=== PATIENT | female | born 1955 | race Caucasian/White ===

== ENCOUNTER → 2017-11-21 13:55 | Outpatient (CLI) | payer SELFPAY, MEDICAID ==
--- NOTE | 2017-11-21 14:16 | VDLE_ITS ---
Reason For Study: Swelling LLE RIGHT LEFT CFV is compressible, spontaneous, phasic, GSV is normal. competent and demonstrates normal CFV is compressible, spontaneous, phasic, augmentation. competent, and demonstrates normal Procedure augmentation. Exam performed in department. FV is compressible, spontaneous, phasic, A preliminary report was called and/or faxed competent and demonstrates normal to Dr. Paulson. augmentation. POP V is compressible, spontaneous, phasic, competent and demonstrates normal augmentation. T/P Trunk is compressible. PTV is compressible. LT PerV is compressible. Hypoechoic, non vascular structure noted Lt Pop Fossa measuring 0.73cm x 2.55cm. Interpretation Summary Deep veins of the left lower extremity are patent and compressible segmentally. There is no evidence of left lower extremity deep vein thrombosis. Valvular competence appears intact within the proximal deep venous system on the left . The left greater saphenous vein appears patent and compressible segmentally. A non-vascular, hypoechoic structure is noted in the left popliteal space, measuring 0.73 cm x 2.55 cm. This probably represents a popliteal cyst. Clinical correlation is advised. Ordering Physician: Héctor Paulson Referring Physician: Rolly Luciano Performed By: Gina Lemus RDCS, RVT
== END ==
PROVIDERS: Family Provider Family Medicine; PCP Family Medicine; Visit Provider Orthopaedic Surgery
DX: R22.42 Localized swelling, mass and lump, left lower limb (principal)
CPT/HCPCS: 93971

== ENCOUNTER → 2018-07-22 15:30 | Outpatient (CLI) | payer MEDICAID, SELFPAY ==
[2018-07-22 15:32] LABS: Bacteria 0 SEEN /hpf (None Seen); Mucous, Urine 0 SEEN /hpf (<or=2+); Red Blood Cells-Urine 0 SEEN /hpf (0-5); Squamous Epithelial Cells - UA 0 SEEN /hpf (5-10); White Blood Cells 0 SEEN /hpf (0-5)
[2018-07-22 15:43] LABS: Color, Urine Yellow (Yellow); Glucose, Dipstick Normal (Normal); Ketone-Dipstick Negative (Negative); Leukocyte Esterase-Dipstick 100 /ul (Negative); Nitrite-Dipstick Negative (Negative); Occult Blood-Urine 10 /ul (Negative); Protein-Dipstick Negative (Negative); Urine Bilirubin Dipstick Negative (Negative); Urine Clarity Clear (Clear); Urine Urobilinogen Normal (Normal)
== END ==
PROVIDERS: Family Provider Family Medicine; PCP Nurse Practitioner Family; Referring Provider Physician Assistant Medical; Visit Provider Physician Assistant Medical
DX: R10.9 Unspecified abdominal pain (principal)
CPT/HCPCS: 81001; 87086; 87088

== ENCOUNTER 2019-05-01 09:30 | Outpatient (RCR) | payer MEDICARE, OTHER, SELFPAY ==
--- NOTE | 2019-05-01 12:34 | HP.PTEVAL ---
Patient's Visit Information TONJA QUARLES is a 64 year old F referred to Physical Therapy by Diego Valera MD with a diagnosis of L knee OA and B hamstring tendonitis. Date of Evaluation: 04/10/19 Physical Therapist: Israel Phillip DPT - Visit Plan Frequency: 1-2x /Week Duration: 4-6 Weeks Plan: Start with quad/HS strengthening, glute strengtheing. ROM of L knee. HS stretching, eccentric HS strengthening. Add in foam rolling to reduce tissue tension. - Subjective Findings: Pt. ishere today for her initial evaluation with diagnosis of L knee OA and B hamstring tendonitis. Pt. reprots ahving increased L kne pain for years, but is steadily getting worse. Pt. reprots no N/T in either LE, but is having increased HS pain from gluteal region to distal knee. Pt. reports minimal pain with walkig on flat surface, but has increased pain with riding her bike, climbing hills and declines. Pt. also has increased pain with stair negotiation. Pt. did have an Xray showing OA of her L knee. Pt. reports mild pain at night especially at end ranges of motions. Pt. is hopeful to reduce symptoms in order to increase tolerance to all functuonal mobility and back to all recreational activiteis without limitations. - Pain L knee Pain Intensity (Out of 10): 3 Pain Intensity Range: 2, 6 B hamstrings Pain Intensity (Out of 10): 1 Pain Intensity Range: 0, 4 - Objective POSTURE: Pt. has increased L knee valgus with IR positioning (large amout of L kne valgus in stance). Pt. has normal positioning of R knee. PALPATION: Pt. has mild tenderness at medial and lateral jjoint line of L knee, distal and proxmila HS tenderness of B Hs. Distal worse on the R than L. Pt. has minimal joit effusion of L knee. NEURO: normal throughout bilateral LEs. ROM: L knee 0-5-121deg. R knee 0-0-128deg. Tight bilateral HS with icnreased proximal tendon pain. MMT: RLE 5-/5 throughout; except hip abd 4/5, hip ext 4/5, hip ER 4/5. LLE- ankle 5/5 throughout; knee-ext 4+/5, flexion 4+/5; hip- flexion 4/5, adb 4/5, ext 4/5, ER 4/5. GAIT: Pt. ambulates without AD. Pt. does have increased L knee valgus positioning with stance phase. Worse with standing and stair negotion with laoding of LLE. Normal R knee positioning. - Goals Goal 1:: Pt. to be I with HEP. Goal Time Frame: 4-6 Weeks Goal 2:: Pt. to have increased L knee ext to 0deg. Goal Time Frame: 4-6 Weeks Goal 3:: Pt. to have increased BLE strength by 1/2 grade of all effected musculature. Goal Time Frame: 4-6 Weeks Goal 4:: Pt. ambulate on level and uneven surfaces without increase insymptoms. Goal Time Frame: 4-6 Weeks Goal 5:: Pt. to sleep throughout the night without incerase in symptoms. Goal Time Frame: 4-6 Weeks - Rehabilitation Potential Physical Therapy Diagnosis: Pt. has signs and symptoms consistent with L knee OA with icnreased valgus positoning and B hamstrin tendonitis. Rehabilitation Potential: Fair - Anticipated Interventions Patient/Client Instruction: Educate patient on: Condition, Plan of Care, Risk Factors, Benefits of Fitness Program For the Purpose of:: To facilitate caregiver knowledge, To improve self management, To prevent re-injury, To improve ability to perform tasks related to life management, To improve tolerance to ADL's Therapeutic Exercise to Include: Strength training, Power training, Endurance training, Balance training, Postural training, Flexibilty training, Gait and locomotor training, Passive ROM, Active ROM For the Purpose of:: To decrease pain, To decrease swelling/inflammation, To increase ROM, To improve nutrient delivery to tissue, To increase oxygenation perfusion, To improve muscle performance and motor function Manual Therapy Techniques to Include: Mobilization, Soft tissue mobilization For the Purpose of:: To decrease pain, To decrease swelling/inflammation, To increase ROM, To improve nutrient delivery to tissue Thank you for the opportunity to evaluate your patient. For Medicare and Medicare HMO plans, please review the plan of care and approve it. It will need to be FAXED BACK to us at [phone] for Medicare purposes. For Medicare only, by signing this I certify the plan of care. Please let me know if there are questions or concerns regarding this plan of care. Physician Signature: Date:
--- NOTE | 2019-05-01 13:08 | HP.PTREVAL ---
Diego Valera MD, It has been my pleasure to treat TONJA QUARLES over the last 2 visits for L knee OA and B hamstring tendonitis. Please see the progress note below for an update on the physical therapy plan of care! Subjective: Pt. reports I felt okay, not fully better. Pt. reports having increased pain with walking and with HS stretching. Pt. reports being HEP compliant x1 daily. Objective/Function: Pt. tolerated all PT wtihotu adverse reaction. Pt. contius to progress with strengthening, but cotniunes to have increased pain with walking/standing and especially stair negotation. Pt. continues to be limiited in her ROM, especially with extension and has a large valgus positioning. Pt. has been given exercises and is to be diligent with HEP at home and check in with PT for follow up as needed. Plan Plan: Pt. to continue with stetching and strengthening for HEP. Pt. to complete on own for next few weeks and follow up with PT if/as needed. Goals Goal 1:: Pt. to be I with HEP. Goal Time Frame: 4-6 Weeks Goal Progress: Goal Met Goal 2:: Pt. to have increased L knee ext to 0deg. Goal Time Frame: 4-6 Weeks Goal Progress: Progressing Goal 3:: Pt. to have increased BLE strength by 1/2 grade of all effected musculature. Goal Time Frame: 4-6 Weeks Goal 4:: Pt. ambulate on level and uneven surfaces without increase insymptoms. Goal Time Frame: 4-6 Weeks Goal Progress: Goal Met Goal 5:: Pt. to sleep throughout the night without incerase in symptoms. Goal Time Frame: 4-6 Weeks Goal Progress: Progressing Anticipated Interventions Patient/Client Instruction: Educate patient on: Condition, Plan of Care, Risk Factors, Benefits of Fitness Program For the Purpose of:: To facilitate caregiver knowledge, To improve self management, To prevent re-injury, To improve ability to perform tasks related to life management, To improve tolerance to ADL's Therapeutic Exercise to Include: Strength training, Power training, Endurance training, Balance training, Postural training, Flexibilty training, Gait and locomotor training, Passive ROM, Active ROM For the Purpose of:: To decrease pain, To decrease swelling/inflammation, To increase ROM, To improve nutrient delivery to tissue, To increase oxygenation perfusion, To improve muscle performance and motor function Manual Therapy Techniques to Include: Mobilization, Soft tissue mobilization For the Purpose of:: To decrease pain, To decrease swelling/inflammation, To increase ROM, To improve nutrient delivery to tissue Please do not hesitate to contact me at [phone] by phone or if you have questions or concerns regarding this new plan of care! Sincerely, ISAURA SheikhT
== END 2019-05-01 19:00 | disposition home or self-care (01) ==
LOC: PT 09:30
PROVIDERS: Family Provider Family Medicine; PCP Nurse Practitioner Family; Referring Provider Orthopaedic Surgery; Visit Provider Orthopaedic Surgery
DX: M17.12 Unilateral primary osteoarthritis, left knee (principal)
CPT/HCPCS: 97110; 97161

== ENCOUNTER → 2019-05-23 10:35 | Outpatient (CLI) | payer MEDICARE, OTHER, SELFPAY ==
[2018-07-22 13:12] VITALS: BMI 24.9
[2019-05-23 12:24] LABS: Absolute Lymphocyte Count 1.36 X10^3/uL (0.83-4.51); Absolute Neutrophil Count 2.6 X10^3/uL (2.0-7.7); Basophil# 0.03 X10^3/uL; Basophil% 0.7 % (0-1); Eosinophil# 0.11 X10^3/uL; Eosinophils% 2.4 % (0-5); Hematocrit 41.7 % (37-47); Hemoglobin 13.6 g/dL (12.0-15.0); Lymphocyte # 1.36 X10^3/ul (4.0); Lymphocyte % 29.8 % (19-41); Mean Corp Hgb Conc 32.6 g/dL (32-36); Mean Corpuscular Volume 98.1 fL (81-99); Mean Platelet Vol. 10.7 fl (6.2-12.0); Monocyte# 0.45 X10^3/uL; Monocyte% 9.8 % (0-10); NRBC Flagged by Analyzer 0 % (0-5); Neutrophil # 2.58 X10^3/uL (2.7-7.7); Neutrophil % 56.4 % (47-70); Platelet Count 231 K/mm3 (150-450); RBC Distribution Width CV 12.5 % (11.6-14.6); RBC Distribution Width SD 44.9 fl (35.1-43.9); Red Blood Count 4.25 M/mm3 (4.2-5.4); White Blood Count 4.6 K/mm3 (4.4-11.0)
[2019-05-23 12:59] LABS: ALB/GLOB Ratio 1.1 RATIO (0.9-2.4); AST(SGOT) 14 U/L (15-37); Alanine Aminotransfer ALT/SGPT 19 U/L (13-56); Albumin, Serum 3.8 g/dL (3.2-5.0); Alkaline Phosphatase 90 U/L (45-117); Anion Gap 1 (5-15); BUN 15 mg/dL (7-18); Calcium,Total 8.8 mg/dL (8.5-10.1); Chloride 108 mmol/L (98-107); Creatinine, Serum 0.88 mg/dL (0.55-1.02); EST Glomerular Filtration Rate 69 mL/min (>60); Est Glom Filt Rate - Afr Amer 83 mL/min (>60); Globulin 3.4 g/dL (2.2-4.2); Glucose 102 mg/dL (74-106); Potassium 4.2 mmol/L (3.5-5.1); Protein, Total 7.2 g/dL (6.4-8.2); Sodium Level 140 mmol/L (136-145); Thyroid Stim Hormone (TSH) 2.82 uIU/mL (0.358-3.74)
[2019-05-23 13:06] LABS: Vitamin D,25 Hydroxy 29.9 ng/mL (29.95-100.01)
== END ==
PROVIDERS: Family Provider Family Medicine; PCP Family Medicine; Referring Provider Family Medicine; Visit Provider Family Medicine
DX: M13.0 Polyarthritis, unspecified (principal); Z79.1 Long term (current) use of non-steroidal anti-inflammatories (NSAID)
CPT/HCPCS: 36415; 80053; 82306; 84443; 85025

== ENCOUNTER → 2019-06-12 13:35 | Outpatient (CLI) | payer MEDICARE, OTHER, SELFPAY ==
--- NOTE | 2019-06-12 13:39 | BI_ITS ---
MAMMOGRAPHY - BILATERAL SCREENING REASON FOR EXAM: Female, 64 years old. Routine annual screening examination. PERTINENT HISTORY: Non-contributory. TECHNIQUE: Digital bilateral breast candida (3D mammographic acquisition) in the CC and MLO projections. 2-D mediolateral oblique (MLO) and craniocaudad (CC) views of both breasts were obtained. CAD: Full Field Digital Mammography with Computer Added Detection was performed. COMPARISON: Comparison is made with prior study dated April 05, 2017 and December 31, 2014. FINDINGS: Breast Composition: The breasts are heterogeneously dense, which may obscure small masses. There are no dominant masses or suspicious calcifications. Small benign-appearing right axillary lymph node. No other significant abnormalities are identified. There has been no significant change since the prior study. BI/SCREEN MAMM (CAD) W/CANDIDA BILAT IMPRESSION: Stable bilateral screening mammogram. Yearly follow-up mammogram recommended. (A) ASSESSMENT CATEGORY: BIRADS Category 2: Benign. A letter regarding these results will be sent to the patient by the facility within 30 days. Approximately 10% of breast cancers are not detected by mammography. A normal mammogram should not delay biopsy of a clinically suspicious abnormality. [id number] Electronically Signed: Andrzej Anaya, at 15:33 EDT , Service support ,
== END ==
PROVIDERS: Family Provider Family Medicine; PCP Family Medicine; Referring Provider Family Medicine; Visit Provider Family Medicine
DX: Z12.31 Encounter for screening mammogram for malignant neoplasm of breast (principal)
CPT/HCPCS: 77063; 77067

== ENCOUNTER → 2019-07-16 10:06 | Outpatient (CLI) | payer MEDICARE, OTHER, SELFPAY ==
--- NOTE | 2019-07-16 10:15 | VDLE_ITS ---
Reason For Study: LLE pain RIGHT LEFT CFV is compressible, spontaneous, phasic, GSV is normal. competent and demonstrates normal CFV is compressible, spontaneous, phasic, augmentation. competent, and demonstrates normal Procedure augmentation. Exam performed in department. FV is compressible, spontaneous, phasic, The exam was diagnostic. competent and demonstrates normal A preliminary report was called and/or faxed augmentation. to Dr. Luciano, PT's PCP. POP V is compressible, spontaneous, phasic, competent and demonstrates normal augmentation. T/P Trunk is compressible. PTV is compressible. LT PerV is compressible. Interpretation Summary Deep veins of the left lower extremity are patent and compressible segmentally. There is no evidence of left lower extremity deep vein thrombosis. Valvular competence appears intact within the proximal deep venous system on the left . The left great saphenous vein appears patent and compressible segmentally. Ordering Physician: DISHA LINDO Referring Physician: [facility] , Out of Performed By: Tessy Nguyen, RENNY, RVT
== END ==
PROVIDERS: Family Provider Family Medicine; PCP Family Medicine
DX: M79.662 Pain in left lower leg (principal); Z47.1 Aftercare following joint replacement surgery
CPT/HCPCS: 93971

== ENCOUNTER 2019-08-28 09:30 | Outpatient (RCR) | payer MEDICARE, OTHER, SELFPAY ==
[2018-07-22 13:12] VITALS: BMI 24.9
--- NOTE | 2019-07-17 12:21 | HP.PTEVAL_ITS ---
Patient's Visit Information TONJA QUARLES is a 64 year old F referred to Physical Therapy by DISHA LINDO with a diagnosis of L TKA. Date of Evaluation: 07/17/19 Physical Therapist: Israel Phillip DPT - Visit Plan Frequency: 3x /Week Duration: 5 weeks Plan: Start with ROM, especially TKE and flexion. Initiate quad iso, hip strengthening. Progress end ranges of motion as tolerated. Add in gait instruction progressing from AD once appropriate. May use ice and vaso for edema and pain control. - Subjective Findings: Pt. is here today for her initial evaluation with diagnosis of L TKA. DOS: 07/13/19. Pt. reports doing well while in hospital, 1 day, but was very painful the next few days. Pt. did go to ER for doppler, ruled out blood clot this date. Pt. reports not doing exercises due to pain. Pt. reports having 8/10 pain pre treatment this date. Pt. has been walking, but short distances. Pt. denies N/T, no fever, no chilles, no changes in vision. Pt. is using FWW as presribed. Pt. has bandage on her knee without visible drainage. Pt. like to ride her bike and likes gardening. Pt. is hopeful to get back to all of these activities without limitations. - Pain L knee Pain Intensity (Out of 10): 8 Pain Intensity Range: 4, 10 - Objective POSTURE: Pt. is able to stand with FWW. Pt. lacks TKE on L side with increased R lateral lean. PALPATION: Pt. has no signs of infection, no redness. Pt. has incision covered with silvernitrate bandage. NEURO: normal throughout B LEs. ROM: L knee 0-6-45. Pt. was very apprehensive to bend her knee this date seoncdary to increasred pain. Pt. had increased tolerance to nustep where she was in control onf motion. MMT: LLE- ankle- 5-/5 throughout; knee- pt. unable to complete SLR this date, but does have initiation of quad set. Pt. has 4/5 hip abd and extension this date. GAIT: Pt. ambulates with FWW PHU. Pt. was ambulating with increased ankle PF and sligth knee flexion with minimal WBing on LLE. Pt. did have improved pattern, but limited with TKE and flexion throughout gait pattern. STAIRS: Step to pattern loading RLE only with BHR. - Goals Goal 1:: Pt. to be I with HEP. Goal Time Frame: 4-6 Weeks Goal 2:: Pt. to have increased L knee ROM to 0-0-120deg allowing for proper stair negotiation and gait pattern. Goal Time Frame: 4-6 Weeks Goal 3:: Pt. to to complete SLR x20 with TKE on her LLE. Goal Time Frame: 4-6 Weeks Goal 4:: Pt. to ambulate with FWW with normal gait pattern without increase in symptoms. Goal Time Frame: 4-6 Weeks Goal 5:: Pt. to have 4+/5 strength throughout LLE. Goal Time Frame: 4-6 Weeks Goal 6:: Pt. to negotiate steps with reciprocal pattern with 1 HR without increase in symptoms. Goal Time Frame: 4-6 Weeks - Rehabilitation Potential Physical Therapy Diagnosis: Pt. has signs and symptoms consistent with L TKA. Pt. has subsequent hypomobility, LLE weakness, increased paina and difficulty with walking. Rehabilitation Potential: Excellent - Anticipated Interventions Patient/Client Instruction: Educate patient on: Condition, Plan of Care, Risk Factors, Benefits of Fitness Program For the Purpose of:: To foster healthy habits, To improve decision making, To facilitate caregiver knowledge, To improve self management, To prevent re- injury, To improve ability to perform tasks related to life management, To improve tolerance to ADL's Therapeutic Exercise to Include: Strength training, Power training, Endurance training, Balance training, Coordination, Body mechanics, Postural training, Flexibilty training, Gait and locomotor training, Passive ROM, Active ROM, Dynamic Lumbar Stabilization For the Purpose of:: To decrease pain, To decrease swelling/inflammation, To increase ROM, To improve nutrient delivery to tissue, To increase oxygenation perfusion, To improve muscle performance and motor function, To improve ability to perform ADL's, To increase tolerance to activity/condition/position, To decrease level of supervision to perform tasks, To improve ability of physical actions for home/community/work/leisure, To improve gait and locomotor functions, To improve health of tissue Cryotherapy (ice pack, ice massage): Yes Vasopneumatic device: Yes For the Purpose of:: To decrease pain, To decrease swelling/inflammation, To increase ROM, To improve nutrient delivery to tissue Thank you for the opportunity to evaluate your patient. For Medicare and Medicare HMO plans, please review the plan of care and approve it. It will need to be FAXED BACK to us at [phone] for Medicare purposes. For Medicare only, by signing this I certify the plan of care. Please let me know if there are questions or concerns regarding this plan of care. Physician Signature: Date:
--- NOTE | 2019-08-03 13:07 | HP.PTREVAL_ITS ---
DISHA LINDO, It has been my pleasure to treat TONJA QUARLES over the last 8 visits for L TKA. Please see the progress note below for an update on the physical therapy plan of care! Subjective: Pt. reports I was pretty sore the other night, but I do think I am getting better. Pt. arrives today using SPC. Pt. reprots having 3/10 pain pre treatment in L knee. Pt. is to see physician tomorrow. P. is HEP compliant. Objective/Function: Pt. tolerated all PT without adverse reaction. Pt. continues to progress as expected. ROM: 0-3-112deg. PROM 0-0-115 deg, MMT: Pt. is able to complete SLR with slgiht extensor lag, but minimal. Pt. has 4/5 hip abd and hip extension. 4/5 knee flexion. Pt. is ambulating with SPC, but contiunes to require increased VCing for proper TKE during stance phase and to increase knee flexion. STAIRS: Pt. is able to complete with step to pattern with BHR, occassional reciprocal pattern, but does increase her symptoms. Plan Plan: Cont. with POC, progressing strength and ROM. Goals Goal 1:: Pt. to be I with HEP. Goal Time Frame: 4-6 Weeks Goal Progress: Progressing Goal 2:: Pt. to have increased L knee ROM to 0-0-120deg allowing for proper stair negotiation and gait pattern. Goal Time Frame: 4-6 Weeks Goal Progress: Progressing Goal 3:: Pt. to to complete SLR x20 with TKE on her LLE. Goal Time Frame: 4-6 Weeks Goal Progress: Progressing Goal 4:: Pt. to ambulate with FWW with normal gait pattern without increase in symptoms. Goal Time Frame: 4-6 Weeks Goal Progress: Progressing Goal 5:: Pt. to have 4+/5 strength throughout LLE. Goal Time Frame: 4-6 Weeks Goal Progress: Progressing Goal 6:: Pt. to negotiate steps with reciprocal pattern with 1 HR without increase in symptoms. Goal Time Frame: 4-6 Weeks Goal Progress: Progressing Anticipated Interventions Patient/Client Instruction: Educate patient on: Condition, Plan of Care, Risk Factors, Benefits of Fitness Program For the Purpose of:: To foster healthy habits, To improve decision making, To facilitate caregiver knowledge, To improve self management, To prevent re- injury, To improve ability to perform tasks related to life management, To improve tolerance to ADL's Therapeutic Exercise to Include: Strength training, Power training, Endurance training, Balance training, Coordination, Body mechanics, Postural training, Flexibilty training, Gait and locomotor training, Passive ROM, Active ROM, Dynamic Lumbar Stabilization For the Purpose of:: To decrease pain, To decrease swelling/inflammation, To increase ROM, To improve nutrient delivery to tissue, To increase oxygenation perfusion, To improve muscle performance and motor function, To improve ability to perform ADL's, To increase tolerance to activity/condition/position, To decrease level of supervision to perform tasks, To improve ability of physical actions for home/community/work/leisure, To improve gait and locomotor functions, To improve health of tissue Cryotherapy (ice pack, ice massage): Yes Vasopneumatic device: Yes For the Purpose of:: To decrease pain, To decrease swelling/inflammation, To increase ROM, To improve nutrient delivery to tissue Please do not hesitate to contact me at [phone] by phone or if you have questions or concerns regarding this new plan of care! Sincerely, ISAURA SheikhT
--- NOTE | 2019-08-28 11:41 | HP.PTREVAL_ITS ---
DISHA LINDO, It has been my pleasure to treat TONJA QUARLES over the last 18 visits for L TKA. Please see the progress note below for an update on the physical therapy plan of care! Subjective: Pt. reports no pain currently. She was able to stand at [employer] and cook for multiple hours without issues. Pt. reports being 95% better overall. Pt. reports occassional stiffness, but minimal pain. Pt. reports being HEP compliant overall. Objective/Function: ROM: PROM 0-0-125deg, AROM- 0-1-120deg. MMT 4+/5 throughout BLEs. Core- fair-. GAIT: patient. ambulates withouT AD. She has slight antalgic pattern during L stance phase, but minimal. Stairs; Pt. is able to compelte with reciprocal pattern, mild L hip (greater trochanteric pain with descending). Plan Plan: Pt. to follow up [facility] physician, most likely DC to HEP at this point intime. Goals Goal 1:: Pt. to be I with HEP. Goal Time Frame: 4-6 Weeks Goal Progress: Goal Met Goal 2:: Pt. to have increased L knee ROM to 0-0-120deg allowing for proper stair negotiation and gait pattern. Goal Time Frame: 4-6 Weeks Goal Progress: Goal Met Goal 3:: Pt. to to complete SLR x20 with TKE on her LLE. Goal Time Frame: 4-6 Weeks Goal Progress: Goal Met Goal 4:: Pt. to ambulate with FWW with normal gait pattern without increase in symptoms. Goal Time Frame: 4-6 Weeks Goal Progress: Goal Met Goal 5:: Pt. to have 4+/5 strength throughout LLE. Goal Time Frame: 4-6 Weeks Goal Progress: Goal Met Goal 6:: Pt. to negotiate steps with reciprocal pattern with 1 HR without increase in symptoms. Goal Time Frame: 4-6 Weeks Goal Progress: Goal Met Anticipated Interventions Patient/Client Instruction: Educate patient on: Condition, Plan of Care, Risk Factors, Benefits of Fitness Program For the Purpose of:: To foster healthy habits, To improve decision making, To facilitate caregiver knowledge, To improve self management, To prevent re- injury, To improve ability to perform tasks related to life management, To improve tolerance to ADL's Therapeutic Exercise to Include: Strength training, Power training, Endurance training, Balance training, Coordination, Body mechanics, Postural training, Flexibilty training, Gait and locomotor training, Passive ROM, Active ROM, Dynamic Lumbar Stabilization For the Purpose of:: To decrease pain, To decrease swelling/inflammation, To increase ROM, To improve nutrient delivery to tissue, To increase oxygenation perfusion, To improve muscle performance and motor function, To improve ability to perform ADL's, To increase tolerance to activity/condition/position, To decrease level of supervision to perform tasks, To improve ability of physical actions for home/community/work/leisure, To improve gait and locomotor functions, To improve health of tissue Cryotherapy (ice pack, ice massage): Yes Vasopneumatic device: Yes For the Purpose of:: To decrease pain, To decrease swelling/inflammation, To increase ROM, To improve nutrient delivery to tissue Please do not hesitate to contact me at [phone] by phone or if you have questions or concerns regarding this new plan of care! Sincerely, Israel Phillip DPT
--- NOTE | 2019-11-06 07:50 | HP.PTDCNRP_ITS ---
HP - Discharge Summary (1) - Patient Information TONJA QUARLES was seen in my office for initial evaluation on 07/16/19. The following Plan of Care was established for this patient: Initial Frequency: 3x /Week Initial Duration: 5 weeks - Anticipated Interventions Patient/Client Instruction: Educate patient on: Condition, Plan of Care, Risk Factors, Benefits of Fitness Program For the Purpose of:: To foster healthy habits, To improve decision making, To facilitate caregiver knowledge, To improve self management, To prevent re- injury, To improve ability to perform tasks related to life management, To improve tolerance to ADL's Therapeutic Exercise to Include: Strength training, Power training, Endurance training, Balance training, Coordination, Body mechanics, Postural training, F lexibilty training, Gait and locomotor training, Passive ROM, Active ROM, Dynamic Lumbar Stabilization For the Purpose of:: To decrease pain, To decrease swelling/inflammation, To increase ROM, To improve nutrient delivery to tissue, To increase oxygenation perfusion, To improve muscle performance and motor function, To improve ability to perform ADL's, To increase tolerance to activity/condition/position, To decrease level of supervision to perform tasks, To improve ability of physical actions for home/community/work/leisure, To improve gait and locomotor functions, To improve health of tissue Cryotherapy (ice pack, ice massage): Yes Vasopneumatic device: Yes For the Purpose of:: To decrease pain, To decrease swelling/inflammation, To increase ROM, To improve nutrient delivery to tissue This patient was last seen in our office 08/28/19. Pertinent comments regarding their Physical therapy will appear below: Pt. was seen for her TKA and did very well. Pt. has not been seen in several months and will be DC from PT at this point intime. At this point I will be discontinuing this patient from physical therapy. I would be happy to see this patient again in the future if found appropriate by the physician. Thank you! Israel Phillip, ISAURAT
== END 2019-08-28 19:00 | disposition home or self-care (01) ==
LOC: PT 09:30
PROVIDERS: Family Provider Family Medicine; PCP Family Medicine
DX: M17.12 Unilateral primary osteoarthritis, left knee (principal)
CPT/HCPCS: 97016; 97110; 97161; 97530

== ENCOUNTER → 2020-05-05 11:55 | Outpatient (CLI) | payer MEDICARE, OTHER, SELFPAY ==
[2019-12-04 11:35] VITALS: BMI 24.9
--- NOTE | 2020-05-05 12:00 | RAD_ITS ---
STUDY: X-RAY CHEST REASON FOR EXAM: Female, 65 years old. CONGESTION, SOB TECHNIQUE: PA and lateral views of the chest. COMPARISON: Comparison is made with prior study dated 01/14/2017. FINDINGS: Hyperinflation. The lungs are clear. There is no demonstrated pleural abnormality. Normal size heart. Normal mediastinum and liz. Normal visualized pulmonary arteries. Normal visualized aortic arch and descending thoracic aorta. There are diffuse degenerative changes of the visualized thoracic spine. Normal visualized ribs, clavicles, and shoulders. There is no demonstrated abnormality of the visualized soft tissue structures of the upper abdomen. RAD/Chest PA and Lateral IMPRESSION: Hyperinflation. The lungs are clear. Electronically Signed: Andrzej Anaya, at 13:24 EDT , Service support ,
[2020-05-05 14:52] LABS: Absolute Lymphocyte Count 1.45 X10^3/uL (0.83-4.51); Absolute Neutrophil Count 2.9 X10^3/uL (2.0-7.7); Basophil# 0.03 X10^3/uL; Basophil% 0.6 % (0-1); Eosinophil# 0.11 X10^3/uL; Eosinophils% 2.2 % (0-5); Hematocrit 42.2 % (37-47); Hemoglobin 13.6 g/dL (12.0-15.0); Lymphocyte # 1.45 X10^3/ul (4.0); Lymphocyte % 28.6 % (19-41); Mean Corp Hgb Conc 32.2 g/dL (32-36); Mean Corpuscular Hgb 31.7 pg (27.0-32.0); Mean Corpuscular Volume 98.4 fL (81-99); Mean Platelet Vol. 11.2 fl (6.2-12.0); Monocyte# 0.53 X10^3/uL; Monocyte% 10.5 % (0-10); NRBC Flagged by Analyzer 0 % (0-5); Neutrophil # 2.91 X10^3/uL (2.7-7.7); Neutrophil % 57.3 % (47-70); Platelet Count 246 K/mm3 (150-450); RBC Distribution Width CV 12.7 % (11.6-14.6); RBC Distribution Width SD 45.3 fl (35.1-43.9); Red Blood Count 4.29 M/mm3 (4.2-5.4); White Blood Count 5.1 K/mm3 (4.4-11.0)
[2020-05-05 15:00] LABS: Erythrocyte Sedimentation Rate < 1 mm/hr (0-30)
[2020-05-05 15:27] LABS: ALB/GLOB Ratio 1.1 RATIO (0.9-2.4); AST(SGOT) 13 U/L (15-37); Alanine Aminotransfer ALT/SGPT 19 U/L (13-56); Albumin, Serum 3.8 g/dL (3.2-5.0); Alkaline Phosphatase 95 U/L (45-117); Anion Gap 7 (5-15); BUN 13 mg/dL (7-18); BUN/Creat Ratio 13.8 RATIO (10-20); Calcium,Total 8.9 mg/dL (8.5-10.1); Chloride 103 mmol/L (98-107); Creatinine, Serum 0.94 mg/dL (0.55-1.02); EST Glomerular Filtration Rate 63 mL/min (>60); Est Glom Filt Rate - Afr Amer 76 mL/min (>60); Globulin 3.5 g/dL (2.2-4.2); Glucose 99 mg/dL (74-106); Potassium 3.8 mmol/L (3.5-5.1); Protein, Total 7.3 g/dL (6.4-8.2); Sodium Level 139 mmol/L (136-145); Thyroid Stim Hormone (TSH) 2.72 uIU/mL (0.358-3.74)
== END ==
PROVIDERS: PCP Family Medicine; Referring Provider Family Medicine; Visit Provider Family Medicine
DX: R53.83 Other fatigue (principal); R09.89 Other specified symptoms and signs involving the circulatory and respiratory systems
CPT/HCPCS: 36415; 71046; 80053; 84443; 85025; 85652

== ENCOUNTER → 2020-07-08 08:50 | Outpatient (CLI) | payer MEDICARE, OTHER, SELFPAY ==
[2019-12-04 11:35] VITALS: BMI 24.9
[2020-07-08 10:01] LABS: Absolute Lymphocyte Count 1.21 X10^3/uL (0.83-4.51); Absolute Neutrophil Count 2.6 X10^3/uL (2.0-7.7); Basophil# 0.03 X10^3/uL; Basophil% 0.7 % (0-1); Eosinophil# 0.12 X10^3/uL; Eosinophils% 2.7 % (0-5); Hematocrit 41.4 % (37-47); Hemoglobin 12.9 g/dL (12.0-15.0); Lymphocyte # 1.21 X10^3/ul (4.0); Lymphocyte % 26.8 % (19-41); Mean Corp Hgb Conc 31.2 g/dL (32-36); Mean Corpuscular Hgb 31.3 pg (27.0-32.0); Mean Corpuscular Volume 100.5 fL (81-99); Mean Platelet Vol. 10.8 fl (6.2-12.0); Monocyte# 0.52 X10^3/uL; Monocyte% 11.5 % (0-10); NRBC Flagged by Analyzer 0 % (0-5); Neutrophil # 2.61 X10^3/uL (2.7-7.7); Neutrophil % 57.9 % (47-70); Platelet Count 238 K/mm3 (150-450); RBC Distribution Width CV 12.6 % (11.6-14.6); RBC Distribution Width SD 46.9 fl (35.1-43.9); Red Blood Count 4.12 M/mm3 (4.2-5.4); White Blood Count 4.5 K/mm3 (4.4-11.0)
[2020-07-08 10:44] LABS: AST(SGOT) 16 U/L (15-37); Alanine Aminotransfer ALT/SGPT 17 U/L (13-56); Albumin, Serum 3.4 g/dL (3.2-5.0); Alkaline Phosphatase 94 U/L (45-117); Anion Gap 5 (5-15); BUN 14 mg/dL (7-18); BUN/Creat Ratio 14.9 RATIO (10-20); Calcium,Total 8.7 mg/dL (8.5-10.1); Chloride 108 mmol/L (98-107); Cholesterol 239 mg/dL (200); Creatinine, Serum 0.94 mg/dL (0.55-1.02); EST Glomerular Filtration Rate 63 mL/min (>60); Est Glom Filt Rate - Afr Amer 77 mL/min (>60); Globulin 3.4 g/dL (2.2-4.2); Glucose 94 mg/dL (74-106); High Density Lipoprotein 57 mg/dL; Potassium 4.2 mmol/L (3.5-5.1); Protein, Total 6.8 g/dL (6.4-8.2); Sodium Level 140 mmol/L (136-145); T4 Free Direct 1.09 ng/dL (0.76-1.46); Thyroid Stim Hormone (TSH) 3.44 uIU/mL (0.358-3.74); Triglycerides 107 mg/dL; Very Low Density Lipoprotein 21 mg/dL (5-40)
== END ==
PROVIDERS: PCP Family Medicine; Referring Provider Family Medicine; Visit Provider Family Medicine
DX: E78.00 Pure hypercholesterolemia, unspecified (principal); E61.1 Iron deficiency; E07.9 Disorder of thyroid, unspecified; K21.9 Gastro-esophageal reflux disease without esophagitis
CPT/HCPCS: 36415; 80053; 80061; 84439; 84443; 85025

== ENCOUNTER → 2020-07-10 14:08 | Outpatient (CLI) | payer MEDICARE, OTHER, SELFPAY ==
[2019-12-04 11:35] VITALS: BMI 24.9
--- NOTE | 2020-07-10 14:09 | US_ITS ---
HISTORY: Asymmetrical thyroid. 56 images. No comparison imaging. Findings: The right lobe of the thyroid gland measures 4.9 x 1.8 x 1.6 cm. It is heterogeneous. The left lobe of the thyroid gland measures 4 x 1.4 x 1.4 cm. It is heterogeneous. The thyroid isthmus is 4 mm thick. Color Doppler imaging to both left and right lobes of the thyroid gland demonstrate flow. Within the inferior portion of the right lobe of the thyroid gland there is a lesion. It measures 5 x 7 x 5 mm. It is solid. It is hypoechoic relative to adjacent thyroid tissue. It is tolerable and line. It has smooth margins. There are no associated calcifications. This has a TI-Rads score of 7. This is highly suspicious. Within the left lobe of the thyroid gland there is another lesion. This lesion is posterior. It is solid or almost completely solid. It measures 4 x 3 x 4 mm. It is hypoechoic. It is wider than tall. It has smooth margins. There are are micro-calcifications. This has a TI-Rads score of 10. This is highly suspicious. US/Thyroid IMPRESSION: 2 highly suspicious lesions 1 within the left lobe and within the right lobe. In the right lobe it has an average diameter of 5.5 mm. In the left lobe the lesion has an average diameter of less than 4 mm. Follow-up imaging should be performed annually for 5 years, to assess for change, or growth. at 0600 Reported and signed by: Waqas Harman MD Electronically Signed: Waqas Harman MD at 5:58 EDT Tel , Service support ,
== END ==
PROVIDERS: PCP Family Medicine; Referring Provider Family Medicine; Visit Provider Family Medicine
DX: E07.9 Disorder of thyroid, unspecified (principal)
CPT/HCPCS: 76536

== ENCOUNTER → 2020-07-23 08:54 | Outpatient (CLI) | payer MEDICARE, OTHER, SELFPAY ==
[2019-12-04 11:35] VITALS: BMI 24.9
--- NOTE | 2020-07-23 08:57 | NM_ITS ---
CLINICAL: 65-year-old female with reported history of thyroid nodularity. I-123 THYROID UPTAKE and SCAN COMPARISON: Thyroid ultrasound report 07/10/2020 FINDINGS: The patient was administered a 324 uCi I-123 capsule by mouth. The 4-hour I-123 radioactive iodine thyroidal uptake was calculated to be 13.1 % (normal 5 to 25 %). The 24-hour I-123 radioactive iodine thyroidal uptake was calculated to be 34.6 % (normal 5 to 40 %). The I-123 thyroid scan demonstrates homogeneous radiopharmaceutical concentration throughout both lobes of a U-shaped thyroid gland. There are no colloidal parenchymal hypofunctioning cold nodules noted in either lobe of the thyroid gland. NM/Thyroid Uptake Single or Mult IMPRESSION: 1. NORMAL 4- and 24-hour I-123 radioactive iodine thyroidal uptakes. 2. 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 (Daniela et al, J Nucl Med 32: 1455, 1991). 3. No hypofunctioning-cold nodules are identified. Electronically Signed: Mason West DO at 22:34 EDT Tel , Service support ,
== END ==
PROVIDERS: PCP Family Medicine; Referring Provider Family Medicine; Visit Provider Family Medicine
DX: E04.2 Nontoxic multinodular goiter (principal)
CPT/HCPCS: 78012; A9516

== ENCOUNTER → 2021-06-09 09:41 | Outpatient (CLI) | payer MEDICARE, OTHER, SELFPAY ==
[2021-06-09 12:07] LABS: Erythrocyte Sedimentation Rate < 1 mm/hr (0-30)
[2021-06-09 12:11] LABS: Absolute Lymphocyte Count 1.32 X10^3/uL (0.83-4.51); Absolute Neutrophil Count 3.6 X10^3/uL (2.0-7.7); Basophil# 0.04 X10^3/uL; Basophil% 0.7 % (0-1); Eosinophil# 0.16 X10^3/uL; Eosinophils% 2.7 % (0-5); Hematocrit 41.3 % (37-47); Hemoglobin 13.4 g/dL (12.0-15.0); Lymphocyte # 1.32 X10^3/ul (0.83-4.51); Lymphocyte % 22.5 % (19-41); Mean Corp Hgb Conc 32.4 g/dL (32-36); Mean Corpuscular Hgb 32.1 pg (27.0-32.0); Mean Corpuscular Volume 98.8 fL (81-99); Mean Platelet Vol. 11.7 fl (6.2-12.0); Monocyte% 11.9 % (0-10); NRBC Flagged by Analyzer 0 % (0-5); Neutrophil # 3.59 X10^3/uL (2.7-7.7); Neutrophil % 61.3 % (47-70); Platelet Count 248 K/mm3 (150-450); RBC Distribution Width CV 12.8 % (11.6-14.6); RBC Distribution Width SD 46.1 fl (35.1-43.9); Red Blood Count 4.18 M/mm3 (4.2-5.4); White Blood Count 5.9 K/mm3 (4.4-11.0)
[2021-06-09 12:34] LABS: AST(SGOT) 14 U/L (15-37); Alanine Aminotransfer ALT/SGPT 22 U/L (13-56); Albumin, Serum 3.4 g/dL (3.2-5.0); Alkaline Phosphatase 90 U/L (45-117); Anion Gap 6 (5-15); BUN 10 mg/dL (7-18); BUN/Creat Ratio 11.4 RATIO (10-20); CRP < 2.90 mg/L (0.0-3.0); Calcium,Total 8.9 mg/dL (8.5-10.1); Chloride 105 mmol/L (98-107); Creatinine, Serum 0.88 mg/dL (0.55-1.02); EST Glomerular Filtration Rate 68 mL/min (>60); Est Glom Filt Rate - Afr Amer 83 mL/min (>60); Globulin 3.5 g/dL (2.2-4.2); Glucose 72 mg/dL (74-106); Potassium 4.2 mmol/L (3.5-5.1); Protein, Total 6.9 g/dL (6.4-8.2); Sodium Level 139 mmol/L (136-145)
== END ==
PROVIDERS: PCP Family Medicine; Referring Provider Family Medicine; Visit Provider Family Medicine
DX: R10.813 Right lower quadrant abdominal tenderness (principal)
CPT/HCPCS: 36415; 80053; 85025; 85652; 86140

== ENCOUNTER → 2021-06-11 14:25 | Outpatient (CLI) | payer MEDICARE, OTHER, SELFPAY ==
--- NOTE | 2021-06-11 14:26 | CT_ITS ---
STUDY: CT ABDOMEN AND PELVIS WITHOUT CONTRAST REASON FOR EXAM: Female, 66 years old. Acute RLQ pain and fullness with bending. Fullness with exam RADIATION DOSAGE (If Supplied By Facility): CTDIvol = ( 7.50 ) mGy, DLP = ( 359.90 ) mGycm TECHNIQUE: Transaxial images were obtained from the dome of the diaphragm to the symphysis pubis without oral contrast, and without intravenous contrast. Sagittal and coronal images were reconstructed. Individualized dose optimization techniques were used for this CT. COMPARISON: None. FINDINGS: Minimal increased linear markings along the posterior medial aspect of the left lower lobe suggestive of linear atelectasis and/or scarring. The visualized portions of the heart are within normal limits. Normal liver. The gallbladder is contracted. Normal spleen. Normal pancreas. Normal bilateral adrenal glands. Normal right kidney. Normal left kidney. Normal visualized stomach. Normal small intestine. Moderate amount of fecal material is seen throughout the colon. The appendix is visualized and appears normal. There is scattered atherosclerotic calcification of the abdominal aorta, without a demonstrated aneurysm. Normal inferior vena cava. Normal retroperitoneum. Normal urinary bladder. Normal abdominal wall. There are diffuse degenerative changes of the visualized lumbar spine. Minimal anterior listhesis of L3 on L4. CT/Abdomen/Pelvis without Cont IMPRESSION: Moderate amount of fecal material is seen in the colon. No acute abnormality is seen. Electronically Signed: Andrzej Anaya MD at 9:21 EDT , Service support ,
== END ==
PROVIDERS: PCP Family Medicine; Referring Provider Family Medicine; Visit Provider Family Medicine
DX: R10.813 Right lower quadrant abdominal tenderness (principal)
CPT/HCPCS: 74176

== ENCOUNTER → 2021-07-03 08:43 | Outpatient (CLI) | payer MEDICARE, OTHER, SELFPAY ==
[2021-07-03 10:12] LABS: Cholesterol 254 mg/dL (200); High Density Lipoprotein 56 mg/dL; Triglycerides 106 mg/dL
[2021-07-03 10:13] LABS: Very Low Density Lipoprotein 21 mg/dL (5-40)
== END ==
PROVIDERS: PCP Family Medicine; Referring Provider Family Medicine; Visit Provider Family Medicine
DX: E78.00 Pure hypercholesterolemia, unspecified (principal)
CPT/HCPCS: 36415; 80061

== ENCOUNTER → 2021-08-10 08:22 | Outpatient (CLI) | payer MEDICARE, OTHER, SELFPAY ==
[2021-08-10 10:18] LABS: Cholesterol 165 mg/dL (200); High Density Lipoprotein 64 mg/dL; Triglycerides 54 mg/dL; Very Low Density Lipoprotein 11 mg/dL (5-40)
== END ==
PROVIDERS: PCP Family Medicine; Referring Provider Family Medicine; Visit Provider Family Medicine
DX: E78.00 Pure hypercholesterolemia, unspecified (principal)
CPT/HCPCS: 36415; 80061

== ENCOUNTER → 2021-08-28 08:08 | Outpatient (CLI) | payer MEDICARE, OTHER, SELFPAY ==
[2021-08-28 10:10] LABS: Absolute Lymphocyte Count 1.37 X10^3/uL (0.83-4.51); Absolute Neutrophil Count 3.3 X10^3/uL (2.0-7.7); Basophil# 0.03 X10^3/uL; Basophil% 0.5 % (0-1); Eosinophil# 0.15 X10^3/uL; Eosinophils% 2.6 % (0-5); Hematocrit 40.7 % (37-47); Hemoglobin 13.4 g/dL (12.0-15.0); Lymphocyte # 1.37 X10^3/ul (0.83-4.51); Lymphocyte % 23.8 % (19-41); Mean Corp Hgb Conc 32.9 g/dL (32-36); Mean Corpuscular Hgb 31.8 pg (27.0-32.0); Mean Corpuscular Volume 96.4 fL (81-99); Mean Platelet Vol. 10.4 fl (6.2-12.0); Monocyte# 0.83 X10^3/uL; Monocyte% 14.4 % (0-10); NRBC Flagged by Analyzer 0 % (0-5); Neutrophil # 3.32 X10^3/uL (2.7-7.7); Neutrophil % 57.8 % (47-70); Platelet Count 240 K/mm3 (150-450); RBC Distribution Width CV 12.6 % (11.6-14.6); RBC Distribution Width SD 44.9 fl (35.1-43.9); Red Blood Count 4.22 M/mm3 (4.2-5.4); White Blood Count 5.8 K/mm3 (4.4-11.0)
[2021-08-28 10:34] LABS: ALB/GLOB Ratio 0.9 RATIO (0.9-2.4); AST(SGOT) 15 U/L (15-37); Alanine Aminotransfer ALT/SGPT 23 U/L (13-56); Albumin, Serum 3.3 g/dL (3.2-5.0); Alkaline Phosphatase 98 U/L (45-117); Anion Gap 5 (5-15); BUN 15 mg/dL (7-18); BUN/Creat Ratio 18.6 RATIO (10-20); Calcium,Total 8.8 mg/dL (8.5-10.1); Chloride 106 mmol/L (98-107); Cholesterol 177 mg/dL (200); Creatinine, Serum 0.81 mg/dL (0.55-1.02); EST Glomerular Filtration Rate 75 mL/min (>60); Est Glom Filt Rate - Afr Amer 91 mL/min (>60); Globulin 3.5 g/dL (2.2-4.2); Glucose 94 mg/dL (74-106); High Density Lipoprotein 61 mg/dL; Protein, Total 6.8 g/dL (6.4-8.2); Sodium Level 141 mmol/L (136-145); Thyroid Stim Hormone (TSH) 3.09 uIU/mL (0.358-3.74); Triglycerides 69 mg/dL; Very Low Density Lipoprotein 14 mg/dL (5-40)
== END ==
PROVIDERS: PCP Family Medicine; Referring Provider Family Medicine; Visit Provider Family Medicine
DX: Z00.00 Encounter for general adult medical examination without abnormal findings (principal); Z23 Encounter for immunization; R10.813 Right lower quadrant abdominal tenderness; E78.00 Pure hypercholesterolemia, unspecified; M51.37 Other intervertebral disc degeneration, lumbosacral region
CPT/HCPCS: 36415; 80053; 80061; 84443; 85025

== ENCOUNTER 2021-10-09 15:31 | Outpatient (CLI) | payer MEDICARE, OTHER, SELFPAY ==
--- NOTE | 2021-10-09 15:50 | MRI_ITS ---
STUDY: MR Spine Lumbar W/O Contrast 10/09/2021 4:38 PM REASON FOR EXAM: Female, 66 years old. Technologist Notes SPINAL STENOSIS X10 YEARS. pain TECHNIQUE: MR Spine Lumbar W/O Contrast Standardized fat and water weighted pulse sequences were obtained. COMPARISON: None FINDINGS: T12-L1: Normal endplates. Normal disc height, hydration and morphology. Normal bilateral facet joints. Normal central canal and bilateral lateral recesses. Normal bilateral intervertebral neural foramina. Normal lumbar lordosis. There is a levoscoliosis of the lumbar spine. Normal conus medullaris that terminates at the L1. L1-2: Normal endplates. Normal disc height and morphology. Normal central canal and intervertebral neuroforamina. There is bilateral facet arthropathy. There is bilateral ligamentum flavum thickening. L2-3: Loss of intervertebral disc height. There is endplate spondylosis of the vertebral body. Normal central canal and intervertebral neuroforamina. There is bilateral facet arthropathy. Posterior disc bulge osteophyte complex. Discogenic endplate changes. L3-4: Loss of intervertebral disc height. There is endplate spondylosis of the vertebral body. There is bilateral facet arthropathy. Grade 1 anterolisthesis of L3 on L4. Distance measures 4.1 mm. This combined with the scoliosis is causing severe right neural foraminal stenosis. Compression of the exiting right L3 nerve root. Severe spinal stenosis. There is bilateral ligamentum flavum thickening. Discogenic endplate changes. L4-5: Loss of intervertebral disc height. There is endplate spondylosis of the vertebral body. There is an extruded disc herniation. Impression upon anterior thecal sac. Narrowing of the lateral recess. Narrowing of the Intervertebral neuroforamina. There is bilateral facet arthropathy. Discogenic endplate changes. L5-S1: Loss of intervertebral disc height. There is endplate spondylosis of the vertebral body. There is bilateral facet arthropathy. Normal central canal and intervertebral neuroforamina. There is bilateral ligamentum flavum thickening. Normal visualized sacral ala. Normal visualized paraspinous soft tissue structures. MRI/Spine Lumbar (Routine) IMPRESSION: Multilevel degenerative changes, as described above. Findings most significant at L4-5 with an extruded disc herniation. There is multilevel spinal stenosis. Electronically Signed: Barrie Browne MD at 16:43 EST , Service support ,
== END 2021-10-09 23:59 | disposition short-term general hospital (02) ==
LOC: MRI 15:32
PROVIDERS: PCP Family Medicine; Visit Provider Orthopaedic Surgery
DX: M41.86 Other forms of scoliosis, lumbar region (principal)
CPT/HCPCS: 72148

== ENCOUNTER 2021-10-29 08:10 | Day surgery (SDC) | payer MEDICARE, OTHER, SELFPAY ==
[2021-10-29] VITALS (7 sets, daily range): BP systolic 111–137; BP diastolic 62–69; PULSE 57–69; RESP 15–18; TEMP 36.2–36.6; O2SAT 18–100; BMI 24.8
[2021-10-29] MEDS: Lactated Ringers 1,000 ML 15 ML IV (08:20)
--- NOTE | 2021-10-29 09:20 | HP.PCM_ITS ---
History and Physical Date of Admission: 10/29/21 66 F who presents to the office today for Referred by her PCP for evaluation of RLQ abdominal tenderness that was present since March. Last colonoscopy performed 2014 through [facility] with normal results. CT abd/pel performed 06/11/21 found Lung, left lower lobe linear markings suggestive of atelectasis/scarring. Moderate amount of fecal matter throughout colon. Additional medical history includes GERD, long-term NSAID use, HOWARD positive. Initially noticed GI changes in March with constipation and pain on the right side. Occasional emesis. Since onset pain, emesis and constipation have continued without change in intensity and frequency. Right sided pain has subsided and there is now general discomfort in her abdomen. In July reflux symptoms began with burning in the stomach and into the esophagus noted mostly at night but not every evening. For symptom management she has used MOM, probiotics, prunes. Unable to identify triggers. ROS Gastro GI: Positive for abdominal pain, heartburn and nausea/dyspepsia Musc Musculoskeletal: Positive for joint pain, back pain, stiffness and Arthritis Exam Const General: cooperative and comfortable Nutritional Appearance: average body habitus and well nourished [facility] Head: normal to inspection Ears: hearing grossly normal bilaterally Nose: external nose normal Face and sinus: normal facial exam Mouth: oral mucosae normal Throat: posterior oropharynx normal Eyes General: appearance normal, both eyes and all related structures Neck Neck: normal visual inspection Chest Chest palpation & inspection: normal inspection of the chest and normal palpation of entire chest wall Resp Effort & Inspection: normal respiratory effort Auscultation: Bilateral: Clear to Auscultation Cardio Palpation: normal PMI Rate: regular rate Rhythm: regular rhythm GI Inspection: normal to inspection Auscultation: normal bowel sounds Percussion: normal to percussion Palpation: no hepatosplenomegaly Skin General: no rashes or lesions noted Neuro General: patient alert Extrem General: normal to inspection Psych Affect: normal affect Quality Reporting Tobacco Screening ([facility] 138) Smoking Status: Never smoker Assessment and Plan Assessment and Plan (1) Scoliosis: Status: Acute Plan - Dr. Wilcox Friend, DO: We went over the x-rays of her spine. I told her that nerve impingement could be a possibility why she gets abdominal pain. She will share her the patient is that she is took off her CT scan looking at her spine the safe with his recommendation would be. I feel this is the reason why she is have abdominal pain or why she cannot evacuate completely. We will give her a combination of mineral oil orange juice and prune juice altogether for her to take once a day. (2) Constipation: Status: Acute I have re-examined the patient. There are no clinical changes since date of exam.
--- NOTE | 2021-10-29 10:13 | OP.COLON_ITS ---
Patient Name: Alaina Sidhu Procedure Date: 10/29/2021 9:21 AM Date of : 1955 Age: 66 Procedure: Colonoscopy Indications: Screening for colorectal malignant neoplasm Providers: Brenden Guan DO Referring MD: Rolly Luciano Medicines: See the Anesthesia note for documentation of the administered medications Patient Profile: This is a 66 year old female. Refer to note in patient chart for documentation of history and physical. Last Colonoscopy: more than 10 years ago. Complications: No immediate complications. Procedure: Pre-Anesthesia Assessment: - Prior to the procedure, a History and Physical was performed, and patient medications and allergies were reviewed. The patient is competent. The risks and benefits of the procedure and the sedation options and risks were discussed with the patient. All questions were answered and informed consent was obtained. Patient identification and proposed procedure were verified by the physician in the pre-procedure area. Mental Status Examination: alert and oriented. Airway Examination: normal oropharyngeal airway and neck mobility. Respiratory Examination: clear to auscultation. CV Examination: normal. Prophylactic Antibiotics: The patient does not require prophylactic antibiotics. Prior Anticoagulants: The patient has taken no previous anticoagulant or antiplatelet agents. ASA Grade Assessment: II - A patient with mild systemic disease. After reviewing the risks and benefits, the patient was deemed in satisfactory condition to undergo the procedure. The anesthesia plan was to use moderate sedation / analgesia (conscious sedation). Immediately prior to administration of medications, the patient was re-assessed for adequacy to receive sedatives. The heart rate, respiratory rate, oxygen saturations, blood pressure, adequacy of pulmonary ventilation, and response to care were monitored throughout the procedure. The physical status of the patient was re-assessed after the procedure. After I obtained informed consent, the scope was passed under direct vision. Throughout the procedure, the patient's blood pressure, pulse, and oxygen saturations were monitored continuously. The pediatric colonoscope was introduced through the anus and advanced to the terminal ileum. The colonoscopy was performed without difficulty. The patient tolerated the procedure well. The quality of the bowel preparation was good. Moderate Sedation: Moderate (conscious) sedation was administered by the endoscopy nurse and supervised by the endoscopist. The patient's oxygen saturation, heart rate, blood pressure and response to care were monitored. Total physician intraservice time was 15 minutes. Scope In: 9:39:29 AM Scope Withdrawal Time 0 hours 12 minutes 5 seconds Scope Out: 10:04:50 AM Total Procedure Duration Time 0 hours 25 minutes 21 seconds Findings: The perianal and digital rectal examinations were normal. Pertinent negatives include normal sphincter tone. A few small-mouthed diverticula were found in the sigmoid colon, descending colon and splenic flexure. The terminal ileum appeared normal. The descending colon and hepatic flexure were moderately tortuous. The entire examined colon appeared normal. Impression: - Diverticulosis in the sigmoid colon, in the descending colon and at the splenic flexure. - The examined portion of the ileum was normal. - Tortuous colon. - No specimens collected. Recommendation: - Discharge patient to home. - Resume previous diet. - Continue present medications. - Repeat colonoscopy in 10 years for screening purposes. - Return to GI office. Procedure Code(s): --- Professional --- G0121, Colorectal cancer screening; colonoscopy on individual not meeting criteria for high risk G0500, Moderate sedation services provided by the same physician or other qualified health primary care pediatrician performing a gastrointestinal endoscopic service that sedation supports, requiring the presence of an independent trained observer to assist in the monitoring of the patient's level of consciousness and physiological status; initial 15 minutes of intra-service time; patient age 5 years or older (additional time may be reported with 22756, as appropriate) CPT copyright 2017 [employer]. All rights reserved. The codes documented in this report are preliminary and upon medical record coder review may be revised to meet current compliance requirements. Brenden Guan DO 10/29/2021 10:12:50 AM This report has been signed electronically. Number of Addenda: 1 Note Initiated On: 10/29/2021 9:21 AM Addendum Number: 1 Addendum Date: 06/14/2022 6:55:12 AM MAC was used for sedation during this procedure. Brenden Guan DO 06/14/2022 6:55:18 AM This report has been signed electronically.
--- NOTE | 2021-10-29 10:14 | OP.CCLET_ITS ---
06/14/2022 Rolly Luciano [address] [place] [address] Re : Colonoscopy procedure for Alaina Sidhu Dear Dr. Luciano This procedure was performed on October. My impressions and recommendations are as follows: Impressions : - Diverticulosis in the sigmoid colon, in the descending colon and at the splenic flexure. - The examined portion of the ileum was normal. - Tortuous colon. - No specimens collected. Recommendations : - Discharge patient to home. - Resume previous diet. - Continue present medications. - Repeat colonoscopy in 10 years for screening purposes. - Return to GI office. My findings are described in the full procedure note, which is enclosed. If I can be of further assistance, please feel free to contact me at . Sincerely, Brenden Guan, 10/29/2021 10:12:50 AM This report has been signed electronically.
== END 2021-10-29 23:59 | disposition home or self-care (01) ==
LOC: EN 08:10 → AC 08:11
PROVIDERS: PCP Family Medicine; Referring Provider Family Medicine; Visit Provider Internal Medicine Gastroenterology
PROC: 0DJD8ZZ Inspection of Lower Intestinal Tract, Via Natural or Artificial Opening Endoscopic (ICD-10-PCS; CPT 45378; principal; 2021-10-29 09:25)
DX: Z12.11 Encounter for screening for malignant neoplasm of colon (principal); M41.9 Scoliosis, unspecified; K57.30 Diverticulosis of large intestine without perforation or abscess without bleeding; K59.00 Constipation, unspecified
CPT/HCPCS: G0121; J7120; J2405

== ENCOUNTER 2022-02-05 13:50 | Emergency (ER) | payer MEDICARE, OTHER, SELFPAY ==
[2022-02-05 13:51] VITALS: BP 179/79; PULSE 75; RESP 16; TEMP 36.3; O2SAT 99; BMI 24.5
--- NOTE | 2022-02-05 14:07 | EKG12_ITS ---
Test Reason : CP Blood Pressure : / mmHG Vent. Rate : 072 BPM Atrial Rate : 072 BPM P-R Int : 158 ms QRS Dur : 096 ms QT Int : 396 ms P-R-T Axes : 071 -05 048 degrees QTc Int : 433 ms Normal sinus rhythm Normal ECG Confirmed by MARICEL NUNO, NIKO ([id number]), newspaper copy editor LAURIE SUTTON ([id number]) on 02/08/2022 1:32:59 PM Referred By: DAVID/FELTON Confirmed By:NIKO CONNELLY MD
--- NOTE | 2022-02-05 14:08 | ED.VIS.CHEST ---
HPI History of Present Illness Chief Complaint: Chest Pain Informant: patient Onset/Context/Timing Onset: Today Quality: Positive for Aching and Heaviness Current Severity: Mild Maximum Severity: Mild Narrative Narrative: Back and chest pain. She states last evening she noted tightness and pain in her upper back. She had difficulty sleeping. Today she has noticed it is coming around the top of her shoulders and into the top of her chest. She denies shortness of breath but states her chest is sore when she takes a deep breath. She has been doing a lot of home renovations recently and was using the datapower consultant yesterday. [facility] Medical History Alcohol use Anemia Arthritis Back pain Easy bruising Heartburn High cholesterol History of pain when walking History of stress test Knee pain Left wrist sprain Leg cramps Migraine headache Non-smoker Sprain of left hand Wears glasses Home Medications nabumetone 750 mg tablet 750 mg PO BID 04/08/21 [History Last Taken Unknown] atorvastatin 10 mg tablet 10 mg PO QHS 10/05/21 [History Last Taken Unknown] glucosamine sulfate 500 mg tablet 500 mg PO DAILY 10/05/21 [History Last Taken Unknown] omega 9-nxp-zeh-fish oil 300 mg-1,000 mg capsule 1 cap PO DAILY 10/05/21 [History Last Taken Unknown] lidocaine 5 % topical cream 1 applic TOPICAL TID PRN #30 g 11/12/21 [Rx Last Taken Unknown] Allergy/AdvReac Type Severity Reaction Status Date / Time amoxicillin Allergy Unknown Verified 02/05/22 13:51 Surgical History H/O arthroscopy of left knee History of total left knee replacement Hx of colonoscopy Social History Smoking Status: Never smoker alcohol intake: current alcohol intake frequency: a few times a week Alcohol type: wine ROS ROS ED Constitutional Constitutional ED: Denies chills or fever(s) Eyes Eyes: Denies change in vision ENT ENT ED: Denies sore throat Cardiovascular Cardiovascular: Reports chest pain Respiratory/Chest Respiratory/Chest: Denies cough or dyspnea Gastrointestinal Gastrointestinal: Denies abdominal pain, nausea or vomiting Genitourinary Genitourinary ED: Denies dysuria Musculoskeletal Musculoskeletal: Reports back pain Integumentary Denies rash Neurologic Neurologic: Denies headache(s) or weakness Allergic/Immunologic Allergic/Immunologic ED: Denies urticaria EXAM Physical Exam Const Vital Signs: 02/05/22 13:51 02/05/22 14:24 02/05/22 15:42 Temperature 97.3 F L Temperature Source Temporal Pulse Rate 75 62 Respiratory Rate 16 16 Blood Pressure 179/79 H 153/66 H Blood Pressure Mean 112 95 Pulse Ox 99 99 100 Oxygen Delivery Method Room Air Room Air Room Air 02/05/22 17:11 Temperature Temperature Source Pulse Rate 67 Respiratory Rate 14 Blood Pressure 122/61 H Blood Pressure Mean Pulse Ox 100 Oxygen Delivery Method Positive well nourished and well developed General Appearance ED: well developed HEENT normocephalic and atraumatic Eyes PERRL and EOMs intact bilaterally Neck supple Chest Wall inspection of chest normal and palpation of chest normal Resp normal respiratory effort Effort and Inspection: respiratory distress Cardio regular rate and regular rhythm GI normal to inspection, nondistended, normoactive bowel sounds, soft to palpation and non-tender Extremity normal to inspection Neuro oriented x3 and no sensory deficits noted Sensorium / Orientation: awake and alert Motor Exam: strength 5/5 throughout Psych mental status grossly normal Skin no rashes or lesions noted Heart Score History: Slightly/Non-Suspicious ECG: Normal Age: >/= 65 years Risk Factors: 1 or 2 Risk Factors Troponin: </= Normal Limit Score: 3 MDM MDM MDM Narrative Medical decision making narrative: Patient given aspirin. Lab work, chest x-ray, EKG obtained. Lab Data Attestation: I reviewed the patient's lab results. Labs: Laboratory Results - last 24 hr 02/05/22 02/05/22 02/05/22 14:09 14:09 16:16 WBC 7.0 RBC 4.24 Hgb 13.5 Hct 41.2 MCV 97.2 MCH 31.8 MCHC 32.8 RDW Std Deviation 44.0 H RDW Coeff of Evelyn 12.2 Plt Count 238 MPV 10.8 Immature Gran % (Auto) 0.700 Neut % (Auto) 65.1 Lymph % (Auto) 21.6 [place] % (Auto) 10.3 H Eos % (Auto) 2.0 Baso % (Auto) 0.3 Absolute Neuts (auto) 4.6 Absolute Lymphs (auto) 1.51 Nucleated RBC % 0 Sodium 141 Potassium 3.8 Chloride 108 H Carbon Dioxide 27.0 Anion Gap 6 BUN 16 Creatinine 0.92 Estim Creat Clear Calc 57.70 Est GFR (MDRD) Af Amer 78 Est GFR (MDRD) Non-Af 64 BUN/Creatinine Ratio 17.3 Glucose 121 H Calcium 9.1 Troponin I High Sens < 3 L < 3 L Radiography Chest X-Ray - ED: 1 View, Read by ED Physician, Normal, Heart, Lungs and Mediastinum Diagnostic Testing: Clinical Impression(s) from Imaging Studies Chest X-Ray 02/05/22 14:28 IMPRESSION: Hyperinflation. The lungs are clear. Electronically Signed: Andrzej Anaya MD at 14:55 EDT , EKG Initial EKG: Attestation: I personally reviewed and interpreted this EKG as follows: Interpretation: Sinus Rhythm (Sinus at 72 with no acute ischemia.) Treatment and Re-Evaluation Narrative: Repeat evaluation patient resting comfortably. Initial lab work unremarkable with troponin less than 3. No further episodes of worsened pain in the emergency room. Delta troponin obtained and normal. At this time patient be discharged home. My suspicion is that this is musculoskeletal upper back pain that caused some nerve pain around into the anterior chest. Patient is to follow with her primary care physician in the next week to 2 and return instructions to the ER provided Discharge Plan Triage Chief Complaint: Chest Pain ED Provider: Rozina Garland Dx/Rx/DC Orders Clinical Impression: Atypical chest pain Instructions: ED Chest Pain, Noncardiac Prescriptions: No Action nabumetone 750 mg tablet 750 mg PO BID RF: 0 atorvastatin 10 mg tablet 10 mg PO QHS RF: 0 omega 9-phe-gzx-fish oil [Fish Oil] 300-1,000 mg capsule 1 cap PO DAILY RF: 0 glucosamine sulfate [Glucosamine] 500 mg tablet 500 mg PO DAILY RF: 0 lidocaine 5 % cream 1 applic topical TID PRN (Reason: pain) Qty: 30 RF: 0 Primary Care Provider: Rolly Luciano Referrals: Rolly Luciano MD [Primary Care Provider] - 1 Week Disposition Disposition: Home, Self Care Discharge Date/Time: 02/05/22 17:11
[2022-02-05 14:24] VITALS: O2SAT 99
--- NOTE | 2022-02-05 14:28 | RAD_ITS ---
STUDY: X-RAY CHEST REASON FOR EXAM: Female, 66 years old. Chest pain TECHNIQUE: Single AP portable view of the chest. COMPARISON: Comparison is made with prior study dated 05/05/2020. FINDINGS: EKG electrodes are seen. Hyperinflation. The lungs are clear. The lungs are clear and expanded. There is no demonstrated pleural abnormality. Normal size heart. Normal mediastinum and liz. Normal visualized pulmonary arteries. Normal visualized aortic arch and descending thoracic aorta. There are diffuse degenerative changes of the visualized thoracic spine. Normal visualized ribs, clavicles, and shoulders. There is no demonstrated abnormality of the visualized soft tissue structures of the upper abdomen. RAD/Chest 1 View (Portable) IMPRESSION: Hyperinflation. The lungs are clear. Electronically Signed: Andrzej Anaya MD at 14:55 EDT ,
[2022-02-05 14:30] LABS: Absolute Lymphocyte Count 1.51 X10^3/uL (0.83-4.51); Absolute Neutrophil Count 4.6 X10^3/uL (2.0-7.7); Basophil# 0.02 X10^3/uL; Basophil% 0.3 % (0-1); Eosinophil# 0.14 X10^3/uL; Hematocrit 41.2 % (37-47); Hemoglobin 13.5 g/dL (12.0-15.0); Lymphocyte # 1.51 X10^3/ul (0.83-4.51); Lymphocyte % 21.6 % (19-41); Mean Corp Hgb Conc 32.8 g/dL (32-36); Mean Corpuscular Hgb 31.8 pg (27.0-32.0); Mean Corpuscular Volume 97.2 fL (81-99); Mean Platelet Vol. 10.8 fl (6.2-12.0); Monocyte# 0.72 X10^3/uL; Monocyte% 10.3 % (0-10); NRBC Flagged by Analyzer 0 % (0-5); Neutrophil # 4.55 X10^3/uL (2.7-7.7); Neutrophil % 65.1 % (47-70); Platelet Count 238 K/mm3 (150-450); RBC Distribution Width CV 12.2 % (11.6-14.6); Red Blood Count 4.24 M/mm3 (4.2-5.4)
[2022-02-05 14:47] LABS: Anion Gap 6 (5-15); BUN 16 mg/dL (7-18); BUN/Creat Ratio 17.3 RATIO (10-20); Calcium,Total 9.1 mg/dL (8.5-10.1); Chloride 108 mmol/L (98-107); Creatinine, Serum 0.92 mg/dL (0.55-1.02); EST Glomerular Filtration Rate 64 mL/min (>60); Est Glom Filt Rate - Afr Amer 78 mL/min (>60); Glucose 121 mg/dL (74-106); Potassium 3.8 mmol/L (3.5-5.1); Sodium Level 141 mmol/L (136-145); Troponin-I HS (w/2H Reflex) < 3 pg/mL (3.0-54.0)
[2022-02-05] MEDS: Aspirin 81 MG TAB.CHEW 324 MG PO (14:47)
[2022-02-05 15:42] VITALS: BP 153/66; PULSE 62; RESP 16; O2SAT 100
[2022-02-05 16:17] LABS: Reflex Troponin-HS? (from REC) Y
[2022-02-05 16:49] LABS: Troponin-I HS < 3 pg/mL (3.0-54.0)
[2022-02-05 17:11] VITALS: BP 122/61; PULSE 67; RESP 14; O2SAT 100
== END 2022-02-05 17:11 | disposition home or self-care (01) ==
PROVIDERS: Emergency Provider Emergency Medicine; PCP Family Medicine; Visit Provider Emergency Medicine
DX: R07.89 Other chest pain (principal); M54.9 Dorsalgia, unspecified; E78.00 Pure hypercholesterolemia, unspecified
CPT/HCPCS: 71045; 80048; 84484; 85025; 93005; 99284; A4216

== ENCOUNTER → 2022-09-07 | Outpatient (CLI) | payer MEDICARE, OTHER, SELFPAY ==
[2022-09-07 10:07] LABS: Absolute Lymphocyte Count 1.32 X10^3/uL (0.83-4.51); Absolute Neutrophil Count 3.6 X10^3/uL (2.0-7.7); Basophil# 0.03 X10^3/uL; Basophil% 0.5 % (0-1); Eosinophil# 0.16 X10^3/uL; Eosinophils% 2.7 % (0-5); Hematocrit 42.7 % (37-47); Hemoglobin 14.1 g/dL (12.0-15.0); Lymphocyte # 1.32 X10^3/ul (0.83-4.51); Lymphocyte % 22.6 % (19-41); Mean Corpuscular Hgb 32.1 pg (27.0-32.0); Mean Corpuscular Volume 97.3 fL (81-99); Mean Platelet Vol. 10.8 fl (6.2-12.0); Monocyte# 0.68 X10^3/uL; Monocyte% 11.7 % (0-10); NRBC Flagged by Analyzer 0 % (0-5); Neutrophil % 61.8 % (47-70); Platelet Count 275 K/mm3 (150-450); RBC Distribution Width CV 12.5 % (11.6-14.6); Red Blood Count 4.39 M/mm3 (4.2-5.4); White Blood Count 5.8 K/mm3 (4.4-11.0)
[2022-09-07 14:05] LABS: ALB/GLOB Ratio 1.2 RATIO (0.9-2.4); AST(SGOT) 13 U/L (15-37); Alanine Aminotransfer ALT/SGPT 23 U/L (13-56); Albumin, Serum 3.8 g/dL (3.2-5.0); Alkaline Phosphatase 90 U/L (45-117); Anion Gap 9 (5-15); BUN 13 mg/dL (7-18); BUN/Creat Ratio 14.1 RATIO (10-20); Calcium,Total 8.7 mg/dL (8.5-10.1); Chloride 104 mmol/L (98-107); Cholesterol 177 mg/dL (200); Creatinine, Serum 0.92 mg/dL (0.55-1.02); EST Glomerular Filtration Rate 64 mL/min (>60); Est Glom Filt Rate - Afr Amer 78 mL/min (>60); Globulin 3.1 g/dL (2.2-4.2); Glucose 92 mg/dL (74-106); High Density Lipoprotein 57 mg/dL; Potassium 4.5 mmol/L (3.5-5.1); Protein, Total 6.9 g/dL (6.4-8.2); Sodium Level 140 mmol/L (136-145); Thyroid Stim Hormone (TSH) 2.89 uIU/mL (0.358-3.74); Triglycerides 98 mg/dL; Very Low Density Lipoprotein 20 mg/dL (5-40)
== END | disposition home or self-care (01) ==
LOC: MFPLAB 08:22
PROVIDERS: PCP Family Medicine; Visit Provider Family Medicine
DX: Z00.00 Encounter for general adult medical examination without abnormal findings (principal); E78.00 Pure hypercholesterolemia, unspecified; E61.1 Iron deficiency; E07.9 Disorder of thyroid, unspecified
CPT/HCPCS: 36415; 80053; 80061; 84443; 85025

== ENCOUNTER → 2022-11-18 | Outpatient (CLI) | payer MEDICARE, OTHER, SELFPAY ==
--- NOTE | 2022-11-18 12:24 | BI_ITS ---
MAMMOGRAPHY - BILATERAL SCREENING REASON FOR EXAM: Female, 67 years old. Routine annual screening examination. PERTINENT HISTORY: Non-contributory. TECHNIQUE: Digital bilateral breast candida (3D mammographic acquisition) in the CC and MLO projections. 2-D mediolateral oblique (MLO) and craniocaudad (CC) views of both breasts were obtained. CAD: Full Field Digital Mammography with Computer Added Detection was performed. COMPARISON: Comparison is made with prior study of 06/12/2019 and 04/05/2017. FINDINGS: Breast Composition: The breasts are heterogeneously dense, which may obscure small masses. There are no dominant masses or suspicious calcifications. Stable small benign-appearing bilateral axillary lymph nodes. No other significant abnormalities are identified. There has been no significant change since the prior study. BI/SCRN MAMM (CAD)W/CANDIDA BILAT IMPRESSION: Stable bilateral screening mammogram. Yearly follow-up mammogram recommended. (A) ASSESSMENT CATEGORY: BIRADS Category 2: Benign. A letter regarding these results will be sent to the patient by the facility within 30 days. Approximately 10% of breast cancers are not detected by mammography. A normal mammogram should not delay biopsy of a clinically suspicious abnormality. [id number] Electronically Signed: Andrzej Anaya MD at 13:31 EST ,
--- NOTE | 2022-11-18 12:26 | BD_ITS ---
STUDY: DUAL ENERGY X-RAY ABSORPTIOMETRY / DXA REASON FOR EXAM: Female, 67 years old. [id number] TECHNIQUE: Bone Mineral Density (BMD) measurements of lumbar spine and bilateral hips were obtained. COMPARISON: None. FINDINGS: Lumbar Spine (L1-L4): g/cm2 (0.956) / T-score (-0.2) / Z-score (1.7) Findings are suggestive of normal bone density with a low fracture risk. Left Femur Total: g/cm2 (0.733) / T-score (-1.7) / Z-score (-0.3) Left Femoral Neck: g/cm2 (0.680) / T-score (-1.5) / Z-score (0.2) Right Femur Total: g/cm2 (0.825) / T-score (-1.0) / Z-score (0.5) Right Femoral Neck: g/cm2 (0.729) / T-score (-1.1) / Z-score (0.6) BD/Dexa Bone Density Study IMPRESSION: The patient is considered osteopenic as outlined below according to World [employer] Organization (WHO) criteria with a moderate fracture risk. Reference Information: The T-score is the number of standard deviations above or below the standard which is normal for young adults at their peak bone mineral density. The World Health Organization (WHO) interprets the T-scores as follows: Above -1 Normal bone density Between -1 and -2.5 Osteopenia Equal to / or below -2.5 Osteoporosis As a practical clinical guideline, osteopenia may be graded as follows: Mild -1 through -1.5 Moderate -1.6 through -2.0 Severe -2.1 through -2.4 The Z-score is the number of standard deviations above or below age-matched controls. A Z-score of less than -1.5 would be considered abnormal. References: 1. NIH Osteoporosis and Related Bone Diseases www osteo.org 2. International Society for Clinical Densitometry www iscd.org 3. National Osteoporosis Foundation www nof.org Electronically Signed: Andrzej Anaya MD at 15:30 EST ,
== END | disposition home or self-care (01) ==
LOC: OPBD 12:21
PROVIDERS: PCP Family Medicine; Visit Provider Family Medicine
DX: Z12.31 Encounter for screening mammogram for malignant neoplasm of breast (principal); Z78.0 Asymptomatic menopausal state
CPT/HCPCS: 77063; 77067; 77080

== ENCOUNTER → 2023-01-07 | Outpatient (CLI) | payer MEDICARE, OTHER, SELFPAY ==
[2023-01-07 13:55] LABS: Absolute Lymphocyte Count 1.73 X10^3/uL (0.83-4.51); Absolute Neutrophil Count 4.9 X10^3/uL (2.0-7.7); Basophil# 0.03 X10^3/uL; Basophil% 0.4 % (0-1); Eosinophil# 0.15 X10^3/uL; Hematocrit 40.3 % (37-47); Hemoglobin 13.2 g/dL (12.0-15.0); Lymphocyte # 1.73 X10^3/ul (0.83-4.51); Lymphocyte % 23.3 % (19-41); Mean Corp Hgb Conc 32.8 g/dL (32-36); Mean Corpuscular Volume 97.6 fL (81-99); Mean Platelet Vol. 11.1 fl (6.2-12.0); Monocyte# 0.61 X10^3/uL; Monocyte% 8.2 % (0-10); NRBC Flagged by Analyzer 0 % (0-5); Neutrophil # 4.89 X10^3/uL (2.7-7.7); Neutrophil % 65.7 % (47-70); Platelet Count 233 K/mm3 (150-450); RBC Distribution Width CV 12.6 % (11.6-14.6); RBC Distribution Width SD 45.2 fl (35.1-43.9); Red Blood Count 4.13 M/mm3 (4.2-5.4); White Blood Count 7.4 K/mm3 (4.4-11.0)
[2023-01-07 14:33] LABS: CRP < 2.90 mg/L (0.0-3.0)
[2023-01-07 14:34] LABS: Erythrocyte Sedimentation Rate 1 mm/hr (0-30)
== END | disposition home or self-care (01) ==
PROVIDERS: PCP Family Medicine; Referring Provider Specialist; Visit Provider Specialist
DX: M25.562 Pain in left knee (principal); Z96.652 Presence of left artificial knee joint
CPT/HCPCS: 36415; 85025; 85652; 86140

== ENCOUNTER → 2023-04-01 | Outpatient (CLI) | payer MEDICARE, OTHER, SELFPAY ==
[2023-04-01 15:57] LABS: ALB/GLOB Ratio 1.1 RATIO (0.9-2.4); AST(SGOT) 16 U/L (15-37); Alanine Aminotransfer ALT/SGPT 20 U/L (13-56); Albumin, Serum 3.7 g/dL (3.2-5.0); Alkaline Phosphatase 104 U/L (45-117); Anion Gap 5 (5-15); BUN 13 mg/dL (7-18); BUN/Creat Ratio 13.9 RATIO (10-20); Calcium,Total 9.1 mg/dL (8.5-10.1); Chloride 105 mmol/L (98-107); Creatinine, Serum 0.94 mg/dL (0.55-1.02); EST Glomerular Filtration Rate 63 mL/min (>60); Est Glom Filt Rate - Afr Amer 76 mL/min (>60); Ferritin 59 ng/mL (8-252); Globulin 3.4 g/dL (2.2-4.2); Glucose 89 mg/dL (74-106); Potassium 4.4 mmol/L (3.5-5.1); Protein, Total 7.1 g/dL (6.4-8.2); Sodium Level 138 mmol/L (136-145); Thyroid Stim Hormone (TSH) 2.08 uIU/mL (0.358-3.74)
== END | disposition home or self-care (01) ==
LOC: MFPLAB 11:31
PROVIDERS: PCP Family Medicine; Visit Provider Family Medicine
DX: R53.83 Other fatigue (principal); Z79.1 Long term (current) use of non-steroidal anti-inflammatories (NSAID); E61.1 Iron deficiency
CPT/HCPCS: 36415; 80053; 82728; 84443

== ENCOUNTER 2023-07-08 15:05 | Outpatient (CLI) | payer MEDICARE, OTHER, SELFPAY ==
--- NOTE | 2023-07-08 15:15 | PCM.OP.PRO ---
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 Date of Insertion: 07/08/23 Ok to use: Yes Type of PICC inserted: Single Power PICC PICC Lot #: [id number] PICC Reference #: [id number] Microintroducer Used: Yes (in kit) Ultrasound/Equipment Used: Probe Cover Kit Trimmed Length (cm): 47 Insertion Length (cm): 42 Exposed Length (cm): 5 Tip Placement: SVC (Superior Vena Cava) Placement Confirmation: 3CG Insertion Vein: Right Basilic Insertion Attempts: 1 Local Anesthesia Used: Lidocaine 1% (in kit) Dressing Applied: Tegaderm (chg with statlock from kit) Arm Measurement above site (in cm): 32 Patient Tolerated Procedure: Well Comments Comment: [facility].
[2023-07-08 15:18] VITALS: BP 137/77; PULSE 77; RESP 18; TEMP 36.5; O2SAT 98
[2023-07-08] MEDS: 0.9% Saline Lock 10 ML Syringe IV (15:25)
[2023-07-08] MEDS: Ceftriaxone 2 GM in 0.9% Normal Saline (50mL MB+) 50 ML IV (15:25)
[2023-07-08] MEDS: 0.9 % NaCl (Sterile) Posiflush 10 mL IV (16:19)
[2023-07-08 16:23] VITALS: BP 118/68; PULSE 80; RESP 18; TEMP 36.9; O2SAT 100
== END 2023-07-08 16:25 | disposition home or self-care (01) ==
LOC: MEDOUTP 15:06 → MS3 15:07
PROVIDERS: PCP Family Medicine; Referring Provider Internal Medicine Infectious Disease; Visit Provider Internal Medicine Infectious Disease
DX: M25.562 Pain in left knee (principal)
CPT/HCPCS: 96365; A4216; J0696

== ENCOUNTER → 2023-07-08 | Outpatient (CLI) | payer MEDICARE, OTHER, SELFPAY ==
[2023-07-08 13:20] VITALS: BP 125/47; PULSE 84; RESP 18; TEMP 36.6; O2SAT 99; BMI 24.4
== END | disposition home or self-care (01) ==
PROVIDERS: PCP Family Medicine; Referring Provider Internal Medicine Infectious Disease; Visit Provider Internal Medicine Infectious Disease
DX: T84.54XA Infection and inflammatory reaction due to internal left knee prosthesis, initial encounter (principal)
CPT/HCPCS: 36569

== ENCOUNTER 2023-07-10 11:02 | Outpatient (CLI) | payer MEDICARE, OTHER, SELFPAY ==
[2023-07-10 14:00] VITALS: BP 111/74; PULSE 99; RESP 18; TEMP 36.8; O2SAT 98
[2023-07-10] MEDS: Ceftriaxone 2 GM in 0.9% Normal Saline (50mL MB+) 50 ML IV (14:02)
== END 2023-07-10 11:03 | disposition home or self-care (01) ==
LOC: MEDOUTP 08-23 11:02
PROVIDERS: PCP Family Medicine; Referring Provider Internal Medicine Infectious Disease; Visit Provider Internal Medicine Infectious Disease
DX: M25.562 Pain in left knee (principal)
CPT/HCPCS: 96365; 96523; J0696

== ENCOUNTER 2023-07-10 13:49 | Outpatient (CLI) | payer MEDICARE, OTHER, SELFPAY ==
[2023-07-09] MEDS: Ceftriaxone 2 GM in 0.9% Normal Saline (50mL MB+) 50 ML IV (14:19)
[2023-07-09 14:20] VITALS: BP 128/72; PULSE 87; RESP 18; TEMP 36.9; O2SAT 98; BMI 24.4
== END 2023-07-10 13:50 | disposition home or self-care (01) ==
PROVIDERS: PCP Family Medicine; Referring Provider Internal Medicine Infectious Disease; Visit Provider Internal Medicine Infectious Disease
DX: M25.562 Pain in left knee (principal)
CPT/HCPCS: 96365; J0696

== ENCOUNTER 2023-07-11 13:54 | Outpatient (CLI) | payer MEDICARE, OTHER, SELFPAY ==
[2023-07-11] MEDS: Ceftriaxone 2 GM in 0.9% Normal Saline (50mL MB+) 50 ML IV (14:10)
[2023-07-11 14:30] VITALS: BP 113/60; PULSE 83; RESP 16; TEMP 36.4; O2SAT 97; BMI 24.3
[2023-07-11 15:13] VITALS: BP 116/59; PULSE 75; RESP 16; TEMP 36.2; O2SAT 98
== END 2023-07-11 13:55 | disposition home or self-care (01) ==
LOC: MEDOUTP 13:55
PROVIDERS: PCP Family Medicine; Referring Provider Internal Medicine Infectious Disease; Visit Provider Internal Medicine Infectious Disease
DX: M25.562 Pain in left knee (principal)
CPT/HCPCS: 96365; A4216; J0696

== ENCOUNTER 2023-07-12 12:57 | Outpatient (CLI) | payer MEDICARE, OTHER, SELFPAY ==
[2023-07-12 13:09] VITALS: BP 134/59; PULSE 77; RESP 16; TEMP 36.3; O2SAT 99; BMI 24.3
[2023-07-12] MEDS: Ceftriaxone 2 GM in 0.9% Normal Saline (50mL MB+) 50 ML IV (13:15)
[2023-07-12 14:19] VITALS: BP 144/68; PULSE 74; RESP 16; TEMP 36.3; O2SAT 97
== END 2023-07-12 12:58 | disposition home or self-care (01) ==
LOC: MEDOUTP 12:57
PROVIDERS: PCP Family Medicine; Referring Provider Internal Medicine Infectious Disease; Visit Provider Internal Medicine Infectious Disease
DX: M25.562 Pain in left knee (principal)
CPT/HCPCS: 96365; J7050; A4216; J0696

== ENCOUNTER 2023-07-13 13:00 | Outpatient (CLI) | payer MEDICARE, OTHER, SELFPAY ==
[2023-07-13] MEDS: Ceftriaxone 2 GM in 0.9% Normal Saline (50mL MB+) 50 ML IV (13:38)
[2023-07-13 13:41] VITALS: BP 121/70; PULSE 75; RESP 16; TEMP 36.4; O2SAT 100
[2023-07-13 14:37] VITALS: BP 137/64; PULSE 75; RESP 16; TEMP 36.3; O2SAT 99
== END 2023-07-13 13:01 | disposition home or self-care (01) ==
LOC: MEDOUTP 13:00
PROVIDERS: PCP Family Medicine; Referring Provider Internal Medicine Infectious Disease; Visit Provider Internal Medicine Infectious Disease
DX: M25.562 Pain in left knee (principal)
CPT/HCPCS: 96365; J7050; A4216; J0696

== ENCOUNTER 2023-07-14 14:28 | Outpatient (CLI) | payer MEDICARE, OTHER, SELFPAY ==
[2023-07-14] MEDS: Ceftriaxone 2 GM in 0.9% Normal Saline (50mL MB+) 50 ML IV (14:40)
[2023-07-14 14:48] VITALS: BP 128/69; PULSE 77; RESP 16; TEMP 36.7; O2SAT 99; BMI 24.1
[2023-07-14 16:03] LABS: Hematocrit 33.2 % (37-47); Hemoglobin 10.8 g/dL (12.0-15.0); Mean Corp Hgb Conc 32.5 g/dL (32-36); Mean Corpuscular Hgb 31.9 pg (27.0-32.0); Mean Corpuscular Volume 97.9 fL (81-99); Mean Platelet Vol. 9.4 fl (6.2-12.0); Platelet Count 367 K/mm3 (150-450); RBC Distribution Width CV 13.1 % (11.6-14.6); RBC Distribution Width SD 46.2 fl (35.1-43.9); Red Blood Count 3.39 M/mm3 (4.2-5.4); White Blood Count 6.9 K/mm3 (4.4-11.0)
[2023-07-14 16:14] LABS: Erythrocyte Sedimentation Rate 2 mm/hr (0-30)
[2023-07-14 16:33] LABS: Anion Gap 7 (5-15); BUN 15 mg/dL (7-18); BUN/Creat Ratio 20.5 RATIO (10-20); Calcium,Total 8.6 mg/dL (8.5-10.1); Chloride 105 mmol/L (98-107); Creatinine, Serum 0.73 mg/dL (0.55-1.02); EST Glomerular Filtration Rate 84 mL/min (>60); Est Glom Filt Rate - Afr Amer 101 mL/min (>60); Estimated Creatinine Clearance 51.63 ml/min; Glucose 127 mg/dL (74-106); Potassium 3.9 mmol/L (3.5-5.1); Sodium Level 139 mmol/L (136-145)
[2023-07-15] LABS: Xtra Tube EP Lab EXTRA TUBE
== END 2023-07-14 14:29 | disposition home or self-care (01) ==
LOC: MEDOUTP 14:28
PROVIDERS: PCP Family Medicine; Referring Provider Internal Medicine Infectious Disease; Visit Provider Internal Medicine Infectious Disease
DX: M25.562 Pain in left knee (principal)
CPT/HCPCS: 96365; 36415; 36592; 80048; 85027; 85652; J7050; A4216; J0696

== ENCOUNTER 2023-07-15 12:52 | Outpatient (CLI) | payer MEDICARE, OTHER, SELFPAY ==
[2023-07-15 12:59] VITALS: BP 152/47; PULSE 72; RESP 16; TEMP 36.1; O2SAT 100
[2023-07-15] MEDS: Ceftriaxone 2 GM in 0.9% Normal Saline (50mL MB+) 50 ML IV (13:07)
[2023-07-15 14:04] VITALS: BP 119/71; PULSE 72; RESP 16; TEMP 36.4; O2SAT 99
== END 2023-07-15 12:53 | disposition home or self-care (01) ==
LOC: MEDOUTP 12:52
PROVIDERS: PCP Family Medicine; Referring Provider Internal Medicine Infectious Disease; Visit Provider Internal Medicine Infectious Disease
DX: M25.562 Pain in left knee (principal)
CPT/HCPCS: 96365; J7050; A4216; J0696

== ENCOUNTER 2023-07-16 12:59 | Outpatient (CLI) | payer MEDICARE, OTHER, SELFPAY ==
[2023-07-16] MEDS: 0.9% NaCl IVPB Med Flush (250 mL) 15 ML IV (13:12)
[2023-07-16] MEDS: Ceftriaxone 2 GM in 0.9% Normal Saline (50mL MB+) 50 ML IV (13:12)
== END 2023-07-16 13:57 | disposition home or self-care (01) ==
LOC: MEDOUTP 12:59 → PCU 13:00
PROVIDERS: PCP Family Medicine; Referring Provider Internal Medicine Infectious Disease; Visit Provider Internal Medicine Infectious Disease
DX: M25.562 Pain in left knee (principal)
CPT/HCPCS: 96365; J7050; J0696

== ENCOUNTER 2023-07-17 12:58 | Outpatient (CLI) | payer MEDICARE, OTHER, SELFPAY ==
[2023-07-17] MEDS: Ceftriaxone 2 GM in 0.9% Normal Saline (50mL MB+) 50 ML IV (13:12)
== END 2023-07-17 13:58 | disposition home or self-care (01) ==
LOC: MEDOUTP 12:59 → PCU 13:00
PROVIDERS: PCP Family Medicine; Referring Provider Internal Medicine Infectious Disease; Visit Provider Internal Medicine Infectious Disease
DX: M25.562 Pain in left knee (principal)
CPT/HCPCS: 96365; J7040; J0696

== ENCOUNTER 2023-07-18 12:55 | Outpatient (CLI) | payer MEDICARE, OTHER, SELFPAY ==
[2023-07-18] MEDS: Ceftriaxone 2 GM in 0.9% Normal Saline (50mL MB+) 50 ML IV (13:05)
[2023-07-18 13:09] VITALS: BP 125/65; PULSE 78; RESP 16; TEMP 36.6; O2SAT 100; BMI 24.3
[2023-07-18 14:10] VITALS: BP 119/63; PULSE 73; RESP 16; TEMP 36.3; O2SAT 99
== END 2023-07-18 12:56 | disposition home or self-care (01) ==
LOC: MEDOUTP 12:55
PROVIDERS: PCP Family Medicine; Referring Provider Internal Medicine Infectious Disease; Visit Provider Internal Medicine Infectious Disease
DX: M25.562 Pain in left knee (principal)
CPT/HCPCS: 96365; J7050; A4216; J0696

== ENCOUNTER 2023-07-19 11:57 | Outpatient (CLI) | payer MEDICARE, OTHER, SELFPAY ==
[2023-07-19 12:05] VITALS: BP 129/63; PULSE 73; RESP 16; TEMP 35.9; O2SAT 100; BMI 24.1
[2023-07-19] MEDS: Ceftriaxone 2 GM in 0.9% Normal Saline (50mL MB+) 50 ML IV (12:08)
[2023-07-19 13:24] VITALS: BP 120/71; PULSE 73; RESP 16; TEMP 36.2; O2SAT 100
== END 2023-07-19 11:58 | disposition home or self-care (01) ==
LOC: MEDOUTP 11:58
PROVIDERS: PCP Family Medicine; Referring Provider Internal Medicine Infectious Disease; Visit Provider Internal Medicine Infectious Disease
DX: M25.562 Pain in left knee (principal)
CPT/HCPCS: 96365; J7050; A4216; J0696

== ENCOUNTER 2023-07-20 13:25 | Outpatient (CLI) | payer MEDICARE, OTHER, SELFPAY ==
[2023-07-20] MEDS: Ceftriaxone 2 GM in 0.9% Normal Saline (50mL MB+) 50 ML IV (13:34)
[2023-07-20 13:36] VITALS: BP 131/64; PULSE 75; RESP 16; TEMP 36.1
[2023-07-20 14:36] VITALS: BP 127/62; PULSE 75; RESP 16; TEMP 35.6; O2SAT 100
== END 2023-07-20 13:26 | disposition home or self-care (01) ==
LOC: MEDOUTP 13:25
PROVIDERS: PCP Family Medicine; Referring Provider Internal Medicine Infectious Disease; Visit Provider Internal Medicine Infectious Disease
DX: M25.562 Pain in left knee (principal)
CPT/HCPCS: 96365; J7050; A4216; J0696

== ENCOUNTER 2023-07-21 13:41 | Outpatient (CLI) | payer MEDICARE, OTHER, SELFPAY ==
[2023-07-21] MEDS: Ceftriaxone 2 GM in 0.9% Normal Saline (50mL MB+) 50 ML IV (14:12)
[2023-07-21 14:23] VITALS: BP 130/61; PULSE 71; RESP 16; TEMP 36.7; O2SAT 98; BMI 24.3
[2023-07-21 14:38] LABS: Absolute Lymphocyte Count 1.17 X10^3/uL (0.83-4.51); Basophil# 0.03 X10^3/uL; Basophil% 0.6 % (0-1); Eosinophil# 0.16 X10^3/uL; Eosinophils% 3.2 % (0-5); Hematocrit 35.6 % (37-47); Hemoglobin 11.2 g/dL (12.0-15.0); Lymphocyte # 1.17 X10^3/ul (0.83-4.51); Lymphocyte % 23.6 % (19-41); Mean Corp Hgb Conc 31.5 g/dL (32-36); Mean Corpuscular Hgb 30.7 pg (27.0-32.0); Mean Corpuscular Volume 97.5 fL (81-99); Monocyte# 0.57 X10^3/uL; Monocyte% 11.5 % (0-10); NRBC Flagged by Analyzer 0 % (0-5); Neutrophil # 2.99 X10^3/uL (2.7-7.7); Neutrophil % 60.5 % (47-70); Platelet Count 287 K/mm3 (150-450); RBC Distribution Width CV 12.8 % (11.6-14.6); RBC Distribution Width SD 45.8 fl (35.1-43.9); Red Blood Count 3.65 M/mm3 (4.2-5.4)
[2023-07-21 14:44] LABS: Erythrocyte Sedimentation Rate < 1 mm/hr (0-30)
[2023-07-21 14:51] LABS: Anion Gap 7 (5-15); BUN 12 mg/dL (7-18); BUN/Creat Ratio 14.5 RATIO (10-20); Calcium,Total 8.7 mg/dL (8.5-10.1); Chloride 103 mmol/L (98-107); Creatinine, Serum 0.83 mg/dL (0.55-1.02); EST Glomerular Filtration Rate 73 mL/min (>60); Est Glom Filt Rate - Afr Amer 88 mL/min (>60); Estimated Creatinine Clearance 62.21 ml/min; Glucose 165 mg/dL (74-106); Potassium 3.8 mmol/L (3.5-5.1); Sodium Level 136 mmol/L (136-145)
[2023-07-21 15:17] VITALS: BP 134/67; PULSE 71; RESP 16; TEMP 36.6; O2SAT 98
[2023-07-21 22:34] LABS: Xtra Tube EP Lab EXTRA TUBE
== END 2023-07-21 13:42 | disposition home or self-care (01) ==
LOC: MEDOUTP 13:41
PROVIDERS: PCP Family Medicine; Referring Provider Internal Medicine Infectious Disease; Visit Provider Internal Medicine Infectious Disease
DX: M25.562 Pain in left knee (principal)
CPT/HCPCS: 96365; 36415; 36592; 80048; 85025; 85652; J7050; A4216; J0696

== ENCOUNTER 2023-07-22 12:57 | Outpatient (CLI) | payer MEDICARE, OTHER, SELFPAY ==
[2023-07-22] MEDS: Ceftriaxone 2 GM in 0.9% Normal Saline (50mL MB+) 50 ML IV (13:13)
[2023-07-22 13:14] VITALS: BP 145/75; PULSE 80; RESP 16; TEMP 36.2
[2023-07-22 14:17] VITALS: BP 142/69; PULSE 72; RESP 16; O2SAT 100
== END 2023-07-22 12:58 | disposition home or self-care (01) ==
LOC: MEDOUTP 12:57
PROVIDERS: PCP Family Medicine; Referring Provider Internal Medicine Infectious Disease; Visit Provider Internal Medicine Infectious Disease
DX: M25.562 Pain in left knee (principal)
CPT/HCPCS: 96365; A4216; J0696

== ENCOUNTER 2023-07-23 12:58 | Outpatient (CLI) | payer MEDICARE, OTHER, SELFPAY ==
[2023-07-23] MEDS: 0.9% Saline Lock 10 ML Syringe IV ×2 (13:05→14:16)
[2023-07-23] MEDS: 0.9% Normal Saline 250 ML IV.SOLN. IV (13:05)
[2023-07-23] MEDS: Ceftriaxone 2 GM in 0.9% Normal Saline (50mL MB+) 50 ML IV (13:26)
== END 2023-07-23 14:22 | disposition home or self-care (01) ==
LOC: MEDOUTP 12:59 → MS3 12:59
PROVIDERS: PCP Family Medicine; Referring Provider Internal Medicine Infectious Disease; Visit Provider Internal Medicine Infectious Disease
DX: M25.562 Pain in left knee (principal)
CPT/HCPCS: 96365; J7050; A4216; J0696

== ENCOUNTER 2023-07-24 13:00 | Outpatient (CLI) | payer MEDICARE, OTHER, SELFPAY ==
[2023-07-24] MEDS: 0.9% Normal Saline (250mL Bag) 250 ML 100 ML IV (13:05)
[2023-07-24] MEDS: 0.9% Saline Lock 10 ML Syringe IV ×2 (13:05→14:00)
[2023-07-24] MEDS: Ceftriaxone 2 GM in 0.9% Normal Saline (50mL MB+) 50 ML IV (13:08)
[2023-07-24 13:11] VITALS: BP 132/73; PULSE 68; RESP 16; TEMP 36.2; O2SAT 99
== END 2023-07-24 14:04 | disposition home or self-care (01) ==
LOC: MEDOUTP 13:00 → MS3 13:01
PROVIDERS: PCP Family Medicine; Referring Provider Internal Medicine Infectious Disease; Visit Provider Internal Medicine Infectious Disease
DX: M25.562 Pain in left knee (principal)
CPT/HCPCS: 96365; J7050; A4216; J0696

== ENCOUNTER 2023-07-25 13:00 | Outpatient (CLI) | payer MEDICARE, OTHER, SELFPAY ==
[2023-07-25] MEDS: Ceftriaxone 2 GM in 0.9% Normal Saline (50mL MB+) 50 ML IV (13:13)
[2023-07-25 13:16] VITALS: BP 115/61; PULSE 79; RESP 16; TEMP 36.3; O2SAT 100; BMI 24.3
[2023-07-25 14:14] VITALS: BP 117/65; PULSE 76
== END 2023-07-25 13:01 | disposition home or self-care (01) ==
LOC: MEDOUTP 13:00
PROVIDERS: PCP Family Medicine; Referring Provider Internal Medicine Infectious Disease; Visit Provider Internal Medicine Infectious Disease
DX: M25.562 Pain in left knee (principal)
CPT/HCPCS: 96365; J7050; A4216; J0696

== ENCOUNTER 2023-07-26 12:55 | Outpatient (CLI) | payer MEDICARE, OTHER, SELFPAY ==
[2023-07-26] MEDS: Ceftriaxone 2 GM in 0.9% Normal Saline (50mL MB+) 50 ML IV (13:05)
[2023-07-26 13:07] VITALS: BP 146/63; PULSE 69; RESP 16; TEMP 35.6; O2SAT 100
[2023-07-26 14:07] VITALS: BP 129/59; PULSE 76; RESP 16; TEMP 36.1; O2SAT 98
== END 2023-07-26 12:56 | disposition home or self-care (01) ==
LOC: MEDOUTP 12:55
PROVIDERS: PCP Family Medicine; Referring Provider Internal Medicine Infectious Disease; Visit Provider Internal Medicine Infectious Disease
DX: M25.562 Pain in left knee (principal)
CPT/HCPCS: 96365; A4216; J0696

== ENCOUNTER 2023-07-27 12:56 | Outpatient (CLI) | payer MEDICARE, OTHER, SELFPAY ==
[2023-07-27] MEDS: Ceftriaxone 2 GM in 0.9% Normal Saline (50mL MB+) 50 ML IV (13:03)
[2023-07-27 13:08] VITALS: BP 123/63; PULSE 67; RESP 16; TEMP 36.6; O2SAT 99; BMI 24.1
[2023-07-27 14:16] VITALS: BP 122/59; PULSE 75; RESP 16; TEMP 36.2; O2SAT 97
== END 2023-07-27 12:57 | disposition home or self-care (01) ==
LOC: MEDOUTP 12:56
PROVIDERS: PCP Family Medicine; Referring Provider Internal Medicine Infectious Disease; Visit Provider Internal Medicine Infectious Disease
DX: M25.562 Pain in left knee (principal)
CPT/HCPCS: 96365; J7050; A4216; J0696

== ENCOUNTER 2023-07-28 12:57 | Outpatient (CLI) | payer MEDICARE, OTHER, SELFPAY ==
[2023-07-28] MEDS: Ceftriaxone 2 GM in 0.9% Normal Saline (50mL MB+) 50 ML IV (13:25)
[2023-07-28 13:37] VITALS: BP 105/51; PULSE 78; RESP 16; TEMP 36.1; O2SAT 98
[2023-07-28 13:43] LABS: Erythrocyte Sedimentation Rate < 1 mm/hr (0-30)
[2023-07-28 13:45] LABS: Hematocrit 36.2 % (37-47); Hemoglobin 11.6 g/dL (12.0-15.0); Mean Corpuscular Hgb 31.5 pg (27.0-32.0); Mean Corpuscular Volume 98.4 fL (81-99); Mean Platelet Vol. 10.4 fl (6.2-12.0); Platelet Count 215 K/mm3 (150-450); RBC Distribution Width CV 12.8 % (11.6-14.6); RBC Distribution Width SD 45.9 fl (35.1-43.9); Red Blood Count 3.68 M/mm3 (4.2-5.4); White Blood Count 4.4 K/mm3 (4.4-11.0)
[2023-07-28 13:49] LABS: Anion Gap 6 (5-15); BUN 14 mg/dL (7-18); BUN/Creat Ratio 15.3 RATIO (10-20); Calcium,Total 8.5 mg/dL (8.5-10.1); Chloride 104 mmol/L (98-107); Creatinine, Serum 0.92 mg/dL (0.55-1.02); EST Glomerular Filtration Rate 64 mL/min (>60); Est Glom Filt Rate - Afr Amer 78 mL/min (>60); Glucose 160 mg/dL (74-106); Potassium 3.9 mmol/L (3.5-5.1); Sodium Level 137 mmol/L (136-145)
[2023-07-28 14:36] VITALS: BP 112/58; PULSE 73; RESP 16; TEMP 36.4; O2SAT 99
[2023-07-28 21:34] LABS: Xtra Tube EP Lab EXTRA TUBE
== END 2023-07-28 12:58 | disposition home or self-care (01) ==
LOC: MEDOUTP 12:57
PROVIDERS: PCP Family Medicine; Referring Provider Internal Medicine Infectious Disease; Visit Provider Internal Medicine Infectious Disease
DX: M25.562 Pain in left knee (principal)
CPT/HCPCS: 96365; 36592; 80048; 85027; 85652; J7050; A4216; J0696

== ENCOUNTER 2023-07-29 11:25 | Outpatient (CLI) | payer MEDICARE, OTHER, SELFPAY ==
[2023-07-29] MEDS: Ceftriaxone 2 GM in 0.9% Normal Saline (50mL MB+) 50 ML IV (11:46)
[2023-07-29 11:53] VITALS: BP 140/69; PULSE 68; RESP 16; TEMP 36.3; O2SAT 97; BMI 24.2
[2023-07-29 12:54] VITALS: BP 129/68; PULSE 72; RESP 16; TEMP 36.3; O2SAT 97
== END 2023-07-29 11:26 | disposition home or self-care (01) ==
LOC: MEDOUTP 11:25
PROVIDERS: PCP Family Medicine; Referring Provider Internal Medicine Infectious Disease; Visit Provider Internal Medicine Infectious Disease
DX: M25.562 Pain in left knee (principal); T84.54XA Infection and inflammatory reaction due to internal left knee prosthesis, initial encounter
CPT/HCPCS: 96365; A4216; J0696

== ENCOUNTER 2023-07-30 13:23 | Outpatient (CLI) | payer MEDICARE, OTHER, SELFPAY ==
[2023-07-30] MEDS: 0.9% Saline Lock 10 ML Syringe IV ×2 (13:06→13:57)
[2023-07-30] MEDS: 0.9% Normal Saline (250mL Bag) 250 ML 15 ML IV (13:06)
[2023-07-30] MEDS: Ceftriaxone 2 GM in 0.9% Normal Saline (50mL MB+) 50 ML IV (13:06)
[2023-07-30 13:13] VITALS: BP 106/65; PULSE 73; RESP 18; TEMP 36.6; O2SAT 100
== END 2023-07-30 14:00 | disposition home or self-care (01) ==
LOC: MEDOUTP 13:24 → MS3 13:24
PROVIDERS: PCP Family Medicine; Referring Provider Internal Medicine Infectious Disease; Visit Provider Internal Medicine Infectious Disease
DX: M25.562 Pain in left knee (principal)
CPT/HCPCS: 96365; J7050; A4216; J0696

== ENCOUNTER 2023-07-31 12:56 | Outpatient (CLI) | payer MEDICARE, OTHER, SELFPAY ==
[2023-07-31] MEDS: Ceftriaxone 2 GM in 0.9% Normal Saline (50mL MB+) 50 ML IV (13:02)
[2023-07-31] MEDS: 0.9% Normal Saline (250mL Bag) 250 ML 15 ML IV (13:02)
[2023-07-31] MEDS: 0.9% Saline Lock 10 ML Syringe IV ×2 (13:02→13:57)
[2023-07-31 13:06] VITALS: BP 110/54; PULSE 71; RESP 18; TEMP 36.6; O2SAT 100
== END 2023-07-31 13:55 | disposition home or self-care (01) ==
LOC: MEDOUTP 12:57 → MS3 13:04
PROVIDERS: PCP Family Medicine; Referring Provider Internal Medicine Infectious Disease; Visit Provider Internal Medicine Infectious Disease
DX: M25.562 Pain in left knee (principal)
CPT/HCPCS: 96365; J7050; A4216; J0696

== ENCOUNTER 2023-08-01 12:55 | Outpatient (CLI) | payer MEDICARE, OTHER, SELFPAY ==
[2023-08-01] MEDS: Ceftriaxone 2 GM in 0.9% Normal Saline (50mL MB+) 50 ML IV (13:14)
[2023-08-01 13:16] VITALS: BP 149/76; PULSE 76; RESP 16; TEMP 36.2; O2SAT 97
[2023-08-01 14:16] VITALS: BP 135/75; PULSE 72
== END 2023-08-01 12:56 | disposition home or self-care (01) ==
LOC: MEDOUTP 12:55
PROVIDERS: PCP Family Medicine; Referring Provider Internal Medicine Infectious Disease; Visit Provider Internal Medicine Infectious Disease
DX: M25.562 Pain in left knee (principal)
CPT/HCPCS: 96365; J7050; A4216; J0696

== ENCOUNTER 2023-08-02 13:21 | Outpatient (CLI) | payer MEDICARE, OTHER, SELFPAY ==
[2023-08-02] MEDS: Ceftriaxone 2 GM in 0.9% Normal Saline (50mL MB+) 50 ML IV (13:30)
[2023-08-02 13:35] VITALS: BP 114/62; PULSE 74; RESP 16; TEMP 36.6; O2SAT 99; BMI 24.4
[2023-08-02 14:36] VITALS: BP 116/70; PULSE 72
== END 2023-08-02 13:22 | disposition home or self-care (01) ==
LOC: MEDOUTP 13:21
PROVIDERS: PCP Family Medicine; Referring Provider Internal Medicine Infectious Disease; Visit Provider Internal Medicine Infectious Disease
DX: M25.562 Pain in left knee (principal)
CPT/HCPCS: 96365; J7050; A4216; J0696

== ENCOUNTER 2023-08-03 12:55 | Outpatient (CLI) | payer MEDICARE, OTHER, SELFPAY ==
[2023-08-03] MEDS: Ceftriaxone 2 GM in 0.9% Normal Saline (50mL MB+) 50 ML IV (13:09)
[2023-08-03 13:10] VITALS: BP 144/65; PULSE 69; RESP 16; TEMP 36.1; O2SAT 99; BMI 24.3
[2023-08-03 14:11] VITALS: BP 139/73; PULSE 70; RESP 16; TEMP 36.3
== END 2023-08-03 12:56 | disposition home or self-care (01) ==
LOC: MEDOUTP 12:55
PROVIDERS: PCP Family Medicine; Referring Provider Internal Medicine Infectious Disease; Visit Provider Internal Medicine Infectious Disease
DX: M25.562 Pain in left knee (principal)
CPT/HCPCS: 96365; J7050; A4216; J0696

== ENCOUNTER 2023-08-04 12:55 | Outpatient (CLI) | payer MEDICARE, OTHER, SELFPAY ==
[2023-08-04] MEDS: 0.9% NaCl Peripheral Flush Adult/Peds IV ×3 (13:17→14:40)
[2023-08-04] MEDS: Ceftriaxone 2 GM in 0.9% NS 50 ML Minibag x1 IV (13:31)
[2023-08-04] MEDS: 0.9% NaCl IVPB Med Flush (250 mL) 15 ML IV (13:31)
[2023-08-04 13:40] VITALS: BP 122/72; PULSE 75; RESP 16; TEMP 36.4; O2SAT 99; BMI 24.4
[2023-08-04 13:51] LABS: Hematocrit 36.3 % (37-47); Hemoglobin 11.6 g/dL (12.0-15.0); Mean Corpuscular Hgb 31.3 pg (27.0-32.0); Mean Corpuscular Volume 97.8 fL (81-99); Mean Platelet Vol. 10.4 fl (6.2-12.0); Platelet Count 201 K/mm3 (150-450); RBC Distribution Width CV 12.7 % (11.6-14.6); RBC Distribution Width SD 45.5 fl (35.1-43.9); Red Blood Count 3.71 M/mm3 (4.2-5.4); White Blood Count 5.4 K/mm3 (4.4-11.0)
[2023-08-04 13:57] LABS: Erythrocyte Sedimentation Rate < 1 mm/hr (0-30)
[2023-08-04 14:03] LABS: Anion Gap 4 (5-15); BUN 12 mg/dL (7-18); BUN/Creat Ratio 14.5 RATIO (10-20); Calcium,Total 8.5 mg/dL (8.5-10.1); Chloride 104 mmol/L (98-107); Creatinine, Serum 0.83 mg/dL (0.55-1.02); EST Glomerular Filtration Rate 73 mL/min (>60); Est Glom Filt Rate - Afr Amer 88 mL/min (>60); Estimated Creatinine Clearance 62.21 ml/min; Glucose 114 mg/dL (74-106); Potassium 3.9 mmol/L (3.5-5.1); Sodium Level 135 mmol/L (136-145)
[2023-08-04 14:50] VITALS: BP 134/72; PULSE 69; RESP 16; TEMP 36.4; O2SAT 100
== END 2023-08-04 12:56 | disposition home or self-care (01) ==
LOC: MEDOUTP 12:55
PROVIDERS: PCP Family Medicine; Referring Provider Internal Medicine Infectious Disease; Visit Provider Internal Medicine Infectious Disease
DX: M25.562 Pain in left knee (principal)
CPT/HCPCS: 96365; 80048; 85027; 85652; J7050; A4216; J0696

== ENCOUNTER 2023-08-05 12:53 | Outpatient (CLI) | payer MEDICARE, OTHER, SELFPAY ==
[2023-08-05 13:00] VITALS: BP 141/65; PULSE 75; RESP 16; TEMP 35.9; O2SAT 100; BMI 24.4
[2023-08-05] MEDS: 0.9% NaCl Peripheral Flush Adult/Peds IV ×2 (13:08→14:08)
[2023-08-05] MEDS: 0.9% NaCl IVPB Med Flush (250 mL) 15 ML IV (13:08)
[2023-08-05] MEDS: Ceftriaxone 2 GM in 0.9% NS 50 ML Minibag x1 IV (13:08)
[2023-08-05 14:11] VITALS: BP 125/60; PULSE 70; RESP 16; TEMP 36.2; O2SAT 100
== END 2023-08-05 12:54 | disposition home or self-care (01) ==
LOC: MEDOUTP 12:53
PROVIDERS: PCP Family Medicine; Referring Provider Internal Medicine Infectious Disease; Visit Provider Internal Medicine Infectious Disease
DX: M25.562 Pain in left knee (principal)
CPT/HCPCS: 96365; J7050; A4216; J0696

== ENCOUNTER 2023-08-06 12:57 | Outpatient (CLI) | payer MEDICARE, OTHER, SELFPAY ==
[2023-08-06 13:07] VITALS: BP 124/74; PULSE 74; RESP 18; TEMP 36.6; O2SAT 99
[2023-08-06] MEDS: 0.9% Normal Saline (250mL Bag) 250 ML 15 ML IV (13:12)
[2023-08-06] MEDS: Ceftriaxone 2 GM in 0.9% NS 50 ML Minibag x1 IV (13:13)
[2023-08-06 13:57] VITALS: BP 127/68; PULSE 84; RESP 18; TEMP 36.7; O2SAT 98
[2023-08-06] MEDS: 0.9 % NaCl (Sterile) Posiflush 10 mL IV (13:59)
== END 2023-08-06 14:00 | disposition home or self-care (01) ==
LOC: MEDOUTP 12:57 → MS3 12:58
PROVIDERS: PCP Family Medicine; Referring Provider Internal Medicine Infectious Disease; Visit Provider Internal Medicine Infectious Disease
DX: M25.562 Pain in left knee (principal)
CPT/HCPCS: 96365; J7050; J0696

== ENCOUNTER 2023-08-07 12:00 | Outpatient (CLI) | payer MEDICARE, OTHER, SELFPAY ==
[2023-08-07 12:08] VITALS: BP 121/61; PULSE 75; RESP 18; TEMP 36.6; O2SAT 100
[2023-08-07] MEDS: Ceftriaxone 2 GM in 0.9% NS 50 ML Minibag x1 IV (12:16)
[2023-08-07] MEDS: 0.9% Saline Lock 10 ML Syringe IV ×2 (12:16→12:55)
[2023-08-07 12:55] VITALS: BP 121/69; PULSE 75; RESP 18; TEMP 36.9; O2SAT 100
== END 2023-08-07 12:56 | disposition home or self-care (01) ==
LOC: MEDOUTP 12:00 → MS3 12:01
PROVIDERS: PCP Family Medicine; Referring Provider Internal Medicine Infectious Disease; Visit Provider Internal Medicine Infectious Disease
DX: M25.562 Pain in left knee (principal)
CPT/HCPCS: 96365; A4216; J0696

== ENCOUNTER 2023-08-08 12:56 | Outpatient (CLI) | payer MEDICARE, OTHER, SELFPAY ==
[2023-08-08] MEDS: 0.9% NaCl IVPB Med Flush (250 mL) 15 ML IV (13:26)
[2023-08-08] MEDS: Ceftriaxone 2 GM in 0.9% NS 50 ML Minibag x1 IV (13:26)
[2023-08-08] MEDS: 0.9% NaCl Peripheral Flush Adult/Peds IV ×2 (13:26→14:30)
[2023-08-08 13:28] VITALS: BP 115/58; PULSE 74; RESP 16; TEMP 36.4; BMI 24.3
[2023-08-08 14:30] VITALS: BP 123/65; PULSE 76; RESP 16; TEMP 36.4
== END 2023-08-08 12:57 | disposition home or self-care (01) ==
LOC: MEDOUTP 12:57
PROVIDERS: PCP Family Medicine; Referring Provider Internal Medicine Infectious Disease; Visit Provider Internal Medicine Infectious Disease
DX: M25.562 Pain in left knee (principal)
CPT/HCPCS: 96365; J7050; A4216; J0696

== ENCOUNTER 2023-08-09 11:57 | Outpatient (CLI) | payer MEDICARE, OTHER, SELFPAY ==
[2023-08-09] MEDS: Ceftriaxone 2 GM in 0.9% Normal Saline (50mL MB+) 50 ML IV (12:04)
[2023-08-09 12:12] VITALS: BP 114/58; PULSE 70; RESP 16; TEMP 36.4; BMI 24.3
[2023-08-09 13:12] VITALS: BP 141/65; PULSE 76; RESP 16; TEMP 36.4
== END 2023-08-09 11:58 | disposition home or self-care (01) ==
LOC: MEDOUTP 11:58
PROVIDERS: PCP Family Medicine; Referring Provider Internal Medicine Infectious Disease; Visit Provider Internal Medicine Infectious Disease
DX: M25.562 Pain in left knee (principal)
CPT/HCPCS: 96365; J7050; A4216; J0696

== ENCOUNTER 2023-08-10 12:58 | Outpatient (CLI) | payer MEDICARE, OTHER, SELFPAY ==
[2023-08-10] MEDS: Ceftriaxone 2 GM in 0.9% Normal Saline (50mL MB+) 50 ML IV (13:09)
[2023-08-10 13:10] VITALS: BP 135/65; PULSE 73; RESP 16; TEMP 36.1; O2SAT 100
[2023-08-10 14:08] VITALS: BP 117/60; PULSE 79; RESP 16; TEMP 35.9; O2SAT 100
== END 2023-08-10 12:59 | disposition home or self-care (01) ==
LOC: MEDOUTP 12:58
PROVIDERS: PCP Family Medicine; Referring Provider Internal Medicine Infectious Disease; Visit Provider Internal Medicine Infectious Disease
DX: M25.562 Pain in left knee (principal)
CPT/HCPCS: 96365; J7050; A4216; J0696

== ENCOUNTER 2023-08-11 13:02 | Outpatient (CLI) | payer MEDICARE, OTHER, SELFPAY ==
[2023-08-11] MEDS: Ceftriaxone 2 GM in 0.9% Normal Saline (50mL MB+) 50 ML IV (13:29)
[2023-08-11 13:32] VITALS: BP 126/61; PULSE 71; RESP 16; TEMP 36.4; O2SAT 100
[2023-08-11 13:35] LABS: Hematocrit 38.4 % (37-47); Hemoglobin 12.4 g/dL (12.0-15.0); Mean Corp Hgb Conc 32.3 g/dL (32-36); Mean Corpuscular Hgb 31.6 pg (27.0-32.0); Mean Corpuscular Volume 97.7 fL (81-99); Platelet Count 248 K/mm3 (150-450); RBC Distribution Width CV 12.7 % (11.6-14.6); Red Blood Count 3.93 M/mm3 (4.2-5.4); White Blood Count 7.1 K/mm3 (4.4-11.0)
[2023-08-11 13:49] LABS: Anion Gap 5 (5-15); BUN 15 mg/dL (7-18); BUN/Creat Ratio 18.2 RATIO (10-20); Calcium,Total 9.1 mg/dL (8.5-10.1); Chloride 106 mmol/L (98-107); Creatinine, Serum 0.82 mg/dL (0.55-1.02); EST Glomerular Filtration Rate 73 mL/min (>60); Est Glom Filt Rate - Afr Amer 88 mL/min (>60); Glucose 158 mg/dL (74-106); Potassium 3.8 mmol/L (3.5-5.1); Sodium Level 140 mmol/L (136-145)
[2023-08-11 14:02] LABS: Erythrocyte Sedimentation Rate < 1 mm/hr (0-30)
[2023-08-11 14:10] VITALS: BP 129/67; PULSE 70; RESP 16; TEMP 35.9; O2SAT 100
== END 2023-08-11 13:03 | disposition home or self-care (01) ==
LOC: MEDOUTP 13:02
PROVIDERS: PCP Family Medicine; Referring Provider Internal Medicine Infectious Disease; Visit Provider Internal Medicine Infectious Disease
DX: M25.562 Pain in left knee (principal); T84.54XA Infection and inflammatory reaction due to internal left knee prosthesis, initial encounter
CPT/HCPCS: 96365; 36592; 80048; 85027; 85652; A4216; J0696

== ENCOUNTER 2023-08-12 11:56 | Outpatient (CLI) | payer MEDICARE, OTHER, SELFPAY ==
[2023-08-12 12:12] VITALS: BP 144/91; PULSE 70; RESP 16; TEMP 36.2; O2SAT 100
[2023-08-12] MEDS: Ceftriaxone 2 GM in 0.9% Normal Saline (50mL MB+) 50 ML IV (12:17)
[2023-08-12 13:16] VITALS: BP 128/69; PULSE 78
== END 2023-08-12 11:57 | disposition home or self-care (01) ==
LOC: MEDOUTP 11:56
PROVIDERS: PCP Family Medicine; Referring Provider Internal Medicine Infectious Disease; Visit Provider Internal Medicine Infectious Disease
DX: T84.54XA Infection and inflammatory reaction due to internal left knee prosthesis, initial encounter (principal); M25.562 Pain in left knee
CPT/HCPCS: 96365; J7050; A4216; J0696

== ENCOUNTER 2023-08-13 13:05 | Outpatient (CLI) | payer MEDICARE, OTHER, SELFPAY ==
[2023-08-13] MEDS: Ceftriaxone 2 GM in 0.9% Normal Saline (50mL MB+) 50 ML IV (13:25)
[2023-08-13] MEDS: 0.9% Saline Lock 10 ML Syringe IV (13:26)
[2023-08-13 13:35] VITALS: BP 120/65; PULSE 82; RESP 15; TEMP 36.8; O2SAT 98
== END 2023-08-13 14:07 | disposition home or self-care (01) ==
LOC: MEDOUTP 13:05 → ICU 13:07
PROVIDERS: PCP Family Medicine; Referring Provider Internal Medicine Infectious Disease; Visit Provider Internal Medicine Infectious Disease
DX: T84.54XA Infection and inflammatory reaction due to internal left knee prosthesis, initial encounter (principal); M25.562 Pain in left knee
CPT/HCPCS: 96365; 96523; A4216; J0696

== ENCOUNTER 2023-08-14 12:02 | Outpatient (CLI) | payer MEDICARE, OTHER, SELFPAY ==
[2023-08-14] MEDS: Ceftriaxone 2 GM in 0.9% Normal Saline (50mL MB+) 50 ML IV (12:13)
[2023-08-14 12:16] VITALS: BP 130/69; PULSE 74; RESP 16; TEMP 36.8; O2SAT 100
[2023-08-14] MEDS: 0.9 % NaCl (Sterile) Posiflush 10 mL IV (13:09)
== END 2023-08-14 13:10 | disposition home or self-care (01) ==
LOC: MEDOUTP 12:03 → MS3 12:04
PROVIDERS: PCP Family Medicine; Referring Provider Internal Medicine Infectious Disease; Visit Provider Internal Medicine Infectious Disease
DX: T84.54XA Infection and inflammatory reaction due to internal left knee prosthesis, initial encounter (principal); M25.562 Pain in left knee
CPT/HCPCS: 96365; J0696

== ENCOUNTER 2023-08-15 11:27 | Outpatient (CLI) | payer MEDICARE, OTHER, SELFPAY ==
[2023-08-15] MEDS: Ceftriaxone 2 GM in 0.9% Normal Saline (50mL MB+) 50 ML IV (11:48)
[2023-08-15 11:52] VITALS: BP 139/41; PULSE 63; RESP 16; TEMP 36.1; O2SAT 99
[2023-08-15 12:51] VITALS: BP 128/69; PULSE 62; RESP 16
== END 2023-08-15 11:28 | disposition home or self-care (01) ==
LOC: MEDOUTP 11:27
PROVIDERS: PCP Family Medicine; Referring Provider Internal Medicine Infectious Disease; Visit Provider Internal Medicine Infectious Disease
DX: M25.562 Pain in left knee (principal)
CPT/HCPCS: 96365; J7050; A4216; J0696

== ENCOUNTER 2023-08-16 09:57 | Outpatient (CLI) | payer MEDICARE, OTHER, SELFPAY ==
[2023-08-16] MEDS: Ceftriaxone 2 GM in 0.9% Normal Saline (50mL MB+) 50 ML IV (10:18)
[2023-08-16 10:24] VITALS: BP 119/67; PULSE 78; RESP 16; TEMP 36.4; O2SAT 100
[2023-08-16 11:17] VITALS: BP 120/73; PULSE 67; RESP 16; TEMP 36.2; O2SAT 100
== END 2023-08-16 09:58 | disposition home or self-care (01) ==
LOC: MEDOUTP 09:57
PROVIDERS: PCP Family Medicine; Referring Provider Internal Medicine Infectious Disease; Visit Provider Internal Medicine Infectious Disease
DX: M25.562 Pain in left knee (principal)
CPT/HCPCS: 96365; A4216; J0696

== ENCOUNTER 2023-08-17 08:29 | Outpatient (CLI) | payer MEDICARE, OTHER, SELFPAY ==
[2023-08-17] MEDS: Ceftriaxone 2 GM in 0.9% Normal Saline (50mL MB+) 50 ML IV (08:42)
[2023-08-17 08:44] VITALS: BP 132/78; PULSE 75; RESP 16; TEMP 36.4; O2SAT 100
[2023-08-17 09:11] LABS: Anion Gap 4 (5-15); BUN 14 mg/dL (7-18); BUN/Creat Ratio 16.4 RATIO (10-20); Calcium,Total 8.8 mg/dL (8.5-10.1); Chloride 108 mmol/L (98-107); Creatinine, Serum 0.85 mg/dL (0.55-1.02); EST Glomerular Filtration Rate 70 mL/min (>60); Est Glom Filt Rate - Afr Amer 85 mL/min (>60); Glucose 132 mg/dL (74-106); Potassium 4.1 mmol/L (3.5-5.1); Sodium Level 139 mmol/L (136-145)
[2023-08-17 09:15] LABS: Erythrocyte Sedimentation Rate 2 mm/hr (0-30)
[2023-08-17 09:17] LABS: Hematocrit 37.5 % (37-47); Hemoglobin 12.1 g/dL (12.0-15.0); Mean Corp Hgb Conc 32.3 g/dL (32-36); Mean Corpuscular Hgb 31.7 pg (27.0-32.0); Mean Corpuscular Volume 98.2 fL (81-99); Mean Platelet Vol. 10.5 fl (6.2-12.0); Platelet Count 238 K/mm3 (150-450); RBC Distribution Width CV 12.7 % (11.6-14.6); RBC Distribution Width SD 45.4 fl (35.1-43.9); Red Blood Count 3.82 M/mm3 (4.2-5.4); White Blood Count 4.8 K/mm3 (4.4-11.0)
[2023-08-17 09:35] VITALS: BP 145/81; PULSE 73; RESP 16; TEMP 35.9; O2SAT 100
== END 2023-08-17 08:30 | disposition home or self-care (01) ==
PROVIDERS: PCP Family Medicine; Referring Provider Internal Medicine Infectious Disease; Visit Provider Internal Medicine Infectious Disease
DX: T84.54XA Infection and inflammatory reaction due to internal left knee prosthesis, initial encounter (principal)
CPT/HCPCS: 96365; 80048; 85027; 85652; J7050; A4216; J0696

== ENCOUNTER 2023-08-18 09:33 | Outpatient (CLI) | payer MEDICARE, OTHER, SELFPAY ==
[2023-08-18] MEDS: 0.9% Normal Saline (250mL Bag) 250 ML 15 ML IV (09:35)
[2023-08-18] MEDS: 0.9% Saline Lock 10 ML Syringe IV ×2 (09:35→10:39)
[2023-08-18] MEDS: Ceftriaxone 2 GM in 0.9% Normal Saline (50mL MB+) 50 ML IV (09:54)
== END 2023-08-18 10:51 | disposition home or self-care (01) ==
LOC: MEDOUTP 09:33 → MS3 09:33
PROVIDERS: PCP Family Medicine; Visit Provider Internal Medicine Infectious Disease
DX: M25.562 Pain in left knee (principal)
CPT/HCPCS: 96365; J7050; A4216; J0696

== ENCOUNTER 2023-08-19 08:53 | Outpatient (CLI) | payer MEDICARE, OTHER, SELFPAY ==
[2023-08-19 09:07] VITALS: BP 141/62; PULSE 76; RESP 16; TEMP 36.1; O2SAT 99; BMI 24.3
== END 2023-08-19 08:54 | disposition home or self-care (01) ==
LOC: MEDOUTP 08:54
PROVIDERS: PCP Family Medicine; Referring Provider Internal Medicine Infectious Disease; Visit Provider Internal Medicine Infectious Disease
DX: M25.562 Pain in left knee (principal)

== ENCOUNTER → 2023-10-10 | Outpatient (CLI) | payer MEDICARE, OTHER, SELFPAY ==
--- OUTSIDE RECORDS SUMMARY | 2023-10-10 07:48 | XMS RPT_ITS | CCD ---
Author Name Unknown Address [address] [place] [address] Organization [facility] Care Team Providers Care Acute Care Certified Nursing Assistant Name Role Phone Terri Joyce LPN Unavailable UnavailTerri Wolf LPN Unavailable Unavailab Roberto Carlos Stanton Unavailable [phone] Jenn Muniz Unavailable Unavailable Jenn Muniz Unavailable Unavailable VAISHALI MEAD DR Unavailable Unavailable VAISHALI MEAD DR Unavailable Unavailable VAISHALI MEAD DR Unavailable Unavailable HonRene garcia Unavailable Unavailable Sagar No Unavailable Unavailable Nicci Deutsch Unavailable Jacinto LUNA MD, RAMONA A Primary Care Physician WIN NUNO, DR ROBERTO CARLOS Pearson Attending RAMONA Gamboa MD Primary Care Unavailable JACK ONEIL-MALVIN, JASON L Consulting Juan Jose WALDEN MD, DR ROBERTO CARLOS Pearson Attending Arun Gamez MD, DR ROBERTO CARLOS Pearson Admitting Arun Lee MD, RAMONA A Primary Care Unavailable Allergies Allergy Classification Reported Allergen(s) Allergy Type Date of Onset Reaction(s) Facility (3 sources) amoxicillin; Translations: [amoxicillin] drug allergy 06-01-2017 [facility] Work Phone: Medications Current Medications Medication Drug Class(es) Dates Sig (Normalized) Sig (Original) atorvastatin 10 mg oral tablet (1 source) HMG-CoA Reductase Inhibitor Start: 06-02-2023 atorvastatin 10 mg oral tablet Dose : 10 mg = 1 tab(s), Oral, qDay, # 30 tab(s), 0 Refill(s) Start Date: 06/02/23 Status: Ordered chondroitin sulfates 1200 mg / glucosamine sulfate 1500 mg oral capsule (1 source) Start: 06-02-2023 take 1 capsule by mouth once daily chondroitin-glucosa mine 1.2 g-1.5 g oral capsule Dose = 2 cap(s), Oral, qDay, # 60 cap(s), 0 Refill(s) Start Date: 06/02/23 Status: Ordered Fish Oils (1 source) Start: 06-02-2023 Fish Oil 1200 mg oral capsule Dose : 2,400 mg = 2 cap(s), Oral, qDay, # 100 cap(s), 0 Refill(s) Start Date: 06/02/23 Status: Ordered herbal/nutritional product (2 sources) Start: 06-02-2023 herbal/nutritional product 2 chews, Oral, BID, kiwi chews, 0 Refill(s) Start Date: 06/02/23 Status: Ordered Completed/Discontinued Medications Medication Drug Class(es) Dates Sig (Normalized) Sig (Original) fluconazole 200 mg oral tablet (2 sources) Azole Antifungal Start: 06-01-2017 FLUCONAZOLE 200 MG TABS Take 1 tablet, repeat second tablet in 36-48 hours only if still symptomatic. FLUCONAZOLE [id number] Roberto Carlos CABALLERO MELOXICAM TABS (2 sources) Nonsteroidal Anti-inflammatory Drug Start: 06-01-2017 MELOXICAM TABS as directed MELOXICAM TABS [id number] Terri Joyce LPN Drug Treatment Unknown - unknown (1 source) No information available. Problems Active Problems Problem Classification Problem Date Documented Da te Episodic/Chronic Unclassified (1 source) No current problems or disability 06-01-2017 Unclassified (1 source) Unknown / UNK(Unknown) Onset: 01-19-2018 Past or Other Problems Problem Classification Problem Date Documented Date Episodic/Chronic Mycoses (4 sources) Candidal vulvovaginitis; Translations: [Mycosis] Onset: 06-01-2017 06-01-2017 Episodic Unclassified (1 source) DYSFUNCTIONAL UTERINE BLEEDING~ Onset: 01-19-2018 Results Test Name Value Interpretation Reference Range Facil ity Vital Signs Date Time Vital Sign Value Performing Clinician Faci venu 06-02-2023 09:19-[address]00 Blood Pressure Cuff Size DR ROBERTO CARLOS WALDEN MD [facility] 06-02-2023 09:19-[address] ROBERTO CARLOS WALDEN MD [facility] 06-02-2023 09:19-[address] ROBERTO CARLOS Rangel [facility] 06-02-2023 09:19-0400 Body height 170.[address] ROBERTO CARLOS WALDEN MD [facility] 06-02-2023 09:19-0400 Body weight [address] ROBERTO CARLOS WALDEN MD [facility] 06-02-2023 09:19-0400 Body weight 24.16 kg/m2 DR ROBERTO CARLOS WALDEN MD [facility] 06-02-2023 09:19-0400 Diastolic Blood Pressure Non-Invasive [address] ROBERTO CARLOS WALDEN MD [facility] 06-02-2023 09:19-0400 Heart rate 65 /min DR ROBERTO CARLOS WALDEN MD [facility] 06-02-2023 09:19-0400 Systolic Blood Pressure Non-Invasive [address] ROBERTO CARLOS WALDEN MD [facility] 06-01-2017 08:54-0400 BMI (Body Mass Index) 24.23 kg/m2 Terri Joyce LPN [facility] No w Clinic Work Phone: 06-01-2017 08:54-0400 Body Temperature 98 [degF] Terri Joyce LPN [facility] Work Phone: 06-01-2017 08:54-0400 BP Diastolic 64 mm[Hg] Terri Joyce LPN [facility] Work Phone: 06-01-2017 08:54-0400 BP Systolic 118 mm[Hg] Terri Joyce LPN [facility] Work Phone: 06-01-2017 08:54-0400 Height 172.72 cm Terri Joyce LPN [facility] Work Phone: 06-01-2017 08:54-0400 Pulse (Heart Rate) 95 /min Terri Joyce LPN [facility] Work Phone: 06-01-2017 08:54-0400 Respiratory Rate 12 /min Terri Joyce LPN [facility] Work Phone: 06-01-2017 08:54-0400 Weight 72.3 kg Terri Joyce LPN [facility] Work Phone: Encounters Encounter Date Encounter Type Care Provider Facility Start: 06-28-2023 End: 06-30-2023 Evaluation and management of inpatient JASON 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 Facility:B Start: 06-02-2023 End: 06-03-[address] ROBERTO CARLOS WALDEN MD Facility:[facility] Start: 06-02-2023 End: 06-02-[address] ROBERTO CARLOS WALDEN MD [facility] Start: 01-19-2018 Ambulatory Jenn Muniz Facil ity:[facility] Start: 11-09-2017 End: 11-09-2017 Ambulatory VAISHALI MEAD [facility] Start: 04-12-2017 Ambulatory Rene Villeda Facili ty:[facility] Procedures Date Procedure Procedure Detail Performing Clinician Arthroplasty of knee planned DR ROBERTO CARLOS WALDEN MD Plan of Treatment Date Care Activity Detail Author Start: 06-01-2017 End: 06-01-2017 Appointment Appointment [facility] Work Phone: Patient Education YEAST%20INFECTION [facility] N ow Clinic Work Phone: Payers Date Payer Category Payer Medicare [id number] 2023 Unknown [id number] 1955 Unknown [id number] 1955 Unknown [id number] Unknown [id number] Unknown [id number] Social History Date Type Detail Facility Start: 06-02-2023 Tobacco smoking status Never s moked tobacco (finding) [facility] Sex Assigned At Female [facility] Functional Status Date Assessment Result Facility 06-02-2023 Functional Status Sensory Deficits None A [facility] Clinical Notes 07-04-2023 to 08-25-2023 Note Date & Type Note Facility 08-25-2023 Note . MICRO - Microbiology PROCEDURE: Acid Fast Bacilli Culture w Stain if Ind [*1] SOURCE: Tissue BODY SITE: Knee L COLLECTED DATE/TIME: 06/28/2023 11:39 EDT RECEIVED DATE/TIME: 06/29/2023 19:59 EDT START DATE/TIME: 06/29/2023 19:59 EDT FREE TEXT SOURCE: 2. TIBIAL MEMBRANE FINAL REPORTS Final Report [] Verified Date/Time/Personnel: 08/25/2023 09:51 EST No growth of Acid Fast Bacilli PRELIMINARY REPORTS Preliminary Report [] Verified Date/Time/Personnel: 08/16/2023 08:32 EST No growth of Acid Fast Bacilli to date. Final report to follow at 8 weeks. STAINS AFS [] Verified Date/Time/Personnel: 07/01/2023 11:44 EDT Acid Fast Smear from Concentrated Specimen: Negative Performing Locations *1: This test was performed at: [facility], [address] [place] [address], [id number] , [facility] ([place]) 08-25-2023 Note . MICRO - Microbiology PROCEDURE: Acid Fast Bacilli Culture w Stain if Ind [*1] SOURCE: Tissue BODY SITE: Knee L COLLECTED DATE/TIME: 06/28/2023 11:39 EDT RECEIVED DATE/TIME: 06/29/2023 19:59 EDT START DATE/TIME: 06/29/2023 19:59 EDT FREE TEXT SOURCE: 3. FEMORAL MEMBRANE FINAL REPORTS Final Report [] Verified Date/Time/Personnel: 08/25/2023 09:51 EST No growth of Acid Fast Bacilli PRELIMINARY REPORTS Preliminary Report [] Verified Date/Time/Personnel: 08/16/2023 08:32 EST No growth of Acid Fast Bacilli to date. Final report to follow at 8 weeks. STAINS AFS [] Verified Date/Time/Personnel: 07/01/2023 11:44 EDT Acid Fast Smear from Concentrated Specimen: Negative Performing Locations *1: This test was performed at: [address], [facility]- , [facility] ([place]) 08-25-2023 Note . MICRO - Microbiology PROCEDURE: Acid Fast Bacilli Culture w Stain if Ind [*1] SOURCE: Tissue BODY SITE: Knee L COLLECTED DATE/TIME: 06/28/2023 11:32 EDT RECEIVED DATE/TIME: 06/29/2023 19:59 EDT START DATE/TIME: 06/29/2023 19:59 EDT FREE TEXT SOURCE: 1. SUPRAPATELLAR POUCH FINAL REPORTS Final Report [] Verified Date/Time/Personnel: 08/25/2023 09:50 EST No growth of Acid Fast Bacilli PRELIMINARY REPORTS Preliminary Report [] Verified Date/Time/Personnel: 08/16/2023 08:32 EST No growth of Acid Fast Bacilli to date. Final report to follow at 8 weeks. STAINS AFS [] Verified Date/Time/Personnel: 07/01/2023 11:44 EDT Acid Fast Smear from Concentrated Specimen: Negative Performing Locations *1: This test was performed at: [address], [id number]- , [facility] ([place]) 08-02-2023 Note . MICRO - Microbiology PROCEDURE: Fungal Culture with Stain if Ind [*1] SOURCE: Tissue BODY SITE: Knee L COLLECTED DATE/TIME: 06/28/2023 11:39 EDT RECEIVED DATE/TIME: 06/29/2023 19:59 EDT START DATE/TIME: 06/29/2023 19:59 EDT FREE TEXT SOURCE: 2. TIBIAL MEMBRANE FINAL REPORTS Final Report [] Verified Date/Time/Personnel: 08/02/2023 16:39 EST No fungus isolated in 4 weeks. PRELIMINARY REPORTS Preliminary Report [] Verified Date/Time/Personnel: 07/04/2023 09:06 EDT No fungus isolated to date. Final report to follow. STAINS FUNSM [] Verified Date/Time/Personnel: 06/30/2023 13:24 EDT Fungal Smear not performed Performing Locations *1: This test was performed at: [address], [facility] , [facility] ([facility] 08-02-2023 Note . MICRO - Microbiology PROCEDURE: Fungal Culture with Stain if Ind [*1] SOURCE: Tissue BODY SITE: Knee L COLLECTED DATE/TIME: 06/28/2023 11:39 EDT RECEIVED DATE/TIME: 06/29/2023 19:59 EDT START DATE/TIME: 06/29/2023 19:59 EDT FREE TEXT SOURCE: 3. FEMORAL MEMBRANE FINAL REPORTS Final Report [] Verified Date/Time/Personnel: 08/02/2023 16:39 EST No fungus isolated in 4 weeks. PRELIMINARY REPORTS Preliminary Report [] Verified Date/Time/Personnel: 07/04/2023 09:06 EDT No fungus isolated to date. Final report to follow. STAINS FUNSM [] Verified Date/Time/Personnel: 06/30/2023 13:24 EDT Fungal Smear not performed Performing Locations *1: This test was performed at: [address], [facility] , [facility] ([facility] 08-02-2023 Note . MICRO - Microbiology PROCEDURE: Fungal Culture with Stain if Ind [*1] SOURCE: Tissue BODY SITE: Knee L COLLECTED DATE/TIME: 06/28/2023 11:32 EDT RECEIVED DATE/TIME: 06/29/2023 19:59 EDT START DATE/TIME: 06/29/2023 19:59 EDT FREE TEXT SOURCE: 1. SUPRAPATELLAR POUCH FINAL REPORTS Final Report [] Verified Date/Time/Personnel: 08/02/2023 16:39 EST No fungus isolated in 4 weeks. PRELIMINARY REPORTS Preliminary Report [] Verified Date/Time/Personnel: 07/04/2023 09:06 EDT No fungus isolated to date. Final report to follow. STAINS FUNSM [] Verified Date/Time/Personnel: 06/30/2023 13:24 EDT Fungal Smear not performed Performing Locations *1: This test was performed at: [facility], [address] [place] [address], [facility] , [facility] ([place] 07-06-2023 Note . MICRO - Microbiology PROCEDURE: Culture Tissue [*1] SOURCE: Tissue BODY SITE: Knee L COLLECTED DATE/TIME: 06/28/2023 11:39 EDT RECEIVED DATE/TIME: 06/29/2023 19:59 EDT START DATE/TIME: 06/29/2023 19:59 EDT FREE TEXT SOURCE: 2. TIBIAL MEMBRANE FINAL REPORTS Final Report [] Verified Date/Time/Personnel: 07/06/2023 08:14 EDT 1 colony Staphylococcus epidermidis Refer to previous culture for susceptibility. [id number] No anaerobes isolated at 5 days. PRELIMINARY REPORTS Preliminary Report [] Verified Date/Time/Personnel: 07/02/2023 14:39 EDT 1 colony Staphylococcus epidermidis Refer to previous culture for susceptibility. [id number] No anaerobes isolated to date. Preliminary Report [] Verified Date/Time/Personnel: 07/01/2023 14:58 EDT 1 colony Staphylococcus epidermidis Final report to follow. No anaerobes isolated to date. Preliminary Report [] Verified Date/Time/Personnel: 06/30/2023 13:26 EDT Culture results pending. STAINS GS [] Verified Date/Time/Personnel: 06/29/2023 22:35 EDT 2+ Polymorphonuclear cells 1+ Mononuclear cells No organisms seen. Performing Locations *1: This test was performed at: [facility], [address] [place] [address], [facility] , [facility] ([place]) 07-06-2023 Note . MICRO - Microbiology PROCEDURE: Culture Tissue [*1] SOURCE: Tissue BODY SITE: Knee L COLLECTED DATE/TIME: 06/28/2023 11:39 EDT RECEIVED DATE/TIME: 06/29/2023 19:59 EDT START DATE/TIME: 06/29/2023 19:59 EDT FREE TEXT SOURCE: 3. FEMORAL MEMBRANE FINAL REPORTS Final Report [] Verified Date/Time/Personnel: 07/06/2023 08:13 EDT 1 colony Staphylococcus epidermidis This staphylococci is presumed to be resistant to clindamycin based on the detection of inducible clindamycin resistance. Clindamycin may still be effective in some patients. 1 colony Staphylococcus epidermidis #2 No anaerobes isolated at 5 days. PRELIMINARY REPORTS Preliminary Report [] Verified Date/Time/Personnel: 07/02/2023 14:39 EDT 1 colony Staphylococcus epidermidis This staphylococci is presumed to be resistant to clindamycin based on the detection of inducible clindamycin resistance. Clindamycin may still be effective in some patients. 1 colony Staphylococcus epidermidis #2 No anaerobes isolated to date. Preliminary Report [] Verified Date/Time/Personnel: 07/01/2023 11:14 EDT 1 colony Staphylococcus epidermidis ERICA to follow No anaerobes isolated to date. Preliminary Report [] Verified Date/Time/Personnel: 06/30/2023 13:23 EDT Culture results pending. STAINS GS [] Verified Date/Time/Personnel: 06/29/2023 22:32 EDT 2+ Polymorphonuclear cells No organisms seen. SUSCEPTIBILITY RESULTS Staphylococcus epidermidis Antibiotic ERICA Dilut ERICA Inter Ampicillin/ <=8/4 Susceptible Sulbactam Azithromycin >4 Resistant Cefepime <=4 Susceptible Cefotaxime <=8 Susceptible Ceftriaxone <=4 Susceptible Ciprofloxacin <=1 Susceptible Clindamycin Resistant Erythromycin >4 Resistant Imipenem <=4 Susceptible Levofloxacin <=1 Susceptible Meropenem <=2 Susceptible Oxacillin <=0.25 Susceptible Penicillin <=0.03 Susceptible MICRO - Microbiology SUSCEPTIBILITY RESULTS Staphylococcus epidermidis Antibiotic ERICA Dilut ERICA Inter Piperacillin/ <=8 Susceptible Tazobactam Tetracycline <=4 Susceptible Trimethoprim/ 1/19 Susceptible Sulfa Vancomycin 1 Susceptible Staphylococcus epidermidis #2 Antibiotic ERICA Dilut ERICA Inter Ampicillin/ <=8/4 Susceptible Sulbactam Azithromycin <=2 Susceptible Cefepime <=4 Susceptible Cefotaxime <=8 Susceptible Ceftriaxone <=4 Susceptible Ciprofloxacin <=1 Susceptible Clindamycin <=0.25 Susceptible Erythromycin <=0.25 Susceptible Imipenem <=4 Susceptible Levofloxacin <=1 Susceptible Meropenem <=2 Susceptible Oxacillin <=0.25 Susceptible Penicillin <=0.03 Susceptible Piperacillin/ <=8 Susceptible Tazobactam Tetracycline <=4 Susceptible Trimethoprim/ 2/38 Susceptible Sulfa Vancomycin 1 Susceptible Performing Locations *1: This test was performed at: [facility], [address] [place] [address], [facility] , [facility] ([place]) 07-04-2023 Note . MICRO - Microbiology PROCEDURE: Culture Tissue [*1] SOURCE: Tissue BODY SITE: Knee L COLLECTED DATE/TIME: 06/28/2023 11:32 EDT RECEIVED DATE/TIME: 06/29/2023 19:59 EDT START DATE/TIME: 06/29/2023 19:59 EDT FREE TEXT SOURCE: 1. SUPRAPATELLAR POUCH FINAL REPORTS Final Report [] Verified Date/Time/Personnel: 07/04/2023 07:57 EDT 2 colonies Staphylococcus epidermidis Refer to previous culture for susceptibility. [id number] No anaerobes isolated at 5 days. PRELIMINARY REPORTS Preliminary Report [] Verified Date/Time/Personnel: 07/02/2023 14:40 EDT 2 colonies Staphylococcus epidermidis Refer to previous culture for susceptibility. [id number] No anaerobes isolated to date. Preliminary Report [] Verified Date/Time/Personnel: 07/01/2023 11:15 EDT 2 colonies Staphylococcus epidermidis Final report to follow. No anaerobes isolated to date. Preliminary Report [] Verified Date/Time/Personnel: 06/30/2023 13:19 EDT Culture results pending. STAINS GS [] Verified Date/Time/Personnel: 06/29/2023 22:37 EDT Rare Polymorphonuclear cells Rare Mononuclear cells No organisms seen. Performing Locations *1: This test was performed at: [facility], [address] [place] [address], [id number]- , [facility] ([place]) Evaluation + Plan note Future Appointments [facility] Hospital course Narrative No data available for this section [facility] Hospital Discharge instructions No data available for this section [facility] Progress note No data available for this section [facility] Summary Purpose Family History No Family History Records FoundNo Family History Records FoundNo Family History Records FoundNo Family History Records FoundNo Family History Records FoundNo Family History Records Found No data available for this section No Family History Records Found Advance Directives No Advanced Directives Records FoundNo Advanced Directives Records FoundNo Advanced Directives Records FoundNo Advanced Directives Records FoundNo Advanced Directives Records FoundNo Advanced Directives Records FoundNo Advanced Directives Records Found Additional Source Comments INFORMATION SOURCE (unrecogn ized section and content) DATE CREATED AUTHOR AUTHOR'S ORGANIZ ATION 03/17/2018 [facility] DATE CREATED AUTHOR AUTHOR'S ORGANIZ ATION 03/17/2018 [facility] DATE CREATED AUTHOR AUTHOR'S ORGANIZ ATION 03/22/2018 [facility] DATE CREATED AUTHOR AUTHOR'S ORGANIZ ATION 09/03/2018 [facility] DATE CREATED AUTHOR AUTHOR'S ORGANIZ ATION 11/15/2018 [facility] DATE CREATED AUTHOR AUTHOR'S ORGANIZ ATION 08/27/2023 [facility] ([place]) Patient Care team informatio n (unrecognized section and content) Care Team Personnel Name: RAMONA LUNA MD Member Role: Primary Care Physician Address: Address: [address] [place] [address]- Care Team Related Persons Name: HERBERT QUARLES FOR RECORDS PERTAINING TO PATIENTS WHO ARE OR HAVE BEEN ENROLLED IN A CHEMICAL DEPENDENCY/SUBSTANCEABUSE PROGRAM, SOME INFORMATION MAY BE OMITTED. This clinical summary was aggregated from multiple sources. Caution should be exercised in using it in the provision of clinical care. This summary normalizes information from multiple sources, and as a consequence, information in this document may materially change the coding, format and clinical context of patient data. In addition, data may be omitted in some cases. CLINICAL DECISIONS SHOULD BE BASED ON THE PRIMARY CLINICAL RECORDS. [facility]. provides no warranty or guarantee of the accuracy or completeness of information in this document.
[2023-10-10 07:51] LABS: Absolute Lymphocyte Count 1.64 X10^3/uL (0.83-4.51); Absolute Neutrophil Count 2.5 X10^3/uL (2.0-7.7); Basophil# 0.03 X10^3/uL; Basophil% 0.6 % (0-1); Eosinophil# 0.17 X10^3/uL; Eosinophils% 3.4 % (0-5); Hematocrit 42.6 % (37-47); Hemoglobin 13.6 g/dL (12.0-15.0); Lymphocyte # 1.64 X10^3/ul (0.83-4.51); Lymphocyte % 33.1 % (19-41); Mean Corp Hgb Conc 31.9 g/dL (32-36); Mean Corpuscular Hgb 31.1 pg (27.0-32.0); Mean Corpuscular Volume 97.5 fL (81-99); Mean Platelet Vol. 10.9 fl (6.2-12.0); Monocyte# 0.59 X10^3/uL; Monocyte% 11.9 % (0-10); NRBC Flagged by Analyzer 0 % (0-5); Neutrophil # 2.49 X10^3/uL (2.7-7.7); Neutrophil % 50.4 % (47-70); Platelet Count 265 K/mm3 (150-450); RBC Distribution Width CV 12.6 % (11.6-14.6); RBC Distribution Width SD 45.6 fl (35.1-43.9); Red Blood Count 4.37 M/mm3 (4.2-5.4)
[2023-10-10 11:05] LABS: ALB/GLOB Ratio 1.1 RATIO (0.9-2.4); AST(SGOT) 18 U/L (15-37); Alanine Aminotransfer ALT/SGPT 19 U/L (13-56); Albumin, Serum 3.6 g/dL (3.2-5.0); Alkaline Phosphatase 108 U/L (45-117); Anion Gap 7 (5-15); BUN 13 mg/dL (7-18); BUN/Creat Ratio 14.1 RATIO (10-20); Calcium,Total 9.5 mg/dL (8.5-10.1); Chloride 108 mmol/L (98-107); Cholesterol 191 mg/dL (200); Creatinine, Serum 0.92 mg/dL (0.55-1.02); EST Glomerular Filtration Rate 64 mL/min (>60); Est Glom Filt Rate - Afr Amer 78 mL/min (>60); Ferritin 60 ng/mL (8-252); Globulin 3.3 g/dL (2.2-4.2); Glucose 105 mg/dL (74-106); High Density Lipoprotein 80 mg/dL; Potassium 4.2 mmol/L (3.5-5.1); Protein, Total 6.9 g/dL (6.4-8.2); Sodium Level 141 mmol/L (136-145); Thyroid Stim Hormone (TSH) 4.38 uIU/mL (0.358-3.74); Triglycerides 64 mg/dL; Very Low Density Lipoprotein 13 mg/dL (5-40)
== END | disposition home or self-care (01) ==
LOC: LAB 07:31
PROVIDERS: PCP Family Medicine; Visit Provider Family Medicine
DX: E61.1 Iron deficiency (principal); T84.59XA Infection and inflammatory reaction due to other internal joint prosthesis, initial encounter; E78.00 Pure hypercholesterolemia, unspecified
CPT/HCPCS: 36415; 80053; 80061; 82728; 84443; 85025; 86140

== ENCOUNTER 2023-12-09 11:14 | Outpatient (CLI) | payer MEDICARE, OTHER, SELFPAY ==
[2023-12-09 16:45] LABS: Absolute Lymphocyte Count 1.42 X10^3/uL (0.83-4.51); Absolute Neutrophil Count 5.7 X10^3/uL (2.0-7.7); Basophil# 0.04 X10^3/uL; Basophil% 0.5 % (0-1); Eosinophil# 0.14 X10^3/uL; Eosinophils% 1.7 % (0-5); Hematocrit 40.7 % (37-47); Hemoglobin 12.9 g/dL (12.0-15.0); Lymphocyte # 1.42 X10^3/ul (0.83-4.51); Lymphocyte % 17.5 % (19-41); Mean Corp Hgb Conc 31.7 g/dL (32-36); Mean Corpuscular Hgb 30.9 pg (27.0-32.0); Mean Corpuscular Volume 97.4 fL (81-99); Mean Platelet Vol. 11.2 fl (6.2-12.0); Monocyte# 0.78 X10^3/uL; Monocyte% 9.6 % (0-10); NRBC Flagged by Analyzer 0 % (0-5); Neutrophil # 5.67 X10^3/uL (2.7-7.7); Neutrophil % 70.1 % (47-70); Platelet Count 253 K/mm3 (150-450); RBC Distribution Width CV 13.2 % (11.6-14.6); RBC Distribution Width SD 47.1 fl (35.1-43.9); Red Blood Count 4.18 M/mm3 (4.2-5.4); White Blood Count 8.1 K/mm3 (4.4-11.0)
[2023-12-09 17:06] LABS: ALB/GLOB Ratio 1.2 RATIO (0.9-2.4); AST(SGOT) 18 U/L (15-37); Alanine Aminotransfer ALT/SGPT 20 U/L (13-56); Albumin, Serum 3.7 g/dL (3.2-5.0); Alkaline Phosphatase 99 U/L (45-117); Anion Gap 6 (5-15); BUN 21 mg/dL (7-18); BUN/Creat Ratio 21.9 RATIO (10-20); CRP < 2.90 mg/L (0.0-3.0); Calcium,Total 9.2 mg/dL (8.5-10.1); Chloride 105 mmol/L (98-107); Creatinine, Serum 0.96 mg/dL (0.55-1.02); EST Glomerular Filtration Rate 61 mL/min (>60); Est Glom Filt Rate - Afr Amer 74 mL/min (>60); Glucose 81 mg/dL (74-106); Protein, Total 6.7 g/dL (6.4-8.2); Sodium Level 140 mmol/L (136-145)
[2023-12-12 09:06] LABS: T4 Free Direct 1.16 ng/dL (0.76-1.46); Thyroid Stim Hormone (TSH) 1.68 uIU/mL (0.358-3.74)
== END 2023-12-09 23:59 | disposition home or self-care (01) ==
LOC: MTLAB 11:15
PROVIDERS: PCP Family Medicine; Referring Provider Family Medicine; Visit Provider Family Medicine
DX: R79.89 Other specified abnormal findings of blood chemistry (principal); T84.59XA Infection and inflammatory reaction due to other internal joint prosthesis, initial encounter
CPT/HCPCS: 36415; 80053; 84439; 84443; 85025; 86140

== ENCOUNTER → 2024-03-08 | Outpatient (CLI) | payer MEDICARE, OTHER, SELFPAY ==
--- NOTE | 2024-03-08 12:58 | MRI_ITS ---
STUDY: MRI RIGHT ANKLE WITHOUT CONTRAST REASON FOR EXAM: Female, 68 years old. Plantar fascial pain. TECHNIQUE: Standardized fat and water weighted pulse sequences were obtained in all 3 orthogonal planes. COMPARISON: Weightbearing views of the right ankle showing inferior calcaneal spur. FINDINGS: Superficial lipoma of the medial and plantar surfaces of the hindfoot measuring 1.5 cm x 4.3 cm x 1.7 cm. No aggressive features (axial series 4 images 21-26, sagittal series 6 images 15-20). Normal posterior tibialis tendon. Normal flexor digitorum longus tendon. Normal flexor hallucis longus tendon. Normal peroneus longus and brevis tendons. Normal tibialis anterior tendon. Normal extensor hallucis longus tendon. Normal extensor digitorum longus tendons. Normal Achilles tendon and teno-osseous insertion. Increased signal intensity and marked thickening of the proximal plantar fascia with minimal bone marrow edema in the inferior calcaneus at the origin of the plantar fascia. Findings compatible with proximal plantar fascia at its (sagittal series 7 images 8-15). Normal intrinsic muscles of the rearfoot. Normal distal tibiofibular syndesmotic ligamentous complex. Normal lateral ligamentous complex. Normal subtalar ligaments and sinus tarsi. Normal deltoid ligamentous complexes. Normal plantar calcaneonavicular (spring) ligament. Mild arthrosis of the tibiotalar joint with a tibiotalar joint effusion. Normal talar dome. Moderate arthrosis of the subtalar joint with a moderate-sized joint effusion and posterior ganglion cyst (sagittal series 7 images 7-13). Normal talonavicular articulation. Normal calcaneocuboid articulation. Normal navicular-cuneiform articulations. MRI/Lower Ext Joint Only (Routine) IMPRESSION: MRI findings compatible with moderate proximal plantar fascia fasciitis as described. Lipoma of the medial and plantar surface of the hindfoot with no aggressive features. 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 Electronically Signed: Lorne Sky MD at 15:47 EDT ,
== END | disposition home or self-care (01) ==
LOC: MRI 12:50
PROVIDERS: PCP Family Medicine; Referring Provider Podiatrist; Visit Provider Podiatrist
DX: M72.2 Plantar fascial fibromatosis (principal)
CPT/HCPCS: 73721

== ENCOUNTER → 2024-10-30 | Outpatient (CLI) | payer MEDICARE, OTHER, SELFPAY ==
[2024-10-30 07:40] LABS: Absolute Lymphocyte Count 1.33 X10^3/uL (0.83-4.51); Absolute Neutrophil Count 2.6 X10^3/uL (2.0-7.7); Basophil# 0.03 X10^3/uL; Basophil% 0.6 % (0-1); Eosinophil# 0.14 X10^3/uL; Hematocrit 39.8 % (37-47); Hemoglobin 13.2 g/dL (12.0-15.0); Lymphocyte # 1.33 X10^3/ul (0.83-4.51); Lymphocyte % 28.2 % (19-41); Mean Corp Hgb Conc 33.2 g/dL (32-36); Mean Corpuscular Hgb 31.9 pg (27.0-32.0); Mean Corpuscular Volume 96.1 fL (81-99); Mean Platelet Vol. 10.5 fl (6.2-12.0); Monocyte% 12.7 % (0-10); NRBC Flagged by Analyzer 0 % (0-5); Neutrophil % 55.1 % (47-70); Platelet Count 252 K/mm3 (150-450); RBC Distribution Width CV 12.8 % (11.6-14.6); RBC Distribution Width SD 45.1 fl (35.1-43.9); Red Blood Count 4.14 M/mm3 (4.2-5.4); White Blood Count 4.7 K/mm3 (4.4-11.0)
[2024-10-30 08:19] LABS: ALB/GLOB Ratio 1.1 RATIO (0.9-2.4); AST(SGOT) 15 U/L (15-37); Alanine Aminotransfer ALT/SGPT 18 U/L (13-56); Albumin, Serum 3.6 g/dL (3.2-5.0); Alkaline Phosphatase 88 U/L (45-117); Anion Gap 6 (5-15); BUN 15 mg/dL (7-18); BUN/Creat Ratio 15.6 RATIO (10-20); Calcium,Total 9.1 mg/dL (8.5-10.1); Chloride 107 mmol/L (98-107); Cholesterol 186 mg/dL (200); Creatinine, Serum 0.96 mg/dL (0.55-1.02); EST Glomerular Filtration Rate 61 mL/min (>60); Est Glom Filt Rate - Afr Amer 74 mL/min (>60); Globulin 3.2 g/dL (2.2-4.2); Glucose 96 mg/dL (74-106); High Density Lipoprotein 64 mg/dL; Potassium 4.1 mmol/L (3.5-5.1); Protein, Total 6.8 g/dL (6.4-8.2); Sodium Level 140 mmol/L (136-145); Triglycerides 111 mg/dL; Very Low Density Lipoprotein 22 mg/dL (5-40)
== END | disposition home or self-care (01) ==
LOC: LAB 07:04
PROVIDERS: PCP Family Medicine; Referring Provider Family Medicine; Visit Provider Family Medicine
DX: M51.370 Other intervertebral disc degeneration, lumbosacral region with discogenic back pain only (principal); E78.00 Pure hypercholesterolemia, unspecified; R79.89 Other specified abnormal findings of blood chemistry; Z79.1 Long term (current) use of non-steroidal anti-inflammatories (NSAID)
CPT/HCPCS: 36415; 80053; 80061; 84443; 85025

== ENCOUNTER → 2024-11-07 | Outpatient (CLI) | payer MEDICARE, OTHER, SELFPAY ==
--- NOTE | 2024-11-07 12:09 | BI_ITS ---
PROCEDURE: SCRN MAMM (CAD)W/CANDIDA BILAT REASON FOR EXAM: F, Age 69 y/o, no family history. Routine mammographic follow-up. TECHNIQUE: Bilateral screening digital breast tomosynthesis with 2D and 3D images. Computer aided detection. COMPARISON: Prior exam(s) dating back to November 18, 2022.. FINDINGS: The breasts are heterogeneously dense which may obscure small masses. Stable examination. No suspicious masses, areas of developing architectural distortion, or suspicious calcifications. BI/SCRN MAMM (CAD)W/CANDIDA BILAT IMPRESSION: BI-RADS 1: NEGATIVE. RECOMMEND ANNUAL MAMMOGRAPHIC SCREENING. Follow-up code: Routine Follow-up The patient will be notified of the results by letter. Reading Location: [place] [address]
== END | disposition home or self-care (01) ==
LOC: OPBI 12:08
PROVIDERS: PCP Family Medicine; Referring Provider Family Medicine; Visit Provider Family Medicine
DX: Z12.31 Encounter for screening mammogram for malignant neoplasm of breast (principal)
CPT/HCPCS: 77063; 77067

== ENCOUNTER 2025-02-19 00:31 | Emergency (ER) | payer MEDICARE, OTHER, SELFPAY ==
[2025-02-19 00:34] VITALS: BP 150/72; PULSE 64; RESP 12; TEMP 36.4; O2SAT 100; BMI 26.4
--- NOTE | 2025-02-19 01:04 | EKG12_ITS ---
Test Reason : CP Blood Pressure : */* mmHG Vent. Rate : 62 BPM Atrial Rate : 62 BPM P-R Int : 176 ms QRS Dur : 94 ms QT Int : 428 ms P-R-T Axes : 62 11 44 degrees QTcB Int : 434 ms Normal sinus rhythm Incomplete right bundle branch block Borderline ECG Confirmed by Dick Camacho ([id number]), technical writer and editor JENNIFER LUNDBERG ([id number]) on 02/25/2025 1:00:14 PM Referred By: RUSSELL Confirmed By: Dick Camacho
--- NOTE | 2025-02-19 01:10 | RAD_ITS ---
PROCEDURE: CHEST PA AND LATERAL 02/19/2025 REASON FOR EXAM: CHEST PAIN TECHNIQUE: Frontal and lateral views of the chest. COMPARISON: None available FINDINGS: Linear area of scar or atelectasis retrocardiac left base. The lungs otherwise appear clear. The cardiac and mediastinal contours appear within limits. Lumbar spondylosis/discogenic change. RAD/Chest PA and Lateral IMPRESSION: No evidence of acute disease. Reading Location: [id number]
[2025-02-19 01:27] LABS: Troponin T High Sensitivity 7 ng/L (<=14)
[2025-02-19 01:31] VITALS: BP 149/84; PULSE 58; RESP 18; O2SAT 97
[2025-02-19 01:34] LABS: Absolute Lymphocyte Count 2.41 X10^3/uL (0.83-4.51); Absolute Neutrophil Count 4.2 X10^3/uL (2.0-7.7); Basophil# 0.04 X10^3/uL; Basophil% 0.5 % (0-1); Eosinophil# 0.21 X10^3/uL; Eosinophils% 2.7 % (0-5); Hematocrit 40.6 % (37-47); Hemoglobin 13.7 g/dL (12.0-15.0); Lymphocyte # 2.41 X10^3/ul (0.83-4.51); Lymphocyte % 30.5 % (19-41); Mean Corp Hgb Conc 33.7 g/dL (32-36); Mean Corpuscular Hgb 32.2 pg (27.0-32.0); Mean Corpuscular Volume 95.3 fL (81-99); Mean Platelet Vol. 11.5 fl (6.2-12.0); Monocyte# 0.94 X10^3/uL; Monocyte% 11.9 % (0-10); NRBC Flagged by Analyzer 0 % (0-5); Neutrophil # 4.24 X10^3/uL (2.7-7.7); Neutrophil % 53.8 % (47-70); Platelet Count 248 K/mm3 (150-450); RBC Distribution Width CV 12.4 % (11.6-14.6); RBC Distribution Width SD 43.7 fl (35.1-43.9); Red Blood Count 4.26 M/mm3 (4.2-5.4); White Blood Count 7.9 K/mm3 (4.4-11.0)
[2025-02-19 01:56] LABS: D-Dimer Quantitative (DVT/PE) < 0.27 FEU/ug/m (0.27-0.49)
[2025-02-19 02:00] VITALS: PULSE 73; RESP 18; O2SAT 98
[2025-02-19 02:09] LABS: Magnesium 2.3 mg/dL (1.5-2.2)
[2025-02-19 02:11] LABS: Anion Gap 14 (5-15); BUN 16 mg/dL (4-19); BUN/Creat Ratio 16.5 RATIO (10-20); Calcium,Total 9.2 mg/dL (7.6-11.0); Carbon Dioxide 20.3 mmol/L (21.0-32.0); Chloride 100 mmol/L (98-108); Creatinine, Serum 0.94 mg/dL (0.70-1.20); EST Glomerular Filtration Rate 65 (>60); Estimated Creatinine Clearance 59.36 ml/min (50-250); Glucose 96 mg/dL (70-99); Potassium 4.6 mmol/L (3.3-5.1); Sodium Level 134 mmol/L (133-145)
[2025-02-19 03:00] VITALS: PULSE 62; RESP 17; O2SAT 98
[2025-02-19 03:20] LABS: Troponin T High Sens 2 HR 8 ng/L (<=14)
--- NOTE | 2025-02-19 03:35 | EDS_ITS ---
HPI History of Present Illness Chief Complaint: Chest Pain Informant: patient and spouse/S.O. Narrative Narrative: Patient is a 69-year-old female with past medical history of of hyperlipidemia and arthritis. She states that over the past 3 days she has had a vague left- sided chest discomfort. She states that it has been intermittent and mild in nature but this evening woke her from sleep and was more intense than the previous bouts. She denies any nausea vomiting diaphoresis or shortness of breath associated with her symptoms. She denies any history of DVT/PE but does admit recent travel to and from [facility] in the last few weeks. [facility] Medical History Wears glasses Alcohol use Anemia Easy bruising High cholesterol Migraine headache Heartburn Non-smoker Leg cramps History of pain when walking History of stress test Left wrist sprain Sprain of left hand Back pain Knee pain Arthritis Home Medications ?Medication ?Instructions ?Recorded ?Last Taken ?Type nabumetone 750 mg tablet 750 mg PO BID 04/08/21 Unkno wn History atorvastatin 10 mg tablet 10 mg PO DAILY 10/05/21 Unkn own History acetaminophen 500 mg capsule 500 mg PO Q8H 07/08/23 Un known History cholecalciferol (vitamin D3) 25 25 mcg PO DAILY Unknown History mcg (1,000 unit) chewable tablet (VitaJoy Daily D) magnesium 200 mg tablet 400 mg PO DAILY 07/08/23 Unk nown History glucosamine sulfate 500 mg capsule 500 mg PO QDAY 12/25 12/18 Unknown History Allergy/AdvReac Type Severity Reaction Status Date / Time amoxicillin Allergy Hives Verified 02/19/25 00:34 Surgical History Hx of colonoscopy History of total left knee replacement H/O arthroscopy of left knee Social History Smoking Status: Never smoker alcohol intake: current alcohol intake frequency: a few times a week Alcohol type: wine ROS ROS ED Constitutional Constitutional ED: Denies chills or fever(s) Eyes Eyes: Denies blurry vision or change in vision ENT ENT ED: Denies sore throat Cardiovascular Cardiovascular: Reports chest pain; Denies palpitations or racing heartbeat Respiratory/Chest Respiratory/Chest: Denies cough or dyspnea Gastrointestinal Gastrointestinal: Denies abdominal pain, diarrhea, nausea or vomiting Genitourinary Genitourinary ED: Denies dysuria Musculoskeletal Musculoskeletal: Denies back pain Integumentary Denies rash Neurologic Neurologic: Denies headache(s) Hematologic/Lymphatic Hematologic/Lymphatic: Denies easy bleeding or easy bruising EXAM Physical Exam Const Vital Signs: 02/19/25 00:34 02/19/25 00:37 02/19/25 01:31 Temperature 97.6 F L Temperature Source Oral Pulse Rate 64 58 L Respiratory Rate 12 18 Respiratory Effort Normal Blood Pressure 150/72 H 149/84 H Blood Pressure Mean 98 105 Pulse Ox 100 97 Oxygen Delivery Method Room Air Room Air 02/19/25 02:00 02/19/25 03:00 02/19/25 03:41 Temperature 97 F L Temperature Source Pulse Rate 73 62 62 Respiratory Rate 18 17 17 Respiratory Effort Blood Pressure 130/72 H Blood Pressure Mean 91 Pulse Ox 98 98 98 Oxygen Delivery Method Room Air Room Air Positive well nourished and well developed General Appearance ED: well developed; Negative for pallor HEENT HEENT Narrative: Normocephalic atraumatic Eyes PERRL and EOMs intact bilaterally General Eye ED: Negative for scleral icterus Neck supple and no JVD Neck Narrative: No nuchal rigidity or meningeal signs Chest Wall Chest Narrative: There is reproducible pain with palpation of the left anterior chest wall however patient states this is different pain than she has been experiencing There is no bony deformity or crepitance noted No overlying soft tissue changes to suggest trauma or infection Resp normal respiratory effort and clear to auscultation bilaterally Cardio regular rate and regular rhythm Rate: other Other Details: Heart is regular rate and rhythm without murmurs rubs or gallop Radial and carotid pulses are equal and symmetric GI normal to inspection, nondistended, normoactive bowel sounds, non-tender, non- distended and no masses GI Narrative: No voluntary guarding rigidity or pulsatile mass Auscultation: normoactive bowel sounds Palpation: soft Extremity normal to inspection Extremity Narrative: No asymmetric edema no pitting edema negative Homans' sign bilaterally Neuro oriented x3, CN's II-XII intact bilaterally and no sensory deficits noted Sensorium / Orientation: alert Motor Exam: strength 5/5 throughout Psych mental status grossly normal Skin no rashes or lesions noted and no wounds General Skin Exam: Negative for jaundice or pallor MDM MDM MDM Narrative Medical decision making narrative: Patient arrived the ER slightly hypertensive otherwise with stable vitals. She is low risk for cardiovascular disease but based on recurrent left-sided chest discomfort acute coronary syndrome versus cardiac dysrhythmia is a potential diagnosis so EKG and cardiac enzymes were obtained. With her recent travel to and from [facility] there is also concern potential pulmonary embolus so a D-dimer was added. The initial troponin was 7 the 2-hour delta increased by a value of 1 to 8 which is not clinically significant and patient is ruled out by the cardiac algorithm. Her D-dimer is also negative going against PE or dissection. Chest x-ray reveals no acute lung pathology such as pneumonia or pneumothorax. Therefore at this time with negative cardiac workup and spontaneous improvement of symptoms I do not feel there is need for further evaluation in the ER and patient is otherwise safe for discharge. History & Record Review Discussion w/independent historian: Patient and Significant other Lab Data Attestation: I reviewed the patient's lab results. Labs: Laboratory Results - last 24 hr 02/19/25 02/19/25 00:43 02:48 WBC 7.9 RBC 4.26 Hgb 13.7 Hct 40.6 MCV 95.3 MCH 32.2 H MCHC 33.7 RDW Std Deviation 43.7 RDW Coeff of Evelyn 12.4 Plt Count 248 MPV 11.5 Immature Gran % (Auto) 0.600 Neut % (Auto) 53.8 Lymph % (Auto) 30.5 [facility] % (Auto) 11.9 H Eos % (Auto) 2.7 Baso % (Auto) 0.5 Absolute Neuts (auto) 4.2 Absolute Lymphs (auto) 2.41 Nucleated RBC % 0 D-Dimer Quant (PE/DVT) < 0.27 L Sodium 134 Potassium 4.6 Chloride 100 Carbon Dioxide 20.3 L Anion Gap 14 BUN 16 Creatinine 0.94 Estim Creat Clear Calc 59.36 Est GFR (MDRD) Non-Af 65 BUN/Creatinine Ratio 16.5 Glucose 96 Calcium 9.2 Magnesium 2.3 H Troponin T High Sens 7 Troponin T Hi Sens 2 Hr 8 Radiography Diagnostic Testing: Clinical Impression(s) from Imaging Studies Chest X-Ray 02/19/25 01:10 IMPRESSION: No evidence of acute disease. Reading Location: [facility] Chest x-ray as interpreted by the emergency medicine system reveals no acute infiltrate pneumothorax or pleural effusion Discharge Plan Triage Chief Complaint: Chest Pain ED Provider: Arslan Carver Dx/Rx/DC Orders Clinical Impression: Nonspecific chest pain, Hyperlipidemia, Osteoarthritis Instructions: ED Chest Pain, Uncertain Cause Prescriptions: No Action nabumetone 750 mg tablet 750 mg PO BID atorvastatin 10 mg tablet 10 mg PO DAILY glucosamine sulfate 500 mg capsule 500 mg PO QDAY Rx Instructions: administer with a meal acetaminophen 500 mg capsule 500 mg PO Q8H magnesium 200 mg tablet 400 mg PO DAILY cholecalciferol (vitamin D3) [VitaJoy Daily D] 25 mcg (1,000 unit) tablet,chewable 25 mcg PO DAILY Primary Care Provider: Rolly Luciano Referrals: Rolly Luciano MD [Primary Care Provider] - Activity Restrictions/Additional Instructions: Your workup today showed no sign of acute heart damage. Follow-up with your family doctor for repeat evaluation and to discuss further testing such as a cardiac echo or cardiology referral. If symptoms persist or worsen return to the ER for repeat evaluation Print Language: Luxembourgish Disposition Disposition: Home, Self Care Discharge Date/Time: 02/19/25 03:44
[2025-02-19 03:41] VITALS: BP 130/72; PULSE 62; RESP 17; TEMP 36.1; O2SAT 98
== END 2025-02-19 03:44 | disposition home or self-care (01) ==
PROVIDERS: Emergency Provider Emergency Medicine; PCP Family Medicine; Visit Provider Emergency Medicine
DX: R07.89 Other chest pain (principal); M19.90 Unspecified osteoarthritis, unspecified site; E78.00 Pure hypercholesterolemia, unspecified
CPT/HCPCS: 71046; 80048; 83735; 84484; 85025; 85379; 93005; 99283; A4216

== ENCOUNTER → 2025-08-12 | Outpatient (CLI) | payer MEDICARE, OTHER, SELFPAY ==
--- OUTSIDE RECORDS SUMMARY | 2025-08-12 14:55 | XMS RPT_ITS | CCD ---
Author Organization [facility] CliniSyal Care Team Providers Care Door Technician Name Role Phone Terri Joyce LPN Unavailable Unavailab Terri Paez LPN Unavailable Unavailab Hattie Stanton Unavailable [phone] Jenn Muniz Unavailable Unavailable Jenn Muniz Unavailable Unavailable VAISHALI MEAD DR Unavailable Unavailable VAISHALI MEAD DR Unavailable Unavailable VAISHALI MEAD DR Unavailable Unavailable HondaReneji Unavailable Unavailable ElkinsSagar mesa Unavailable Unavailable AntenucNicci andujar Unavailable Unava ilable Dr. Ramona Luciano Primary Care Provider [phone] Dr. Ramona Luciano Referring Provider Dr. Victor M Tsai Attending Provider [phone] Brenden Guan Attending Provider Dr. Brenden Guan Other Provider Vanessa DIAZ, ASP NET DEVELOPER-C Gabrielle Bailey Attending Provider [phone] RAMONA LUCIANO MD Primary Care Physician [phone] Dr. Ramona Luciano Primary Care Provider [phone] Dr. Oj Conroy Referring Provider Dr. Oj Conroy Other Provider DARCI Clement Attending Provider Dr. Ramona Luciano Primary Care Provider Dr. Oj Conroy Referring Provider Dr. Oj Conroy Other Provider DARCI Clement Attending Provider DR HATTIE WALDEN MD Attending Arun Lee MD, RAMONA Pearson Primary Care Unavailable JACK ONEIL-DIRECTOR OF ASSESSING, JASON Lucas Consulting Juan Jose WALDEN MD, DR HATTIE Pearson Attending Arun Gamez MD, DR HATTIE Pearson Admitting Arun Lee MD, RAMONA A Primary Care Unavailable Mustapha NUNO, Dr. Lofton Primary Care Provider [phone] Mustapha NUNO, Dr. Lofton Attending Provider Mustapha NUNO, Dr. Lofton Referring Provider [phone] Mariah ASP NET DEVELOPER-C, Lakhwinder Meza Attending Provider [phone] Mehul LASSITER, Dr. Mcdaniels Emergency Provider Mustapha, Ramona Referring Unavailable Mustapha, Ramona Attending Unavailable Mustapha, Ramona Primary Care Unavailable Horn, Niurka Referring Unavailable Horn, Niurka Attending Unavailable Luciano, Ramona Primary Care Unavailable Luciano, Ramona Primary Care Unavailable Arslan Carver Attending Unavailable Luciano, Ramona Referring Unavailable Mariah DIAZ, Lakhwinder Meza Attending Unavailable Luciano, Ramona Primary Care Unavailable Luciano, Ramona Referring Unavailable Luciano, Ramona Attending Unavailable Luciano, Ramona Primary Care Unavailable Allergies Allergy Classification Reported Allergen(s) Allergy Type Date of Onset Reaction(s) Facility (20 sources) amoxicillin; Translations: [amoxicillin] drug allergy 7 Unknown, hives [facility] Work Phone: (1 source) Amoxicillin Drug Allergy 5 [facility] Repository Medications Current Medications Medication Drug Class(es) Dates Sig (Normalized) Sig (Original) acetaminophen 500 mg oral capsule (20 sources) Start: 07-08-2023 take 1 capsule by mouth every eight hours Acetaminophen 500 mg capsule Active 500 mg PO Q8H July 08, 2023 12:00am atorvastatin 10 mg oral tablet (20 sources) HMG-CoA Reductase Inhibitor Start: 10-05-2021 take 1 tablet by mouth once daily Atorvastatin 10 mg tablet Active 10 mg PO DAILY October 05, 2021 1:00am cholecalciferol 0.025 mg chewable tablet (20 sources) Vitamin D Start: 07-08-2023 Cholecalciferol (Vitamin D3) (Vitajoy Daily D) 25 mcg (1,000 unit) tablet,chewable Active 25 ug PO DAILY July 08, 2023 12:00am chondroitin sulfates 1200 mg / glucosamine sulfate 1500 mg oral capsule (1 source) Start: 06-02-2023 take 1 capsule by mouth once daily chondroitin-glucosam ine 1.2 g-1.5 g oral capsule Dose = 2 cap(s), Oral, qDay, # 60 cap(s), 0 Refill(s) Start Date: 06/02/23 Status: Ordered [place] 7-Csy-Lyb-Fish Oil (4 sources) Start: 10-05-2021 take 300-1000 mg by mouth once daily [place] 3-Nsa-Cjd-Fish Oil (Fish Oil) 300-1,000 mg capsule Active 1 CAP PO DAILY October 05, 2021 10:06am Start: 10-05-2021 take 300-1000 mg by mouth once daily [place] 5-Nql-Run-Fish Oil (Fish Oil) 300-1,000 mg capsule Active 1 CAP PO DAILY October 05, 2021 1:00am Start: 10-05-2021 take 300-1000 mg by mouth once daily [place] 8-Nlc-Itz-Fish Oil (Fish Oil) 300-1,000 mg capsule Active 1 CAP PO DAILY October 05, 2021 12:00am Fish Oils (1 source) Start: 06-02-2023 Fish Oil 1200 mg oral capsule Dose : 2,400 mg = 2 cap(s), Oral, qDay, # 100 cap(s), 0 Refill(s) Start Date: 06/02/23 Status: Ordered glucosamine sulfate 500 mg oral capsule (5 sources) Start: 01-06-2025 take 1 capsule by mouth once daily Glucosamine Sulfate 500 mg capsule Active 500 mg PO daily January 06, 2025 12:00am administer with a meal Start: 10-05-2021 take 1 tablet by lexii th once daily Glucosamine Sulfate (Glucosamine) 500 mg tablet Active 500 MG PO DAILY October 05, 2021 1:00am administer with a meal herbal/nutritional product (2 sources) Start: 06-02-2023 herbal/nutriti onal product 2 chews, Oral, BID, kiwi chews, 0 Refill(s) Start Date: 06/02/23 Status: Ordered Start: 06-02-2023 take 400 mg by mouth once daily herbal/nutritional product 400 mg, Oral, Daily, magnesium, 0 Refill(s) Start Date: 06/02/23 Status: Ordered lidocaine 50 mg/ml rectal cream (4 sources) Antiarrhythmic, Amide Local Anesthetic Start: 11-12-2021 Lidocaine Active 1 APPLIC TOPICAL THREE TIMES A DAY November 12, 2021 1:00am Magnesium (20 sources) Start: 07-08-2023 take 2 tablets by mouth once daily Magnesium 200 mg tablet Active 400 mg PO DAILY July 08, 2023 12:00am Start: 07-08-2023 take 400 mg by mouth once tasha y Magnesium Active 400 MG PO DAILY July 07, 2023 11:00pm Start: 07-08-2023 take 400 mg by mouth once tasha y Magnesium Active 400 MG PO DAILY July 08, 2023 12:00am nabumetone 750 mg oral tablet (20 sources) Nonsteroidal Anti-inflammatory Drug Start: 04-08-2021 take 1 tablet by mouth twice daily Nabumetone 750 mg tablet Active 750 mg PO TWICE A DAY April 08, 2021 12:00am Vitamin D3 25 mcg (1000 intl units) oral capsule (1 source) Start: 06-02-2023 Vitamin D3 25 mcg (1000 intl units) oral capsule Dose : 25 mcg = 1 cap(s), Oral, Daily, 0 Refill(s) Start Date: 06/02/23 Status: Ordered Completed/Discontinued Medications Medication Drug Class(es) Dates Sig (Normalized) Sig (Original) aspirin 81 mg delayed release oral tablet (20 sources) Platelet Aggregation Inhibitor, Nonsteroidal Anti-inflammatory Drug Start: 07-08-2023 End: 01-06-2025 take 1 tablet by mouth once daily Aspirin (Adult Aspirin Regimen) 81 mg tablet,delayed release (DR/EC) Discontinued 81 mg PO DAILY July 08, 2023 12:00am January 06, 2025 8:12am Start: 07-22-2018 End: 10-05-2021 take 1 tablet by mouth once daily Aspirin 81 mg tablet,chewable Discontinued 81 mg PO DAILY July 22, 2018 12:00am October 05, 2021 10:06am bisacodyl 5 mg delayed release oral tablet (20 sources) Stimulant Laxative Start: 07-08-2023 End: 01-06-2025 take 2 tablets by mouth twice daily Bisacodyl (Alophen (Bisacodyl)) 5 mg tablet,delayed release (DR/EC) Discontinued 10 mg PO TWICE A DAY July 08, 2023 12:00am January 06, 2025 8:12am docusate sodium 100 mg oral capsule (20 sources) Start: 07-08-2023 End: 01-06-2025 take 1 capsule by mouth twice daily Docusate Sodium 100 mg capsule Discontinued 100 mg PO TWICE A DAY July 08, 2023 12:00am January 06, 2025 8:12am famotidine 20 mg oral tablet (20 sources) Histamine-2 Receptor Antagonist Start: 07-08-2023 End: 01-06-2025 take 1 tablet by mouth once daily Famotidine (Acid Controller) 20 mg tablet Discontinued 20 mg PO DAILY July 08, 2023 12:00am January 06, 2025 8:13am fluconazole 200 mg oral tablet (2 sources) Azole Antifungal Start: 06-01-2017 FLUCONAZOLE 200 MG TABS Take 1 tablet, repeat second tablet in 36-48 hours only if still symptomatic. FLUCONAZOLE [id number] Hattie CABALLERO meloxicam 15 mg oral tablet (20 sources) Nonsteroidal Anti-inflammatory Drug Start: 07-22-2018 End: 04-08-2021 Meloxicam 15 mg tablet Discontinued PO 30 July 22, 2018 12:00am April 08, 2021 3:13pm Start: 07-22-2018 End: 04-08-2021 Meloxicam Discontinued PO 30 July 22, 2018 12:00am April 08, 2021 3:13pm Start: 06-01-2017 MELOXICAM TABS as directed MELOXICAM TABS [id number] Terri Joyec LPN Drug Treatment Unknown - unknown (1 source) No information available. oxyCODONE hydrochloride 5 mg oral capsule (20 sources) Opioid Agonist Start: End: take 1 capsule by mouth every six hours as needed for pain Oxycodone 5 mg capsule Discontinued 5 mg PO EVERY 6 HOURS as needed for pain July 08, 2023 12:00am January 06, 2025 8:13am sulfamethoxazole 500 mg oral tablet (20 sources) Sulfonamide Antimicrobial Start: End: take 1 tablet by mouth twice daily Sulfamethoxazole 500 mg tablet Discontinued 500 mg PO TWICE A DAY July 08, 2023 12:00am July 11, 2023 2:35pm Problems Active Problems Problem Classification Problem Date Documented Da te Episodic/Chronic Complication of device; implant or graft (20 sources) Prosthetic joint infection; Translations: [Infection and inflammatory reaction due to other internal joint prosthesis, initial encounter] 07-08-2023 Episodic Influenza (20 sources) Influenza due to Influenza A virus; Translations: [Influenza due to other identified influenza virus with other respiratory manifestations] 12-04-2019 Episodic Nonspecific chest pain (20 sources) Atypical chest pain; Translations: [Other chest pain] Onset: 02-22-2025 02-13-2022 Episodic Other acquired deformities (4 sources) Scoliosis of lumbar spine; Translations: [Other forms of scoliosis, lumbar region] 10-05-2021 Chronic Other acquired deformities (20 sources) Scoliosis deformity of spine; Translations: [Scoliosis, unspecified] 09-16-2021 Chronic Other acquired deformities (1 source) Other forms of scoliosis, lumbar region; Translations: [Scoliosis associated with other conditions] Chronic Other acquired deformities (20 sources) Other secondary scoliosis, lumbar region; Translations: [Scoliosis of lumbar region due to degenerative disease of spine in adult] 10-05-2021 Chronic Other acquired deformities (20 sources) Lumbar spondylolisthesis; Translations: [Spondylolisthesis, lumbar region] 09-16-2021 Episodic Other ear and sense organ disorders (2 sources) Pain of ear structure; Translations: [Otalgia, unspecified ear] 01-06-2025 Episodic Other ear and sense organ disorders (1 source) Otalgia, bilateral; Translations: [Otalgia, bilateral] Onset: 01-06-2025 Episodic Other gastrointestinal disorders (20 sources) Constipation; Translations: [Constipation, unspecified] 09-16-2021 Episodic Other gastrointestinal disorders (2 sources) Constipation, unspecified; Translations: [Constipation, unspecified] Episodic Regional enteritis and ulcerative colitis (20 sources) Colitis; Translations: [Crohn's disease of large intestine without complications] Chronic Spondylosis; intervertebral disc disorders; other back problems (20 sources) Degeneration of lumbar intervertebral disc; Translations: [Other intervertebral disc degeneration, lumbar region] 09-16-2021 Chronic Spondylosis; intervertebral disc disorders; other back problems (20 sources) Spinal stenosis of lumbar region; Translations: [Spinal stenosis, lumbar region without neurogenic claudication] Episodic Sprains and strains (20 sources) Sprain of left hand; Translations: [Sprain of unspecified part of left wrist and hand, initial encounter] 04-08-2021 Episodic Superficial injury; contusion (20 sources) Contusion of knee; Translations: [Contusion of left knee, initial encounter] 09-25-2020 Episodic Unclassified (1 source) No current problems or disability 06-01-2017 Unclassified (1 source) Unknown / UNK(Unknown) Onset: 01-19-2018 Unclassified (1 source) Other intervertebral disc degeneration, lumbosacral region with discogenic back pain only; Translations: [Other intervertebral disc degeneration, lumbosacral region with discogenic back pain only] Onset: 11-14-2024 Past or Other Problems Problem Classification Problem Date Documented Date Episodic/Chronic Mycoses (4 sources) Candidal vulvovaginitis; Translations: [Mycosis] Onset: 06-01-2017 06-01-2017 Episodic Other connective tissue disease (1 source) Plantar fascial fibromatosis; Translations: [Plantar fascial fibromatosis] Onset: 03-13-2024 Episodic Other screening for suspected conditions (not mental disorders or infectious disease) (1 source) Encounter for screening mammogram for malignant neoplasm of breast; Translations: [Encounter for screening mammogram for malignant neoplasm of breast] Onset: 11-22-2024 Episodic Unclassified (1 source) DYSFUNCTIONAL UTERINE BLEEDING~ Onset: 01-19-2018 Results Test Name Value Interpretation Reference Range Facility 12 Lead EKGon 02-19-[address] [facility] Cardiovascular Services [address] [place] [address] 12 Lead EKG 02/19/25 0051 MR#: [id number] Acct: [id number] Name: TONJA QUARLES Rep #: [id number] : 1955 69 From: Dick Camacho MD Attending Dr: Arslan Carver DO Status: DEP ER Ordering : Arslan Carver DO Date: 02/19/25 Location: ED Sex: F C Admitted: Test Reason : CP Blood Pressure : */* mmHG Vent. Rate : 62 BPM Atrial Rate : 62 BPM P-R Int : 176 ms QRS Dur : 94 ms QT Int : 428 ms P-R-T Axes : 62 11 44 degrees QTcB Int : 434 ms Normal sinus rhythm Incomplete right bundle branch block Borderline ECG Confirmed by Dick Camacho ([id number]), editor index JENNIFER LUNDBERG ([id number]) on 02/25/2025 1:00:14 PM Referred By: RUSSELL Confirmed By: Dick Camacho 02/25/25 1300 Date Dick Camacho MD CC: Dr. Ramona Luciano MD; Arslan Carver DO Signed Normal [facility] Absolute lymphocyte countOrd ered By: Arslan Carver on 02-19-2025 Lymphocytes Auto (Unsp spec) [#/Vol] 2.41 10*3/uL 0.83-4.51 [facility] Absolute neutrophil countOrd ered By: Arslan Carver on 02-19-2025 Neutrophils (Bld) [#/Vol] 4.2 10*3/uL 2.0-7.7 [facility] Anion gap in Serum or Plasma Ordered By: Arslan Carver on 02-19-2025 Anion gap [Moles/Vol] 14 mmol/L 5- [facility] Automated lymphocyte count a s percentage of total leukocytesOrdered By: Arslan Carver on 02-19-2025 Lymphocytes/100 WBC Auto (Unsp spec) 30.5 % - [facility] BUN/creatinine ratioOrdered By: Arslan Carver on 02-19-2025 Urea nitrogen/Creatinine [Mass ratio] 16.5 mg/mg 10- [facility] Basic Metabolic Profile (BMP )on 02-19-2025 BUN/CRE 16.5 RATIO Normal - [facility] Comment on above: Performed By: #### L 500.2500, L300.8000, L501.5200, L100.0100 ####[facility] [address] [place], [address] Calcium [Mass/Vol] 9.2 mg/dL Normal 7.6-11.0 [facility] Comment on above: Performed By: #### L 500.2500, L300.8000, L501.5200, L100.0100 ####[facility] [address] [place], [address] Chloride [Moles/Vol] 100 mmol/L Normal 98-108 [facility] Comment on above: Performed By: #### L 500.2500, L300.8000, L501.5200, L100.0100 ####[facility] [address] [place], [address] CO2 [Moles/Vol] 20.3 mmol/L Low 21.0-32.0 [facility] Comment on above: Performed By: #### L 500.2500, L300.8000, L501.5200, L100.0100 ####[facility] [address] [place], [address] Creatinine [Mass/Vol] 0.94 mg/dL Normal 0.70-1.20 [facility] Comment on above: Performed By: #### L 500.2500, L300.8000, L501.5200, L100.0100 ####[facility] [address] [place], [address] ECRCL 59.36 ml/min Normal 50-250 [facility] Comment on above: Performed By: #### L 500.2500, L300.8000, L501.5200, L100.0100 ####[facility] [address] [place], [address] GAP 14 Normal 5-15 [facility] Comment on above: Performed By: #### L 500.2500, L300.8000, L501.5200, L100.0100 ####[facility] [address] [place], [address] GFR/1.73 sq M.predicted among non-blacks MDRD (S/P/Bld) [Vol rate/Area] 65 mL/min/{1.73_m2} Normal >60 [facility] Comment on above: Result Comment: mL/m in/1.73m2 CKD-EPI Creatinine Equation (2020) Performed By: #### L 500.2500, L300.8000, L501.5200, L100.0100 ####[facility] [address] [place], [address] Glucose [Mass/Vol] 96 mg/dL Normal 70-99 [facility] Comment on above: Performed By: #### L 500.2500, L300.8000, L501.5200, L100.0100 ####[facility] [address] [place], [address] Potassium [Moles/Vol] 4.6 mmol/L Normal 3.3-5.1 [facility] Comment on above: Result Comment: Hemo lysis present, Results??could be affected. ?? Performed By: #### L 500.2500, L300.8000, L501.5200, L100.0100 ####[facility] [address] [place], [address] Sodium [Moles/Vol] 134 mmol/L Normal 133-145 [facility] Comment on above: Performed By: #### L 500.2500, L300.8000, L501.5200, L100.0100 ####[facility] [address] [place], [address] Urea nitrogen [Mass/Vol] 16 mg/dL Normal 4-19 [facility] Comment on above: Performed By: #### L 500.2500, L300.8000, L501.5200, L100.0100 ####[facility] [address] [place], [address] Basophil percentageOrdered B y: Arslan Carver on 02-19-2025 Basophils/100 WBC (Bld) 0.5 % 0-1 [facility] CBC W/Diff, Automatedon Absolute Lymph 2.41 X10 3/uL Normal 0.83-4.51 [facility] Comment on above: Performed By: #### L 500.2500, L300.8000, L501.5200, L100.0100 #### [facility] [address] [place], [address] Absolute Neut 4.2 X10 3/uL Normal 2.0-7.7 [facility] Comment on above: Performed By: #### L 500.2500, L300.8000, L501.5200, L100.0100 #### [facility] [address] [place], [address] Basophils/100 WBC (Bld) 0.5 % Normal 0-1 [facility] Comment on above: Performed By: #### L 500.2500, L300.8000, L501.5200, L100.0100 #### [facility] [address] [place], [address] Eosinophils/100 WBC (Bld) 2.7 % Normal 0-5 [facility] Comment on above: Performed By: #### L 500.2500, L300.8000, L501.5200, L100.0100 #### [facility] [address] [place], [address] Erythrocyte distribution width (RBC) [Ratio] 12.4 % Normal 11.6-14.6 [facility] Comment on above: Performed By: #### L 500.2500, L300.8000, L501.5200, L100.0100 #### [facility] [address] [place], [address] Hematocrit (Bld) [Volume fraction] 40.6 % Normal 37-47 [facility] Comment on above: Performed By: #### L 500.2500, L300.8000, L501.5200, L100.0100 #### [facility] [address] [place], [address] Hemoglobin (Bld) [Mass/Vol] 13.7 g/dL Normal 12.0-15.0 [facility] Comment on above: Performed By: #### L 500.2500, L300.8000, L501.5200, L100.0100 #### [facility] [address] [place], [address] IG% 0.600 Normal 0.0-0.9 [facility] Comment on above: Result Comment: IG% - Immature Granulocytes (promyelocytes, myelocytes and metamyelocytes) > 1% indicates that a LEFT SHIFT is Present. Performed By: #### L 500.2500, L300.8000, L501.5200, L100.0100 #### [facility] [address] [place], [address] Lymphocytes/100 WBC (Bld) 30.5 % Normal 19-41 [facility] Comment on above: Performed By: #### L 500.2500, L300.8000, L501.5200, L100.0100 #### [facility] [address] [place], [address] MCH (RBC) [Entitic mass] 32.2 pg High 27.0-32.0 [facility] Comment on above: Performed By: #### L 500.2500, L300.8000, L501.5200, L100.0100 #### [facility] [address] [place], [address] MCHC (RBC) [Mass/Vol] 33.7 g/dL Normal 32-36 [facility] Comment on above: Performed By: #### L 500.2500, L300.8000, L501.5200, L100.0100 #### [facility] [address] [place], [address] MCV (RBC) [Entitic vol] 95.3 fL Normal 81-99 [facility] Comment on above: Performed By: #### L 500.2500, L300.8000, L501.5200, L100.0100 #### [facility] [address] [place], [address] Monocytes/100 WBC (Bld) 11.9 % High 0-10 [facility] Comment on above: Performed By: #### L 500.2500, L300.8000, L501.5200, L100.0100 #### [facility] [address] [place], [address] Neutrophils/100 WBC (Bld) 53.8 % Normal 47-70 [facility] Comment on above: Performed By: #### L 500.2500, L300.8000, L501.5200, L100.0100 #### [facility] [address] [place], [address] Nucleated RBC (Bld) [#/Vol] 0 10*3/uL Normal 0-5 [facility] Comment on above: Performed By: #### L 500.2500, L300.8000, L501.5200, L100.0100 #### [facility] [address] [place], [address] Platelet mean volume (Bld) [Entitic vol] 11.5 fL Normal 6.2-12.0 [facility] Comment on above: Performed By: #### L 500.2500, L300.8000, L501.5200, L100.0100 #### [facility] [address] [place], [address] Platelets (Bld) [#/Vol] 248 10*3/uL Normal 150-450 [facility] Comment on above: Performed By: #### L 500.2500, L300.8000, L501.5200, L100.0100 #### [facility] [address] [place], [address] RBC (Bld) [#/Vol] 4.26 10*6/uL Normal 4.2-5.4 [facility] Comment on above: Performed By: #### L 500.2500, L300.8000, L501.5200, L100.0100 #### [facility] [address] [place] [place], [address] RDW SD 43.7 fl Normal 35.1-43.9 [facility] Comment on above: Performed By: #### L 500.2500, L300.8000, L501.5200, L100.0100 #### [facility] [address] [place], [address] WBC (Bld) [#/Vol] 7.9 10*3/uL Normal 4.4-11.0 [facility] Comment on above: Performed By: #### L 500.2500, L300.8000, L501.5200, L100.0100 #### [facility] [address] [place] [place], [address] Carbon dioxide, total [Moles /volume] in Central venous bloodOrdered By: Arslan Carver on 02-19-2025 CO2 [Moles/Vol] 20.3 mmol/L Low 21.0-32.0 [facility] Chest PA and Lateralon 02-[address] L[address] [facility] Imaging Services [address] [place] [address] Chest PA and Lateral MR#: [id number] Acct: [id number] Name: TONJA QUARLES Rep #: [id number] : 1955 F 69 From: Oj Ramsay MD PCP: Dr. Ramona Luciano MD Status: PRE ER Study: Chest PA and Lateral Date of Exam: 02/19/25 Exam# [id number] Ordering Dr: Arslan Carver DO PROCEDURE: CHEST PA AND LATERAL 02/19/2025 REASON FOR EXAM: CHEST PAIN TECHNIQUE: Frontal and lateral views of the chest. COMPARISON: None available FINDINGS: Linear area of scar or atelectasis retrocardiac left base. The lungs otherwise appear clear. The cardiac and mediastinal contours appear within limits. Lumbar spondylosis/discogenic change. RAD/Chest PA and Lateral IMPRESSION: No evidence of acute disease. Reading Location: [id number] CC: Dr. Ramona Luciano MD; Arslan Carver DO Cook Vegetable: Signed Normal [facility] Chloride assayOrdered By: Jo Ann Carver on 02-19-2025 Chloride [Moles/Vol] 100 mmol/L 98-108 [facility] D-Dimer Quantitative (DVT/PE )on 02-19-2025 D-DIMER QUANT < 0.27 Low 0.27-0.49 [facility] Comment on above: Result Comment: NORM AL D-Dimer level (<0.50) indicates no DVT or PE. Performed By: #### L 500.2500, L300.8000, L501.5200, L100.0100 #### [facility] [address] [facility] [place], [place], [id number] Emergency Department Summary on 02-19-2025 Emergency Department Summary [facility] Medical Records Department [address] [place] [address] Emergency Department Summary 02/19/25 MR#: [id number] Acct: [id number] Name: TONJA QUARLES Rep #: [id number] : 1955 69 From: Arslan Carver DO PCP: Dr. Ramona Luciano MD Status:DEP ER Location: ED HPI History of Present Illness Chief Complaint: Chest Pain Informant: patient and spouse/S.O. Narrative Narrative: Patient is a 69-year-old female with past medical history of of hyperlipidemia and arthritis. She states that over the past 3 days she has had a vague left-sided chest discomfort. She states that it has been intermittent and mild in nature but this evening woke her from sleep and was more intense than the previous bouts. She denies any nausea vomiting diaphoresis or shortness of breath associated with her symptoms. She denies any history of DVT/PE but does admit recent travel to and from [place] in the last few weeks. [facility] Medical History Wears glasses Alcohol use Anemia Easy bruising High cholesterol Migraine headache Heartburn Non-smoker Leg cramps History of pain when walking History of stress test Left wrist sprain Sprain of left hand Back pain Knee pain Arthritis Home Medications ???Medication ???Instructions ???Recorded ???Last Taken ???Type nabumetone 750 mg tablet 750 mg PO BID 04/08/21 Unknown His tory atorvastatin 10 mg tablet 10 mg PO DAILY 10/05/21 Unknown Hi story acetaminophen 500 mg capsule 500 mg PO Q8H 07/08/23 Unknown His tory cholecalciferol (vitamin D3) 25 25 mcg PO DAILY 07/08/23 Unknown H istory mcg (1,000 unit) chewable tablet (VitaJoy Daily D) magnesium 200 mg tablet 400 mg PO DAILY 07/08/23 Unknown H istory glucosamine sulfate 500 mg capsule 500 mg PO QDAY 01/06/25 Unknown History Allergy/AdvReac Type Severity Reaction Status Date / Time amoxicillin Allergy Hives Verified 02/19/25 00:34 Surgical History Hx of colonoscopy History of total left knee replacement H/O arthroscopy of left knee Social History Smoking Status: Never smoker alcohol intake: current alcohol intake frequency: a few times a week Alcohol type: wine ROS ROS ED Constitutional Constitutional ED: Denies chills or fever(s) Eyes Eyes: Denies blurry vision or change in vision ENT ENT ED: Denies sore throat Cardiovascular Cardiovascular: Reports chest pain; Denies palpitations or racing heartbeat Respiratory/Chest Respiratory/Chest: Denies cough or dyspnea Gastrointestinal Gastrointestinal: Denies abdominal pain, diarrhea, nausea or vomiting Genitourinary Genitourinary ED: Denies dysuria Musculoskeletal Musculoskeletal: Denies back pain Integumentary Denies rash Neurologic Neurologic: Denies headache(s) Hematologic/Lymphatic Hematologic/Lymphatic: Denies easy bleeding or easy bruising EXAM Physical Exam Const Vital Signs: 02/19/25 00:34 02/19/25 00:37 02/19/25 01:31 Temperature 97.6 F L Temperature Source Oral Pulse Rate 64 58 L Respiratory Rate 12 18 Respiratory Effort Normal Blood Pressure 150/72 H 149/84 H Blood Pressure Mean 98 105 Pulse Ox 100 97 Oxygen Delivery Method Room Air Room Air 02/19/25 02:00 02/19/25 03:00 02/19/25 03:41 Temperature 97 F L Temperature Source Pulse Rate 73 62 62 Respiratory Rate 18 17 17 Respiratory Effort Blood Pressure 130/72 H Blood Pressure Mean 91 Pulse Ox 98 98 98 Oxygen Delivery Method Room Air Room Air Positive well nourished and well developed General Appearance ED: well developed; Negative for pallor HEENT HEENT Narrative: Normocephalic atraumatic Eyes PERRL and EOMs intact bilaterally General Eye ED: Negative for scleral icterus Neck supple and no JVD Neck Narrative: No nuchal rigidity or meningeal signs Chest Wall Chest Narrative: There is reproducible pain with palpation of the left anterior chest wall however patient states this is different pain than she has been experiencing There is no bony deformity or crepitance noted No overlying soft tissue changes to suggest trauma or infection Resp normal respiratory effort and clear to auscultation bilaterally Cardio regular rate and regular rhythm Rate: other Other Details: Heart is regular rate and rhythm without murmurs rubs or gallop Radial and carotid pulses are equal and symmetric GI normal to inspection, nondistended, normoactive bowel sounds, non-tender, non-distended and no masses GI Narrative: No voluntary guarding rigidity or pulsatile mass Auscultation: normoactive bowel sounds Palpation: soft Extremity normal to inspec (more content not included)... Normal [facility] Eosinophil percentageOrdered By: Arslan Carver on 02-19-2025 Eosinophils/100 WBC (Bld) 2.7 % 0-5 [facility] Erythrocyte distribution wid th ratioOrdered By: Arslan Carver on 02-19-2025 Erythrocyte distribution width (RBC) [Ratio] 12.4 % 11.6-14.6 [facility] Erythrocyte distribution wid th standard deviationOrdered By: Arslan Carver on 02-19-2025 Erythrocyte distribution width (RBC) [Ratio] 43.7 fl 35.1-43.9 [facility] Glomerular filtration rate ( GFR) estimation/1.73 sq m using serum, plasma, or whole bOrdered By: Arslan Carver on 02-19-2025 GFR/1.73 sq M.predicted among non-blacks MDRD (S/P/Bld) [Vol rate/Area] 65 mL/min/{1.73_m2} >60 [facility] Comment on above: mL/min/1.73m2 CKD-EP I Creatinine Equation (2020) Hematocrit Auto (Bld) [Volum e fraction]Ordered By: Arslan Carver on 02-19-2025 Hematocrit (Bld) [Volume fraction] 40.6 % 37-47 [facility] Hemoglobin measurementOrdere d By: Arslan Carver on 02-19-2025 Hemoglobin (Bld) [Mass/Vol] 13.7 g/dL 12.0-15.0 [facility] Immature granulocytes/100 WB C Auto (Bld)Ordered By: Arslan Carver on 02-19-2025 Immature granulocytes/100 WBC (Bld) 0.600 % 0.0-0.9 [facility] Comment on above: IG% - Immature Granu locytes (promyelocytes, myelocytes and metamyelocytes) > 1% indicates that a LEFT SHIFT is Present. L499.0042on 02-19-2025 Trop T High Sen 8 ng/L Normal <=14 [facility] Comment on above: Performed By: #### L 499.0042 ####[facility] [address] [place], [address] L501.4021on 02-19-2025 Trop T High Sen 7 ng/L Normal <=14 [facility] Comment on above: Performed By: #### L 501.4021 #### [facility] [address] [place], [address] MCV (mean corpuscular volume ) determinationOrdered By: Arslan Carver on 02-19-2025 MCV (RBC) [Entitic vol] 95.3 fL 81-99 [facility] Magnesiumon 02-19-2025 Magnesium [Mass/Vol] 2.3 mg/dL High 1.5-2.2 [facility] Comment on above: Performed By: #### L 500.2500, L300.8000, L501.5200, L100.0100 #### [facility] [address] [place], [address] Magnesium measurement (mass/ volume)Ordered By: Arslan Carver on 02-19-2025 Magnesium (Unsp spec) [Mass/Vol] 2.3 mg/dL High 1.5-2.2 [facility] Mean corpuscular hemoglobin (MCH) determinationOrdered By: Arslan Carver on 02-19-2025 MCH (RBC) [Entitic mass] 32.2 pg High 27.0-32.0 [facility] Mean corpuscular hemoglobin concentration (MCHC) determinationOrdered By: Arslan Carver on 02-19-2025 MCHC (RBC) [Mass/Vol] 33.7 g/dL 32-36 [facility] Mean platelet volume determi nationOrdered By: Arslan Carver on 02-19-2025 Platelet mean volume (Bld) [Entitic vol] 11.5 fL 6.2-12.0 [facility] Monocyte percentageOrdered B y: Arslan Carver on 02-19-2025 Monocytes/100 WBC (Bld) 11.9 % High 0-10 [facility] Neutrophil percentageOrdered By: Arslan Carver on 02-19-2025 Neutrophils/100 WBC (Bld) 53.8 % 47-70 [facility] Nucleated red blood cell per centageOrdered By: Arslan Carver on 02-19-2025 Nucleated RBC/100 WBC (Bld) [Ratio] 0 % 0-5 [facility] Platelet countOrdered By: Jo Ann Carver on 02-19-2025 Platelets (Bld) [#/Vol] 248 10*3/uL 150-450 [facility] Potassium measurement (mass/ volume)Ordered By: Arslan Carver on 02-19-2025 Potassium (Unsp spec) [Mass/Vol] 4.6 mmol/L 3.3-5.1 [facility] Comment on above: Hemolysis present, R esults could be affected. RBC Auto (Bld) [#/Vol]Ordere d By: Arslan Carver on 02-19-2025 RBC (Bld) [#/Vol] 4.26 10*6/uL 4.2-5.4 [facility] Serum creatinine measurement (mass/volume)Ordered By: Arslan Carver on 02-19-2025 Creatinine [Mass/Vol] 0.94 mg/dL 0.70-1.20 [facility] Serum glucose measurement (m ass/volume)Ordered By: Arslan Carver on 02-19-2025 Glucose [Mass/Vol] 96 mg/dL 70-99 [facility] Serum or plasma calcium marci urement (mass/volume)Ordered By: Arslan Carver on 02-19-2025 Calcium [Mass/Vol] 9.2 mg/dL 7.6-11.0 [facility] Serum or plasma urea nitroge n measurement (mass/volume)Ordered By: Arslan Carver on 02-19-2025 Urea nitrogen [Mass/Vol] 16 mg/dL 4-19 [facility] Sodium levelOrdered By: Fili Carver on 02-19-2025 Sodium [Moles/Vol] 134 mmol/L 133-145 [facility] Troponin T.cardiac [Mass/vol ume] in Serum or Plasma by High sensitivity methodOrdered By: Arslan Carver on 02-19-2025 Troponin T.cardiac High sensitivity method [Mass/Vol] 8 ng/L <14 [facility] Troponin T.cardiac High sensitivity method [Mass/Vol] 7 ng/L <14 [facility] White blood cell (WBC) count Ordered By: Arslan Carver on 02-19-2025 WBC (Bld) [#/Vol] 7.9 10*3/uL 4.4-11.0 [facility] Urgent Care Visit Reporton 0 01-06-2025 Urgent Care Visit Report [facility] [address], [address] [place] [address] OFFICE VISIT Date of Service: 01/06/25 MR#: [id number] Acct: [id number] Name: TONJA QUARLES SENDY Rep #: [id number] : 1955 Provider: DARCI vergara Age/Sex: 69/F Location: [facility] Status: Signed Intake Vital Signs 08/19/23 09:07 01/06/25 08:14 Height 5 ft 7 in 5 ft 7 in Weight: 163 lb BMI 25.5 BP 106/64 Blood Pressure Location Lt brachial Position Sitting Respiration 16 Pulse 63 Pulse Source Monitor Temp 98.0 F Temp Source Temporal Pulse Oximetry (%) 97 Oxygen Delivery Method room air Intake Visit Reasons: BILATERAL EAR BLOCKAGE Chief Complaint: Bilateral Ear Blockage Is patient in pain?: No Allergies amoxicillin Allergy (Verified 01/06/25 08:12) Hives Medications ???Medication ???Instructions ???Recorded ???Confirmed ???Type nabumetone 750 mg tablet 750 mg PO BID 04/08/21 08/12/23 Hi story atorvastatin 10 mg tablet 10 mg PO QHS 10/05/21 08/12/23 His tory acetaminophen 500 mg capsule 500 mg PO Q8H 07/08/23 08/12/23 Hi story cholecalciferol (vitamin D3) 25 25 mcg PO DAILY 07/08/23 08/12/23 History mcg (1,000 unit) chewable tablet (VitaJoy Daily D) magnesium 200 mg tablet 400 mg PO DAILY 07/08/23 08/12/23 History glucosamine sulfate 500 mg capsule 500 mg PO QDAY 01/06/25 01/06/25 History Post menopausal: Yes Have you fallen in the past year?: No PFSH Medical History Wears glasses Alcohol use Anemia Easy bruising High cholesterol Migraine headache Heartburn Non-smoker Leg cramps History of pain when walking History of stress test Left wrist sprain Sprain of left hand Back pain Knee pain Arthritis Surgical History Hx of colonoscopy History of total left knee replacement H/O arthroscopy of left knee Social History Smoking Status: Never smoker alcohol intake: current alcohol intake frequency: a few times a week Alcohol type: wine HPI HPI Chief Complaint: Bilateral Ear Blockage Details: TONJA QUARLES, is a 69 F who presents to the office today for concerns regarding bilateral ear blockage. This has been ongoing for 2 weeks. 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 She states she had somthing going on for her left ear for a month. She has been using white vinger and isopropyl alcohol. She feels her symptoms are worsening. This is noted with jaw tingling. ROS Const Constitutional: No body ache, chills, fatigue, fever(s), headache(s), snoring or change in appetite Eyes Eyes: No blurry vision, change in vision, double vision, irritation, discharge, vision loss, dry eyes, bulging eyes, floaters, visual disturbances, eye pain, Light sensitivity, spots in vision, tunnel vision or other ENT ENT: Positive for ear or mastoid pain, post nasal drip and dental pain (Jaw); No ear discharge, ear pressure, tinnitus, dizziness/vertigo, nosebleed/epistaxis, nasal congestion, nose pain, sinus pressure, sinus pain, nasal discharge, headache(s), facial pain, difficulty swallowing, bad breath, hoarseness, lip swelling, mouth lesions, mouth pain, neck pain, sore throat, tongue swelling or throat swelling Resp Respiratory: No cough, change in phlegm color, chest congestion, hemoptysis, pain on inspiration, shortness of breath, pain with cough, snoring, stridor or wheezing Cardio Cardiology: No chest pain at rest, chest pain with exertion, shortness of breath, dyspnea on exertion or lightheadedness Gastro GI: No abdominal pain, change in bowel habits, constipation, diarrhea, difficulty swallowing, nausea/dyspepsia or vomiting Genitourinary-Female: No burning urination or urinary frequency Musc Musculoskeletal: No joint pain or neck pain Skin Skin: No rash Neuro Neurology: No headache(s) or visual disturbances Psych Psychiatric: No change in appetite Endo Endocrine: No fatigue Aller/Imm Allergy/Immunologic: No lip swelling, throat swelling, tongue swelling or wheezing Exam Const General: cooperative, healthy appearing, comfortable and no acute distress Nutritional Appearance: average body habitus and well nourished Orientation: alert, awake and oriented x3 [facility] Head: normal to inspection Ears: hearing grossly normal bilaterally, TM normal on the left and TM abnormal with fluid behind the TM on the right Nose: external nose normal Face and sinus: face symmetric Mouth: moist mucous membranes Throat: posterior oropharynx normal, tonsils normal, uvula midline and no postnasal drainage Eyes General: appearance normal, both eyes and all related structures Eyelids: eyelids normal EOM: EOM intact bilate (more content not included)... Normal [facility] SCRN MAMM (CAD)W/CANDIDA BILATo n 11-07-2024 SCRN MAMM (CAD)W/CANDIDA BILAT [facility] Imaging Services [address] [place] [address] SCRN MAMM (CAD)W/CANDIDA BILAT MR#: [id number] Acct: [id number] Name: TONJA QUARLES Rep #: [id number] : 1955 F 69 From: Andrzej ann MD PCP: Dr. Ramona Luciano MD Status: [facility] Study: SCRN MAMM (CAD)W/CANDIDA BILAT Date of Exam: 10/27 11/20 Exam# [id number] Ordering Dr: Ramona Luciano MD PROCEDURE: SCRN MAMM (CAD)W/CANDIDA BILAT REASON FOR EXAM: F, Age 69 y/o, no family history. Routine mammographic follow-up. TECHNIQUE: Bilateral screening digital breast tomosynthesis with 2D and 3D images. Computer aided detection. COMPARISON: Prior exam(s) dating back to November 18, 2022.. FINDINGS: The breasts are heterogeneously dense which may obscure small masses. Stable examination. No suspicious masses, areas of developing architectural distortion, or suspicious calcifications. BI/SCRN MAMM (CAD)W/CANDIDA BILAT IMPRESSION: BI-RADS 1: NEGATIVE. RECOMMEND ANNUAL MAMMOGRAPHIC SCREENING. Follow-up code: Routine Follow-up The patient will be notified of the results by letter. Reading Location: [place] [address] CC: Dr. Ramona Luciano MD Cook Vegetable: Signed Normal [facility] Absolute lymphocyte countOrd ered By: Ramona Luciano on 10-30-2024 Lymphocytes Auto (Unsp spec) [#/Vol] 1.33 10*3/uL 0.83-4.51 [facility] Absolute neutrophil countOrd ered By: Ramona Luciano on 10-30-2024 Neutrophils (Bld) [#/Vol] 2.6 10*3/uL 2.0-7.7 [facility] Albumin to globulin ratioOrd ered By: Ramona Luciano on 10-30-2024 Albumin/Globulin [Mass ratio] 1.1 {ratio} 0.9-2.4 [facility] Automated lymphocyte count a s percentage of total leukocytesOrdered By: Ramona Luciano on 10-30-2024 Lymphocytes/100 WBC Auto (Unsp spec) 28.2 % 19-41 [facility] Basophil percentageOrdered B y: Ramona Luciano on 10-30-2024 Basophils/100 WBC (Bld) 0.6 % 0-1 [facility] Bilirubin, totalOrdered By: Ramona Luciano on 10-30-2024 Bilirubin [Mass/Vol] 0.70 mg/dL 0.20-1.00 [facility] Comment on above: For patients on eltr ombopag therapy, use of Dimension Kimball TBIL is not recommended. Blood urea nitrogen (BUN)/cr eatinine ratioOrdered By: Ramona Luciano on 10-30-2024 Urea nitrogen/Creatinine [Mass ratio] 15.6 mg/mg 10-20 [facility] CBC W/Diff, Automatedon Absolute Lymph 1.33 X10 3/uL Normal 0.83-4.51 [facility] Comment on above: Order Comment: Order Date: 10/23/24Order Info: [id number] - CBCD Performed By: #### L 100.0100, L500.4050, L500.4100, L501.9520 ####[facility] [address] [place], [address] Absolute Neut 2.6 X10 3/uL Normal 2.0-7.7 [facility] Comment on above: Order Comment: Order Date: 10/23/24Order Info: [id number] - CBCD Performed By: #### L 100.0100, L500.4050, L500.4100, L501.9520 ####[facility] [address] [place], [address] Basophils/100 WBC (Bld) 0.6 % Normal 0-1 [facility] Comment on above: Order Comment: Order Date: 10/23/24Order Info: [id number] - CBCD Performed By: #### L 100.0100, L500.4050, L500.4100, L501.9520 ####[facility] [address] [place], [address] Eosinophils/100 WBC (Bld) 3.0 % Normal 0-5 [facility] Comment on above: Order Comment: Order Date: 10/23/24Order Info: [id number] - CBCD Performed By: #### L 100.0100, L500.4050, L500.4100, L501.9520 ####[facility] [address] [place], [address] Erythrocyte distribution width (RBC) [Ratio] 12.8 % Normal 11.6-14.6 [facility] Comment on above: Order Comment: Order Date: 10/23/24Order Info: [id number]- - CBCD Performed By: #### L 100.0100, L500.4050, L500.4100, L501.9520 ####[facility] [address] [place], [address] Hematocrit (Bld) [Volume fraction] 39.8 % Normal 37-47 [facility] Comment on above: Order Comment: Order Date: 10/23/24Order Info: [id number]- - CBCD Performed By: #### L 100.0100, L500.4050, L500.4100, L501.9520 ####[facility] [address] [place], [address] Hemoglobin (Bld) [Mass/Vol] 13.2 g/dL Normal 12.0-15.0 [facility] Comment on above: Order Comment: Order Date: 10/23/24Order Info: [id number] - CBCD Performed By: #### L 100.0100, L500.4050, L500.4100, L501.9520 ####[facility] [address] [place], [address] IG% 0.400 Normal 0.0-0.9 [facility] Comment on above: Order Comment: Order Date: 10/23/24Order Info: [id number] - CBCD Result Comment: IG% - Immature Granulocytes (promyelocytes, myelocytes and metamyelocytes) > 1% indicates that a LEFT SHIFT is Present. Performed By: #### L 100.0100, L500.4050, L500.4100, L501.9520 ####[facility] [address] [place], [address] Lymphocytes/100 WBC (Bld) 28.2 % Normal 19-41 [facility] Comment on above: Order Comment: Order Date: 10/23/24Order Info: [id number] - CBCD Performed By: #### L 100.0100, L500.4050, L500.4100, L501.9520 ####[facility] [address] [place], [address] MCH (RBC) [Entitic mass] 31.9 pg Normal 27.0-32.0 [facility] Comment on above: Order Comment: Order Date: 10/23/24Order Info: [id number] - CBCD Performed By: #### L 100.0100, L500.4050, L500.4100, L501.9520 ####[facility] [address] [place], [address] MCHC (RBC) [Mass/Vol] 33.2 g/dL Normal 32-36 [facility] Comment on above: Order Comment: Order Date: 10/23/24Order Info: [id number] - CBCD Performed By: #### L 100.0100, L500.4050, L500.4100, L501.9520 ####[facility] [address] [place], [address] MCV (RBC) [Entitic vol] 96.1 fL Normal 81-99 [facility] Comment on above: Order Comment: Order Date: 10/23/24Order Info: 0184-1 - CBCD Performed By: #### L 100.0100, L500.4050, L500.4100, L501.9520 ####[facility] [address] [place], [address] Monocytes/100 WBC (Bld) 12.7 % High 0-10 [facility] Comment on above: Order Comment: Order Date: 10/23/24Order Info: 0184-1 - CBCD Performed By: #### L 100.0100, L500.4050, L500.4100, L501.9520 ####[facility] [address] [place], [address] Neutrophils/100 WBC (Bld) 55.1 % Normal 47-70 [facility] Comment on above: Order Comment: Order Date: 10/23/24Order Info: [id number] - CBCD Performed By: #### L 100.0100, L500.4050, L500.4100, L501.9520 ####[facility] [address] [place], [address] Nucleated RBC (Bld) [#/Vol] 0 10*3/uL Normal 0-5 [facility] Comment on above: Order Comment: Order Date: 10/23/24Order Info: [id number] - CBCD Performed By: #### L 100.0100, L500.4050, L500.4100, L501.9520 ####[facility] [address] [place], [address] Platelet mean volume (Bld) [Entitic vol] 10.5 fL Normal 6.2-12.0 [facility] Comment on above: Order Comment: Order Date: 10/23/24Order Info: [id number] - CBCD Performed By: #### L 100.0100, L500.4050, L500.4100, L501.9520 ####[facility] [address] [place], [address] Platelets (Bld) [#/Vol] 252 10*3/uL Normal 150-450 [facility] Comment on above: Order Comment: Order Date: 10/23/24Order Info: [id number] - CBCD Performed By: #### L 100.0100, L500.4050, L500.4100, L501.9520 ####[facility] [address] [place], [address] RBC (Bld) [#/Vol] 4.14 10*6/uL Low 4.2-5.4 [facility] Comment on above: Order Comment: Order Date: 10/23/24Order Info: [id number] - CBCD Performed By: #### L 100.0100, L500.4050, L500.4100, L501.9520 ####[facility] [address] [place], [address] RDW SD 45.1 fl High 35.1-43.9 [facility] Comment on above: Order Comment: Order Date: 10/23/24Order Info: [id number] - CBCD Performed By: #### L 100.0100, L500.4050, L500.4100, L501.9520 ####[facility] [address] [place], [address] WBC (Bld) [#/Vol] 4.7 10*3/uL Normal 4.4-11.0 [facility] Comment on above: Order Comment: Order Date: 10/23/24Order Info: [id number] - CBCD Performed By: #### L 100.0100, L500.4050, L500.4100, L501.9520 ####[facility] [address] [place], [address] Carbon dioxide measurementOr dered By: Ramona Luciano on 10-30-2024 CO2 [Moles/Vol] 27.0 mmol/L 21.0-32.0 [facility] Chloride measurementOrdered By: Ramona Luciano on 10-30-2024 Chloride [Moles/Vol] 107 mmol/L 98-107 [facility] Comprehensive Metabolic Prof ilon 10-30-2024 Albumin [Mass/Vol] 3.6 g/dL Normal 3.2-5.0 [facility] Comment on above: Order Comment: Order Date: 10/23/24Order Info: [id number] - CMPOrder Info: [id number] - LIPIDOrder Info: 3 - TSH Performed By: #### L 100.0100, L500.4050, L500.4100, L501.9520 ####[facility] [address] [place], [address] Albumin/Globulin [Mass ratio] 1.1 {ratio} Normal 0.9-2.4 [facility] Comment on above: Order Comment: Order Date: 10/23/24Order Info: [id number] - CMPOrder Info: - LIPIDOrder Info: [id number] - TSH Performed By: #### L 100.0100, L500.4050, L500.4100, L501.9520 ####[facility] [address] [place], [address] ALK P 88 U/L Normal 45-117 [facility] Comment on above: Order Comment: Order Date: 10/23/24Order Info: [id number] - CMPOrder Info: [id number] - LIPIDOrder Info: 3 - TSH Performed By: #### L 100.0100, L500.4050, L500.4100, L501.9520 ####[facility] [address] [place], [address] ALT [Catalytic activity/Vol] 18 U/L Normal 13-56 [facility] Comment on above: Order Comment: Order Date: 10/23/24Order Info: [id number] - CMPOrder Info: [id number] - LIPIDOrder Info: [id number] - TSH Performed By: #### L 100.0100, L500.4050, L500.4100, L501.9520 ####[facility] [address] [place], [address] AST [Catalytic activity/Vol] 15 U/L Normal 15-37 [facility] Comment on above: Order Comment: Order Date: 10/23/24Order Info: [id number] - CMPOrder Info: [id number] - LIPIDOrder Info: [id number] - TSH Performed By: #### L 100.0100, L500.4050, L500.4100, L501.9520 ####[facility] [address] [place], [address] Bilirubin [Mass/Vol] 0.70 mg/dL Normal 0.20-1.00 [facility] Comment on above: Order Comment: Order Date: 10/23/24Order Info: [id number] - CMPOrder Info: [id number] - LIPIDOrder Info: 3 - TSH Result Comment: For patients on eltrombopag therapy, use of Dimension Kimball TBIL is not recommended. Performed By: #### L 100.0100, L500.4050, L500.4100, L501.9520 ####[facility] [address] [place], [address] BUN/CRE 15.6 RATIO Normal 10-20 [facility] Comment on above: Order Comment: Order Date: 10/23/24Order Info: [id number] - CMPOrder Info: [id number] - LIPIDOrder Info: [id number] - TSH Performed By: #### L 100.0100, L500.4050, L500.4100, L501.9520 ####[facility] [address] [place], [address] CA,Total 9.1 mg/dL Normal 8.5-10.1 [facility] Comment on above: Order Comment: Order Date: 10/23/24Order Info: [id number] - CMPOrder Info: [id number] - LIPIDOrder Info: 3 - TSH Performed By: #### L 100.0100, L500.4050, L500.4100, L501.9520 ####[facility] [address] [place], [address] Chloride [Moles/Vol] 107 mmol/L Normal 98-107 [facility] Comment on above: Order Comment: Order Date: 10/23/24Order Info: [id number] - CMPOrder Info: [id number] - LIPIDOrder Info: [id number] - TSH Performed By: #### L 100.0100, L500.4050, L500.4100, L501.9520 ####[facility] [address] [place], [address] CO2 [Moles/Vol] 27.0 mmol/L Normal 21.0-32.0 [facility] Comment on above: Order Comment: Order Date: 10/23/24Order Info: [id number] - CMPOrder Info: [id number] - LIPIDOrder Info: [id number] - TSH Performed By: #### L 100.0100, L500.4050, L500.4100, L501.9520 ####[facility] [address] [place], [address] Creatinine [Mass/Vol] 0.96 mg/dL Normal 0.55-1.02 [facility] Comment on above: Order Comment: Order Date: 10/23/24Order Info: [id number] - CMPOrder Info: [id number] - LIPIDOrder Info: [id number] - TSH Result Comment: The validity of the calculated GFR GFRAA in patients over 70 years has not been determined. Clinical correlation is essential. Performed By: #### L 100.0100, L500.4050, L500.4100, L501.9520 ####[facility] [address] [place], [address] EST GFR - AA 74 mL/min Normal >60 [facility] Comment on above: Order Comment: Order Date: 10/23/24Order Info: [id number] - CMPOrder Info: [id number] - LIPIDOrder Info: 3 - TSH Result Comment: Afri can [place] GFR Calc Performed By: #### L 100.0100, L500.4050, L500.4100, L501.9520 ####[facility] [address] [place], [address] GAP 6 Normal 5-15 [facility] Comment on above: Order Comment: Order Date: 10/23/24Order Info: [id number] - CMPOrder Info: [id number] - LIPIDOrder Info: [id number] - TSH Performed By: #### L 100.0100, L500.4050, L500.4100, L501.9520 ####[facility] [address] [place], [address] GFR/1.73 sq M.predicted among non-blacks MDRD (S/P/Bld) [Vol rate/Area] 61 mL/min/{1.73_m2} Normal >60 [facility] Comment on above: Order Comment: Order Date: 10/23/24Order Info: [id number] - CMPOrder Info: [id number] - LIPIDOrder Info: [id number] - TSH Result Comment: Non- GFR Calc Performed By: #### L 100.0100, L500.4050, L500.4100, L501.9520 ####[facility] [address] [place], [address] Globulin (S) [Mass/Vol] 3.2 g/dL Normal 2.2-4.2 [facility] Comment on above: Order Comment: Order Date: 10/23/24Order Info: [id number] - CMPOrder Info: [id number] - LIPIDOrder Info: 3 - TSH Performed By: #### L 100.0100, L500.4050, L500.4100, L501.9520 ####[facility] [address] [place], [address] Glucose [Mass/Vol] 96 mg/dL Normal 74-106 [facility] Comment on above: Order Comment: Order Date: 10/23/24Order Info: [id number] - CMPOrder Info: [id number] - LIPIDOrder Info: [id number] - TSH Performed By: #### L 100.0100, L500.4050, L500.4100, L501.9520 ####[facility] [address] [place], [address] Potassium [Moles/Vol] 4.1 mmol/L Normal 3.5-5.1 [facility] Comment on above: Order Comment: Order Date: 10/23/24Order Info: [id number] - CMPOrder Info: [id number] - LIPIDOrder Info: [id number] - TSH Performed By: #### L 100.0100, L500.4050, L500.4100, L501.9520 ####[facility] [address] [place], [address] Sodium [Moles/Vol] 140 mmol/L Normal 136-145 [facility] Comment on above: Order Comment: Order Date: 10/23/24Order Info: [id number] - CMPOrder Info: [id number] - LIPIDOrder Info: [id number] - TSH Performed By: #### L 100.0100, L500.4050, L500.4100, L501.9520 ####[facility] [address] [place], [address] T PROT 6.8 g/dL Normal 6.4-8.2 [facility] Comment on above: Order Comment: Order Date: 10/23/24Order Info: [id number] - CMPOrder Info: [id number] - LIPIDOrder Info: [id number] - TSH Performed By: #### L 100.0100, L500.4050, L500.4100, L501.9520 ####[facility] [address] [place], [address] Urea nitrogen [Mass/Vol] 15 mg/dL Normal 7-18 [facility] Comment on above: Order Comment: Order Date: 10/23/24Order Info: [id number] - CMPOrder Info: [id number] - LIPIDOrder Info: [id number] - TSH Performed By: #### L 100.0100, L500.4050, L500.4100, L501.9520 ####[facility] [address] [place], [address] Eosinophil percentageOrdered By: Ramona Luciano on 10-30-2024 Eosinophils/100 WBC (Bld) 3.0 % 0-5 [facility] Erythrocyte distribution wid th ratioOrdered By: Ramona Luciano on 10-30-2024 Erythrocyte distribution width (RBC) [Ratio] 12.8 % 11.6-14.6 [facility] Erythrocyte distribution wid th standard deviationOrdered By: Ramona Luciano on 10-30-2024 Erythrocyte distribution width (RBC) [Ratio] 45.1 fl High 35.1-43.9 [facility] Glomerular filtration rate ( GFR) estimationOrdered By: Ramona Luciano on 10-30-2024 GFR/1.73 sq M.predicted among non-blacks MDRD (S/P/Bld) [Vol rate/Area] 61 mL/min/{1.73_m2} >60 [facility] Comment on above: Non- GFR Calc Glucose measurementOrdered B y: Ramona Luciano on 10-30-2024 Glucose [Mass/Vol] 96 mg/dL 74-106 [facility] Hematocrit Auto (Bld) [Volum e fraction]Ordered By: Ramona Luciano on 10-30-2024 Hematocrit (Bld) [Volume fraction] 39.8 % 37-47 [facility] Hemoglobin measurementOrdere d By: Ramona Luciano on 10-30-2024 Hemoglobin (Bld) [Mass/Vol] 13.2 g/dL 12.0-15.0 [facility] High density lipoprotein (HD L) measurementOrdered By: Ramona Luciano on 10-30-2024 Cholesterol in HDL [Mass/Vol] 64 mg/dL >40 [facility] Comment on above: The drugs N-Acetylcy steine and Metamizole may falsely depress this assay. Reference Range HDL <40 mg/dL Low HDL Cholesterol HDL >or= 60 mg/dL High HDL Cholesterol Immature granulocytes/100 WB C Auto (Bld)Ordered By: Ramona Luciano on 10-30-2024 Immature granulocytes/100 WBC (Bld) 0.400 % 0.0-0.9 [facility] Comment on above: IG% - Immature Granu locytes (promyelocytes, myelocytes and metamyelocytes) > 1% indicates that a LEFT SHIFT is Present. Laboratory - Chemistry and C hemistry - challengeOrdered By: Ramona Luciano on 10-30-2024 AST [Catalytic activity/Vol] 15 U/L 15-37 [facility] Lipid Profileon 10-30-2024 Cholesterol [Mass/Vol] 186 mg/dL Normal 200 [facility] [facility] Comment on above: Order Comment: Order Date: 10/23/24Order Info: [id number] - CMPOrder Info: [id number] - LIPIDOrder Info: [id number] - TSH Result Comment: <200 mg/dL Desirable 200-240 mg/dL Borderline >240 mg/dL High Risk Performed By: #### L 100.0100, L500.4050, L500.4100, L501.9520 ####[facility] [address] [place], [address] Cholesterol in HDL [Mass/Vol] 64 mg/dL Normal [facility] Comment on above: Order Comment: Order Date: 10/23/24Order Info: [id number] - CMPOrder Info: [id number] - LIPIDOrder Info: [id number] - TSH Result Comment: The drugs N-Acetylcysteine and Metamizole may falsely depress this assay. Reference Range HDL <40 mg/dL Low HDL Cholesterol HDL >or= 60 mg/dL High HDL Cholesterol Performed By: #### L 100.0100, L500.4050, L500.4100, L501.9520 ####[facility] [address] [place], [address] Cholesterol in LDL [Mass/Vol] 100 mg/dL Normal 0-130 [facility] Comment on above: Order Comment: Order Date: 10/23/24Order Info: [id number] - CMPOrder Info: [id number] - LIPIDOrder Info: [id number] - TSH Performed By: #### L 100.0100, L500.4050, L500.4100, L501.9520 ####[facility] [address] [place], [place], [address] Cholesterol in VLDL [Mass/Vol] 22 mg/dL Normal 5-40 [facility] Comment on above: Order Comment: Order Date: 10/23/24Order Info: [id number] - CMPOrder Info: [id number] - LIPIDOrder Info: [id number] - TSH Performed By: #### L 100.0100, L500.4050, L500.4100, L501.9520 ####[facility] [address] [place], [place], [address] Triglyceride [Mass/Vol] 111 mg/dL Normal [facility] Comment on above: Order Comment: Order Date: 10/23/24Order Info: [id number] - CMPOrder Info: [id number] - LIPIDOrder Info: [id number] - TSH Result Comment: The drugs N-Acetylcysteine and Metamizole may falsely depress this assay. Serum Triglycerides Reference Interval Normal <150 mg/dL Borderline high 150 - 199 mg/dL High 200 - 499 mg/dL Very High > or = 500 mg/dL Performed By: #### L 100.0100, L500.4050, L500.4100, L501.9520 ####[facility] [address] [place], [place], [address] Low density lipoprotein (LDL ) cholesterol measurementOrdered By: Ramona Luciano on 10-30-2024 Cholesterol in LDL [Mass/Vol] 100 mg/dL 0-130 [facility] MCV (mean corpuscular volume ) determinationOrdered By: Ramona Luciano on 10-30-2024 MCV (RBC) [Entitic vol] 96.1 fL 81-99 [facility] Mean corpuscular hemoglobin (MCH) determinationOrdered By: Ramona Luciano on 10-30-2024 MCH (RBC) [Entitic mass] 31.9 pg 27.0-32.0 [facility] Mean corpuscular hemoglobin concentration (MCHC) determinationOrdered By: Ramona Luciano on 10-30-2024 MCHC (RBC) [Mass/Vol] 33.2 g/dL 32-36 [facility] Mean platelet volume determi nationOrdered By: Ramona Luciano on 10-30-2024 Platelet mean volume (Bld) [Entitic vol] 10.5 fL 6.2-12.0 [facility] Monocyte percentageOrdered B y: Ramona Luciano on 10-30-2024 Monocytes/100 WBC (Bld) 12.7 % High 0-10 [facility] Neutrophil percentageOrdered By: Ramona Luciano on 10-30-2024 Neutrophils/100 WBC (Bld) 55.1 % 47-70 [facility] Nucleated red blood cell per centageOrdered By: Ramona Luciano on 10-30-2024 Nucleated RBC/100 WBC (Bld) [Ratio] 0 % 0-5 [facility] Platelet countOrdered By: Neil Luciano on 10-30-2024 Platelets (Bld) [#/Vol] 252 10*3/uL 150-450 [facility] Potassium measurementOrdered By: Ramona Luciano on 10-30-2024 Potassium [Moles/Vol] 4.1 mmol/L 3.5-5.1 [facility] RBC Auto (Bld) [#/Vol]Ordere d By: Ramona Luciano on 10-30-2024 RBC (Bld) [#/Vol] 4.14 10*6/uL Low 4.2-5.4 [facility] Serum anion gap measurementO rdered By: Ramona Luciano on 10-30-2024 Anion gap [Moles/Vol] 6 mmol/L 5-15 [facility] Serum globulin measurementOr dered By: Ramona Luciano on 10-30-2024 Globulin (S) [Mass/Vol] 3.2 g/dL 2.2-4.2 [facility] Serum or plasma alanine jolly otransferase (ALT) measurementOrdered By: Ramona Luciano on 10-30-2024 ALT [Catalytic activity/Vol] 18 U/L 13-56 [facility] Serum or plasma albumin marci urement (mass/volume)Ordered By: Ramona Luciano on 10-30-2024 Albumin [Mass/Vol] 3.6 g/dL 3.2-5.0 [facility] Serum or plasma alkaline mikey sphatase measurementOrdered By: Ramona Luciano on 10-30-2024 ALP [Catalytic activity/Vol] 88 U/L 45-117 [facility] Serum or plasma calcium marci urement (mass/volume)Ordered By: Ramona Luciano on 10-30-2024 Calcium [Mass/Vol] 9.1 mg/dL 8.5-10.1 [facility] Serum or plasma cholesterol measurement (mass/volume)Ordered By: Ramona Luciano on 10-30-2024 Cholesterol [Mass/Vol] 186 mg/dL <200 [facility] [facility] Comment on above: <200 mg/dL Desirable 200-240 mg/dL Borderline >240 mg/dL High Risk Serum or plasma creatinine m easurement (mass/volume)Ordered By: Ramona Luciano on 10-30-2024 Creatinine [Mass/Vol] 0.96 mg/dL 0.55-1.02 [facility] Comment on above: The validity of the calculated GFR & GFRAA in patients over 70 years has not been determined. Clinical correlation is essential. Serum or plasma thyroid stim ulating hormone (TSH) measurement (units/volume)Ordered By: Ramona Luciano on 10-30-2024 TSH Qn 3.380 uIU/mL 0.358-3.740 [facility] Serum or plasma urea nitroge n measurement (mass/volume)Ordered By: Ramona Luciano on 10-30-2024 Urea nitrogen [Mass/Vol] 15 mg/dL 7-18 [facility] Sodium levelOrdered By: Ramona Luciano on 10-30-2024 Sodium [Moles/Vol] 140 mmol/L 136-145 [facility] Thyroid Stim Hormone (TSH)on 10-30-2024 TSH 3.380 uIU/mL Normal 0.358-3.740 [facility] Comment on above: Order Comment: Order Date: 10/23/24Order Info: [id number] - CMPOrder Info: [id number] - LIPIDOrder Info: [id number] - TSH Performed By: #### L 100.0100, L500.4050, L500.4100, L501.9520 ####[facility] [address] [place], [address] Total proteinOrdered By: Allison Luciano on 10-30-2024 Protein [Mass/Vol] 6.8 g/dL 6.4-8.2 [facility] Triglycerides measurementOrd ered By: Ramona Luciano on 10-30-2024 Triglyceride [Mass/Vol] 111 mg/dL <199 [facility] Comment on above: The drugs N-Acetylcy steine and Metamizole may falsely depress this assay.Serum Triglycerides Reference Interval Normal <150 mg/dL Borderline high 150 - 199 mg/dL High 200 - 499 mg/dL Very High > or = 500 mg/dL Very low density lipoprotein (VLDL) cholesterol measurementOrdered By: Ramona Luciano on 10-30-2024 Very low density lipoprotein (VLDL) cholesterol measurement 22 mg/dL 5-40 [facility] White blood cell (WBC) count Ordered By: Ramona Luciano on 10-30-2024 WBC (Bld) [#/Vol] 4.7 10*3/uL 4.4-11.0 [facility] Lower Ext Joint Only (Routin e)on 03-08-2024 Lower Ext Joint Only (Routine) [facility] Imaging Services [address] [place], [place] [address] Lower Ext Joint Only (Routine) MR#: [id number] Acct: [id number] Name: TONJA QUARLES Rep #: [id number] : 1955 F 68 From: Lorne Sky MD PCP: Dr. Ramona Luciano MD Status: REG CL Study: Lower Ext Joint Only (Routine) Date of Exam: 0 03/08/24 Exam# [id number] Ordering Dr: Niurka Gutierrez DPM [id number] STUDY: MRI RIGHT ANKLE WITHOUT CONTRAST REASON FOR EXAM: Female, 68 years old. Plantar fascial pain. TECHNIQUE: Standardized fat and water weighted pulse sequences were obtained in all 3 orthogonal planes. COMPARISON: Weightbearing views of the right ankle showing inferior calcaneal spur. FINDINGS: Superficial lipoma of the medial and plantar surfaces of the hindfoot measuring 1.5 cm x 4.3 cm x 1.7 cm. No aggressive features (axial series 4 images 21-26, sagittal series 6 images 15-20). Normal posterior tibialis tendon. Normal flexor digitorum longus tendon. Normal flexor hallucis longus tendon. Normal peroneus longus and brevis tendons. Normal tibialis anterior tendon. Normal extensor hallucis longus tendon. Normal extensor digitorum longus tendons. Normal Achilles tendon and teno-osseous insertion. Increased signal intensity and marked thickening of the proximal plantar fascia with minimal bone marrow edema in the inferior calcaneus at the origin of the plantar fascia. Findings compatible with proximal plantar fascia at its (sagittal series 7 images 8-15). Normal intrinsic muscles of the rearfoot. Normal distal tibiofibular syndesmotic ligamentous complex. Normal lateral ligamentous complex. Normal subtalar ligaments and sinus tarsi. Normal deltoid ligamentous complexes. Normal plantar calcaneonavicular (spring) ligament. Mild arthrosis of the tibiotalar joint with a tibiotalar joint effusion. Normal talar dome. Moderate arthrosis of the subtalar joint with a moderate-sized joint effusion and posterior ganglion cyst (sagittal series 7 images 7-13). Normal talonavicular articulation. Normal calcaneocuboid articulation. Normal navicular-cuneiform articulations. MRI/Lower Ext Joint Only (Routine) IMPRESSION: MRI findings compatible with moderate proximal plantar fascia fasciitis as described. Lipoma of the medial and plantar surface of the hindfoot with no aggressive features. 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 Electronically Signed: Lorne Sky MD at 15:47 EDT , CC: KOKO Gutierrez; Dr. Ramona Luciano MD Cook Vegetable: Signed Normal [facility] Absolute lymphocyte countOrd ered By: Ramona Luciano on 12-09-2023 Lymphocytes Auto (Unsp spec) [#/Vol] 1.42 10*3/uL 0.83-4.51 [facility] Automated lymphocyte count a s percentage of total leukocytesOrdered By: Ramona Luciano on 12-09-2023 Lymphocytes/100 WBC Auto (Unsp spec) 17.5 % 19-41 [facility] Basophil percentageOrdered B y: Ramona Luciano on 12-09-2023 Basophils/100 WBC (Bld) 0.5 % 0-1 [facility] Bilirubin [Mass/Vol] 0.50 mg/dL 0.20-1.00 [facility] Comment on above: For patients on eltr ombopag therapy, use of Dimension Kimball TBIL is not recommended. Chloride [Moles/Vol] 105 mmol/L 98-107 [facility] Eosinophils/100 WBC (Bld) 1.7 % 0-5 [facility] Glucose [Mass/Vol] 81 mg/dL 74-106 [facility] Hemoglobin (Bld) [Mass/Vol] 12.9 g/dL 12.0-15.0 [facility] Monocytes/100 WBC (Bld) 9.6 % 0-10 [facility] Neutrophils (Bld) [#/Vol] 5.7 10*3/uL 2.0-7.7 [facility] Neutrophils/100 WBC (Bld) 70.1 % 47-70 [facility] Potassium [Moles/Vol] 4.0 mmol/L 3.5-5.1 [facility] Protein [Mass/Vol] 6.7 g/dL 6.4-8.2 [facility] Sodium [Moles/Vol] 140 mmol/L 136-145 [facility] WBC (Bld) [#/Vol] 8.1 10*3/uL 4.4-11.0 [facility] Determination of erythrocyte mean corpuscular volume (MCV)Ordered By: Ramona Luciano on 12-09-2023 MCV (RBC) [Entitic vol] 97.4 fL 81-99 [facility] Erythrocyte distribution wid th ratioOrdered By: Ramona Luciano on 12-09-2023 Erythrocyte distribution width (RBC) [Ratio] 13.2 % 11.6-14.6 [facility] Erythrocyte distribution wid th standard deviationOrdered By: Ramona Luciano on 12-09-2023 Erythrocyte distribution width (RBC) [Entitic vol] 47.1 fL 35.1-43.9 [facility] Hematocrit Auto (Bld) [Volum e fraction]Ordered By: Ramona Luciano on 12-09-2023 Hematocrit (Bld) [Volume fraction] 40.7 % 37-47 [facility] Immature granulocytes/100 WB C Auto (Bld)Ordered By: Ramona Luciano on 12-09-2023 Immature granulocytes/100 WBC (Bld) 0.600 % 0.0-0.9 [facility] Comment on above: IG% - Immature Granu locytes (promyelocytes, myelocytes and metamyelocytes) > 1% indicates that a LEFT SHIFT is Present. Laboratory - Chemistry and C hemistry - challengeOrdered By: Ramona Luciano on 12-09-2023 Albumin/Globulin [Mass ratio] 1.2 {ratio} 0.9-2.4 [facility] ALP [Catalytic activity/Vol] 99 U/L 45-117 [facility] ALT [Catalytic activity/Vol] 20 U/L 13-56 [facility] CO2 [Moles/Vol] 29.0 mmol/L 21.0-32.0 [facility] Globulin (S) [Mass/Vol] 3.0 g/dL 2.2-4.2 [facility] Urea nitrogen/Creatinine [Mass ratio] 21.9 mg/mg 10-20 [facility] Laboratory - Hematology and Cell countsOrdered By: Ramona Luciano on 12-09-2023 MCH (RBC) [Entitic mass] 30.9 pg 27.0-32.0 [facility] MCHC (RBC) [Mass/Vol] 31.7 g/dL 32-36 [facility] Nucleated RBC/100 WBC (Bld) [Ratio] 0 % 0-5 [facility] Platelet mean volume (Bld) [Entitic vol] 11.2 fL 6.2-12.0 [facility] Platelets (Bld) [#/Vol] 253 10*3/uL 150-450 [facility] No Panel InformationOrdered By: Ramona Lucaino on 12-09-2023 C-Reactive Protein Extended Range < 2.90 mg/L 0.0-3.0 [facility] Comment on above: C-Reactive Protein ( CRP) provides useful information for thediagnosis, therapy and monitoring of inflammatory processesand associated diseases. For the evaluation of Relative Riskfor Cardiovascular Disease, a High Sensitivity CRP (HSCRP)should be ordered. Estimated GFR (MDRD) Amer 74 mL/min >60 [facility] Comment on above: GFR Calc Estimated GFR (MDRD) Non-Af Amer 61 mL/min >60 [facility] Comment on above: Non- GFR Calc RBC Auto (Bld) [#/Vol]Ordere d By: Ramona Luciano on 12-09-2023 RBC (Bld) [#/Vol] 4.18 10*6/uL 4.2-5.4 [facility] Serum or plasma calcium marci urement (mass/volume)Ordered By: Ramona Luciano on 12-09-2023 Calcium [Mass/Vol] 9.2 mg/dL 8.5-10.1 [facility] Serum or plasma creatinine m easurement (mass/volume)Ordered By: Ramona Luciano on 12-09-2023 Creatinine [Mass/Vol] 0.96 mg/dL 0.55-1.02 [facility] Comment on above: The validity of the calculated GFR & GFRAA in patients over 70 years has not been determined. Clinical correlation is essential. Serum or plasma thyroid stim ulating hormone (TSH) measurement (units/volume)Ordered By: Ramona Luciano on 12-09-2023 TSH Qn 1.68 uIU/mL 0.358-3.74 [facility] Serum or plasma urea nitroge n measurement (mass/volume)Ordered By: Ramona Luciano on 12-09-2023 Urea nitrogen [Mass/Vol] 21 mg/dL 7-18 [facility] Thin prep Papanicolaou smear with manual screeningOrdered By: Ramona Luciano on 12-09-2023 Thin prep Papanicolaou smear with manual screening 3.7 g/dL 3.2-5.0 [facility] Thin prep Papanicolaou smear with manual screening 18 U/L 15-37 [facility] Thin prep Papanicolaou smear with manual screening 6 5-15 [facility] Thin prep Papanicolaou smear with manual screening 1.16 ng/dL 0.76-1.46 [facility] Absolute lymphocyte countOrd ered By: Ramona Luciano on 10-10-2023 Lymphocytes Auto (Unsp spec) [#/Vol] 1.64 10*3/uL 0.83-4.51 [facility] [facility] Basophil percentageOrdered B y: Ramona Luciano on 10-10-2023 Basophils/100 WBC (Bld) 0.6 % 0-1 [facility] Bilirubin [Mass/Vol] 0.40 mg/dL 0.20-1.00 [facility] Comment on above: For patients on eltr ombopag therapy, use of Dimension [place] TBIL is not recommended. Chloride [Moles/Vol] 108 mmol/L 98-107 [facility] Cholesterol [Mass/Vol] 191 mg/dL <200 [facility] Comment on above: <200 mg/dL Desirable 200-240 mg/dL Borderline >240 mg/dL High Risk Eosinophils/100 WBC (Bld) 3.4 % 0-5 [facility] Glucose [Mass/Vol] 105 mg/dL 74-106 [facility] Comment on above: Fasting Glucose resu lt from 100 to 125 mg/dL suggests IMPAIRED HOMEOSTASIS per A.D.A. criteria. Neutrophils (Bld) [#/Vol] 2.5 10*3/uL 2.0-7.7 [facility] Neutrophils/100 WBC (Bld) 50.4 % 47-70 [facility] Potassium [Moles/Vol] 4.2 mmol/L 3.5-5.1 [facility] Protein [Mass/Vol] 6.9 g/dL 6.4-8.2 [facility] Sodium [Moles/Vol] 141 mmol/L 136-145 [facility] Triglyceride [Mass/Vol] 64 mg/dL <199 [facility] Comment on above: The drugs N-Acetylcy steine and Metamizole may falsely depress this assay.Serum Triglycerides Reference Interval Normal <150 mg/dL Borderline high 150 - 199 mg/dL High 200 - 499 mg/dL Very High > or = 500 mg/dL WBC (Bld) [#/Vol] 5.0 10*3/uL 4.4-11.0 [facility] Blood erythrocytes count (nu mber/volume)Ordered By: Ramona Luciano on 10-10-2023 RBC (Bld) [#/Vol] 4.37 10*6/uL 4.2-5.4 [facility] Blood hemoglobin measurement (mass/volume)Ordered By: Ramona Luciano on 10-10-2023 Hemoglobin (Bld) [Mass/Vol] 13.6 g/dL 12.0-15.0 [facility] Blood lymphocytes/100 leukoc ytesOrdered By: Ramona Luciano on 10-10-2023 Lymphocytes/100 WBC (Bld) 33.1 % 19-41 [facility] Blood monocytes/100 leukocyt esOrdered By: Ramona Luciano on 10-10-2023 Monocytes/100 WBC (Bld) 11.9 % 0-10 [facility] Blood platelet mean volumeOr dered By: Ramona Luciano on 10-10-2023 Platelet mean volume (Bld) [Entitic vol] 10.9 fL 6.2-12.0 [facility] Determination of erythrocyte mean corpuscular volume (MCV)Ordered By: Ramona Luciano on 10-10-2023 MCV (RBC) [Entitic vol] 97.5 fL 81-99 [facility] Hematocrit Auto (Bld) [Volum e fraction]Ordered By: Ramona Luciano on 10-10-2023 Hematocrit (Bld) [Volume fraction] 42.6 % 37-47 [facility] Laboratory - Chemistry and C hemistry - challengeOrdered By: Ramona Luciano on 10-10-2023 ALP [Catalytic activity/Vol] 108 U/L 45-117 [facility] ALT [Catalytic activity/Vol] 19 U/L 13-56 [facility] CO2 [Moles/Vol] 26.0 mmol/L 21.0-32.0 [facility] Globulin (S) [Mass/Vol] 3.3 g/dL 2.2-4.2 [facility] Urea nitrogen/Creatinine [Mass ratio] 14.1 mg/mg 10-20 [facility] Laboratory - Hematology and Cell countsOrdered By: Ramona Luciano on 10-10-2023 Erythrocyte distribution width (RBC) [Entitic vol] 45.6 fL 35.1-43.9 [facility] Erythrocyte distribution width (RBC) [Ratio] 12.6 % 11.6-14.6 [facility] Immature granulocytes/100 WBC (Bld) 0.600 % 0.0-0.9 [facility] Comment on above: IG% - Immature Granu locytes (promyelocytes, myelocytes and metamyelocytes) > 1% indicates that a LEFT SHIFT is Present. MCH (RBC) [Entitic mass] 31.1 pg 27.0-32.0 [facility] Nucleated RBC/100 WBC (Bld) [Ratio] 0 % 0-5 [facility] MCHC Auto (RBC) [Mass/Vol]Or dered By: Ramona Luciano on 10-10-2023 MCHC (RBC) [Mass/Vol] 31.9 g/dL 32-36 [facility] No Panel InformationOrdered By: Ramona Luciano on 10-10-2023 Estimated GFR (MDRD) Amer 78 mL/min >60 [facility] Comment on above: GFR Calc Estimated GFR (MDRD) Non-Af Amer 64 mL/min >60 [facility] Comment on above: Non- GFR Calc Thyroid Stimulating Hormone (TSH) 4.38 uIU/mL 0.358-3.74 [facility] Platelets bldOrdered By: Allison Luciano on 10-10-2023 Platelets (Bld) [#/Vol] 265 10*3/uL 150-450 [facility] Serum or plasma C reactive p rotein measurement (mass/volume)Ordered By: Ramona Luciano on 10-10-2023 CRP [Mass/Vol] 18.30 mg/L 0.0-3.0 [facility] Comment on above: C-Reactive Protein ( CRP) provides useful information for thediagnosis, therapy and monitoring of inflammatory processesand associated diseases. For the evaluation of Relative Riskfor Cardiovascular Disease, a High Sensitivity CRP (HSCRP)should be ordered. Serum or plasma albumin marci urement (mass/volume)Ordered By: Ramona Luciano on 10-10-2023 Albumin [Mass/Vol] 3.6 g/dL 3.2-5.0 [facility] Serum or plasma albumin/glob ulin mass ratioOrdered By: Ramona Luciano on 10-10-2023 Albumin/Globulin [Mass ratio] 1.1 {ratio} 0.9-2.4 [facility] Serum or plasma calcium marci urement (mass/volume)Ordered By: Ramona Luciano on 10-10-2023 Calcium [Mass/Vol] 9.5 mg/dL 8.5-10.1 [facility] Serum or plasma cholesterol in HDL measurement (mass/volume)Ordered By: Ramona Luciano on 10-10-2023 Cholesterol in HDL [Mass/Vol] 80 mg/dL >40 [facility] Comment on above: The drugs N-Acetylcy steine and Metamizole may falsely depress this assay. Reference Range HDL <40 mg/dL Low HDL Cholesterol HDL >or= 60 mg/dL High HDL Cholesterol Serum or plasma cholesterol in VLDL measurement (mass/volume)Ordered By: Ramona Luciano on 10-10-2023 Cholesterol in VLDL [Mass/Vol] 13 mg/dL 5-40 [facility] Serum or plasma creatinine m easurement (mass/volume)Ordered By: Ramona Luciano on 10-10-2023 Creatinine [Mass/Vol] 0.92 mg/dL 0.55-1.02 [facility] Comment on above: The validity of the calculated GFR & GFRAA in patients over 70 years has not been determined. Clinical correlation is essential. Serum or plasma ferritin isa surement (mass/volume)Ordered By: Ramona Luciano on 10-10-2023 Ferritin [Mass/Vol] 60 ng/mL 8-252 [facility] Serum or plasma low density lipoprotein (LDL) cholesterol measurement (mass/volume)Ordered By: Ramona Luciano on 10-10-2023 Cholesterol in LDL [Mass/Vol] 98 mg/dL 0-130 [facility] Serum or plasma urea nitroge n measurement (mass/volume)Ordered By: Ramona Luciano on 10-10-2023 Urea nitrogen [Mass/Vol] 13 mg/dL 7-18 [facility] Thin prep Papanicolaou smear with manual screeningOrdered By: Ramona Luciano on 10-10-2023 Thin prep Papanicolaou smear with manual screening 18 U/L 15-37 [facility] Thin prep Papanicolaou smear with manual screening 7 5-15 [facility] Basophil percentageOrdered B y: Oj Conroy on 08-17-2023 Chloride [Moles/Vol] 108 mmol/L 98-107 [facility] Glucose [Mass/Vol] 132 mg/dL 74-106 [facility] Comment on above: Fasting Glucose resu lt greater than or equal to 126 mg/dL suggests DIABETES MELLITUS per A.D.A. criteria. Potassium [Moles/Vol] 4.1 mmol/L 3.5-5.1 [facility] Sodium [Moles/Vol] 139 mmol/L 136-145 [facility] WBC (Bld) [#/Vol] 4.8 10*3/uL 4.4-11.0 [facility] Blood erythrocytes count (nu mber/volume)Ordered By: Oj Conroy on 08-17-2023 RBC (Bld) [#/Vol] 3.82 10*6/uL 4.2-5.4 [facility] Blood hemoglobin measurement (mass/volume)Ordered By: Oj Conroy on 08-17-2023 Hemoglobin (Bld) [Mass/Vol] 12.1 g/dL 12.0-15.0 [facility] Blood platelet mean volumeOr dered By: Oj Conroy on 08-17-2023 Platelet mean volume (Bld) [Entitic vol] 10.5 fL 6.2-12.0 [facility] Determination of erythrocyte mean corpuscular volume (MCV)Ordered By: Oj Conroy on 08-17-2023 MCV (RBC) [Entitic vol] 98.2 fL 81-99 [facility] Erythrocyte sedimentation ra teOrdered By: Oj Conroy on 08-17-2023 ESR (Bld) [Velocity] 2 mm/h 0-30 [facility] Hematocrit Auto (Bld) [Volum e fraction]Ordered By: Oj Conroy on 08-17-2023 Hematocrit (Bld) [Volume fraction] 37.5 % 37-47 [facility] Laboratory - Chemistry and C hemistry - challengeOrdered By: Oj Conroy on 08-17-2023 CO2 [Moles/Vol] 27.0 mmol/L 21.0-32.0 [facility] Urea nitrogen/Creatinine [Mass ratio] 16.4 mg/mg 10-20 [facility] Laboratory - Hematology and Cell countsOrdered By: Oj Conroy on 08-17-2023 Erythrocyte distribution width (RBC) [Entitic vol] 45.4 fL 35.1-43.9 [facility] Erythrocyte distribution width (RBC) [Ratio] 12.7 % 11.6-14.6 [facility] MCH (RBC) [Entitic mass] 31.7 pg 27.0-32.0 [facility] MCHC Auto (RBC) [Mass/Vol]Or dered By: Oj Conroy on 08-17-2023 MCHC (RBC) [Mass/Vol] 32.3 g/dL 32-36 [facility] No Panel InformationOrdered By: Oj Conroy on 08-17-2023 Estimated GFR (MDRD) Amer 85 mL/min >60 [facility] Comment on above: GFR Calc Estimated GFR (MDRD) Non-Af Amer 70 mL/min >60 [facility] Comment on above: Non- GFR Calc Platelets bldOrdered By: Ezequiel Conroy on 08-17-2023 Platelets (Bld) [#/Vol] 238 10*3/uL 150-450 [facility] Serum or plasma calcium marci urement (mass/volume)Ordered By: Oj Conroy on 08-17-2023 Calcium [Mass/Vol] 8.8 mg/dL 8.5-10.1 [facility] Serum or plasma creatinine m easurement (mass/volume)Ordered By: Oj Conroy on 08-17-2023 Creatinine [Mass/Vol] 0.85 mg/dL 0.55-1.02 [facility] Comment on above: The validity of the calculated GFR & GFRAA in patients over 70 years has not been determined. Clinical correlation is essential. Serum or plasma urea nitroge n measurement (mass/volume)Ordered By: Oj Conroy on 08-17-2023 Urea nitrogen [Mass/Vol] 14 mg/dL 7-18 [facility] Thin prep Papanicolaou smear with manual screeningOrdered By: Oj Conroy on 08-17-2023 Thin prep Papanicolaou smear with manual screening 4 5-15 [facility] Basophil percentageOrdered B y: Oj Conroy on 08-11-2023 Chloride [Moles/Vol] 106 mmol/L 98-107 [facility] Glucose [Mass/Vol] 158 mg/dL 74-106 [facility] Comment on above: Fasting Glucose resu lt greater than or equal to 126 mg/dL suggests DIABETES MELLITUS per A.D.A. criteria. Potassium [Moles/Vol] 3.8 mmol/L 3.5-5.1 [facility] Sodium [Moles/Vol] 140 mmol/L 136-145 [facility] WBC (Bld) [#/Vol] 7.1 10*3/uL 4.4-11.0 [facility] Blood erythrocytes count (nu mber/volume)Ordered By: jO Conroy on 08-11-2023 RBC (Bld) [#/Vol] 3.93 10*6/uL 4.2-5.4 [facility] Blood hemoglobin measurement (mass/volume)Ordered By: Oj Conroy on 08-11-2023 Hemoglobin (Bld) [Mass/Vol] 12.4 g/dL 12.0-15.0 [facility] Blood platelet mean volumeOr dered By: Oj Conroy on 08-11-2023 Platelet mean volume (Bld) [Entitic vol] 10.0 fL 6.2-12.0 [facility] Determination of erythrocyte mean corpuscular volume (MCV)Ordered By: Oj Conroy on 08-11-2023 MCV (RBC) [Entitic vol] 97.7 fL 81-99 [facility] Erythrocyte sedimentation ra teOrdered By: Oj Conroy on 08-11-2023 ESR (Bld) [Velocity] mm/h 0-30 [facility] Hematocrit Auto (Bld) [Volum e fraction]Ordered By: Oj Conroy on 08-11-2023 Hematocrit (Bld) [Volume fraction] 38.4 % 37-47 [facility] Laboratory - Chemistry and C hemistry - challengeOrdered By: Oj Conroy on 08-11-2023 CO2 [Moles/Vol] 29.0 mmol/L 21.0-32.0 [facility] Urea nitrogen/Creatinine [Mass ratio] 18.2 mg/mg 10-20 [facility] Laboratory - Hematology and Cell countsOrdered By: Oj Conroy on 08-11-2023 Erythrocyte distribution width (RBC) [Entitic vol] 46.0 fL 35.1-43.9 [facility] Erythrocyte distribution width (RBC) [Ratio] 12.7 % 11.6-14.6 [facility] MCH (RBC) [Entitic mass] 31.6 pg 27.0-32.0 [facility] MCHC Auto (RBC) [Mass/Vol]Or dered By: Oj Conroy on 08-11-2023 MCHC (RBC) [Mass/Vol] 32.3 g/dL 32-36 [facility] No Panel InformationOrdered By: Oj Conroy on 08-11-2023 Estimated GFR (MDRD) Amer 88 mL/min >60 [facility] Comment on above: GFR Calc Estimated GFR (MDRD) Non-Af Amer 73 mL/min >60 [facility] Comment on above: Non- GFR Calc Platelets bldOrdered By: Ezequiel Conroy on 08-11-2023 Platelets (Bld) [#/Vol] 248 10*3/uL 150-450 [facility] Serum or plasma calcium marci urement (mass/volume)Ordered By: Oj Conroy on 08-11-2023 Calcium [Mass/Vol] 9.1 mg/dL 8.5-10.1 [facility] Serum or plasma creatinine m easurement (mass/volume)Ordered By: Oj Conroy on 08-11-2023 Creatinine [Mass/Vol] 0.82 mg/dL 0.55-1.02 [facility] Comment on above: The validity of the calculated GFR & GFRAA in patients over 70 years has not been determined. Clinical correlation is essential. Serum or plasma urea nitroge n measurement (mass/volume)Ordered By: Oj Conroy on 08-11-2023 Urea nitrogen [Mass/Vol] 15 mg/dL 7-18 [facility] Thin prep Papanicolaou smear with manual screeningOrdered By: Oj Conroy on 08-11-2023 Thin prep Papanicolaou smear with manual screening 5 5-15 [facility] Basophil percentageOrdered B y: Oj Conroy on 08-04-2023 Chloride [Moles/Vol] 104 mmol/L 98-[address] [facility] Glucose [Mass/Vol] 114 mg/dL 74-106 [facility] Comment on above: Fasting Glucose resu lt from 100 to 125 mg/dL suggests IMPAIRED HOMEOSTASIS per A.D.A. criteria. Potassium [Moles/Vol] 3.9 mmol/L 3.5-5.1 [facility] Sodium [Moles/Vol] 135 mmol/L 136-145 [facility] WBC (Bld) [#/Vol] 5.4 10*3/uL 4.4-11.0 [facility] Blood erythrocytes count (nu mber/volume)Ordered By: Oj Conroy on 08-04-2023 RBC (Bld) [#/Vol] 3.71 10*6/uL 4.2-5.4 [facility] Blood hemoglobin measurement (mass/volume)Ordered By: Oj Conroy on 08-04-2023 Hemoglobin (Bld) [Mass/Vol] 11.6 g/dL 12.0-15.0 [facility] Blood platelet mean volumeOr dered By: Oj Conroy on 08-04-2023 Platelet mean volume (Bld) [Entitic vol] 10.4 fL 6.2-12.0 [facility] Determination of erythrocyte mean corpuscular volume (MCV)Ordered By: Oj Conroy on 08-04-2023 MCV (RBC) [Entitic vol] 97.8 fL 81-99 [facility] Erythrocyte sedimentation ra teOrdered By: Oj Conroy on 08-04-2023 ESR (Bld) [Velocity] mm/h 0-30 [facility] Hematocrit Auto (Bld) [Volum e fraction]Ordered By: Oj Conroy on 08-04-2023 Hematocrit (Bld) [Volume fraction] 36.3 % 37-47 [facility] Laboratory - Chemistry and C hemistry - challengeOrdered By: Oj Conroy on 08-04-2023 CO2 [Moles/Vol] 27.0 mmol/L 21.0-32.0 [facility] Urea nitrogen/Creatinine [Mass ratio] 14.5 mg/mg 10-20 [facility] Laboratory - Hematology and Cell countsOrdered By: Oj Conroy on 08-04-2023 Erythrocyte distribution width (RBC) [Entitic vol] 45.5 fL 35.1-43.9 [facility] Erythrocyte distribution width (RBC) [Ratio] 12.7 % 11.6-14.6 [facility] MCH (RBC) [Entitic mass] 31.3 pg 27.0-32.0 [facility] MCHC Auto (RBC) [Mass/Vol]Or dered By: Oj Conroy on 08-04-2023 MCHC (RBC) [Mass/Vol] 32.0 g/dL 32-36 [facility] No Panel InformationOrdered By: Oj Conroy on 08-04-2023 Estimated Creatinine Clearance Calc 62.21 ml/min [facility] Estimated GFR (MDRD) Amer 88 mL/min >60 [facility] Comment on above: GFR Calc Estimated GFR (MDRD) Non-Af Amer 73 mL/min >60 [facility] Comment on above: Non- GFR Calc Platelets bldOrdered By: Ezequiel Conroy on 08-04-2023 Platelets (Bld) [#/Vol] 201 10*3/uL 150-450 [facility] Serum or plasma calcium marci urement (mass/volume)Ordered By: Oj Conroy on 08-04-2023 Calcium [Mass/Vol] 8.5 mg/dL 8.5-10.1 [facility] Serum or plasma creatinine m easurement (mass/volume)Ordered By: Oj Conroy on 08-04-2023 Creatinine [Mass/Vol] 0.83 mg/dL 0.55-1.02 [facility] Comment on above: The validity of the calculated GFR & GFRAA in patients over 70 years has not been determined. Clinical correlation is essential. Serum or plasma urea nitroge n measurement (mass/volume)Ordered By: Oj Conroy on 08-04-2023 Urea nitrogen [Mass/Vol] 12 mg/dL 7-18 [facility] Thin prep Papanicolaou smear with manual screeningOrdered By: Oj Conroy on 08-04-2023 Thin prep Papanicolaou smear with manual screening 4 5-15 [facility] Basophil percentageOrdered B y: Oj Conroy on 07-28-2023 Chloride [Moles/Vol] 104 mmol/L 98-[address] [facility] Glucose [Mass/Vol] 160 mg/dL 74-106 [facility] Comment on above: Fasting Glucose resu lt greater than or equal to 126 mg/dL suggests DIABETES MELLITUS per A.D.A. criteria. Potassium [Moles/Vol] 3.9 mmol/L 3.5-5.1 [facility] Sodium [Moles/Vol] 137 mmol/L 136-145 [facility] WBC (Bld) [#/Vol] 4.4 10*3/uL 4.4-11.0 [facility] Blood erythrocytes count (nu mber/volume)Ordered By: Oj Conroy on 07-28-2023 RBC (Bld) [#/Vol] 3.68 10*6/uL 4.2-5.4 [facility] Blood hemoglobin measurement (mass/volume)Ordered By: Oj Conroy on 07-28-2023 Hemoglobin (Bld) [Mass/Vol] 11.6 g/dL 12.0-15.0 [facility] Blood platelet mean volumeOr dered By: Oj Conroy on 07-28-2023 Platelet mean volume (Bld) [Entitic vol] 10.4 fL 6.2-12.0 [facility] Determination of erythrocyte mean corpuscular volume (MCV)Ordered By: Oj Conroy on 07-28-2023 MCV (RBC) [Entitic vol] 98.4 fL 81-99 [facility] Erythrocyte sedimentation ra teOrdered By: Oj Conroy on 07-28-2023 ESR (Bld) [Velocity] mm/h 0-30 [facility] Hematocrit Auto (Bld) [Volum e fraction]Ordered By: Oj Conroy on 07-28-2023 Hematocrit (Bld) [Volume fraction] 36.2 % 37-47 [facility] Laboratory - Chemistry and C hemistry - challengeOrdered By: Oj Conroy on 07-28-2023 CO2 [Moles/Vol] 27.0 mmol/L 21.0-32.0 [facility] Urea nitrogen/Creatinine [Mass ratio] 15.3 mg/mg 10-20 [facility] Laboratory - Hematology and Cell countsOrdered By: Oj Conroy on 07-28-2023 Erythrocyte distribution width (RBC) [Entitic vol] 45.9 fL 35.1-43.9 [facility] Erythrocyte distribution width (RBC) [Ratio] 12.8 % 11.6-14.6 [facility] MCH (RBC) [Entitic mass] 31.5 pg 27.0-32.0 [facility] MCHC Auto (RBC) [Mass/Vol]Or dered By: Oj Conroy on 07-28-2023 MCHC (RBC) [Mass/Vol] 32.0 g/dL 32-36 [facility] No Panel InformationOrdered By: Oj Conroy on 07-28-2023 Estimated GFR (MDRD) Amer 78 mL/min >60 [facility] Comment on above: GFR Calc Estimated GFR (MDRD) Non-Af Amer 64 mL/min >60 [facility] Comment on above: Non- GFR Calc Platelets bldOrdered By: Ezequiel Conroy on 07-28-2023 Platelets (Bld) [#/Vol] 215 10*3/uL 150-450 [facility] Serum or plasma calcium marci urement (mass/volume)Ordered By: Oj Conroy on 07-28-2023 Calcium [Mass/Vol] 8.5 mg/dL 8.5-10.1 [facility] Serum or plasma creatinine m easurement (mass/volume)Ordered By: Oj Conroy on 07-28-2023 Creatinine [Mass/Vol] 0.92 mg/dL 0.55-1.02 [facility] Comment on above: The validity of the calculated GFR & GFRAA in patients over 70 years has not been determined. Clinical correlation is essential. Serum or plasma urea nitroge n measurement (mass/volume)Ordered By: Oj Conroy on 07-28-2023 Urea nitrogen [Mass/Vol] 14 mg/dL 7-18 [facility] Thin prep Papanicolaou smear with manual screeningOrdered By: Oj Conroy on 07-28-2023 Thin prep Papanicolaou smear with manual screening 6 5-15 [facility] Absolute lymphocyte countOrd ered By: Oj Conroy on 07-21-2023 Lymphocytes Auto (Unsp spec) [#/Vol] 1.17 10*3/uL 0.83-4.51 [facility] Basophil percentageOrdered B y: Oj Conroy on 07-21-2023 Basophils/100 WBC (Bld) 0.6 % 0-1 [facility] Chloride [Moles/Vol] 103 mmol/L 98-107 [facility] Eosinophils/100 WBC (Bld) 3.2 % 0-5 [facility] Glucose [Mass/Vol] 165 mg/dL 74-106 [facility] Comment on above: Fasting Glucose resu lt greater than or equal to 126 mg/dL suggests DIABETES MELLITUS per A.D.A. criteria. Neutrophils (Bld) [#/Vol] 3.0 10*3/uL 2.0-7.7 [facility] Neutrophils/100 WBC (Bld) 60.5 % 47-70 [facility] Potassium [Moles/Vol] 3.8 mmol/L 3.5-5.1 [facility] Sodium [Moles/Vol] 136 mmol/L 136-145 [facility] WBC (Bld) [#/Vol] 5.0 10*3/uL 4.4-11.0 [facility] Blood erythrocytes count (nu mber/volume)Ordered By: Oj Conroy on 07-21-2023 RBC (Bld) [#/Vol] 3.65 10*6/uL 4.2-5.4 [facility] Blood hemoglobin measurement (mass/volume)Ordered By: Oj Conroy on 07-21-2023 Hemoglobin (Bld) [Mass/Vol] 11.2 g/dL 12.0-15.0 [facility] Blood lymphocytes/100 leukoc ytesOrdered By: Oj Conroy on 07-21-2023 Lymphocytes/100 WBC (Bld) 23.6 % 19-41 [facility] Blood monocytes/100 leukocyt esOrdered By: Oj Conroy on 07-21-2023 Monocytes/100 WBC (Bld) 11.5 % 0-10 [facility] Blood platelet mean volumeOr dered By: Oj Conroy on 07-21-2023 Platelet mean volume (Bld) [Entitic vol] 10.0 fL 6.2-12.0 [facility] Determination of erythrocyte mean corpuscular volume (MCV)Ordered By: Oj Conroy on 07-21-2023 MCV (RBC) [Entitic vol] 97.5 fL 81-99 [facility] Erythrocyte sedimentation ra teOrdered By: Oj Conroy on 07-21-2023 ESR (Bld) [Velocity] mm/h 0-30 [facility] Hematocrit Auto (Bld) [Volum e fraction]Ordered By: Oj Conroy on 07-21-2023 Hematocrit (Bld) [Volume fraction] 35.6 % 37-47 [facility] Laboratory - Chemistry and C hemistry - challengeOrdered By: Oj Conroy on 07-21-2023 CO2 [Moles/Vol] 26.0 mmol/L 21.0-32.0 [facility] Urea nitrogen/Creatinine [Mass ratio] 14.5 mg/mg 10-20 [facility] Laboratory - Hematology and Cell countsOrdered By: Oj Conroy on 07-21-2023 Erythrocyte distribution width (RBC) [Entitic vol] 45.8 fL 35.1-43.9 [facility] Erythrocyte distribution width (RBC) [Ratio] 12.8 % 11.6-14.6 [facility] Immature granulocytes/100 WBC (Bld) 0.600 % 0.0-0.9 [facility] Comment on above: IG% - Immature Granu locytes (promyelocytes, myelocytes and metamyelocytes) > 1% indicates that a LEFT SHIFT is Present. MCH (RBC) [Entitic mass] 30.7 pg 27.0-32.0 [facility] Nucleated RBC/100 WBC (Bld) [Ratio] 0 % 0-5 [facility] MCHC Auto (RBC) [Mass/Vol]Or dered By: Oj Conroy on 07-21-2023 MCHC (RBC) [Mass/Vol] 31.5 g/dL 32-36 [facility] [employer] No Panel InformationOrdered By: Oj Conroy on 07-21-2023 Estimated Creatinine Clearance Calc 62.21 ml/min [facility] Estimated GFR (MDRD) Amer 88 mL/min >60 [facility] Comment on above: GFR Calc Estimated GFR (MDRD) Non-Af Amer 73 mL/min >60 [facility] Comment on above: Non- GFR Calc Platelets bldOrdered By: Ezequiel Conroy on 07-21-2023 Platelets (Bld) [#/Vol] 287 10*3/uL 150-450 [facility] Serum or plasma calcium marci urement (mass/volume)Ordered By: Oj Conroy on 07-21-2023 Calcium [Mass/Vol] 8.7 mg/dL 8.5-10.1 [facility] Serum or plasma creatinine m easurement (mass/volume)Ordered By: Oj Conroy on 07-21-2023 Creatinine [Mass/Vol] 0.83 mg/dL 0.55-1.02 [facility] Comment on above: The validity of the calculated GFR & GFRAA in patients over 70 years has not been determined. Clinical correlation is essential. Serum or plasma urea nitroge n measurement (mass/volume)Ordered By: Oj Conroy on 07-21-2023 Urea nitrogen [Mass/Vol] 12 mg/dL 7-18 [facility] Thin prep Papanicolaou smear with manual screeningOrdered By: Oj Conroy on 07-21-2023 Thin prep Papanicolaou smear with manual screening 7 5-15 [facility] Basophil percentageOrdered B y: Oj Conroy on 07-14-2023 Chloride [Moles/Vol] 105 mmol/L 98-107 [facility] Glucose [Mass/Vol] 127 mg/dL 74-106 [facility] Comment on above: Fasting Glucose resu lt greater than or equal to 126 mg/dL suggests DIABETES MELLITUS per A.D.A. criteria. Potassium [Moles/Vol] 3.9 mmol/L 3.5-5.1 [facility] Sodium [Moles/Vol] 139 mmol/L 136-145 [facility] WBC (Bld) [#/Vol] 6.9 10*3/uL 4.4-11.0 [facility] Blood erythrocytes count (nu mber/volume)Ordered By: Oj Conroy on 07-14-2023 RBC (Bld) [#/Vol] 3.39 10*6/uL 4.2-5.4 [facility] Blood hemoglobin measurement (mass/volume)Ordered By: Oj Conroy on 07-14-2023 Hemoglobin (Bld) [Mass/Vol] 10.8 g/dL 12.0-15.0 [facility] Blood platelet mean volumeOr dered By: Oj Conroy on 07-14-2023 Platelet mean volume (Bld) [Entitic vol] 9.4 fL 6.2-12.0 [facility] Determination of erythrocyte mean corpuscular volume (MCV)Ordered By: Oj Conroy on 07-14-2023 MCV (RBC) [Entitic vol] 97.9 fL 81-99 [facility] Erythrocyte sedimentation ra teOrdered By: Oj Conroy on 07-14-2023 ESR (Bld) [Velocity] 2 mm/h 0-30 [facility] Hematocrit Auto (Bld) [Volum e fraction]Ordered By: Oj Conroy on 07-14-2023 Hematocrit (Bld) [Volume fraction] 33.2 % 37-47 [facility] Laboratory - Chemistry and C hemistry - challengeOrdered By: Oj Conroy on 07-14-2023 CO2 [Moles/Vol] 27.0 mmol/L 21.0-32.0 [facility] Urea nitrogen/Creatinine [Mass ratio] 20.5 mg/mg 10-20 [facility] Laboratory - Hematology and Cell countsOrdered By: Oj Conroy on 07-14-2023 Erythrocyte distribution width (RBC) [Entitic vol] 46.2 fL 35.1-43.9 [facility] Erythrocyte distribution width (RBC) [Ratio] 13.1 % 11.6-14.6 [facility] MCH (RBC) [Entitic mass] 31.9 pg 27.0-32.0 [facility] MCHC Auto (RBC) [Mass/Vol]Or dered By: Oj Conroy on 07-14-2023 MCHC (RBC) [Mass/Vol] 32.5 g/dL 32-36 [facility] No Panel InformationOrdered By: Oj Conroy on 07-14-2023 Estimated Creatinine Clearance Calc 51.63 ml/min [facility] Estimated GFR (MDRD) Amer 101 mL/min >60 [facility] Comment on above: GFR Calc Estimated GFR (MDRD) Non-Af Amer 84 mL/min >60 [facility] Comment on above: Non- GFR Calc Platelets bldOrdered By: Ezequiel Cnoroy on 07-14-2023 Platelets (Bld) [#/Vol] 367 10*3/uL 150-450 [facility] Serum or plasma calcium marci urement (mass/volume)Ordered By: Oj Conroy on 07-14-2023 Calcium [Mass/Vol] 8.6 mg/dL 8.5-10.1 [facility] Serum or plasma creatinine m easurement (mass/volume)Ordered By: Oj Conroy on 07-14-2023 Creatinine [Mass/Vol] 0.73 mg/dL 0.55-1.02 [facility] Comment on above: The validity of the calculated GFR & GFRAA in patients over 70 years has not been determined. Clinical correlation is essential. Serum or plasma urea nitroge n measurement (mass/volume)Ordered By: Oj Conroy on 07-14-2023 Urea nitrogen [Mass/Vol] 15 mg/dL -18 [facility] Thin prep Papanicolaou smear with manual screeningOrdered By: Oj Conroy on 07-14-2023 Thin prep Papanicolaou smear with manual screening 7 02-07 [facility] .Auto Diffon 06-29-2023 Basophil, Absolute 0.0 10 3/mcL Normal 0.0-0.2 [facility] ([place] Comment on above: Performed By: #### B MP, CBC, ADIFF, ANEU, GFR ####[facility] [place], [place] [address] Basophils/100 WBC (Bld) 0.1 % Normal 0.0-2.5 [facility] ([place]) Comment on above: Performed By: #### B MP, CBC, ADIFF, ANEU, GFR ####[address] [place], [place] [address] Eosinophil, Absolute 0.0 10 3/mcL Normal 0.0-0.4 [facility] ([place]) Comment on above: Performed By: #### B MP, CBC, ADIFF, ANEU, GFR ####[facility] [place], [place] [address] Eosinophils/100 WBC (Bld) 0.0 % Normal 0.0-7.0 [facility] ([place] Comment on above: Performed By: #### B MP, CBC, ADIFF, ANEU, GFR ####[address] [place], [place] [address] Lymphocyte, Absolute 0.8 10 3/mcL Normal 0.8-3.9 [facility] ([place]) Comment on above: Performed By: #### B MP, CBC, ADIFF, ANEU, GFR ####[address] [place], [place] [address] Lymphocytes/100 WBC (Bld) 6.2 % Low 10.0-50.0 [facility] ([place]) Comment on above: Performed By: #### B MP, CBC, ADIFF, ANEU, GFR ####[address] [place], [place] [address] Monocyte, Absolute 1.3 10 3/mcL High 0.2-1.0 [facility] ([place]) Comment on above: Performed By: #### B MP, CBC, ADIFF, ANEU, GFR ####[address] [place], [place] [address] Monocytes/100 WBC (Bld) 10.0 % Normal 1.7-13.0 [facility] ([place]) Comment on above: Performed By: #### B MP, CBC, ADIFF, ANEU, GFR ####[facility] [address] [place], [place] [address] Neutrophils/100 WBC (Bld) 83.7 % High 37.0-80.0 [facility] ([place] Comment on above: Performed By: #### B MP, CBC, ADIFF, ANEU, GFR ####[facility] [address] [place], [place] [address] .GFRon 06-29-2023 GFR Non- 58 ml/min/1.73sqm Normal [facility] ([place]) Comment on above: Result Comment: GFR Population mean for , Non- Americans Ages 20-29 = 116 mL/min/1.73 sq.m. Ages 30-39 = 107 mL/min/1.73 sq.m. Ages 40-49 = 99 mL/min/1.73 sq.m. Ages 50-59 = 93 mL/min/1.73 sq.m. Ages 60-69 = 85 mL/min/1.73 sq.m. Ages 70+ = 75 mL/min/1.73 sq.m. Chronic Kidney Disease: Less than 60 mL/min/1.73 square meters End Stage Renal Disease: Less than 15 mL/min/1.73 square meters Performed By: #### B MP, CBC, ADIFF, ANEU, GFR ####[address] [place], [place] [address] GFR 71 ml/min/1.73sqm Normal [facility] ([place]) Comment on above: Result Comment: GFR Population mean for , Non- Americans Ages 20-29 = 116 mL/min/1.73 sq.m. Ages 30-39 = 107 mL/min/1.73 sq.m. Ages 40-49 = 99 mL/min/1.73 sq.m. Ages 50-59 = 93 mL/min/1.73 sq.m. Ages 60-69 = 85 mL/min/1.73 sq.m. Ages 70+ = 75 mL/min/1.73 sq.m. Chronic Kidney Disease: Less than 60 mL/min/1.73 square meters End Stage Renal Disease: Less than 15 mL/min/1.73 square meters Performed By: #### B MP, CBC, ADIFF, ANEU, GFR ####[address] [place], [place] [address] .NEUABSon 06-29-2023 Neutrophil, Absolute 11.2 10 3/mcL High 2.9-6.2 [facility] ([place]) Comment on above: Performed By: #### B MP, CBC, ADIFF, ANEU, GFR ####[facility] [address] [place], [place] [address] BMPon 06-29-2023 BUN/Creatinine Ratio 14 ratio Normal 7-27 [facility] ([place]) Comment on above: Performed By: #### B MP, CBC, ADIFF, ANEU, GFR ####[address] [place], [place] [address] Calcium [Mass/Vol] 8.5 mg/dL Normal 8.4-10.2 [facility] ([place]) Comment on above: Performed By: #### B MP, CBC, ADIFF, ANEU, GFR ####[address] [place], [place] [address] Chloride [Moles/Vol] 104 mmol/L Normal 98-107 [facility] ([place] Comment on above: Performed By: #### B MP, CBC, ADIFF, ANEU, GFR ####[address] [place], [place] [address] CO2 [Moles/Vol] 27 mmol/L Normal 23-31 [facility] ([place] Comment on above: Performed By: #### B MP, CBC, ADIFF, ANEU, GFR ####[address] [place], [place] [address] Creatinine [Mass/Vol] 0.95 mg/dL Normal 0.55-1.02 [facility] ([place]) Comment on above: Performed By: #### B MP, CBC, ADIFF, ANEU, GFR ####[address] [place], [place] [address] Electrolyte Balance 8.0 mEq/L Normal 4.0-15.0 [facility] ([place]) Comment on above: Performed By: #### B MP, CBC, ADIFF, ANEU, GFR ####[address] [place], [place] [address] Glucose [Mass/Vol] 126 mg/dL High 80-115 [facility] ([place]) Comment on above: Performed By: #### B MP, CBC, ADIFF, ANEU, GFR ####[address] [place], [place] [address] Potassium [Moles/Vol] 4.6 mmol/L Normal 3.5-5.1 [facility] ([place]) Comment on above: Performed By: #### B MP, CBC, ADIFF, ANEU, GFR ####[address] [place], [place] [address] Sodium [Moles/Vol] 139 mmol/L Normal 136-145 [facility] ([place]) Comment on above: Performed By: #### B MP, CBC, ADIFF, ANEU, GFR ####[address] [place], [place] [address] Urea nitrogen [Mass/Vol] 13 mg/dL Normal 7-18 [facility] ([place] Comment on above: Performed By: #### B MP, CBC, ADIFF, ANEU, GFR ####[facility] [place], [place] [address] CBCon 06-29-2023 Erythrocyte distribution width (RBC) [Ratio] 13.6 % Normal 11.5-14.5 [facility] ([place] Comment on above: Performed By: #### B MP, CBC, ADIFF, ANEU, GFR ####[facility] [address] [place] [phone] Hematocrit (Bld) [Volume fraction] 35.6 % Low 37.0-47.0 [facility] ([place] Comment on above: Performed By: #### B MP, CBC, ADIFF, ANEU, GFR ####[facility] [place], [place] [id number] Hgb 11.9 G/dL Low 12.0-16.0 [facility] ([place] Comment on above: Performed By: #### B MP, CBC, ADIFF, ANEU, GFR ####[facility] [address] [place] [phone] MCH (RBC) [Entitic mass] 31.5 pg High 27.0-31.2 [facility] ([place] Comment on above: Performed By: #### B MP, CBC, ADIFF, ANEU, GFR ####[facility] [address] [place] [phone] MCHC 33.4 G/dL Normal 33.0-37.0 [facility] ([place] Comment on above: Performed By: #### B MP, CBC, ADIFF, ANEU, GFR ####[facility] [address] [place] [phone] MCV (RBC) [Entitic vol] 94.3 fL High 80.0-94.0 [facility] ([place] Comment on above: Performed By: #### B MP, CBC, ADIFF, ANEU, GFR ####[address] [place], [place] [address] Platelet 199 10 3/mcL Normal 130-400 [facility] ([place] Comment on above: Performed By: #### B MP, CBC, ADIFF, ANEU, GFR ####[address] [place], [place] [address] Platelet mean volume (Bld) [Entitic vol] 8.6 fL Normal 7.4-10.4 [facility] ([place] Comment on above: Performed By: #### B MP, CBC, ADIFF, ANEU, GFR ####[facility] [address] [place], [place] [address] RBC 3.78 10 6/mcL Low 4.20-5.40 [facility] ([place] Comment on above: Performed By: #### B MP, CBC, ADIFF, ANEU, GFR ####[facility] [address] [place], [place] [address] WBC 13.4 10 3/mcL High 4.6-10.8 [facility] ([place] Comment on above: Performed By: #### B MP, CBC, ADIFF, ANEU, GFR ####[facility] [place], [place] [address] Gel ABOon 06-29-2023 ABO/Rh Interp Positive Invalid Interpretation Code [facility] ([place]) Comment on above: Order Comment: Hemol yzed, spoke to Mendy Foss Performed By: #### A SNEHAL MANZO ####[address] [place], [place] [address] Gel ABSon 06-29-2023 Antibody Screen Gel Negative Normal [facility] ([place]) Comment on above: Performed By: #### A SNEHAL MANZO ####[facility] [address] [place], [place] [address] XR KNEE 1 OR 2 VIEWS LEFTon 06-28-2023 XR KNEE 1 OR 2 VIEWS LEFT ORIGINAL HISTORY: Arthroplasty COMPARISON: No FINDINGS: There is an arthroplasty in near anatomic alignment. There is no radiographic evidence of loosening or failure of hardware. There is gas in the joint space and soft tissues and there are skin yordan. IMPRESSION: Arthroplasty with immediate postoperative changes. Interpreted by: Adal Fritz MD Preliminary Report By: Adal Fritz MD Electronically signed By Adal Fritz MD Dictated Date: 06/28/2023 2:11:19 PM Prelim Date: 06/28/2023 2:11:48 PM Sign Date: 06/28/2023 2:11:48 PM Ordering Provider: HATTIE Wick [facility] ([place]) .Auto Diffon 06-02-2023 Basophil, Absolute 0.0 10 3/mcL Normal 0.0-0.2 [facility] ([place]) Comment on above: Performed By: #### A LB, BMP, CBC, ANEU, ADIFF, GFR #### [place] [address] #### ANSG, ABOG #### [facility] [place], [place] [address] Basophils/100 WBC (Bld) 0.7 % Normal 0.0-2.5 [facility] ([place]) Comment on above: Performed By: #### A LB, BMP, CBC, ANEU, ADIFF, GFR #### [place] [address] #### ANSG, ABOG #### [address] [place], [place] [address] Eosinophil, Absolute 0.1 10 3/mcL Normal 0.0-0.4 [facility] ([place]) Comment on above: Performed By: #### A LB, BMP, CBC, ANEU, ADIFF, GFR #### [place] [address] #### ANSG, ABOG #### [address] [place], [place] [address] Eosinophils/100 WBC (Bld) 2.2 % Normal 0.0-7.0 [facility] ([place]) Comment on above: Performed By: #### A LB, BMP, CBC, ANEU, ADIFF, GFR #### [place] [address] #### ANSG, ABOG #### [address] [place], [place] [address] Lymphocyte, Absolute 0.8 10 3/mcL Normal 0.8-3.9 [facility] ([place]) Comment on above: Performed By: #### A LB, BMP, CBC, ANEU, ADIFF, GFR #### [place] [address] #### ANSG, ABOG #### [facility] [place], [place] [address] Lymphocytes/100 WBC (Bld) 17.9 % Normal 10.0-50.0 [facility] ([place]) Comment on above: Performed By: #### A LB, BMP, CBC, ANEU, ADIFF, GFR #### [place] [address] #### ANSG, ABOG #### [facility] [address] [place], [place] [address] Monocyte, Absolute 0.7 10 3/mcL Normal 0.2-1.0 [facility] ([place]) Comment on above: Performed By: #### A LB, BMP, CBC, ANEU, ADIFF, GFR #### [place] [address] #### ANSG, ABOG #### [facility] [address] [place], [place] [address] Monocytes/100 WBC (Bld) 14.4 % High 1.7-13.0 [facility] ([place]) Comment on above: Performed By: #### A LB, BMP, CBC, ANEU, ADIFF, GFR #### [place] [address] #### ANSG, ABOG #### [facility] [place], [place] [address] Neutrophils/100 WBC (Bld) 64.8 % Normal 37.0-80.0 [facility] ([place]) Comment on above: Performed By: #### A LB, BMP, CBC, ANEU, ADIFF, GFR #### [place] [address] #### ANSG, ABOG #### [facility] [address] [place], [place] [address] .GFRon 06-02-2023 GFR 72 ml/min/1.73sqm Normal [facility] ([place]) Comment on above: Result Comment: GFR Population mean for , Non- Americans Ages 20-29 = 116 mL/min/1.73 sq.m. Ages 30-39 = 107 mL/min/1.73 sq.m. Ages 40-49 = 99 mL/min/1.73 sq.m. Ages 50-59 = 93 mL/min/1.73 sq.m. Ages 60-69 = 85 mL/min/1.73 sq.m. Ages 70+ = 75 mL/min/1.73 sq.m. Chronic Kidney Disease: Less than 60 mL/min/1.73 square meters End Stage Renal Disease: Less than 15 mL/min/1.73 square meters Performed By: #### A LB, BMP, CBC, ANEU, ADIFF, GFR ####[place] [address]#### ANSG, ABOG ####[facility] [place], [place] [address] GFR Non- 59 ml/min/1.73sqm Normal [facility] ([place]) Comment on above: Result Comment: GFR Population mean for , Non- Americans Ages 20-29 = 116 mL/min/1.73 sq.m. Ages 30-39 = 107 mL/min/1.73 sq.m. Ages 40-49 = 99 mL/min/1.73 sq.m. Ages 50-59 = 93 mL/min/1.73 sq.m. Ages 60-69 = 85 mL/min/1.73 sq.m. Ages 70+ = 75 mL/min/1.73 sq.m. Chronic Kidney Disease: Less than 60 mL/min/1.73 square meters End Stage Renal Disease: Less than 15 mL/min/1.73 square meters Performed By: #### A LB, BMP, CBC, ANEU, ADIFF, GFR ####[place] [address]#### ANSG, ABOG ####[facility] [place], [place] [address] .NEUABSon 06-02-2023 Neutrophil, Absolute 3.0 10 3/mcL Normal 2.9-6.2 [facility] ([place]) Comment on above: Performed By: #### A LB, BMP, CBC, ANEU, ADIFF, GFR #### [place] [address] #### ANSG, ABOG #### [address] [place], [place] [address] ALBon 06-02-2023 Albumin Level 3.8 G/dL Normal 3.4-4.8 [facility] ([place]) Comment on above: Performed By: #### A LB, BMP, CBC, ANEU, ADIFF, GFR ####[place] [address]#### ANSG, ABOG ####[facility] [place] [phone] BMPon 06-02-2023 BUN/Creatinine Ratio 12 ratio Normal 7-27 [facility] ([place]) Comment on above: Performed By: #### A LB, BMP, CBC, ANEU, ADIFF, GFR #### [place] [address] #### ANSG, ABOG #### [facility] [place], [place] [address] Calcium [Mass/Vol] 9.1 mg/dL Normal 8.4-10.2 [facility] ([place]) Comment on above: Performed By: #### A LB, BMP, CBC, ANEU, ADIFF, GFR #### [place] [address] #### ANSG, ABOG #### [facility] [address] [place] [phone] Chloride [Moles/Vol] 102 mmol/L Normal 98-107 [facility] ([place]) Comment on above: Performed By: #### A LB, BMP, CBC, ANEU, ADIFF, GFR #### [place] [address] #### ANSG, ABOG #### [facility] [address] [place], [place] [address] CO2 [Moles/Vol] 30 mmol/L Normal 23-31 [facility] ([place]) Comment on above: Performed By: #### A LB, BMP, CBC, ANEU, ADIFF, GFR #### [place] [address] #### ANSG, ABOG #### [facility] [address] [place], [place] [address] Creatinine [Mass/Vol] 0.94 mg/dL Normal 0.55-1.02 [facility] ([place]) Comment on above: Performed By: #### A LB, BMP, CBC, ANEU, ADIFF, GFR #### [place] [address] #### ANSG, ABOG #### [facility] [address] [place], [place] [address] Electrolyte Balance 8.0 mEq/L Normal 4.0-15.0 [facility] ([place]) Comment on above: Performed By: #### A LB, BMP, CBC, ANEU, ADIFF, GFR #### [place] [address] #### ANSG, ABOG #### [facility] [address] [place], [place] [address] Glucose [Mass/Vol] 95 mg/dL Normal 80-115 [facility] ([place]) Comment on above: Performed By: #### A LB, BMP, CBC, ANEU, ADIFF, GFR #### [place] [address] #### ANSG, ABOG #### [facility] [address] [place], [place] [address] Potassium [Moles/Vol] 4.5 mmol/L Normal 3.5-5.1 [facility] ([place]) Comment on above: Performed By: #### A LB, BMP, CBC, ANEU, ADIFF, GFR #### [place] [address] #### ANSG, ABOG #### [facility] [address] [place], [place] [address] Sodium [Moles/Vol] 140 mmol/L Normal 136-145 [facility] ([place]) Comment on above: Performed By: #### A LB, BMP, CBC, ANEU, ADIFF, GFR #### [place] [address] #### ANSG, ABOG #### [facility] [address] [place], [place] [address] Urea nitrogen [Mass/Vol] 11 mg/dL Normal 7-18 [facility] ([place] Comment on above: Performed By: #### A LB, BMP, CBC, ANEU, ADIFF, GFR #### [place] [address] #### ANSG, ABOG #### [facility] [address] [place], [place] [address] CBCon 06-02-2023 Erythrocyte distribution width (RBC) [Ratio] 13.3 % Normal 11.5-14.5 [facility] ([place]) Comment on above: Order Comment: Pre-A dmission Testing Performed By: #### A LB, BMP, CBC, ANEU, ADIFF, GFR #### [place] [address] #### ANSG, ABOG #### [facility] [address] [place], [place] [address] Hematocrit (Bld) [Volume fraction] 39.9 % Normal 37.0-47.0 [facility] ([place]) Comment on above: Order Comment: Pre-A dmission Testing Performed By: #### A LB, BMP, CBC, ANEU, ADIFF, GFR #### [place] [address] #### ANSG, ABOG #### [facility] [address] [place], [place] [address] Hgb 13.3 G/dL Normal 12.0-16.0 [facility] ([place] Comment on above: Order Comment: Pre-A dmission Testing Performed By: #### A LB, BMP, CBC, ANEU, ADIFF, GFR #### [place] [address] #### ANSG, ABOG #### [facility] [address] [place], [place] [address] MCH (RBC) [Entitic mass] 31.4 pg High 27.0-31.2 [facility] ([place]) Comment on above: Order Comment: Pre-A dmission Testing Performed By: #### A LB, BMP, CBC, ANEU, ADIFF, GFR #### [place] [address] #### ANSG, ABOG #### [facility] [address] [place], [place] [address] MCHC 33.3 G/dL Normal 33.0-37.0 [facility] ([place]) Comment on above: Order Comment: Pre-A dmission Testing Performed By: #### A LB, BMP, CBC, ANEU, ADIFF, GFR #### [place] [address] #### ANSG, ABOG #### [facility] [address] [place], [place] [address] MCV (RBC) [Entitic vol] 94.3 fL High 80.0-94.0 [facility] ([place]) Comment on above: Order Comment: Pre-A dmission Testing Performed By: #### A LB, BMP, CBC, ANEU, ADIFF, GFR #### [place] [address] #### ANSG, ABOG #### [facility] [address] [place], [place] [address] Platelet 202 10 3/mcL Normal 130-400 [facility] ([place]) Comment on above: Order Comment: Pre-A dmission Testing Performed By: #### A LB, BMP, CBC, ANEU, ADIFF, GFR #### [place] [address] #### ANSG, ABOG #### [facility] [address] [place], [place] [address] Platelet mean volume (Bld) [Entitic vol] 8.7 fL Normal 7.4-10.4 [facility] ([place]) Comment on above: Order Comment: Pre-A dmission Testing Performed By: #### A LB, BMP, CBC, ANEU, ADIFF, GFR #### [place] [address] #### ANSG, ABOG #### [facility] [address] [place], [place] [address] RBC 4.23 10 6/mcL Normal 4.20-5.40 [facility] ([place]) Comment on above: Order Comment: Pre-A dmission Testing Performed By: #### A LB, BMP, CBC, ANEU, ADIFF, GFR #### [place] [address] #### ANSG, ABOG #### [facility] [address] [place], [place] [address] WBC 4.6 10 3/mcL Normal 4.6-10.8 [facility] ([place]) Comment on above: Order Comment: Pre-A dmission Testing Performed By: #### A LB, BMP, CBC, ANEU, ADIFF, GFR #### [place] [address] #### ANSG, ABOG #### [facility] [address] [place], [place] [address] Gel ABOon 06-02-2023 ABO/Rh Interp Positive Invalid Interpretation Code [facility] ([place]) Comment on above: Performed By: #### A LB, BMP, CBC, ANEU, ADIFF, GFR ####[place] [address]#### ANSG, ABOG ####[facility] [place], [place] [address] Gel ABSon 06-02-2023 Antibody Screen Gel Negative Normal [facility] ([place]) Comment on above: Performed By: #### A LB, BMP, CBC, ANEU, ADIFF, GFR ####[place] [address]#### ANSG, ABOG ####[facility] [address] [place] [address] LABORATORYOrdered By: Lauro Coats on 06-02-2023 ABO/Rh Interp Positive Invalid Interpretation Code AO BB SS Antibody Screen Gel Negative ABSC (06/02/23 10:07 AM) Invalid Interpretation Code AO BB SS LABORATORYOrdered By: SYSTEM SYSTEM on 06-02-2023 Albumin BCP dye [Mass/Vol] 3.8 G/dL Invalid Interpretation Code 3.4 - 4.8 G/dL AO ADM SS Basophil, Absolute 0.0 103/mcL Invalid Interpretation Code 0.0 - 0.2 10^3/mcL AO Workflow SS Basophils/100 WBC (Bld) 0.7 % Invalid Interpretation Code 0.0 - 2.5 % AO Workflow SS Calcium [Mass/Vol] 9.1 mg/dL Invalid Interpretation Code 8.4 - 10.2 mg/dL AO ADM SS Chloride [Moles/Vol] 102 mmol/L Invalid Interpretation Code 98 - 107 mmol/L AO ADM SS CO2 [Moles/Vol] 30 mmol/L Invalid Interpretation Code 23 - 31 mmol/L AO ADM SS Creatinine [Mass/Vol] 0.94 mg/dL Invalid Interpretation Code 0.55 - 1.02 mg/dL AO ADM SS Electrolyte Balance 8.0 mEq/L Invalid Interpretation Code 4.0 - 15.0 mEq/L AO ADM SS Eosinophil, Absolute 0.1 103/mcL Invalid Interpretation Code 0.0 - 0.4 10^3/mcL AO Workflow SS Eosinophils/100 WBC (Bld) 2.2 % Invalid Interpretation Code 0.0 - 7.0 % AO Workflow SS Erythrocyte distribution width (RBC) [Ratio] 13.3 % Invalid Interpretation Code 11.5 - 14.5 % AO Workflow SS GFR/1.73 sq M.predicted among blacks MDRD (S/P/Bld) [Vol rate/Area] 72 ml/min/1.73sqm Invalid Interpretation Code AO Chemistry S Comment on above: Interpretive Data: GFR Population mean for , Non- Americans Ages 20-29 = 116 mL/min/1.73 sq.m. Ages 30-39 = 107 mL/min/1.73 sq.m. Ages 40-49 = 99 mL/min/1.73 sq.m. Ages 50-59 = 93 mL/min/1.73 sq.m. Ages 60-69 = 85 mL/min/1.73 sq.m. Ages 70+ = 75 mL/min/1.73 sq.m. Chronic Kidney Disease: Less than 60 mL/min/1.73 square meters End Stage Renal Disease: Less than 15 mL/min/1.73 square meters GFR/1.73 sq M.predicted among non-blacks MDRD (S/P/Bld) [Vol rate/Area] 59 ml/min/1.73sqm Invalid Interpretation Code AO Chemistry S Comment on above: Interpretive Data: GFR Population mean for , Non- Americans Ages 20-29 = 116 mL/min/1.73 sq.m. Ages 30-39 = 107 mL/min/1.73 sq.m. Ages 40-49 = 99 mL/min/1.73 sq.m. Ages 50-59 = 93 mL/min/1.73 sq.m. Ages 60-69 = 85 mL/min/1.73 sq.m. Ages 70+ = 75 mL/min/1.73 sq.m. Chronic Kidney Disease: Less than 60 mL/min/1.73 square meters End Stage Renal Disease: Less than 15 mL/min/1.73 square meters Glucose [Mass/Vol] 95 mg/dL Invalid Interpretation Code 80 - 115 mg/dL AO ADM SS Hematocrit (Bld) [Volume fraction] 39.9 % Invalid Interpretation Code 37.0 - 47.0 % AO Workflow SS Hemoglobin (Bld) [Mass/Vol] 13.3 G/dL Invalid Interpretation Code 12.0 - 16.0 G/dL AO Workflow SS Lymphocyte, Absolute 0.8 103/mcL Invalid Interpretation Code 0.8 - 3.9 10^3/mcL AO Workflow SS Lymphocytes/100 WBC (Bld) 17.9 % Invalid Interpretation Code 10.0 - 50.0 % AO Workflow SS MCH (RBC) [Entitic mass] 31.4 pg Invalid Interpretation Code 27.0 - 31.2 pg AO Workflow SS MCHC 33.3 G/dL Invalid Interpretation Code 33.0 - 37.0 G/dL AO Workflow SS MCV (RBC) [Entitic vol] 94.3 fL Invalid Interpretation Code 80.0 - 94.0 fL AO Workflow SS Monocyte, Absolute 0.7 103/mcL Invalid Interpretation Code 0.2 - 1.0 10^3/mcL AO Workflow SS Monocytes/100 WBC (Bld) 14.4 % Invalid Interpretation Code 1.7 - 13.0 % AO Workflow SS Neutrophil, Absolute 3.0 103/mcL Invalid Interpretation Code 2.9 - 6.2 10^3/mcL AO Workflow SS Neutrophils/100 WBC (Bld) 64.8 % Invalid Interpretation Code 37.0 - 80.0 % AO Workflow SS Platelet mean volume (Bld) [Entitic vol] 8.7 fL Invalid Interpretation Code 7.4 - 10.4 fL AO Workflow SS Platelets (Bld) [#/Vol] 202 103/mcL Invalid Interpretation Code 130 - 400 10^3/mcL AO Workflow SS Potassium [Moles/Vol] 4.5 mmol/L Invalid Interpretation Code 3.5 - 5.1 mmol/L AO ADM SS RBC (Bld) [#/Vol] 4.23 106/mcL Invalid Interpretation Code 4.20 - 5.40 10^6/mcL AO Workflow SS Sodium [Moles/Vol] 140 mmol/L Invalid Interpretation Code 136 - 145 mmol/L AO ADM SS Urea nitrogen [Mass/Vol] 11 mg/dL Invalid Interpretation Code 7 - 18 mg/dL AO ADM SS Urea nitrogen/Creatinine [Mass ratio] 12 ratio Invalid Interpretation Code 7 - 27 ratio AO ADM SS WBC (Bld) [#/Vol] 4.6 103/mcL Invalid Interpretation Code 4.6 - 10.8 10^3/mcL AO Workflow SS LABORATORYOrdered By: Arnie Judge on 06-02-2023 MRSA DNA JERSEY+probe Ql (Unsp spec) Not Detected 1 (06/02/23 10:07 AM) Invalid Interpretation Code Not Detected [facility] Comment on above: Result Comment: [place] [id number] MRSA PCR Int MRSA DNA not detecte d by Real-Time Polymerase Chain Reaction (PCR). A negative result may be due to intermittent colonization. Colonization may vary depending on patient treatment, patient status, or exposure to high-risk environments.As with all PCR based in vitro diagnostic tests, extremely low levels of target below the limit of detection of the assay may be detected, but results may not be reproducible. Invalid Interpretation Code Auto Viro/Sero SS MRSAPCRon 06-02-2023 MRSA (PCR) Not detected Normal Not Detected [facility] Comment on above: Result Comment: [place] [id number] Performed By: #### M RSAPCR #### [facility] [address], [place] [address] MRSA PCR Int Normal [facility] Comment on above: Result Comment: MRSA DNA not detected by Real-Time Polymerase Chain Reaction (PCR). A negative result may be due to intermittent colonization. Colonization may vary depending on patient treatment, patient status, or exposure to high-risk environments. As with all PCR based in vitro diagnostic tests, extremely low levels of target below the limit of detection of the assay may be detected, but results may not be reproducible. See Below Performed By: #### M RSAPCR #### [facility] [address], [place] [address] Basophil percentageOrdered B y: Ramona Luciano on 2023 Bilirubin [Mass/Vol] 0.40 mg/dL 0.20-1.00 [facility] Comment on above: For patients on eltr ombopag therapy, use of Dimension Kimball TBIL is not recommended. Chloride [Moles/Vol] 105 mmol/L 98-107 [facility] Glucose [Mass/Vol] 89 mg/dL 74-106 [facility] Potassium [Moles/Vol] 4.4 mmol/L 3.5-5.1 [facility] Protein [Mass/Vol] 7.1 g/dL 6.4-8.2 [facility] Sodium [Moles/Vol] 138 mmol/L 136-145 [facility] Laboratory - Chemistry and C hemistry - challengeOrdered By: Ramona Luciano on 2023 ALP [Catalytic activity/Vol] 104 U/L 45-117 [facility] ALT [Catalytic activity/Vol] 20 U/L 13-56 [facility] CO2 [Moles/Vol] 28.0 mmol/L 21.0-32.0 [facility] Globulin (S) [Mass/Vol] 3.4 g/dL 2.2-4.2 [facility] Urea nitrogen/Creatinine [Mass ratio] 13.9 mg/mg 10-20 [facility] No Panel InformationOrdered By: Ramona Luciano on 2023 Estimated GFR (MDRD) Amer 76 mL/min >60 [facility] Comment on above: GFR Calc Estimated GFR (MDRD) Non-Af Amer 63 mL/min >60 [facility] Comment on above: Non- GFR Calc Thyroid Stimulating Hormone (TSH) 2.08 uIU/mL 0.358-3.74 [facility] Serum or plasma albumin marci urement (mass/volume)Ordered By: Ramona Luciano on 2023 Albumin [Mass/Vol] 3.7 g/dL 3.2-5.0 [facility] Serum or plasma albumin/glob ulin mass ratioOrdered By: Ramona Luciano on 2023 Albumin/Globulin [Mass ratio] 1.1 {ratio} 0.9-2.4 [facility] Serum or plasma calcium marci urement (mass/volume)Ordered By: Ramona Luciano on 2023 Calcium [Mass/Vol] 9.1 mg/dL 8.5-10.1 [facility] Serum or plasma creatinine m easurement (mass/volume)Ordered By: Ramona Luciano on 2023 Creatinine [Mass/Vol] 0.94 mg/dL 0.55-1.02 [facility] Comment on above: The validity of the calculated GFR & GFRAA in patients over 70 years has not been determined. Clinical correlation is essential. Serum or plasma ferritin isa surement (mass/volume)Ordered By: Ramona Luciano on 2023 Ferritin [Mass/Vol] 59 ng/mL 8-252 [facility] Serum or plasma urea nitroge n measurement (mass/volume)Ordered By: Ramona Luciano on 2023 Urea nitrogen [Mass/Vol] 13 mg/dL 7-18 [facility] Thin prep Papanicolaou smear with manual screeningOrdered By: Ramona Luciano on 2023 Thin prep Papanicolaou smear with manual screening 16 U/L 15-37 [facility] Thin prep Papanicolaou smear with manual screening 5 5-15 [facility] Absolute lymphocyte countOrd ered By: Dr. Walden on 01-07-2023 Lymphocytes Auto (Unsp spec) [#/Vol] 1.73 10*3/uL 0.83-4.51 [facility] Basophil percentageOrdered B y: Dr. Walden on 01-07-2023 Basophils/100 WBC (Bld) 0.4 % 0-1 [facility] Eosinophils/100 WBC (Bld) 2.0 % 0-5 [facility] Neutrophils (Bld) [#/Vol] 4.9 10*3/uL 2.0-7.7 [facility] Neutrophils/100 WBC (Bld) 65.7 % 47-70 [facility] WBC (Bld) [#/Vol] 7.4 10*3/uL 4.4-11.0 [facility] Blood erythrocytes count (nu mber/volume)Ordered By: Dr. Walden on 01-07-2023 RBC (Bld) [#/Vol] 4.13 10*6/uL 4.2-5.4 [facility] Blood hemoglobin measurement (mass/volume)Ordered By: Dr. Walden on 01-07-2023 Hemoglobin (Bld) [Mass/Vol] 13.2 g/dL 12.0-15.0 [facility] Blood lymphocytes/100 leukoc ytesOrdered By: Dr. Walden on 01-07-2023 Lymphocytes/100 WBC (Bld) 23.3 % 19-41 [facility] Blood monocytes/100 leukocyt esOrdered By: Dr. Walden on 01-07-2023 Monocytes/100 WBC (Bld) 8.2 % 0-10 [facility] Blood platelet mean volumeOr dered By: Dr. Walden on 01-07-2023 Platelet mean volume (Bld) [Entitic vol] 11.1 fL 6.2-12.0 [facility] Determination of erythrocyte mean corpuscular volume (MCV)Ordered By: Dr. Walden on 01-07-2023 MCV (RBC) [Entitic vol] 97.6 fL 81-99 [facility] Erythrocyte sedimentation ra teOrdered By: Dr. Walden on 01-07-2023 ESR (Bld) [Velocity] 1 mm/h 0-30 [facility] Hematocrit Auto (Bld) [Volum e fraction]Ordered By: Dr. Walden on 01-07-2023 Hematocrit (Bld) [Volume fraction] 40.3 % 37-47 [facility] Laboratory - Hematology and Cell countsOrdered By: Dr. Walden on 01-07-2023 Erythrocyte distribution width (RBC) [Entitic vol] 45.2 fL 35.1-43.9 [facility] Erythrocyte distribution width (RBC) [Ratio] 12.6 % 11.6-14.6 [facility] Immature granulocytes/100 WBC (Bld) 0.400 % 0.0-0.9 [facility] Comment on above: IG% - Immature Granu locytes (promyelocytes, myelocytes and metamyelocytes) > 1% indicates that a LEFT SHIFT is Present. MCH (RBC) [Entitic mass] 32.0 pg 27.0-32.0 [facility] Nucleated RBC/100 WBC (Bld) [Ratio] 0 % 0-5 [facility] MCHC Auto (RBC) [Mass/Vol]Or dered By: Dr. Walden on 01-07-2023 MCHC (RBC) [Mass/Vol] 32.8 g/dL 32-36 [facility] Platelets bldOrdered By: Dr. Walden on 01-07-2023 Platelets (Bld) [#/Vol] 233 10*3/uL 150-450 [facility] Serum or plasma C reactive p rotein measurement (mass/volume)Ordered By: Dr. Walden on 01-07-2023 CRP [Mass/Vol] mg/L 0.0-3.0 [facility] Comment on above: C-Reactive Protein ( CRP) provides useful information for thediagnosis, therapy and monitoring of inflammatory processesand associated diseases. For the evaluation of Relative Riskfor Cardiovascular Disease, a High Sensitivity CRP (HSCRP)should be ordered. Absolute lymphocyte countOrd ered By: Dr. Luciano on 09-07-2022 Lymphocytes Auto (Unsp spec) [#/Vol] 1.32 10*3/uL 0.83-4.51 [facility] Basophil percentageOrdered B y: Dr. Luciano on 09-07-2022 Basophils/100 WBC (Bld) 0.5 % 0-1 [facility] Bilirubin [Mass/Vol] 0.60 mg/dL 0.20-1.00 [facility] Comment on above: For patients on eltr ombopag therapy, use of Dimension [place] TBIL is not recommended. Chloride [Moles/Vol] 104 mmol/L 98-107 [facility] Cholesterol [Mass/Vol] 177 mg/dL <200 [facility] Comment on above: <200 mg/dL Desirable 200-240 mg/dL Borderline >240 mg/dL High Risk Eosinophils/100 WBC (Bld) 2.7 % 0-5 [facility] Glucose [Mass/Vol] 92 mg/dL 74-106 [facility] Neutrophils (Bld) [#/Vol] 3.6 10*3/uL 2.0-7.7 [facility] Neutrophils/100 WBC (Bld) 61.8 % 47-70 [facility] Potassium [Moles/Vol] 4.5 mmol/L 3.5-5.1 [facility] Protein [Mass/Vol] 6.9 g/dL 6.4-8.2 [facility] Sodium [Moles/Vol] 140 mmol/L 136-145 [facility] Triglyceride [Mass/Vol] 98 mg/dL <199 [facility] Comment on above: The drugs N-Acetylcy steine and Metamizole may falsely depress this assay.Serum Triglycerides Reference Interval Normal <150 mg/dL Borderline high 150 - 199 mg/dL High 200 - 499 mg/dL Very High > or = 500 mg/dL WBC (Bld) [#/Vol] 5.8 10*3/uL 4.4-11.0 [facility] Blood erythrocytes count (nu mber/volume)Ordered By: Dr. Luciano on 09-07-2022 RBC (Bld) [#/Vol] 4.39 10*6/uL 4.2-5.4 [facility] Blood hemoglobin measurement (mass/volume)Ordered By: Dr. Luciano on 09-07-2022 Hemoglobin (Bld) [Mass/Vol] 14.1 g/dL 12.0-15.0 [facility] Blood lymphocytes/100 leukoc ytesOrdered By: Dr. Luciano on 09-07-2022 Lymphocytes/100 WBC (Bld) 22.6 % 19-41 [facility] Blood monocytes/100 leukocyt esOrdered By: Dr. Luciano on 09-07-2022 Monocytes/100 WBC (Bld) 11.7 % 0-10 [facility] Blood platelet mean volumeOr dered By: Dr. Luciano on 09-07-2022 Platelet mean volume (Bld) [Entitic vol] 10.8 fL 6.2-12.0 [facility] Determination of erythrocyte mean corpuscular volume (MCV)Ordered By: Dr. Luciano on 09-07-2022 MCV (RBC) [Entitic vol] 97.3 fL 81-99 [facility] Hematocrit Auto (Bld) [Volum e fraction]Ordered By: Dr. Luciano on 09-07-2022 Hematocrit (Bld) [Volume fraction] 42.7 % 37-47 [facility] Laboratory - Chemistry and C hemistry - challengeOrdered By: Dr. Luciano on 09-07-2022 ALP [Catalytic activity/Vol] 90 U/L 45-117 [facility] ALT [Catalytic activity/Vol] 23 U/L 13-56 [facility] CO2 [Moles/Vol] 27.0 mmol/L 21.0-32.0 [facility] Globulin (S) [Mass/Vol] 3.1 g/dL 2.2-4.2 [facility] Urea nitrogen/Creatinine [Mass ratio] 14.1 mg/mg 10-20 [facility] Laboratory - Hematology and Cell countsOrdered By: Dr. Luciano on 09-07-2022 Erythrocyte distribution width (RBC) [Entitic vol] 45.0 fL 35.1-43.9 [facility] Erythrocyte distribution width (RBC) [Ratio] 12.5 % 11.6-14.6 [facility] Immature granulocytes/100 WBC (Bld) 0.700 % 0.0-0.9 [facility] Comment on above: IG% - Immature Granu locytes (promyelocytes, myelocytes and metamyelocytes) > 1% indicates that a LEFT SHIFT is Present. MCH (RBC) [Entitic mass] 32.1 pg 27.0-32.0 [facility] Nucleated RBC/100 WBC (Bld) [Ratio] 0 % 0-5 [facility] MCHC Auto (RBC) [Mass/Vol]Or dered By: Dr. Luciano on 09-07-2022 MCHC (RBC) [Mass/Vol] 33.0 g/dL 32-36 [facility] No Panel InformationOrdered By: Dr. Luciano on 09-07-2022 Estimated GFR (MDRD) Amer 78 mL/min >60 [facility] Comment on above: GFR Calc Estimated GFR (MDRD) Non-Af Amer 64 mL/min >60 [facility] Comment on above: Non- GFR Calc Thyroid Stimulating Hormone (TSH) 2.89 uIU/mL 0.358-3.74 [facility] Platelets bldOrdered By: Dr. Luciano on 09-07-2022 Platelets (Bld) [#/Vol] 275 10*3/uL 150-450 [facility] Serum or plasma albumin marci urement (mass/volume)Ordered By: Dr. Luciano on 09-07-2022 Albumin [Mass/Vol] 3.8 g/dL 3.2-5.0 [facility] Serum or plasma albumin/glob ulin mass ratioOrdered By: Dr. Luciano on 09-07-2022 Albumin/Globulin [Mass ratio] 1.2 {ratio} 0.9-2.4 [facility] Serum or plasma calcium marci urement (mass/volume)Ordered By: Dr. Luciano on 09-07-2022 Calcium [Mass/Vol] 8.7 mg/dL 8.5-10.1 [facility] Serum or plasma cholesterol in HDL measurement (mass/volume)Ordered By: Dr. Luciano on 09-07-2022 Cholesterol in HDL [Mass/Vol] 57 mg/dL >40 [facility] Comment on above: The drugs N-Acetylcy steine and Metamizole may falsely depress this assay. Reference Range HDL <40 mg/dL Low HDL Cholesterol HDL >or= 60 mg/dL High HDL Cholesterol Serum or plasma cholesterol in VLDL measurement (mass/volume)Ordered By: Dr. Luciano on 09-07-2022 Cholesterol in VLDL [Mass/Vol] 20 mg/dL 5-40 [facility] Serum or plasma creatinine m easurement (mass/volume)Ordered By: Dr. Luciano on 09-07-2022 Creatinine [Mass/Vol] 0.92 mg/dL 0.55-1.02 [facility] Comment on above: The validity of the calculated GFR & GFRAA in patients over 70 years has not been determined. Clinical correlation is essential. Serum or plasma low density lipoprotein (LDL) cholesterol measurement (mass/volume)Ordered By: Dr. Luciano on 09-07-2022 Cholesterol in LDL [Mass/Vol] 100 mg/dL 0-130 [facility] Serum or plasma urea nitroge n measurement (mass/volume)Ordered By: Dr. Luciano on 09-07-2022 Urea nitrogen [Mass/Vol] 13 mg/dL 7-18 [facility] Thin prep Papanicolaou smear with manual screeningOrdered By: Dr. Luciano on 09-07-2022 Thin prep Papanicolaou smear with manual screening 13 U/L 15-37 [facility] Thin prep Papanicolaou smear with manual screening 9 5-15 [facility] Absolute lymphocyte counton 02-05-2022 Lymphocytes Auto (Unsp spec) [#/Vol] 1.51 10*3/uL 0.83-4.51 [facility] Work Phone: Basophil percentageon 2021 Basophils/100 WBC (Bld) 0.3 % 0-1 [facility] Work Phone: Chloride [Moles/Vol] 108 mmol/L 98-107 [facility] Work Phone: Eosinophils/100 WBC (Bld) 2.0 % 0-5 [facility] Work Phone: Glucose [Mass/Vol] 121 mg/dL 74-106 [facility] Work Phone: Comment on above: Fasting Glucose resu lt from 100 to 125 mg/dL suggests IMPAIRED HOMEOSTASIS per A.D.A. criteria. Neutrophils (Bld) [#/Vol] 4.6 10*3/uL 2.0-7.7 [facility] Work Phone: Neutrophils/100 WBC (Bld) 65.1 % 47-70 [facility] Work Phone: Potassium [Moles/Vol] 3.8 mmol/L 3.5-5.1 [facility] Work Phone: Sodium [Moles/Vol] 141 mmol/L 136-145 [facility] Work Phone: WBC (Bld) [#/Vol] 7.0 10*3/uL 4.4-11.0 [facility] Work Phone: Blood erythrocytes count (nu mber/volume)on 02-05-2022 RBC (Bld) [#/Vol] 4.24 10*6/uL 4.2-5.4 [facility] Work Phone: Blood hemoglobin measurement (mass/volume)on 02-05-2022 Hemoglobin (Bld) [Mass/Vol] 13.5 g/dL 12.0-15.0 [facility] Work Phone: [phone] Blood lymphocytes/100 leukoc yteson 02-05-2022 Lymphocytes/100 WBC (Bld) 21.6 % 19-41 [facility] Work Phone: [phone] Blood monocytes/100 leukocyt eson 02-05-2022 Monocytes/100 WBC (Bld) 10.3 % 0-10 [facility] Work Phone: [phone] Blood platelet mean volumeon 02-05-2022 Platelet mean volume (Bld) [Entitic vol] 10.8 fL 6.2-12.0 [facility] Work Phone: Determination of erythrocyte mean corpuscular volume (MCV)on 02-05-2022 MCV (RBC) [Entitic vol] 97.2 fL 81-99 [facility] Work Phone: [phone] Hematocrit Auto (Bld) [Volum e fraction]on 02-05-2022 Hematocrit (Bld) [Volume fraction] 41.2 % 37-47 [facility] Work Phone: Laboratory - Chemistry and C hemistry - challengeon 02-05-2022 CO2 [Moles/Vol] 27.0 mmol/L 21.0-32.0 [facility] Work Phone: [phone] Urea nitrogen/Creatinine [Mass ratio] 17.3 mg/mg 10-20 [facility] Work Phone: [phone] Laboratory - Hematology and Cell countson 02-05-2022 Erythrocyte distribution width (RBC) [Entitic vol] 44.0 fL 35.1-43.9 [facility] Work Phone: [phone] Erythrocyte distribution width (RBC) [Ratio] 12.2 % 11.6-14.6 [facility] Work Phone: [phone] Immature granulocytes/100 WBC (Bld) 0.700 % 0.0-0.9 [facility] Work Phone: [phone] Comment on above: IG% - Immature Granu locytes (promyelocytes, myelocytes and metamyelocytes) > 1% indicates that a LEFT SHIFT is Present. MCH (RBC) [Entitic mass] 31.8 pg 27.0-32.0 [facility] Work Phone: [phone] Nucleated RBC/100 WBC (Bld) [Ratio] 0 % 0-5 [facility] Work Phone: [phone] MCHC Auto (RBC) [Mass/Vol]on 02-05-2022 MCHC (RBC) [Mass/Vol] 32.8 g/dL 32-36 [facility] Work Phone: [phone] No Panel Informationon 02-05 Troponin I High Sensitivity < 3 pg/mL 3.0-54.0 [facility] Work Phone: [phone] Comment on above: Please Note: New Emilee t Units and Gender Specific Reference Ranges. For more information see Policy Stat Procedure [place] High Sensitivity Troponin (TNIH) and attachments. Estimated Creatinine Clearance Calc 57.70 ml/min [facility] Work Phone: [phone] Estimated GFR (MDRD) Amer 78 mL/min >60 [facility] Work Phone: [phone] Comment on above: GFR Calc Estimated GFR (MDRD) Non-Af Amer 64 mL/min >60 [facility] Work Phone: [phone] Comment on above: Non- GFR Calc Platelets bldon 02-05-2022 Platelets (Bld) [#/Vol] 238 10*3/uL 150-450 [facility] Work Phone: [phone] Serum or plasma calcium marci urement (mass/volume)on 02-05-2022 Calcium [Mass/Vol] 9.1 mg/dL 8.5-10.1 [facility] Work Phone: Serum or plasma creatinine m easurement (mass/volume)on 02-05-2022 Creatinine [Mass/Vol] 0.92 mg/dL 0.55-1.02 [facility] Work Phone: Comment on above: The validity of the calculated GFR & GFRAA in patients over 70 years has not been determined. Clinical correlation is essential. Serum or plasma urea nitroge n measurement (mass/volume)on 02-05-2022 Urea nitrogen [Mass/Vol] 16 mg/dL 7-18 [facility] Work Phone: Thin prep Papanicolaou smear with manual screeningon 02-05-2022 Thin prep Papanicolaou smear with manual screening 6 -15 [facility] Work Phone: ANAon 11-03-2018 Nuclear Ab IF titer (S) 0.2 OD Ratio Normal [facility] Comment on above: Performed By: #### C BCDIF, CMP, CRP, LIPB, RF, FERR, UACR #### [facility] Routine Lab [address] [phone] #### ANAS #### [facility] Immuno Assay [address] [address] Nuclear Ab IF titer (S) NEGAT Normal Negative [facility] Comment on above: Performed By: #### C BCDIF, CMP, CRP, LIPB, RF, FERR, UACR #### [facility] [address] [address] #### ANAS #### [facility] Immuno Assay [address] [address] Albumin/Creat Ratioon 2018 Albumin Urine Random <12.0 Normal 0.0-23.0 [facility] Comment on above: Performed By: #### C BCDIF, CMP, CRP, LIPB, RF, FERR, UACR #### [facility] [address] [address] #### ANAS #### [facility] Immuno Assay [address] [address] Albumin/Creat Ratio NCAL Normal 0-30 [facility] Comment on above: Performed By: #### C BCDIF, CMP, CRP, LIPB, RF, FERR, UACR #### [facility] Routine Lab [address] [phone] #### ANAS #### [facility] Immuno Assay [address] [address] Creatinine,Urine,Ran 158.6 mg/dL Normal 20-300 [facility] Comment on above: Performed By: #### C BCDIF, CMP, CRP, LIPB, RF, FERR, UACR #### [facility] Routine Lab [address] [phone] #### ANAS #### [facility] Immuno Assay [address] [phone] C-Reactive Proteinon 019 CRP mass conc 0.1 mg/dL Normal <0.9 [facility] Comment on above: Performed By: #### C BCDIF, CMP, CRP, LIPB, RF, FERR, UACR #### [facility] Routine Lab [address] [phone] #### ANAS #### [facility] Immuno Assay [address] [phone] CBC and Differentialon 11-02 Abs Baso 0.03 k/uL Normal <0.11 [facility] Comment on above: Performed By: #### C BCDIF, CMP, CRP, LIPB, RF, FERR, UACR #### [facility] Routine Lab [address] [place], [place] [address] #### ANAS #### [facility] Immuno Assay [address] [phone] Abs Trigg 0.41 k/uL Normal <0.87 [facility] Comment on above: Performed By: #### C BCDIF, CMP, CRP, LIPB, RF, FERR, UACR #### [facility] Routine Lab [address] [place] [phone] #### ANAS #### [facility] Immuno Assay [address] [place] [phone] Abs Neut 2.50 k/uL Normal 1.45-7.50 [facility] Comment on above: Performed By: #### C BCDIF, CMP, CRP, LIPB, RF, FERR, UACR #### [facility] Routine Lab [address] [place] [phone] #### ANAS #### [facility] Immuno Assay [address] [place] [phone] Absolute nRBC <0.01 Normal <0.01 [facility] Comment on above: Performed By: #### C BCDIF, CMP, CRP, LIPB, RF, FERR, UACR #### [facility] Routine Lab [address] [place] [phone] #### ANAS #### [facility] Immuno Assay [address] [place] [phone] Basophils/100 WBC (Bld) 0.7 % Normal [facility] Comment on above: Performed By: #### C BCDIF, CMP, CRP, LIPB, RF, FERR, UACR #### [facility] Routine Lab [address] [place] [phone] #### ANAS #### [facility] Immuno Assay [address] [place] [phone] DTYPE ADIFF Normal [facility] Comment on above: Performed By: #### C BCDIF, CMP, CRP, LIPB, RF, FERR, UACR #### [facility] Routine Lab [address] [phone] #### ANAS #### [facility] Immuno Assay [address] [phone] Eosinophils #/vol (Bld) 0.14 10*3/uL Normal <0.46 [facility] Comment on above: Performed By: #### C BCDIF, CMP, CRP, LIPB, RF, FERR, UACR #### [facility] Routine Lab [address] [phone] #### ANAS #### [facility] Immuno Assay [address] [place] [phone] Eosinophils/100 WBC (Bld) 3.4 % Normal [facility] Comment on above: Performed By: #### C BCDIF, CMP, CRP, LIPB, RF, FERR, UACR #### [facility] Routine Lab [address] [place] [phone] #### ANAS #### [facility] Immuno Assay [address] [place] [phone] Erythrocyte distribution width Ratio (RBC) 12.8 % Normal 11.5-15.0 [facility] Comment on above: Performed By: #### C BCDIF, CMP, CRP, LIPB, RF, FERR, UACR #### [facility] Routine Lab [address] [phone] #### ANAS #### [facility] Immuno Assay [address] [phone] Hematocrit Volume Fraction (Bld) 43.3 % Normal 36.0-46.0 [facility] Comment on above: Performed By: #### C BCDIF, CMP, CRP, LIPB, RF, FERR, UACR #### [facility] Routine Lab [address] [place] [phone] #### ANAS #### [facility] Immuno Assay [address] [phone] Hemoglobin mass conc (Bld) 13.9 g/dL Normal 11.5-15.5 [facility] Comment on above: Performed By: #### C BCDIF, CMP, CRP, LIPB, RF, FERR, UACR #### [facility] Routine Lab [address] [place] [phone] #### ANAS #### [facility] Immuno Assay [address] [place] [phone] Lymphocytes #/vol (Bld) 1.04 10*3/uL Normal 1.00-4.00 [facility] Comment on above: Performed By: #### C BCDIF, CMP, CRP, LIPB, RF, FERR, UACR #### [facility] Routine Lab [address] [place] [phone] #### ANAS #### [facility] Immuno Assay [address] [place] [phone] Lymphocytes/100 WBC (Bld) 25.1 % Normal [facility] Comment on above: Performed By: #### C BCDIF, CMP, CRP, LIPB, RF, FERR, UACR #### [facility] Routine Lab [address] [place] [phone] #### ANAS #### [facility] Immuno Assay [address] [phone] MCH Entitic mass (RBC) 32.0 pG Normal 26.0-34.0 [facility] Comment on above: Performed By: #### C BCDIF, CMP, CRP, LIPB, RF, FERR, UACR #### [facility] Routine Lab [address] [place] [phone] #### ANAS #### [facility] Immuno Assay [address] [address] MCHC mass conc (RBC) 32.1 g/dL Normal 30.5-36.0 [facility] Lab Comment on above: Performed By: #### C BCDIF, CMP, CRP, LIPB, RF, FERR, UACR #### [facility] Routine Lab [address] [phone] #### ANAS #### [facility] Immuno Assay [address] [phone] MCV Entitic volume (RBC) 99.8 fL Normal 80.0-100.0 [facility] Comment on above: Performed By: #### C BCDIF, CMP, CRP, LIPB, RF, FERR, UACR #### [facility] Routine Lab [address] [place] [phone] #### ANAS #### [facility] Immuno Assay [address] [phone] Monocytes/100 WBC (Bld) 9.9 % Normal [facility] Comment on above: Performed By: #### C BCDIF, CMP, CRP, LIPB, RF, FERR, UACR #### [facility] Routine Lab [address] [place] [phone] #### ANAS #### [facility] Immuno Assay [address] [phone] Neutrophils/100 WBC (Bld) 60.9 % Normal [facility] Comment on above: Performed By: #### C BCDIF, CMP, CRP, LIPB, RF, FERR, UACR #### [facility] Routine Lab [address] [phone] #### ANAS #### [facility] Immuno Assay [address] [phone] NRBCs 0.0 /100 WBC Normal 0 [facility] Comment on above: Performed By: #### C BCDIF, CMP, CRP, LIPB, RF, FERR, UACR #### [facility] Routine Lab [address] [phone] #### ANAS #### [facility] Immuno Assay [address] [address] Platelet mean volume Entitic volume (Bld) 11.2 fL Normal 9.0-12.7 [facility] Comment on above: Performed By: #### C BCDIF, CMP, CRP, LIPB, RF, FERR, UACR #### [facility] Routine Lab [address] [place] [phone] #### ANAS #### [facility] Immuno Assay [address] [place] [phone] Platelets #/vol (Bld) 225 10*3/uL Normal 150-400 [facility] Comment on above: Performed By: #### C BCDIF, CMP, CRP, LIPB, RF, FERR, UACR #### [facility] Routine Lab [address] [phone] #### ANAS #### [facility] Immuno Assay [facility] [phone] RBC #/vol (Bld) 4.34 10*6/uL Normal 3.90-5.20 [facility] Comment on above: Performed By: #### C BCDIF, CMP, CRP, LIPB, RF, FERR, UACR #### [facility] Routine Lab [address] [phone] #### ANAS #### [facility] Immuno Assay [address] [phone] WBC #/vol (Bld) 4.14 10*3/uL Normal 3.70-11.00 [facility] Comment on above: Performed By: #### C BCDIF, CMP, CRP, LIPB, RF, FERR, UACR #### [facility] Routine Lab [address] [phone] #### ANAS #### [facility] Immuno Assay [address] [address] Comp Metabolic Panelon 11-02 Albumin mass conc 4.5 g/dL Normal 3.9-4.9 [facility] Comment on above: Performed By: #### C BCDIF, CMP, CRP, LIPB, RF, FERR, UACR #### [facility] Routine Lab [address] [phone] #### ANAS #### [facility] Immuno Assay [address] [place] [phone] ALP enzyme act/vol 64 U/L Normal 34-123 [facility] Comment on above: Performed By: #### C BCDIF, CMP, CRP, LIPB, RF, FERR, UACR #### [facility] Routine Lab [address] [phone] #### ANAS #### [facility] Immuno Assay [address] [phone] ALT enzyme act/vol 13 U/L Normal 7-38 [facility] Comment on above: Performed By: #### C BCDIF, CMP, CRP, LIPB, RF, FERR, UACR #### [facility] Routine Lab [address] [phone] #### ANAS #### [facility] Immuno Assay [address] [address] Anion gap molar conc 12 mmol/L Normal 9-18 [facility] Comment on above: Performed By: #### C BCDIF, CMP, CRP, LIPB, RF, FERR, UACR #### [facility] Routine Lab [address] [address] #### ANAS #### [facility] Immuno Assay [address] [phone] AST enzyme act/vol 19 U/L Normal 13-35 [facility] Comment on above: Performed By: #### C BCDIF, CMP, CRP, LIPB, RF, FERR, UACR #### [facility] Routine Lab [address] [place] [address] #### ANAS #### [facility] Immuno Assay [address] [place] [phone] Bilirubin Ql (U) 0.4 mg/dL Normal 0.2-1.3 [facility] Comment on above: Performed By: #### C BCDIF, CMP, CRP, LIPB, RF, FERR, UACR #### [facility] Routine Lab [address] [place] [phone] #### ANAS #### [facility] Immuno Assay [address] [place] [address] Calcium mass conc 9.7 mg/dL Normal 8.5-10.2 [facility] Comment on above: Performed By: #### C BCDIF, CMP, CRP, LIPB, RF, FERR, UACR #### [facility] Routine Lab [address] [place] [phone] #### ANAS #### [facility] Immuno Assay [address] [address] Chloride molar conc 104 mmol/L Normal 97-105 [facility] Comment on above: Performed By: #### C BCDIF, CMP, CRP, LIPB, RF, FERR, UACR #### [facility] Routine Lab [address] [place] [address] #### ANAS #### [facility] Immuno Assay [address] [address] CO2 molar conc 27 mmol/L Normal 22-30 [facility] Comment on above: Performed By: #### C BCDIF, CMP, CRP, LIPB, RF, FERR, UACR #### [facility] Routine Lab [address] [phone] #### ANAS #### [facility] Immuno Assay [address] [phone] Creatinine mass conc 0.79 mg/dL Normal 0.58-0.96 [facility] Comment on above: Performed By: #### C BCDIF, CMP, CRP, LIPB, RF, FERR, UACR #### [facility] Routine Lab [address] [place] [phone] #### ANAS #### [facility] Immuno Assay [address] [phone] eGFR- Amer. >60 Normal [facility] Comment on above: Performed By: #### C BCDIF, CMP, CRP, LIPB, RF, FERR, UACR #### [facility] Routine Lab [address] [place] [address] #### ANAS #### [facility] Immuno Assay [address] [phone] GFR/1.73 sq M predicted among non-blacks MDRD vol rate/area (S/P/Bld) mL/min/{1.73_m2} Normal [facility] Comment on above: Performed By: #### C BCDIF, CMP, CRP, LIPB, RF, FERR, UACR #### [facility] Routine Lab [address] [place], [place] [address] [phone] #### ANAS #### [facility] Immuno Assay [address] [place] [address] Glucose mass conc 93 mg/dL Normal 74-99 [facility] Comment on above: Performed By: #### C BCDIF, CMP, CRP, LIPB, RF, FERR, UACR #### [facility] Routine Lab [address] [phone] #### ANAS #### [facility] Immuno Assay [address] [phone] Potassium molar conc 5.1 mmol/L Normal 3.7-5.1 [facility] Comment on above: Performed By: #### C BCDIF, CMP, CRP, LIPB, RF, FERR, UACR #### [facility] Routine Lab [address] [place] [phone] #### ANAS #### [facility] Immuno Assay [address] [phone] Protein mass conc 6.7 g/dL Normal 6.3-8.0 [facility] Comment on above: Performed By: #### C BCDIF, CMP, CRP, LIPB, RF, FERR, UACR #### [facility] Routine Lab [address] [phone] #### ANAS #### [facility] Immuno Assay [address] [phone] Sodium molar conc 143 mmol/L Normal 136-144 [facility] Comment on above: Performed By: #### C BCDIF, CMP, CRP, LIPB, RF, FERR, UACR #### [facility] Routine Lab [address] [phone] #### ANAS #### [facility] Immuno Assay [address] [phone] Urea nitrogen mass conc 15 mg/dL Normal 7-21 [facility] Comment on above: Performed By: #### C BCDIF, CMP, CRP, LIPB, RF, FERR, UACR #### [facility] Routine Lab [address] [address] #### ANAS #### [facility] Immuno Assay [address] [address] Ferritinon 11-02-2018 Ferritin mass conc 88.3 ng/mL Normal 14.7-205.1 [facility] Comment on above: Performed By: #### C BCDIF, CMP, CRP, LIPB, RF, FERR, UACR #### [facility] Routine Lab [address] [address] #### ANAS #### [facility] Immuno Assay [address] [address] Lipid Panel, Basicon 019 Cholesterol in HDL mass conc 56 mg/dL Normal >39 [facility] Comment on above: Performed By: #### C BCDIF, CMP, CRP, LIPB, RF, FERR, UACR #### [facility] Routine Lab [address] [address] #### ANAS #### [facility] Immuno Assay [address] [phone] Cholesterol in LDL mass conc 168 mg/dL High <100 [facility] Comment on above: Performed By: #### C BCDIF, CMP, CRP, LIPB, RF, FERR, UACR #### [facility] Routine Lab [address] [address] #### ANAS #### [facility] Immuno Assay [address] [phone] Cholesterol in VLDL mass conc 21 mg/dL Normal <30 [facility] Comment on above: Performed By: #### C BCDIF, CMP, CRP, LIPB, RF, FERR, UACR #### [facility] Routine Lab [address] [phone] #### ANAS #### [facility] Immuno Assay [address] [phone] Cholesterol mass conc 245 mg/dL High <200 [facility] Comment on above: Performed By: #### C BCDIF, CMP, CRP, LIPB, RF, FERR, UACR #### [facility] Routine Lab [address] [phone] #### ANAS #### [facility] Immuno Assay [address] [phone] Cholesterol non HDL mass conc 189 mg/dL High <130 [facility] Comment on above: Performed By: #### C BCDIF, CMP, CRP, LIPB, RF, FERR, UACR #### [facility] Routine Lab [address] [phone] #### ANAS #### [facility] Immuno Assay [address] [phone] LDL:HDL Ratio 3.00 High <2.54 [facility] Comment on above: Performed By: #### C BCDIF, CMP, CRP, LIPB, RF, FERR, UACR #### [facility] Routine Lab [address] [phone] #### ANAS #### [facility] Immuno Assay [address] [phone] TC:HDL Ratio 4.38 Normal <5.10 [facility] Comment on above: Performed By: #### C BCDIF, CMP, CRP, LIPB, RF, FERR, UACR #### [facility] Routine Lab [address] [phone] #### ANAS #### [facility] Immuno [facility] [phone] Triglyceride mass conc 104 mg/dL Normal <150 [facility] Reference [facility] Comment on above: Performed By: #### C BCDIF, CMP, CRP, LIPB, RF, FERR, UACR #### [facility] Routine Lab [address] [place] [phone] #### ANAS #### [facility] Immuno Assay [address] [place] [phone] Fasting Time UN Normal [facility] Comment on above: Performed By: #### C BCDIF, CMP, CRP, LIPB, RF, FERR, UACR #### [facility] Routine Lab [address] [place] [phone] #### ANAS #### [facility] Immuno Assay [address] [place] [phone] Rheumatoid Factoron 11-02-19 19 Rheumatoid Factor <10 Normal <16 [facility] Comment on above: Performed By: #### C BCDIF, CMP, CRP, LIPB, RF, FERR, UACR #### [facility] Routine Lab [address] [place] [phone] #### ANAS #### [facility] Immuno Assay [address] [place] [address] Urine Cultureon 07-29-2018 Bacteria identified Cx Nom (U) Specimen Desc:URINESp. Request/Comment:Best Practice Alert: To ensure optimal transport conditions and accurateculture results transfer urine specimens to wright top C and S preservative tube.Specimen received in sterile container.Culture [id number] Liuirl8907/29/2018 FINAL Normal [facility] US PELVIS NON OBon 8 US PELVIS NON OB US PELVIS NON OBOrde ring Physician: Jenn Muniz01/19/2018 9:20 AMPELVIC ULTRASOUNDComparison: NoneClinical Statement: Dysfunctional uterine bleeding.FINDINGS: Transvesical and endovaginal pelvic ultrasound performed.Uterus measures 6.0 cm longitudinally. Uterine myometrium demonstratesdiffuse coarse heterogeneous echotexture without discrete measurablemyometrial mass. Endometrium measures 2.6 mm in thickness.Neither the right and on the left ovary are visualized. There is nofree fluid in the pelvis. No worrisome pelvic mass.IMPRESSION:Normal pelvic ultrasound for patient age. No worrisome pelvic mass orfree fluid. ---- Electronic Signature on File ----Signed By: Logan [email or web address] miriam: 01/19/2018 9:54 AMSigned: 01/19/2018 9:56 AM Reported By: CORRY ROBERTS M.D. Signed By: CORRY ROBERTS M.D. [facility] US TRANSVAGINALon 01-19-2018 US TRANSVAGINAL 01/23/2018 Associated examinations. IMPRESSION: Please refer to the radiology report under accession #[id number]. Reported By: CORRY ROBERTS M.D. Signed By: CORRY ROBERTS M.D. [facility] HPV w/Genotypeon 11-25-2017 HPV HighRisk Other PCR. [facility] HPV HighRisk Type 16 NHPV16 Normal [facility] Lab HPV HighRisk Type 18 NHPV18 Normal [facility] CYTOLOGYon 11-23-2017 CYTOLOGY ADDITIONA L PROCEDURES PRESENT Specimen #: [id number] Physician: [place] CERVANTES SUBMITTEDA: CERVICAL, SCREENING, FLUID FINAL DIAGNOSISA. CERVICAL, SCREENING, FLUIDSatisfactory for interpretation.Limited cellularity due to acellular background material.Negative for intraepithelial lesion or malignancy.This specimen has been analyzed by the ThinPrep Imaging System, [employer] imaging and review system, which assists the laboratory inevaluating cells on ThinPrep Pap tests. Following automated imaging,selected elias from every slide are reviewed by a molecular pathologist.JAIR Whitley (ASCP) (Electronic Signature) ADDIT IONAL PROCEDURE(S)HUMAN PAPILLOMA VIRUS Date Ordered: 11/24/2017 Date Reported: 11/25/2017 Procedure Results and InterpretationNegative for HPV DNA high risk type 16 by PCR.Negative for HPV DNA high risk type 18 by PCR.Negative for HPV DNA high risk types: 31,33,35,39,45,51,52,56, 58,59,66,68by PCR.This test was developed and its performance characteristics determined [facility] ([facility]).It has not been cleared or approved by the FDA. [facility] is regulated underCLIA as qualified to perform high-complexity testing. This test is used forclinical purposes. It should not be regarded as investigational or forresearch.CLINICAL DATA Previous PAP date: 2015HPV Testing: Automatic HPV typing (HPV)Date of Last Menstrual Period:2003Clinical History:ROUTINESTAINSA: CERVICAL, SCREENING, FLUID THIN PREP Stacey Banuelos M.D., Laboratory DirectorPatient ID #: [id number] of Report: 11/30/2017Date of Procedure: 11/23/2017Date of Receipt: 11/24/2017Submitted by: DAYSI CERVANTESCLocation: Diagnostic interpretation performed at [facility], [address] [place] [address].The Pap Smear is a screening test for cervical cancer. False negativeresults occur with all screening tests, emphasizing the need forrescreening at recommended intervals, and clinical correlation. Normal [facility] Comment on above: Performed By: #### C ####See report for performing lab information. CBC and Differentialon 11-11 Abs Baso <0.03 Normal <0.11 [facility] Abs Trigg 0.43 k/uL Normal <0.87 [facility] Abs Neut 2.37 k/uL Normal 1.45-7.50 [facility] Absolute nRBC 0.03 k/uL High <0.01 [facility] Basophils/100 WBC Auto (Bld) 0.5 % Normal [facility] DTYPE ADIFF Normal [facility] Eosinophils Auto #/vol (Bld) 0.18 10*3/uL Normal <0.46 [facility] Eosinophils/100 WBC Auto (Bld) 4.4 % Normal [facility] Erythrocyte distribution width Auto Ratio (RBC) 12.9 % Normal 11.5-15.0 [facility] Hematocrit Auto Volume Fraction (Bld) 44.5 % Normal 36.0-46.0 [facility] Hemoglobin mass conc (Bld) 13.9 g/dL Normal 11.5-15.5 [facility] Lymphocytes Auto #/vol (Bld) 1.10 10*3/uL Normal 1.00-4.00 [facility] Lymphocytes/100 WBC Auto (Bld) 26.7 % Normal [facility] MCH Auto Entitic mass (RBC) 31.7 pG Normal 26.0-34.0 [facility] MCHC Auto mass conc (RBC) 31.2 g/dL Normal 30.5-36.0 [facility] MCV Auto Entitic volume (RBC) 101.4 fL High 80.0-100.0 [facility] Monocytes/100 WBC Auto (Bld) 10.4 % Normal [facility] Neutrophils/100 WBC Auto (Bld) 58.0 % Normal [facility] NRBCs 0.7 /100 WBC High 0 [facility] Platelet mean volume Auto Entitic volume (Bld) 11.5 fL Normal 9.0-12.7 [facility] Platelets Auto #/vol (Bld) 248 10*3/uL Normal 150-400 [facility] RBC Auto #/vol (Bld) 4.39 10*6/uL Normal 3.90-5.20 [facility] WBC Auto #/vol (Bld) 4.12 10*3/uL Normal 3.70-11.00 [facility] Comp Metabolic Panelon 11-11 Albumin mass conc 4.9 g/dL Normal 3.9-4.9 [facility] ALP enzyme act/vol 68 U/L Normal 32-117 [facility] ALT enzyme act/vol 15 U/L Normal 7-38 [facility] Anion gap 3 molar conc 16 mmol/L Normal 9-18 [facility] AST enzyme act/vol 17 U/L Normal 13-35 [facility] Bilirubin Ql (U) 0.4 mg/dL Normal 0.2-1.3 [facility] Calcium mass conc 9.8 mg/dL Normal 8.5-10.2 [facility] Chloride molar conc 102 mmol/L Normal 97-105 [facility] CO2 molar conc 26 mmol/L Normal 22-30 [facility] Creatinine mass conc 0.89 mg/dL Normal 0.58-0.96 [facility] eGFR- Amer. >60 Normal [facility] GFR/1.73 sq M predicted among non-blacks MDRD vol rate/area (S/P/Bld) mL/min/{1.73_m2} Normal [facility] Glucose mass conc 91 mg/dL Normal 74-99 [facility] Potassium molar conc 4.4 mmol/L Normal 3.7-5.1 [facility] Protein mass conc 7.4 g/dL Normal 6.3-8.0 [facility] Sodium molar conc 144 mmol/L Normal 136-144 [facility] Urea nitrogen mass conc 12 mg/dL Normal 7-21 [facility] Ferritinon 11-11-2017 Ferritin [Mass/volume] in Serum or Plasma 69.1 ng/mL Normal 14.7-205.1 [facility] Free T4on 11-11-2017 T4 free mass conc 1.1 ng/dL Normal 0.9-1.7 [facility] Hemoglobin A1con 11-11-2017 Glucose mass conc 117 mg/dL Normal [facility] Hemoglobin A1c/Hemoglobin.total mass fraction (Bld) 5.7 % High 4.3-5.6 [facility] Hepatitis C Ab IAon 11-11-19 18 Hepatitis C Ab IA NEGAT Normal Negative [facility] Iron and TIBCon 11-11-2017 Iron mass conc 111 ug/dL Normal 41-186 [facility] TIBC 290 ug/dL Normal 232-386 [facility] Transferrin Saturatn 38 % Normal 15-57 [facility] Lipid Panel, Bas[place] 018 Cholesterol in HDL mass conc 77 mg/dL Normal >39 [facility] Cholesterol in LDL mass conc 158 mg/dL High <100 [facility] Cholesterol in VLDL mass conc 17 mg/dL Normal <30 [facility] Cholesterol mass conc 252 mg/dL High <200 [facility] Cholesterol non HDL mass conc 175 mg/dL High <130 [facility] LDL:HDL Ratio 2.05 Normal <2.54 [facility] TC:HDL Ratio 3.27 Normal <5.10 [facility] Triglyceride mass conc 84 mg/dL Normal <150 [facility] Fasting Time 12 hrs Normal [facility] TSHon 11-11-2017 Thyrotropin Qn 3.740 uU/mL Normal 0.400-5.500 [facility] Vitamin D 25 Hydroxyon 11-11 Vitamin D 25 Hydroxy 54.3 ng/mL Normal 31.0-80.0 [facility] Office Visit: UC: vaginal ca ndidaon 06-01-2017 Documentation of current medications (procedure) Done Invalid Interpretation Code [facility] Work Phone: Fall risk assessment No Invalid Interpretation Code [facility] Work Phone: Tobacco use [facility] Never smoker Invalid Interpretation Code [facility] Work Phone: Dermatopathologyon Dermatopathology 06 Pathologist: NAHID AGUIRREate of Procedure: 04/12/2017Date Received: 04/13/2017Date Reported 04/14/2017Submitting Physician: SAGAR FLANAGAN MDLocation: ADERM FINAL DIAGNOSISSKIN, RIGHT SCAPULA, SHAVE BIOPSY:MODERATELY DYSPLASTIC JUNCTIONAL NEVUS, INKED MARGINS FREE IN PLANES OFSECTIONS EXAMINED. Electronically Signed Out by RENE ZAMUDIO M.D. Electronically SignedOut By RENE ZAMUDIO MD/[facility] Microscopic Description:Microscopic analysis shows an asymmetric proliferation of melanocytes, withlentiginous hyperplasia of epidermis. In addition to melanocytes that nestirregularly along the dermal-epidermal junction, other features of dysplasiainclude melanocyte bridging, papillary dermal fibroplasia, melanophages, andinflammatory cells in papillary dermis. The melanocytes show random cytologicatypia.Clinical History:R/O DPN. Shave Biopsy. ([facility]). Specimens Submitted As:A: SKIN, RIGHT SCAPULA Gross Description:Received in formalin is one roberts-brown piece of skin measuring [id number]. Thespecimen is inked and embedded in toto.cop/04/13/2017 Normal [facility] Comment on above: Performed By: #### D ####Dermatopathology Vital Signs Date Time Vital Sign Value Performing Clinician Marie lea 02-19-2025 03:41-0400 Body temperature 97 [degF] Dr. Ramona Luciano MD Work Phone: [facility] 02-19-2025 03:41-0400 Diastolic blood pressure 72 mm[Hg] Dr. Ramona Luciano MD Work Phone: [facility] 02-19-2025 03:41-0400 Heart rate 62 /min Dr. Ramona Luciano MD Work Phone: [facility] 02-19-2025 03:41-0400 Respiratory rate 17 /min Dr. Ramona Luciano MD Work Phone: 7(962)[phone] [place] [address] 02-19-2025 03:41-0400 SaO2% (BldA) [Mass fraction] 98 % Dr. Ramona Luciano MD Work Phone: 5(915)052-455115 [place] [address] 02-19-2025 03:41-0400 Systolic blood pressure 130 mm[Hg] Dr. Ramona Luciano MD Work Phone: 6(328)775-915915 [place] [address] 02-19-2025 00:34-0400 Body height 170.[address] Ramona Luciano MD Work Phone: 6(495)[phone] [place] [address] 02-19-2025 00:34-0400 Body mass index (BMI) [Ratio] 26.4 kg/m2 Dr. Ramona Luciano MD Work Phone: 9(908)[phone] [place] [address] 02-19-2025 00:34-0400 Body weight 76.[address] Ramona Luciano MD Work Phone: 9(457)004-932015 [place] [address] 01-06-2025 08:14-0400 Body mass index (BMI) [Ratio] 25.5 kg/m2 Dr. Ramona Luciano MD Work Phone: 7(426)645-359115 [place] [address] 01-06-2025 08:14-0400 Body temperature 98 [degF] Dr. Ramona Luciano MD Work Phone: 1(911)573-175515 [place] [address] 01-06-2025 08:14-0400 Body weight 73.[address] Ramona Luciano MD Work Phone: 8(735)755-988315 [place] [address] 01-06-2025 08:14-0400 Diastolic blood pressure 64 mm[Hg] Dr. Ramona Luciano MD Work Phone: 1(726)527-746615 [place] [address] 01-06-2025 08:14-0400 Heart rate 63 /min Dr. Ramona Luciano MD Work Phone: 4(864)141-661715 [place] [address] 01-06-2025 08:14-0400 Respiratory rate 16 /min Dr. Ramona Luciano MD Work Phone: 8(558)705-335915 [place] [address] 01-06-2025 08:14-0400 SaO2% (BldA) [Mass fraction] 97 % Dr. Ramona Luciano MD Work Phone: [facility] 01-06-2025 08:14-0400 Systolic blood pressure 106 mm[Hg] Dr. Ramona Luciano MD Work Phone: [facility] 08-19-2023 09:07-0500 Body height 170.[address] Ramona Luciano Work Phone: [facility] 08-19-2023 09:07-0500 Body mass index (BMI) [Ratio] 24.3 kg/m2 Dr. Ramona Luciano Work Phone: [facility] 08-19-2023 09:07-0500 Body temperature 97 [degF] Dr. Ramona Luciano Work Phone: [facility] 08-19-2023 09:07-0500 Body weight 70.[address] Ramona Luciano Work Phone: [facility] 08-19-2023 09:07-0500 Diastolic blood pressure 62 mm[Hg] Dr. Ramona Luciano Work Phone: [facility] 08-19-2023 09:07-0500 Heart rate 76 /min Dr. Ramona Luciano Work Phone: 3(320)497-002194 [address] 08-19-2023 09:07-0500 Respiratory rate 16 /min Dr. Ramona Luciano Work Phone: [facility] 08-19-2023 09:07-0500 SaO2% (BldA) [Mass fraction] 99 % Dr. Ramona Luciano Work Phone: [facility] 08-19-2023 09:07-0500 Systolic blood pressure 141 mm[Hg] Dr. Ramona Luciano Work Phone: [facility] 08-17-2023 09:35-0500 Body temperature 96.6 [degF] Dr. Ramona Luciano Work Phone: [facility] 08-17-2023 09:35-0500 Diastolic blood pressure 81 mm[Hg] Dr. Ramona Luciano Work Phone: [facility] 08-17-2023 09:35-0500 Heart rate 73 /min Dr. Ramona Luciano Work Phone: [facility] 08-17-2023 09:35-0500 Respiratory rate 16 /min Dr. Ramona Luciano Work Phone: [facility] 08-17-2023 09:35-0500 SaO2% (BldA) [Mass fraction] 100 % Dr. Ramona Luciano Work Phone: [facility] 08-17-2023 09:35-0500 Systolic blood pressure 145 mm[Hg] Dr. Ramona Luciano Work Phone: [facility] 08-17-2023 08:44-0500 Body height 170.[address] Ramona Luciano Work Phone: [facility] 08-16-2023 11:17-0500 Body temperature 97.1 [degF] Dr. Ramona Luciano Work Phone: [facility] 08-16-2023 11:17-0500 Diastolic blood pressure 73 mm[Hg] Dr. Ramona Luciano Work Phone: [facility] 08-16-2023 11:17-0500 Heart rate 67 /min Dr. Ramona Luciano Work Phone: [facility] 08-16-2023 11:17-0500 Respiratory rate 16 /min Dr. Ramona Luciano Work Phone: [facility] 08-16-2023 11:17-0500 SaO2% (BldA) [Mass fraction] 100 % Dr. Ramona Luciano Work Phone: [facility] 08-16-2023 11:17-0500 Systolic blood pressure 120 mm[Hg] Dr. Ramona Luciano Work Phone: [facility] 08-16-2023 10:24-0500 Body height 170.[address] Ramona Luciano Work Phone: [facility] 08-15-2023 12:51-0500 Diastolic blood pressure 69 mm[Hg] Dr. Ramona Luciano Work Phone: [facility] 08-15-2023 12:51-0500 Heart rate 62 /min Dr. Ramona Luciano Work Phone: [facility] 08-15-2023 12:51-0500 Respiratory rate 16 /min Dr. Ramona Luciano Work Phone: [facility] 08-15-2023 12:51-0500 Systolic blood pressure 128 mm[Hg] Dr. Ramona Luciano Work Phone: [facility] 08-15-2023 11:52-0500 Body temperature 96.9 [degF] Dr. Ramona Luciano Work Phone: [facility] 08-15-2023 11:52-0500 SaO2% (BldA) [Mass fraction] 99 % Dr. Ramona Luciano Work Phone: [facility] 08-14-2023 12:16-0500 Body temperature 98.2 [degF] Dr. Ramona Luciano Work Phone: [facility] 08-14-2023 12:16-0500 Diastolic blood pressure 69 mm[Hg] Dr. Ramona Luciano Work Phone: [facility] 08-14-2023 12:16-0500 Heart rate 74 /min Dr. Ramona Luciano Work Phone: [facility] 08-14-2023 12:16-0500 Respiratory rate 16 /min Dr. Ramona Luciano Work Phone: [facility] 08-14-2023 12:16-0500 SaO2% (BldA) [Mass fraction] 100 % Dr. Ramona Luciano Work Phone: [facility] 08-14-2023 12:16-0500 Systolic blood pressure 130 mm[Hg] Dr. Ramona Luciano Work Phone: [facility] 08-13-2023 13:35-0500 Body temperature 98.2 [degF] Dr. Ramona Luciano Work Phone: [facility] 08-13-2023 13:35-0500 Diastolic blood pressure 65 mm[Hg] Dr. Ramona Luciano Work Phone: [facility] 08-13-2023 13:35-0500 Heart rate 82 /min Dr. Ramona Luciano Work Phone: [facility] 08-13-2023 13:35-0500 Respiratory rate 15 /min Dr. Ramona Luciano Work Phone: [facility] 08-13-2023 13:35-0500 SaO2% (BldA) [Mass fraction] 98 % Dr. Ramona Luciano Work Phone: [facility] 08-13-2023 13:35-0500 Systolic blood pressure 120 mm[Hg] Dr. Ramona Luciano Work Phone: [facility] 08-12-2023 13:16-0500 Diastolic blood pressure 69 mm[Hg] Dr. Ramona Luciano Work Phone: [facility] 08-12-2023 13:16-0500 Heart rate 78 /min Dr. Ramona Luciano Work Phone: [facility] 08-12-2023 13:16-0500 Systolic blood pressure 128 mm[Hg] Dr. Ramona Luciano Work Phone: [facility] 08-12-2023 12:12-0500 Body height 170.[address] Ramona Luciano Work Phone: [facility] 08-12-2023 12:12-0500 Body temperature 97.1 [degF] Dr. Ramona Luciano Work Phone: [facility] 08-12-2023 12:12-0500 Respiratory rate 16 /min Dr. Ramona Luciano Work Phone: [facility] 08-12-2023 12:12-0500 SaO2% (BldA) [Mass fraction] 100 % Dr. Ramona Luciano Work Phone: [facility] 08-11-2023 14:10-0500 Body temperature 96.6 [degF] Dr. Ramona Luciano Work Phone: [facility] 08-11-2023 14:10-0500 Diastolic blood pressure 67 mm[Hg] Dr. Ramona Luciano Work Phone: [facility] 08-11-2023 14:10-0500 Heart rate 70 /min Dr. Ramona Luciano Work Phone: [facility] 08-11-2023 14:10-0500 Respiratory rate 16 /min Dr. Ramona Luciano Work Phone: [facility] 08-11-2023 14:10-0500 SaO2% (BldA) [Mass fraction] 100 % Dr. Ramona Luciano Work Phone: [facility] 08-11-2023 14:10-0500 Systolic blood pressure 129 mm[Hg] Dr. Ramona Luciano Work Phone: [facility] 08-11-2023 13:32-0500 Body height 170.[address] Ramona Luciano Work Phone: [facility] 08-10-2023 14:08-0500 Body temperature 96.7 [degF] Dr. Ramona Luciano Work Phone: [facility] 08-10-2023 14:08-0500 Diastolic blood pressure 60 mm[Hg] Dr. Ramona Luciano Work Phone: [facility] 08-10-2023 14:08-0500 Heart rate 79 /min Dr. Ramona Luciano Work Phone: [facility] 08-10-2023 14:08-0500 Respiratory rate 16 /min Dr. Ramona Luciano Work Phone: [facility] 08-10-2023 14:08-0500 SaO2% (BldA) [Mass fraction] 100 % Dr. Ramona Luciano Work Phone: [facility] 08-10-2023 14:08-0500 Systolic blood pressure 117 mm[Hg] Dr. Ramona Luciano Work Phone: [facility] 08-10-2023 13:10-0500 Body height 170.[address] Ramona Luciano Work Phone: [facility] 08-09-2023 13:12-0500 Body temperature 97.6 [degF] Dr. Ramona Luciano Work Phone: [facility] 08-09-2023 13:12-0500 Diastolic blood pressure 65 mm[Hg] Dr. Ramona Luciano Work Phone: [facility] 08-09-2023 13:12-0500 Heart rate 76 /min Dr. Ramona Luciano Work Phone: [facility] 08-09-2023 13:12-0500 Respiratory rate 16 /min Dr. Ramona Luciano Work Phone: [facility] 08-09-2023 13:12-0500 Systolic blood pressure 141 mm[Hg] Dr. Ramona Luciano Work Phone: [facility] 08-09-2023 12:12-0500 Body height 170.[address] Ramona Luciano Work Phone: [facility] 08-09-2023 12:12-0500 Body mass index (BMI) [Ratio] 24.3 kg/m2 Dr. Ramona Luciano Work Phone: [facility] 08-09-2023 12:12-0500 Body weight 70.[address] Ramona Luciano Work Phone: [facility] 08-08-2023 14:30-0500 Body temperature 97.6 [degF] Dr. Ramona Luciano Work Phone: [facility] 08-08-2023 14:30-0500 Diastolic blood pressure 65 mm[Hg] Dr. Ramona Luciano Work Phone: [facility] 08-08-2023 14:30-0500 Heart rate 76 /min Dr. Ramona Luciano Work Phone: [facility] 08-08-2023 14:30-0500 Respiratory rate 16 /min Dr. Ramona Luciano Work Phone: [facility] 08-08-2023 14:30-0500 Systolic blood pressure 123 mm[Hg] Dr. Ramona Luciano Work Phone: [facility] 08-08-2023 13:28-0500 Body height 170.[address] Ramona Luciano Work Phone: [facility] 08-08-2023 13:28-0500 Body mass index (BMI) [Ratio] 24.3 kg/m2 Dr. Ramona Luciano Work Phone: [facility] 08-08-2023 13:28-0500 Body weight 70.[address] Ramona Luciano Work Phone: [facility] 08-07-2023 12:55-0500 Body temperature 98.4 [degF] Dr. Ramona Luciano Work Phone: [facility] 08-07-2023 12:55-0500 Diastolic blood pressure 69 mm[Hg] Dr. Ramona Luciano Work Phone: [facility] 08-07-2023 12:55-0500 Heart rate 75 /min Dr. Ramona Luciano Work Phone: [facility] 08-07-2023 12:55-0500 Respiratory rate 18 /min Dr. Ramona Luciano Work Phone: [facility] 08-07-2023 12:55-0500 SaO2% (BldA) [Mass fraction] 100 % Dr. Ramona Luciano Work Phone: [facility] 08-07-2023 12:55-0500 Systolic blood pressure 121 mm[Hg] Dr. Ramona Luciano Work Phone: [facility] 08-06-2023 13:57-0500 Body temperature 98 [degF] Dr. Ramona Luciano Work Phone: [facility] 08-06-2023 13:57-0500 Diastolic blood pressure 68 mm[Hg] Dr. Ramona Luciano Work Phone: [facility] 08-06-2023 13:57-0500 Heart rate 84 /min Dr. Ramona Luciano Work Phone: [facility] 08-06-2023 13:57-0500 Respiratory rate 18 /min Dr. Ramona Luciano Work Phone: [facility] 08-06-2023 13:57-0500 SaO2% (BldA) [Mass fraction] 98 % Dr. Ramona Luciano Work Phone: [facility] 08-06-2023 13:57-0500 Systolic blood pressure 127 mm[Hg] Dr. Ramona Luciano Work Phone: [facility] 08-05-2023 14:11-0500 Body temperature 97.2 [degF] Dr. Ramona Luciano Work Phone: [facility] 08-05-2023 14:11-0500 Diastolic blood pressure 60 mm[Hg] Dr. Ramona Luciano Work Phone: [facility] 08-05-2023 14:11-0500 Heart rate 70 /min Dr. Ramona Luciano Work Phone: [facility] 08-05-2023 14:11-0500 Respiratory rate 16 /min Dr. Ramona Luciano Work Phone: [facility] 08-05-2023 14:11-0500 SaO2% (BldA) [Mass fraction] 100 % Dr. Ramona Luciano Work Phone: [facility] 08-05-2023 14:11-0500 Systolic blood pressure 125 mm[Hg] Dr. Ramona Luciano Work Phone: [facility] 08-05-2023 13:00-0500 Body height 170.[address] Ramona Luciano Work Phone: [facility] 08-05-2023 13:00-0500 Body mass index (BMI) [Ratio] 24.4 kg/m2 Dr. Ramona Luciano Work Phone: [facility] 08-05-2023 13:00-0500 Body weight 70.[address] Ramona Luciano Work Phone: [facility] 08-04-2023 14:50-0500 Body temperature 97.5 [degF] Dr. Ramona Luciano Work Phone: [facility] 08-04-2023 14:50-0500 Diastolic blood pressure 72 mm[Hg] Dr. Ramona Luciano Work Phone: 7(004)436-030198 [place] [address] 08-04-2023 14:50-0500 Heart rate 69 /min Dr. Ramona Luciano Work Phone: 9(777)925-744598 [place] [address] 08-04-2023 14:50-0500 Respiratory rate 16 /min Dr. Ramona Luciano Work Phone: 6(971)493-425015 [place] [address] 08-04-2023 14:50-0500 SaO2% (BldA) [Mass fraction] 100 % Dr. Ramona Luciano Work Phone: 9(965)337-402915 [place] [address] 08-04-2023 14:50-0500 Systolic blood pressure 134 mm[Hg] Dr. Ramona Luciano Work Phone: 2(646)783-783998 [place] [address] 08-04-2023 13:40-0500 Body height 170.[address] Ramona Luciano Work Phone: 6(061)391-060915 [place] [address] 08-04-2023 13:40-0500 Body mass index (BMI) [Ratio] 24.4 kg/m2 Dr. Ramona Luciano Work Phone: 2(432)966-369698 [place] [address] 08-04-2023 13:40-0500 Body weight 70.[address] Ramona Luciano Work Phone: [facility] 08-03-2023 14:11-0500 Body temperature 97.4 [degF] Dr. Ramona Luciano Work Phone: 9(311)065-725998 [place] [address] 08-03-2023 14:11-0500 Diastolic blood pressure 73 mm[Hg] Dr. Ramona Luciano Work Phone: [facility] 08-03-2023 14:11-0500 Heart rate 70 /min Dr. Ramona Luciano Work Phone: [facility] 08-03-2023 14:11-0500 Respiratory rate 16 /min Dr. Ramona Luciano Work Phone: [facility] 08-03-2023 14:11-0500 Systolic blood pressure 139 mm[Hg] Dr. Ramona Luciano Work Phone: [facility] 08-03-2023 13:10-0500 Body height 170.[address] Ramona Luciano Work Phone: 2(920)376-720194 [address] 08-03-2023 13:10-0500 Body mass index (BMI) [Ratio] 24.3 kg/m2 Dr. Ramona Luciano Work Phone: 4(403)878-970894 [address] 08-03-2023 13:10-0500 Body weight 70.[address] Ramona Luciano Work Phone: 2(401)658-908215 [place] [address] 08-03-2023 13:10-0500 SaO2% (BldA) [Mass fraction] 99 % Dr. Ramona Luciano Work Phone: 3(819)859-127698 [place] [address] 08-02-2023 14:36-0500 Diastolic blood pressure 70 mm[Hg] Dr. Ramona Luciano Work Phone: 9(759)293-744394 [address] 08-02-2023 14:36-0500 Heart rate 72 /min Dr. Ramona Luciano Work Phone: 3(124)647-113694 [address] 08-02-2023 14:36-0500 Systolic blood pressure 116 mm[Hg] Dr. Ramona Luciano Work Phone: 1(522)972-788998 [place] [address] 08-02-2023 13:35-0500 Body height 170.[address] Ramona Luciano Work Phone: 8(398)228-751398 [place] [address] 08-02-2023 13:35-0500 Body mass index (BMI) [Ratio] 24.4 kg/m2 Dr. Ramona Luciano Work Phone: 6(931)231-465998 [place] [address] 08-02-2023 13:35-0500 Body temperature 97.8 [degF] Dr. Ramona Luciano Work Phone: 9(540)792-413398 [place] [address] 08-02-2023 13:35-0500 Body weight 70.[address] Ramona Luciano Work Phone: [facility] 08-02-2023 13:35-0500 Respiratory rate 16 /min Dr. Ramona Luciano Work Phone: [facility] 08-02-2023 13:35-0500 SaO2% (BldA) [Mass fraction] 99 % Dr. Ramona Luciano Work Phone: [facility] 08-01-2023 14:16-0500 Diastolic blood pressure 75 mm[Hg] Dr. Ramona Luciano Work Phone: [facility] 08-01-2023 14:16-0500 Heart rate 72 /min Dr. Ramona Luciano Work Phone: [facility] 08-01-2023 14:16-0500 Systolic blood pressure 135 mm[Hg] Dr. Ramona Luciano Work Phone: [facility] 08-01-2023 13:16-0500 Body height 170.[address] Ramona Luciano Work Phone: [facility] 08-01-2023 13:16-0500 Body temperature 97.1 [degF] Dr. Ramona Luciano Work Phone: [facility] 08-01-2023 13:16-0500 Respiratory rate 16 /min Dr. Ramona Luciano Work Phone: [facility] 08-01-2023 13:16-0500 SaO2% (BldA) [Mass fraction] 97 % Dr. Ramona Luciano Work Phone: [facility] 07-31-2023 13:06-0500 Body temperature 97.8 [degF] Dr. Ramona Luciano Work Phone: [facility] 07-31-2023 13:06-0500 Diastolic blood pressure 54 mm[Hg] Dr. Ramona Luciano Work Phone: [facility] 07-31-2023 13:06-0500 Heart rate 71 /min Dr. Ramona Luciano Work Phone: [facility] 07-31-2023 13:06-0500 Respiratory rate 18 /min Dr. Ramona Luciano Work Phone: [facility] 07-31-2023 13:06-0500 SaO2% (BldA) [Mass fraction] 100 % Dr. Ramona Luciano Work Phone: [facility] 07-31-2023 13:06-0500 Systolic blood pressure 110 mm[Hg] Dr. Ramona Luciano Work Phone: [facility] 07-30-2023 13:13-0400 Body temperature 97.8 [degF] Dr. Ramona Luciano Work Phone: [facility] 07-30-2023 13:13-0400 Diastolic blood pressure 65 mm[Hg] Dr. Ramona Luciano Work Phone: [facility] 07-30-2023 13:13-0400 Heart rate 73 /min Dr. Ramona Luciano Work Phone: [facility] 07-30-2023 13:13-0400 Respiratory rate 18 /min Dr. Ramona Luciano Work Phone: [facility] 07-30-2023 13:13-0400 SaO2% (BldA) [Mass fraction] 100 % Dr. Ramona Luciano Work Phone: [facility] 07-30-2023 13:13-0400 Systolic blood pressure 106 mm[Hg] Dr. Ramona Luciano Work Phone: [facility] 07-29-2023 12:54-0400 Body temperature 97.3 [degF] Dr. Rmaona Luciano Work Phone: [facility] 07-29-2023 12:54-0400 Diastolic blood pressure 68 mm[Hg] Dr. Ramona Luciano Work Phone: [facility] 07-29-2023 12:54-0400 Heart rate 72 /min Dr. Ramona Luciano Work Phone: [facility] 07-29-2023 12:54-0400 Respiratory rate 16 /min Dr. Ramona Luciano Work Phone: [facility] 07-29-2023 12:54-0400 SaO2% (BldA) [Mass fraction] 97 % Dr. Ramona Luciano Work Phone: [facility] 07-29-2023 12:54-0400 Systolic blood pressure 129 mm[Hg] Dr. Ramona Luciano Work Phone: 4(613)163-140998 [place] [address] 07-29-2023 11:53-0400 Body height 170.18 cm Dr. Ramona Luciano Work Phone: [facility] 07-29-2023 11:53-0400 Body mass index (BMI) [Ratio] 24.2 kg/m2 Dr. Ramona Luciano Work Phone: 9(480)920-654698 [place] [address] 07-29-2023 11:53-0400 Body weight 70.[address] Ramona Luciano Work Phone: 2(384)254-358498 [place] [address] 07-28-2023 14:36-0400 Body temperature 97.5 [degF] Dr. Ramona Luciano Work Phone: 9(287)023-970398 [place] [address] 07-28-2023 14:36-0400 Diastolic blood pressure 58 mm[Hg] Dr. Ramona Luciano Work Phone: 6(164)593-758598 [place] [address] 07-28-2023 14:36-0400 Heart rate 73 /min Dr. Ramona Luciano Work Phone: 9(322)506-816698 [place] [address] 07-28-2023 14:36-0400 Respiratory rate 16 /min Dr. Ramona Luciano Work Phone: [facility] 07-28-2023 14:36-0400 SaO2% (BldA) [Mass fraction] 99 % Dr. Ramona Luciano Work Phone: [facility] 07-28-2023 14:36-0400 Systolic blood pressure 112 mm[Hg] Dr. Ramona Luciano Work Phone: [facility] 07-27-2023 14:16-0400 Body temperature 97.1 [degF] Dr. Ramona Luciano Work Phone: 0(789)754-666098 [place] [address] 07-27-2023 14:16-0400 Diastolic blood pressure 59 mm[Hg] Dr. Ramona Luciano Work Phone: [facility] 07-27-2023 14:16-0400 Heart rate 75 /min Dr. Ramona Luciano Work Phone: [facility] 07-27-2023 14:16-0400 Respiratory rate 16 /min Dr. Ramona Luciano Work Phone: 6(877)744-019098 [place] [address] 07-27-2023 14:16-0400 SaO2% (BldA) [Mass fraction] 97 % Dr. Ramona Luciano Work Phone: 0(020)105-679398 [place] [address] 07-27-2023 14:16-0400 Systolic blood pressure 122 mm[Hg] Dr. Ramona Luciano Work Phone: 9(460)134-209494 [address] 07-27-2023 13:08-0400 Body height 170.[address] Ramona Luciano Work Phone: 6(634)243-438294 [address] 07-27-2023 13:08-0400 Body mass index (BMI) [Ratio] 24.1 kg/m2 Dr. Ramona Luciano Work Phone: 9(427)882-158298 [place] [address] 07-27-2023 13:08-0400 Body weight 69.[address] Ramona Luciano Work Phone: [facility] 07-26-2023 14:07-0400 Body temperature 96.9 [degF] Dr. Ramona Luciano Work Phone: [facility] 07-26-2023 14:07-0400 Diastolic blood pressure 59 mm[Hg] Dr. Ramona Luciano Work Phone: [facility] 07-26-2023 14:07-0400 Heart rate 76 /min Dr. Ramona Luciano Work Phone: [facility] 07-26-2023 14:07-0400 Respiratory rate 16 /min Dr. Ramona Luciano Work Phone: [facility] 07-26-2023 14:07-0400 SaO2% (BldA) [Mass fraction] 98 % Dr. Ramona Luciano Work Phone: [facility] 07-26-2023 14:07-0400 Systolic blood pressure 129 mm[Hg] Dr. Ramona Luciano Work Phone: [facility] 07-26-2023 13:07-0400 Body height 170.[address] Ramona Luciano Work Phone: 6(987)882-147115 [place] [address] 07-25-2023 14:14-0400 Diastolic blood pressure 65 mm[Hg] Dr. Ramona Luciano Work Phone: 0(937)795-488194 [address] 07-25-2023 14:14-0400 Heart rate 76 /min Dr. Ramona Luciano Work Phone: 3(849)636-744915 [place] [address] 07-25-2023 14:14-0400 Systolic blood pressure 117 mm[Hg] Dr. Ramona Luciano Work Phone: 6(851)249-903115 [place] [address] 07-25-2023 13:16-0400 Body height 170.[address] Ramona Luciano Work Phone: 4(803)306-845415 [place] [address] 07-25-2023 13:16-0400 Body mass index (BMI) [Ratio] 24.3 kg/m2 Dr. Ramona Luciano Work Phone: 2(864)722-957915 [place] [address] 07-25-2023 13:16-0400 Body temperature 97.4 [degF] Dr. Ramona Luciano Work Phone: 5(121)123-360415 [place] [address] 07-25-2023 13:16-0400 Body weight 70.[address] Ramona Luciano Work Phone: 0(031)313-442394 [address] 07-25-2023 13:16-0400 Respiratory rate 16 /min Dr. Ramona Luciano Work Phone: 8(857)544-939015 [place] [address] 07-25-2023 13:16-0400 SaO2% (BldA) [Mass fraction] 100 % Dr. Ramona Luciano Work Phone: 6(121)634-516398 [place] [address] 07-24-2023 13:11-0400 Body temperature 97.2 [degF] Dr. Ramona Luciano Work Phone: 5(604)184-681615 [place] [address] 07-24-2023 13:11-0400 Diastolic blood pressure 73 mm[Hg] Dr. Ramona Luciano Work Phone: [facility] 07-24-2023 13:11-0400 Heart rate 68 /min Dr. Ramona Luciano Work Phone: [facility] 07-24-2023 13:11-0400 Respiratory rate 16 /min Dr. Ramona Luciano Work Phone: [facility] 07-24-2023 13:11-0400 SaO2% (BldA) [Mass fraction] 99 % Dr. Ramona Luciano Work Phone: [facility] 07-24-2023 13:11-0400 Systolic blood pressure 132 mm[Hg] Dr. Ramona Luciano Work Phone: 0(045)738-888298 [place] [address] 07-22-2023 14:17-0400 Diastolic blood pressure 69 mm[Hg] Dr. Ramona Luciano Work Phone: 9(460)849-371298 [place] [address] 07-22-2023 14:17-0400 Heart rate 72 /min Dr. Ramona Luciano Work Phone: 5(410)007-108198 [place] [address] 07-22-2023 14:17-0400 Respiratory rate 16 /min Dr. Ramona Luciano Work Phone: [facility] 07-22-2023 14:17-0400 SaO2% (BldA) [Mass fraction] 100 % Dr. Ramona Luciano Work Phone: [facility] 07-22-2023 14:17-0400 Systolic blood pressure 142 mm[Hg] Dr. Ramona Luciano Work Phone: [facility] 07-22-2023 13:14-0400 Body height 170.[address] Ramona Luciano Work Phone: [facility] 07-22-2023 13:14-0400 Body temperature 97.2 [degF] Dr. Ramona Luciano Work Phone: 6(616)637-542398 [place] [address] 07-21-2023 15:17-0400 Body temperature 97.9 [degF] Dr. Ramona Luciano Work Phone: [facility] 07-21-2023 15:17-0400 Diastolic blood pressure 67 mm[Hg] Dr. Ramona Luciano Work Phone: [facility] 07-21-2023 15:17-0400 Heart rate 71 /min Dr. Ramona Luciano Work Phone: 8(287)319-563298 [place] [address] 07-21-2023 15:17-0400 Respiratory rate 16 /min Dr. Ramona Luciano Work Phone: 3(539)348-389298 [place] [address] 07-21-2023 15:17-0400 SaO2% (BldA) [Mass fraction] 98 % Dr. Ramona Luciano Work Phone: 9(441)161-497194 [address] 07-21-2023 15:17-0400 Systolic blood pressure 134 mm[Hg] Dr. Ramona Luciano Work Phone: 9(584)148-134994 [address] 07-21-2023 14:23-0400 Body height 170.[address] Ramona Luciano Work Phone: 2(449)248-817694 [address] 07-21-2023 14:23-0400 Body mass index (BMI) [Ratio] 24.3 kg/m2 Dr. Ramona Luciano Work Phone: 8(108)951-403515 [place] [address] 07-21-2023 14:23-0400 Body weight 70.[address] Ramona Luciano Work Phone: 0(613)776-002798 [place] [address] 07-20-2023 14:36-0400 Body temperature 96 [degF] Dr. Ramona Luciano Work Phone: [facility] 07-20-2023 14:36-0400 Diastolic blood pressure 62 mm[Hg] Dr. Ramona Luciano Work Phone: 9(612)023-608498 [place] [address] 07-20-2023 14:36-0400 Heart rate 75 /min Dr. Ramona Luciano Work Phone: [facility] 07-20-2023 14:36-0400 Respiratory rate 16 /min Dr. Ramona Luciano Work Phone: [facility] 07-20-2023 14:36-0400 SaO2% (BldA) [Mass fraction] 100 % Dr. Ramona Luciano Work Phone: [facility] 07-20-2023 14:36-0400 Systolic blood pressure 127 mm[Hg] Dr. Ramona Luciano Work Phone: [facility] 07-20-2023 13:36-0400 Body height 170.[address] Ramona Luciano Work Phone: 4(734)153-623494 [address] 07-19-2023 13:24-0400 Body temperature 97.2 [degF] Dr. Ramona Luciano Work Phone: 1(230)324-272794 [address] 07-19-2023 13:24-0400 Diastolic blood pressure 71 mm[Hg] Dr. Ramona Luciano Work Phone: 0(056)961-183615 [place] [address] 07-19-2023 13:24-0400 Heart rate 73 /min Dr. Ramona Luciano Work Phone: 5(290)216-020515 [place] [address] 07-19-2023 13:24-0400 Respiratory rate 16 /min Dr. Ramona Luciano Work Phone: 0(296)034-129894 [address] 07-19-2023 13:24-0400 SaO2% (BldA) [Mass fraction] 100 % Dr. Ramona Luciano Work Phone: 3(589)542-526594 [address] 07-19-2023 13:24-0400 Systolic blood pressure 120 mm[Hg] Dr. Ramona Luciano Work Phone: 5(914)907-843498 [place] [address] 07-19-2023 12:05-0400 Body height 170.[address] Ramona Luciano Work Phone: 9(188)211-835615 [place] [address] 07-19-2023 12:05-0400 Body mass index (BMI) [Ratio] 24.1 kg/m2 Dr. Ramona Luciano Work Phone: 4(017)989-692898 [place] [address] 07-19-2023 12:05-0400 Body weight 69.[address] Ramona Luciano Work Phone: 5(190)354-319498 [place] [address] 07-18-2023 14:10-0400 Body temperature 97.4 [degF] Dr. Ramona Luciano Work Phone: [facility] 07-18-2023 14:10-0400 Diastolic blood pressure 63 mm[Hg] Dr. Ramona Luciano Work Phone: [facility] 07-18-2023 14:10-0400 Heart rate 73 /min Dr. Ramona Luciano Work Phone: 8(863)417-883698 [place] [address] 07-18-2023 14:10-0400 Respiratory rate 16 /min Dr. Ramona Luciano Work Phone: 4(701)167-351994 [address] 07-18-2023 14:10-0400 SaO2% (BldA) [Mass fraction] 99 % Dr. Ramona Luciano Work Phone: 3(132)810-451794 [address] 07-18-2023 14:10-0400 Systolic blood pressure 119 mm[Hg] Dr. Ramona Luciano Work Phone: 0(985)627-781515 [place] [address] 07-18-2023 13:09-0400 Body height 170.[address] Ramona Luciano Work Phone: 1(522)496-417194 [address] 07-18-2023 13:09-0400 Body mass index (BMI) [Ratio] 24.3 kg/m2 Dr. Ramona Luciano Work Phone: 7(122)783-317515 [place] [address] 07-18-2023 13:09-0400 Body weight 70.[address] Ramona Luciano Work Phone: 3(959)161-237598 [place] [address] 07-15-2023 14:04-0400 Body temperature 97.5 [degF] Dr. Ramona Luciano Work Phone: [facility] 07-15-2023 14:04-0400 Diastolic blood pressure 71 mm[Hg] Dr. Ramona Luciano Work Phone: 9(520)060-744098 [place] [address] 07-15-2023 14:04-0400 Heart rate 72 /min Dr. Ramona Luciano Work Phone: 8(067)954-962998 [place] [address] 07-15-2023 14:04-0400 Respiratory rate 16 /min Dr. Ramona Luciano Work Phone: 8(896)826-245998 [place] [address] 07-15-2023 14:04-0400 SaO2% (BldA) [Mass fraction] 99 % Dr. Ramona Luciano Work Phone: [facility] 07-15-2023 14:04-0400 Systolic blood pressure 119 mm[Hg] Dr. Ramona Luciano Work Phone: [facility] 07-15-2023 12:59-0400 Body height 170.[address] Ramona Luciano Work Phone: 3(776)541-038998 [place] [address] 07-14-2023 14:48-0400 Body mass index (BMI) [Ratio] 24.1 kg/m2 Dr. Ramona Luciano Work Phone: 3(310)189-333498 [place] [address] 07-14-2023 14:48-0400 Body temperature 98.1 [degF] Dr. Ramona Luciano Work Phone: 9(082)044-934298 [place] [address] 07-14-2023 14:48-0400 Body weight 69.[address] Ramona Luciano Work Phone: [facility] 07-14-2023 14:48-0400 Diastolic blood pressure 69 mm[Hg] Dr. Ramona Luciano Work Phone: 1(108)757-456898 [place] [address] 07-14-2023 14:48-0400 Heart rate 77 /min Dr. Ramona Luciano Work Phone: 2(142)738-404298 [place] [address] 07-14-2023 14:48-0400 Respiratory rate 16 /min Dr. Ramona Luciano Work Phone: [facility] 07-14-2023 14:48-0400 SaO2% (BldA) [Mass fraction] 99 % Dr. Ramona Luciano Work Phone: [facility] 07-14-2023 14:48-0400 Systolic blood pressure 128 mm[Hg] Dr. Ramona Luciano Work Phone: [facility] 07-13-2023 14:37-0400 Body temperature 97.4 [degF] Dr. Ramona Luciano Work Phone: [facility] 07-13-2023 14:37-0400 Diastolic blood pressure 64 mm[Hg] Dr. Ramona Luciano Work Phone: [facility] 07-13-2023 14:37-0400 Heart rate 75 /min Dr. Ramona Luciano Work Phone: [facility] 07-13-2023 14:37-0400 Respiratory rate 16 /min Dr. Ramona Luciano Work Phone: 7(977)955-515798 [place] [address] 07-13-2023 14:37-0400 SaO2% (BldA) [Mass fraction] 99 % Dr. Ramona Luciano Work Phone: 2(301)746-010298 [place] [address] 07-13-2023 14:37-0400 Systolic blood pressure 137 mm[Hg] Dr. Ramona Luciano Work Phone: 7(147)818-220815 [place] [address] 07-13-2023 13:41-0400 Body height 170.[address] Ramona Luciano Work Phone: 8(718)063-601794 [address] 07-12-2023 14:19-0400 Body temperature 97.3 [degF] Dr. Ramona Luciano Work Phone: 7(353)334-607315 [place] [address] 07-12-2023 14:19-0400 Diastolic blood pressure 68 mm[Hg] Dr. Ramona Luciano Work Phone: 0(162)216-904615 [place] [address] 07-12-2023 14:19-0400 Heart rate 74 /min Dr. Ramnoa Luciano Work Phone: 2(248)145-924098 [place] [address] 07-12-2023 14:19-0400 Respiratory rate 16 /min Dr. Ramona Lucinao Work Phone: [facility] 07-12-2023 14:19-0400 SaO2% (BldA) [Mass fraction] 97 % Dr. Ramona Luciano Work Phone: 6(509)183-123298 [place] [address] 07-12-2023 14:19-0400 Systolic blood pressure 144 mm[Hg] Dr. Ramona Luciano Work Phone: 9(157)511-083415 [place] [address] 07-12-2023 13:09-0400 Body height 170.[address] Ramona Luciano Work Phone: [facility] 07-12-2023 13:09-0400 Body mass index (BMI) [Ratio] 24.3 kg/m2 Dr. Ramona Luciano Work Phone: [facility] 07-12-2023 13:09-0400 Body weight 70.[address] Ramona Luciano Work Phone: [facility] 07-11-2023 15:13-0400 Body temperature 97.2 [degF] Dr. Ramona Luciano Work Phone: [facility] 07-11-2023 15:13-0400 Diastolic blood pressure 59 mm[Hg] Dr. Ramona Luciano Work Phone: 6(892)142-857715 [place] [address] 07-11-2023 15:13-0400 Heart rate 75 /min Dr. Ramona Luciano Work Phone: 5(530)415-651815 [place] [address] 07-11-2023 15:13-0400 Respiratory rate 16 /min Dr. Ramona Luciano Work Phone: 2(747)366-065815 [place] [address] 07-11-2023 15:13-0400 SaO2% (BldA) [Mass fraction] 98 % Dr. Ramona Luciano Work Phone: 0(487)946-477215 [place] [address] 07-11-2023 15:13-0400 Systolic blood pressure 116 mm[Hg] Dr. Ramona Luciano Work Phone: 5(153)647-923898 [place] [address] 07-11-2023 14:30-0400 Body mass index (BMI) [Ratio] 24.3 kg/m2 Dr. Ramona Luciano Work Phone: [facility] 07-11-2023 14:30-0400 Body weight 70.[address] Ramona Luciano Work Phone: 5(211)727-643198 [place] [address] 07-10-2023 14:00-0400 Body temperature 98.2 [degF] Dr. Ramona Luciano Work Phone: 6(575)264-680098 [place] [address] 07-10-2023 14:00-0400 Diastolic blood pressure 74 mm[Hg] Dr. Ramona Luciano Work Phone: 1(813)659-217398 [place] [address] 07-10-2023 14:00-0400 Heart rate 99 /min Dr. Ramona Luciano Work Phone: [facility] 07-10-2023 14:00-0400 Respiratory rate 18 /min Dr. Ramona Luciano Work Phone: [facility] 07-10-2023 14:00-0400 SaO2% (BldA) [Mass fraction] 98 % Dr. Ramona Luciano Work Phone: [facility] 07-10-2023 14:00-0400 Systolic blood pressure 111 mm[Hg] Dr. Ramona Luciano Work Phone: [facility] 07-09-2023 14:20-0400 Body height 170.[address] Ramona Luciano Work Phone: [facility] 07-09-2023 14:20-0400 Body mass index (BMI) [Ratio] 24.4 kg/m2 Dr. Ramona Luciano Work Phone: [facility] 07-09-2023 14:20-0400 Body temperature 98.4 [degF] Dr. Ramona Luciano Work Phone: [facility] 07-09-2023 14:20-0400 Body weight 70.[address] Ramona Luciano Work Phone: [facility] 07-09-2023 14:20-0400 Diastolic blood pressure 72 mm[Hg] Dr. Ramona Luciano Work Phone: [facility] 07-09-2023 14:20-0400 Heart rate 87 /min Dr. Ramona Luciano Work Phone: [facility] 07-09-2023 14:20-0400 Respiratory rate 18 /min Dr. Ramona Luciano Work Phone: [facility] 07-09-2023 14:20-0400 SaO2% (BldA) [Mass fraction] 98 % Dr. Ramona Luciano Work Phone: [facility] 07-09-2023 14:20-0400 Systolic blood pressure 128 mm[Hg] Dr. Ramona Luciano Work Phone: [facility] 07-08-2023 16:23-0400 Body temperature 98.4 [degF] Dr. Ramona Luciano Work Phone: [facility] 07-08-2023 16:23-0400 Diastolic blood pressure 68 mm[Hg] Dr. Ramona Luciano Work Phone: [facility] 07-08-2023 16:23-0400 Heart rate 80 /min Dr. Ramona Luciano Work Phone: [facility] 07-08-2023 16:23-0400 Respiratory rate 18 /min Dr. Ramona Luciano Work Phone: [facility] 07-08-2023 16:23-0400 SaO2% (BldA) [Mass fraction] 100 % Dr. Ramona Luciano Work Phone: [facility] 07-08-2023 16:23-0400 Systolic blood pressure 118 mm[Hg] Dr. Ramona Luciano Work Phone: [facility] 07-08-2023 13:20-0400 Body height 170.[address] Ramona Luciano Work Phone: [facility] 07-08-2023 13:20-0400 Body mass index (BMI) [Ratio] 24.4 kg/m2 Dr. Ramona Luciano Work Phone: [facility] 07-08-2023 13:20-0400 Body temperature 98 [degF] Dr. Ramona Luciano Work Phone: [facility] 07-08-2023 13:20-0400 Body weight 70.[address] Ramona Luciano Work Phone: [facility] 07-08-2023 13:20-0400 Diastolic blood pressure 47 mm[Hg] Dr. Ramona Luciano Work Phone: [facility] 07-08-2023 13:20-0400 Heart rate 84 /min Dr. Ramona Luciano Work Phone: [facility] 07-08-2023 13:20-0400 Respiratory rate 18 /min Dr. Ramona Luciano Work Phone: [facility] 07-08-2023 13:20-0400 SaO2% (BldA) [Mass fraction] 99 % Dr. Ramona Luciano Work Phone: [facility] 07-08-2023 13:20-0400 Systolic blood pressure 125 mm[Hg] Dr. Ramona Luciano Work Phone: [facility] 06-02-2023 09:19-0400 Blood Pressure Cuff Size DR HATTIE WALDEN MD [facility] 06-02-2023 09:19-[address] HATTIE WALDEN MD [facility] 06-02-2023 09:19-[address] HATTIE Rangel [facility] 06-02-2023 09:19-0400 Body height 170.[address] HATTIE WALDEN MD [facility] 06-02-2023 09:19-0400 Body weight [address] HATTIE WALDEN MD [facility] 06-02-2023 09:19-0400 Body weight 24.16 kg/m2 DR HATTIE WALDEN MD [facility] 06-02-2023 09:19-0400 Diastolic Blood Pressure Non-Invasive [address] HATTIE WALDEN MD [facility] 06-02-2023 09:19-0400 Heart rate 65 /min DR HATTIE WALDEN MD [facility] 06-02-2023 09:19-0400 Systolic Blood Pressure Non-Invasive [address] HATTIE WALDEN MD [facility] 02-05-2022 17:11-0400 Diastolic blood pressure 61 mm[Hg] Dr. Ramona Luciano Work Phone: [facility] Work Phone: 02-05-2022 17:11-0400 Heart rate 67 /min Dr. Ramona Luciano Work Phone: [facility] Work Phone: 02-05-2022 17:11-0400 Respiratory rate 14 /min Dr. Ramona Luciano Work Phone: [facility] Work Phone: 02-05-2022 17:11-0400 SaO2% (BldA) [Mass fraction] 100 % Dr. Ramona Luciano Work Phone: [facility] Work Phone: 02-05-2022 17:11-0400 Systolic blood pressure 122 mm[Hg] Dr. Ramona Luciano Work Phone: [facility] Work Phone: 02-05-2022 13:51-0400 Body height 170.[address] Ramona Luciano Work Phone: [facility] Work Phone: 02-05-2022 13:51-0400 Body mass index (BMI) [Ratio] 24.5 kg/m2 Dr. Ramona Luciano Work Phone: [facility] Work Phone: 02-05-2022 13:51-0400 Body temperature 97.3 [degF] Dr. Ramona Luciano Work Phone: [facility] Work Phone: 02-05-2022 13:51-0400 Body weight 71.[address] Ramona Luciano Work Phone: [facility] Work Phone: 12-30-2021 10:02-0400 Body mass index (BMI) [Ratio] 25.2 kg/m2 Dr. Ramona Luciano Work Phone: [facility] Work Phone: 12-30-2021 10:02-0400 Body weight 74.[address] Ramona Luciano Work Phone: [facility] Work Phone: 12-30-2021 10:02-0400 Diastolic blood pressure 58 mm[Hg] Dr. Ramona Luciano Work Phone: [facility] Work Phone: 12-30-2021 10:02-0400 Heart rate 75 /min Dr. Ramona Luciano Work Phone: [facility] Work Phone: 12-30-2021 10:02-0400 Respiratory rate 18 /min Dr. Ramona Luciano Work Phone: [facility] Work Phone: 12-30-2021 10:02-0400 SaO2% (BldA) [Mass fraction] 95 % Dr. Ramona Luciano Work Phone: [facility] Work Phone: 12-30-2021 10:02-0400 Systolic blood pressure 108 mm[Hg] Dr. Ramona Luciano Work Phone: [facility] Work Phone: 10-29-2021 09:24-0500 Body temperature 97.2 [degF] Dr. Ramona Luciano Work Phone: [facility] Work Phone: 10-29-2021 09:24-0500 Diastolic blood pressure 67 mm[Hg] Dr. Ramona Luciano Work Phone: [facility] Work Phone: 10-29-2021 09:24-0500 Heart rate 57 /min Dr. Ramona Luciano Work Phone: [facility] Work Phone: 10-29-2021 09:24-0500 Respiratory rate 15 /min Dr. Ramona Luciano Work Phone: [facility] Work Phone: 10-29-2021 09:24-0500 SaO2% (BldA) [Mass fraction] 100 % Dr. Ramona Luciano Work Phone: [facility] Work Phone: 10-29-2021 09:24-0500 Systolic blood pressure 137 mm[Hg] Dr. Ramona Luciano Work Phone: [facility] Work Phone: 10-29-2021 07:29-0500 Body mass index (BMI) [Ratio] 24.8 kg/m2 Dr. Ramona Luciano Work Phone: [facility] Work Phone: 10-29-2021 07:29-0500 Body weight [address] Ramona Luciano Work Phone: [facility] Work Phone: 06-01-2017 08:54-0400 BMI (Body Mass Index) 24.23 kg/m2 Terri Joyce LPN [facility] Work Phone: 06-01-2017 08:54-0400 Body Temperature 98 [degF] Terri Joyce LPN [facility] Work Phone: 06-01-2017 08:54-0400 BP Diastolic 64 mm[Hg] Terri Joyce LPN [facility] Work Phone: 06-01-2017 08:54-0400 BP Systolic 118 mm[Hg] Terri Joyce LPN [facility] Work Phone: 06-01-2017 08:54-0400 Height 172.72 cm Terri Joyce LPN [facility] Work Phone: 06-01-2017 08:54-0400 Pulse (Heart Rate) 95 /min Terri Joyce LPN [facility] Work Phone: 06-01-2017 08:54-0400 Respiratory Rate 12 /min Terri Joyce JENELLE [facility] Work Phone: 06-01-2017 08:54040 Weight 72.3 kg Terri Joyce JENELLE [facility] Work Phone: Encounters Encounter Date Encounter Type Care Provider Facility Start: 02-19-2025 End: 02-19-2025 Emergency department patient visit Dr. Ramona Luciano MD Work Phone: -Emergency Department Work Phone: Start: 01-06-2025 End: 01-06-2025 Patient encounter procedure Lakhwinder BEJARANO [facility] Work Phone: Start: 01-06-2025 End: 01-06-2025 ambulatory Ramona Luciano [place] [place]: 11-07-2024 End: 11-07-[address] Ramona Luciano MD -Outpatient Breast Imaging Work Phone: Start: 11-07-2024 End: 11-07-2024 ambulatory Ramona Luciano Facility:[facility] Start: 10-30-2024 End: 10-30-[address] Ramona Luciano MD -Laboratory Work Phone: Start: 10-30-2024 End: 10-30-2024 ambulatory Ramona Luciano Facility:[facility] Start: 03-08-2024 End: 03-08-2024 ambulatory Niurka Gutierrez Facility:[facility] Start: 12-09-2023 End: 12-09-2023 [facility] Start: 12-09-2023 End: 12-09-2023 Patient encounter procedure [facility] Work Phone: Start: 10-10-2023 End: 10-10-[address] Ramona Luciano Work Phone: [facility] Work Phone: Start: 10-10-2023 End: 10-10-[address] Ramona Luciano Work Phone: [facility] Work Phone: Start: 08-19-2023 End: 08-19-[address] [facility] Start: 08-18-2023 End: 08-18-[address] Ramona Luciano Work Phone: [facility] Work Phone: Start: 08-18-2023 End: 08-18-[address] [facility] Start: 08-17-2023 End: 08-17-[address] Ramona Luciano Work Phone: [facility] Work Phone: Start: 08-17-2023 End: 08-17-[address] Ram[facility] Luciano [facility] Start: 08-16-2023 End: 08-16-[address] Ramona Luciano Work Phone: [facility] Work Phone: Start: 08-16-2023 End: 08-16-[address] Ram[facility] Luciano [facility] Start: 08-15-2023 End: 08-15-[address] Ramona Luciano [facility] Start: 08-14-2023 End: 08-14-[address] Ramona Luciano Work Phone: [facility] Work Phone: Start: 08-14-2023 End: 08-14-[address] Ramona Luciano [facility] Start: 08-13-2023 End: 08-13-[address] Ramona Luciano [facility] Start: 08-12-2023 End: 08-12-[address] Ramona Luciano Work Phone: [facility] Work Phone: Start: 08-12-2023 End: 08-12-[address] Ramona Luciano [facility] Start: 08-11-2023 End: 08-11-[address] Ramona Luciano Work Phone: [facility] Work Phone: Start: 08-11-2023 End: 08-11-[address] Ramona Luciano [facility] Start: 08-10-2023 End: 08-10-[address] Ramona Luciano Work Phone: [facility] Work Phone: Start: 08-10-2023 End: 08-10-[address] Ramona Luciano [facility] Start: 08-09-2023 End: 08-09-[address] Ramona Luciano Work Phone: [facility] Work Phone: Start: 08-09-2023 End: 08-09-[address] Ramona Luciano [facility] Start: 08-08-2023 End: 08-08-[address] Ramona Luciano Work Phone: [facility] Work Phone: Start: 08-08-2023 End: 08-08-[address] Ramona Luciano [facility] Start: 08-07-2023 End: 08-07-[address] Ramona Luciano Work Phone: [facility] Work Phone: Start: 08-07-2023 End: 08-07-[address] Ramona Luciano [facility] Start: 08-06-2023 End: 08-06-[address] Ramona Luciano [facility] Start: 08-05-2023 End: 08-05-[address] Ramona Luciano Work Phone: [facility] Work Phone: Start: 08-05-2023 End: 08-05-[address] Ramona Luciano [facility] Start: 08-04-2023 End: 08-04-[address] Ramona Luciano Work Phone: [facility] Work Phone: Start: 08-04-2023 End: 08-04-[address] Ramona Luciano [facility] Start: 08-03-2023 End: 08-03-[address] Ramona Luciano Work Phone: [facility] Work Phone: Start: 08-03-2023 End: 08-03-[address] Ramona Luciano [facility] Start: 08-02-2023 End: 08-02-[address] Ramona Luciano Work Phone: [facility] Work Phone: Start: 08-02-2023 End: 08-02-[address] Ramona Luciano [facility] Start: 08-01-2023 End: 08-01-[address] Ramona Luciano Work Phone: [facility] Work Phone: Start: 08-01-2023 End: 08-01-[address] Ramona Luciano [facility] Start: 07-31-2023 End: 07-31-[address] Ramona Luciano Work Phone: [facility] Work Phone: Start: 07-31-2023 End: 07-31-[address] Ramona Luciano [facility] Start: 07-30-2023 End: 07-30-[address] Ramona Luciano Work Phone: [facility] Work Phone: Start: 07-30-2023 End: 07-30-[address] Ramona Luciano [facility] Start: 07-29-2023 End: 07-29-[address] Ramona Luciano Work Phone: [facility] Work Phone: Start: 07-29-2023 End: 07-29-[address] Ramona Luciano [facility] Start: 07-28-2023 End: 07-28-[address] Ramona Luciano [facility] Start: 07-27-2023 End: 07-27-[address] Ramona Luciano Work Phone: [facility] Work Phone: Start: 07-27-2023 End: 07-27-[address] Ramona Luciano [facility] Start: 07-26-2023 End: 07-26-[address] Ramona Luciano Work Phone: [facility] Work Phone: Start: 07-26-2023 End: 07-26-[address] Ramona Luciano [facility] Start: 07-25-2023 End: 07-25-[address] Ramona Luciano Work Phone: [facility] Work Phone: Start: 07-25-2023 End: 07-25-[address] Ramona Luciano [facility] Start: 07-24-2023 End: 07-24-[address] Ramona Luciano Work Phone: [facility] Work Phone: Start: 07-24-2023 End: 07-24-[address] Ramona Luciano [facility] Start: 07-23-2023 End: 07-23-[address] Ramona Luciano Work Phone: [facility] Work Phone: Start: 07-23-2023 End: 07-23-[address] Ramona Luciano [facility] Start: 07-22-2023 End: 07-22-[address] Ramona Luciano Work Phone: [facility] Work Phone: Start: 07-22-2023 End: 07-22-[address] Ramona Luciano [facility] Start: 07-21-2023 End: 07-21-[address] Ramona Luciano Work Phone: [facility] Work Phone: Start: 07-21-2023 End: 07-21-[address] Ramona Luciano [facility] Start: 07-20-2023 End: 07-20-[address] Ramona Luciano Work Phone: [facility] Work Phone: Start: 07-20-2023 End: 07-20-[address] Ramona Luciano [facility] Start: 07-19-2023 End: 07-19-[address] Ramona Luciano Work Phone: [facility] Work Phone: Start: 07-19-2023 End: 07-19-[address] Ramona Luciano [facility] Start: 07-18-2023 End: 07-18-[address] Ramona Luciano Work Phone: [facility] Work Phone: Start: 07-18-2023 End: 07-18-[address] Ramona Luciano [facility] Start: 07-17-2023 End: 07-17-[address] Ramona Luciano Work Phone: [facility] Work Phone: Start: 07-17-2023 End: 07-17-[address] Ramona Luciano [facility] Start: 07-16-2023 End: 07-16-[address] Ramona Luciano Work Phone: [facility] Work Phone: Start: 07-16-2023 End: 07-16-[address] Ramona Luciano [facility] Start: 07-15-2023 End: 07-15-[address] Ramona Luciano Work Phone: [facility] Work Phone: Start: 07-15-2023 End: 07-15-[address] Ramona Luciano [facility] Start: 07-14-2023 End: 07-14-[address] Ramona Luciano [facility] Start: 07-13-2023 End: 07-13-[address] Ramona Luciano Work Phone: [facility] Work Phone: Start: 07-13-2023 End: 07-13-[address] Ramona Luciano [facility] Start: 07-12-2023 End: 07-12-[address] Ramona Luciano Work Phone: [facility] Work Phone: Start: 07-12-2023 End: 07-12-[address] Ramona Luciano [facility] Start: 07-11-2023 End: 07-11-[address] Ramona Luciano [facility] Start: 07-10-2023 End: 07-10-[address] Ramona Luciano Work Phone: [facility] Work Phone: Start: 07-10-2023 End: 07-10-[address] Ramona Luciano [facility] Start: 07-10-2023 End: 07-10-[address] Ramona Luciano Work Phone: [facility] Work Phone: Start: 07-10-2023 End: 07-10-[address] Ramona Luciano [facility] Start: 07-08-2023 Non-patient / Non-visit Dr. Neil Luciano Work Phone: [facility] Start: 07-08-2023 End: 07-08-[address] Ramona Luciano Work Phone: [facility] Work Phone: Start: 07-08-2023 End: 07-08-[address] Ramona Luciano Work Phone: [facility] Work Phone: Start: 07-08-2023 End: 07-08-[address] Ramona Lcuiano Work Phone: [facility] Work Phone: Start: 07-08-2023 End: 07-08-[address] Ramona Luciano Work Phone: [facility]Radiology, [facility] Work Phone: Start: 06-28-2023 End: 06-30-2023 Evaluation and management of inpatient JASON SANTIAGO APRN-DIRECTOR OF ASSESSING Facility:[facility] Start: 06-02-2023 End: 06-03-[address] HATTIE WALDEN MD Facility:[facility] Start: 06-02-2023 End: 06-02-[address] HATTIE WALDEN MD [facility] Start: 2023 End: [address] Ramona Luciano Work Phone: [facility]Laboratory, [facility] Start: 01-07-2023 End: 01-07-2023 ambulatory [facility] Work Phone: Start: 01-07-2023 End: 01-07-2023 Patient encounter procedure [facility] Start: 11-18-2022 End: 11-18-2022 ambulatory [facility] Work Phone: Start: 11-18-2022 End: 11-18-2022 Patient encounter procedure [facility]Outpatient Bone Densitometry Start: 09-07-2022 End: 09-07-2022 ambulatory [facility] Work Phone: Start: 09-07-2022 End: 09-07-2022 Patient encounter procedure [facility]Gis[facility] Start: 02-05-2022 End: 02-05-2022 Emergency department patient visit Dr. Ramona Luciano Work Phone: [facility]Emergency Department Start: 12-30-2021 End: 12-30-[address] Ramona Luciano Work Phone: [facility] Start: 11-11-2021 End: 11-11-[address] Ramona Luciano Work Phone: [facility] Start: 10-29-2021 Non-patient / Non-visit Dr. Neil Luciano Work Phone: [facility] Start: 10-29-2021 End: 10-29-2021 Admission to same day surgery center Dr. Ramnoa Luciano Work Phone: [facility]Endoscopy Start: 10-12-2021 End: 10-12-[address] Ramona Luciano Work Phone: [facility] Start: 10-09-2021 End: 10-09-[address] Ramona Luciano Work Phone: [facility] Start: 01-19-2018 Ambulatory Jenn Muniz Facil ity:[facility] Start: 11-09-2017 End: 11-09-2017 [facility] Start: 04-12-2017 Ambulatory Rene Zamudio Facili ty:[facility] Procedures Date Procedure Procedure Detail Performing Clinician Start: 02-19-2025 X-ray of chest, PA a nd lateral views Dr. Ramona Luciano MD Work Phone: Start: 02-19-2025 D-dimer assay, quantitative Dr. Ramona Luciano MD Work Phone: Comment on above: NORMAL D-Dimer level (<0.50) indicates no DVT or PE. Start: 02-19-[address] Ramona Luciano MD Work Phone: Start: 11-07-2024 Screening mammography Juan Carlos Luciano MD Work Phone: Start: 10-30-2024 Measurement of renal function Dr. Ramona Luciano MD Work Phone: Comment on above: GFR Calc Start: 11-18-2022 Dual energy X-ray absorptiometry Start: 11-18-2022 Screening mammography Start: 02-05-2022 Plain chest X-ray Dr. Jorge A Luciano Work Phone: Start: 10-29-[address] Ramona munoz Work Phone: Start: 10-09-2021 MRI of lumbar spine Dr. Ramona Luciano Work Phone: Arthroplasty of knee planned DR HATTIE WALDEN MD Comment on above: left Total knee replacement DR MARYBEL NUNO Comment on above: left Plan of Treatment Date Care Activity Detail Author Start: 02-19-2025 [facility] Start: 02-19-2025 [facility] Start: 08-18-2023 Following clinical pathway protocol [facility] Start: 08-18-2023 Peripherally inserte d central catheter care [facility] Start: 08-17-2023 Iv infusion therapy/prophylaxis /dx 1st [facility] Start: 08-14-2023 Iv infusion therapy/prophylaxis /dx 1st to 1 hr [facility] Start: 08-14-2023 Peripherally inserte d central catheter care [facility] Start: 08-13-2023 Care of central veno us catheter [facility] Start: 08-13-2023 Following clinical pathway protocol [facility] Start: 08-09-2023 Iv infusion therapy/prophylaxis /dx 1st to 1 hr TH[facility] Start: 08-07-2023 Iv infusion therapy/prophylaxis /dx 1st to 1 hr TH[facility]PROPH[facility] Start: 08-07-2023 Following clinical pathway protocol [facility] Start: 08-07-2023 Peripherally inserte d central catheter care [facility] Start: 08-06-2023 Following clinical pathway protocol [facility] Start: 08-06-2023 Peripherally inserte d central catheter care [facility] Start: 08-04-2023 Iv infusion therapy/prophylaxis /dx 1st to 1 hr TH[facility] Start: 08-03-2023 Iv infusion therapy/prophylaxis /dx 1st to 1 hr TH[facility]PROPH[facility] Start: 07-31-2023 Iv infusion therapy/prophylaxis /dx 1st to 1 hr TH[facility]PROPH[facility] Start: 07-31-2023 Following clinical pathway protocol [facility] Start: 07-31-2023 Peripherally inserte d central catheter care [facility] Start: 07-30-2023 Following clinical pathway protocol [facility] Start: 07-30-2023 Peripherally inserte d central catheter care [facility] Start: 07-28-2023 Iv infusion therapy/prophylaxis /dx 1st to 1 hr TH[facility] Start: 07-27-2023 Iv infusion therapy/prophylaxis /dx 1st to 1 hr [facility] Start: 07-25-2023 Iv infusion therapy/prophylaxis /dx 1st to 1 hr TH[facility]PROPH[facility] Start: 07-24-2023 Following clinical pathway protocol [facility] Start: 07-24-2023 Peripherally inserte d central catheter care [facility] Start: 07-23-2023 Peripherally inserte d central catheter care [facility] Start: 07-21-2023 Iv infusion therapy/prophylaxis /dx 1st to 1 hr TH[facility]PROPH[facility] Start: 07-20-2023 Iv infusion therapy/prophylaxis /dx 1st to 1 hr TH[facility]PROPH[facility] Start: 07-11-2023 Iv infusion therapy/prophylaxis /dx 1st to 1 hr THER/PROPH/DIAG IV INF INIT [facility] Start: 07-10-2023 Iv infusion therapy/prophylaxis /dx 1st to 1 hr [facility] Start: 07-08-2023 Following clinical pathway protocol [facility] Start: 07-08-2023 Peripherally inserte d central catheter care [facility] Start: 07-08-2023 Peripherally inserte d central catheter care [facility] Start: 06-01-2017 End: 06-01-2017 Appointment Appointment [facility] Work Phone: Patient Education [facility] Work Phone: Patient referral [facility] Work Phone: Payers Date Payer Category Payer Self-pay [id number] 2023 Unknown [id number] 2022 Medicare [id number] 2016 Unknown [id number] 1955 Unknown [id number] 1955 Unknown [id number] 2.16.8 [id number] Unknown [id number] Unknown [id number] [id number] [id number] Unknown [id number] 2.16.8 [id number] Unknown [id number] 2.16.8 [id number] Unknown [id number] 2.16.8 [id number] Unknown [id number] [id number] [id number] Social History Date Type Detail Facility [facility] Work Phone: Start: 02-05-2022 End: 02-05-2022 Tobacco smoking status NHIS Unknown if ever smoked [facility] Start: 1955 Sex Assigned At Female W [facility] Start: 06-02-2023 End: 02-19-2025 Tobacco smoking status Never smoked tobacco (finding) [facility] Functional Status Date Assessment Result Facility 06-02-2023 Functional Status Sensory Deficits None [facility] Mental Status Date Assessment Result Facility 02-19-2025 Cognitive function Voice/Name [facility] Work Phone: 08-19-2023 Cognitive function Voice/Name [facility] Work Phone: 08-17-2023 Cognitive function Awake;Alert;A ppropriate;Follow s Commands [facility] Work Phone: 08-16-2023 Cognitive function Awake;Alert;A ppropriate;Follow s Commands [facility] Work Phone: 08-15-2023 Cognitive function Awake;Alert;A ppropriate;Follow s Commands [facility] Work Phone: 08-12-2023 Cognitive function Awake;Alert;A ppropriate;Follow s Commands [facility] Work Phone: 08-11-2023 Cognitive function Awake;Alert;A ppropriate;Follow s Commands [facility] Work Phone: 08-10-2023 Cognitive function Awake;Alert;A ppropriate;Follow s Commands [facility] Work Phone: 08-05-2023 Cognitive function Voice/Name [facility] Work Phone: 08-03-2023 Cognitive function Voice/Name [facility] Work Phone: 08-02-2023 Cognitive function Voice/Name [facility] Work Phone: 08-01-2023 Cognitive function Awake;Alert;A ppropriate;Follow s Commands [facility] Work Phone: 07-28-2023 Cognitive function Awake;Alert;A ppropriate;Follow s Commands [facility] Work Phone: 07-26-2023 Cognitive function Awake;Alert;A ppropriate;Follow s Commands [facility] Work Phone: 07-25-2023 Cognitive function Voice/Name [facility] Work Phone: 07-22-2023 Cognitive function Awake;Alert;Appropriat e [facility] Work Phone: 07-20-2023 Cognitive function Awake;Alert;A ppropriate;Follow s Commands [facility] Work Phone: 07-19-2023 Cognitive function Voice/Name [facility] Work Phone: 07-18-2023 Cognitive function Awake;Alert;A ppropriate;Inappr opriate [facility] Work Phone: 07-15-2023 Cognitive function Awake;Alert;A ppropriate;Follow s Commands [facility] Work Phone: 07-13-2023 Cognitive function Awake;Alert;A ppropriate;Follow s Commands [facility] Work Phone: 07-12-2023 Cognitive function Voice/Name [facility] Work Phone: 07-11-2023 Cognitive function Awake;Alert;A ppropriate;Follow s Commands [facility] Work Phone: 07-10-2023 Cognitive function Awake;Alert;A ppropriate;Follow s Commands [facility] Work Phone: 07-09-2023 Cognitive function Level Of Cons ciousness Awake;Alert;Appropriate;Follow s Commands [facility] Work Phone: 07-08-2023 Cognitive function Voice/Name [facility] Work Phone: 10-29-2021 Cognitive function Voice/Name;Touch/Isael martinez [facility] Work Phone: Clinical Notes 07-04-2023 to 02-19-2025 Note Date & Type Note Facility 02-19-2025 Radiology Diagnostic study note [facility] Imaging Services [address] [place] [address] Chest PA and Lateral MR#: [id number] Acct: [id number] Name: OTNJA QUARLES Rep #: [id number] From: Ezequiel Ramsay MD PCP: Dr. Ramona Luciano MD Status: PRE ER Study:Chest PA and Lateral Date of Exam: 02/19/25 Exam# [id number] Ordering Dr: Jo Ann Carver DO PROCEDURE: CHEST PA AND LATERAL 02/19/2025 REASON FOR EXAM: CHEST PAIN TECHNIQUE: Frontal and lateral views of the chest. COMPARISON: None available FINDINGS: Linear area of scar or atelectasis retrocardiac left base. The lungs otherwise appear clear. The cardiac and mediastinal contours appear within limits. Lumbar spondylosis/discogenic change. RAD/Chest PA and Lateral IMPRESSION: No evidence of acute disease. Reading Location: [id number] CC: Dr. Ramona Luciano MD; Arslan Carver DO ~ Cook Vegetable: Signed [facility] 01-06-2025 Evaluation note Diagnosis Onset Date Resolution Ear pain acute January 06 8:03am [facility] Work Phone: [phone]) 119-210411-30-2023 Note. MICRO - Microbiology PROCEDURE: Acid Fast Bacilli [...] Locations *1: This test was performed at: [address], [facility] , [facility] ([place])08-25-2023 Note. MICRO - Microbiology PROCEDURE: Acid Fast Bacilli [...] Locations *1: This test was performed at: [address], [facility]- , [facility] ([place]08-25-2023 Note. MICRO - Microbiology PROCEDURE: Acid Fast Bacilli [...] Locations *1: This test was performed at: [address], [facility] , [facility] ([place])08-02-2023 Note. MICRO - Microbiology PROCEDURE: Fungal Culture with [...] Locations *1: This test was performed at: [address], [facility]- , [facility] ([place])08-02-2023 Note. MICRO - Microbiology PROCEDURE: Fungal Culture with [...] Locations *1: This test was performed at: [address], [facility]- , [facility] ([place])08-02-2023 Note. MICRO - Microbiology PROCEDURE: Fungal Culture with [...] Locations *1: This test was performed at: [address], [facility]- , [facility] ([place])07-08-2023 Procedure [facility]10-11-2023 Note. MICRO - Microbiology PROCEDURE: Culture Tissue [*1] SOURCE: Tissue BODY SITE: Knee L COLLECTED DATE/TIME: 06/28/2023 11:39 EDT RECEIVED DATE/TIME: 06/29/2023 19:59 EDT START DATE/TIME: 06/29/2023 19:59 EDT FREE TEXT SOURCE: 2. TIBIAL MEMBRANE FINAL REPORTS Final Report [] Verified Date/Time/Personnel: 07/06/2023 08:14 EDT 1 colony Staphylococcus epidermidis Refer to previous culture for susceptibility. [id number] No anaerobes isolated at 5 days. PRELIMINARY REPORTS Preliminary Report [] Verified Date/Time/Personnel: 07/02/2023 14:39 EDT 1 colony Staphylococcus epidermidis Refer to previous culture for susceptibility. [id number] No anaerobes isolated to date. Preliminary Report [] Verified Date/Time/Personnel: 07/01/2023 14:58 EDT 1 colony Staphylococcus epidermidis Final report to follow. No anaerobes isolated to date. Preliminary Report [] Verified Date/Time/Personnel: 06/30/2023 13:26 EDT Culture results pending. STAINS GS [] Verified Date/Time/Personnel: 06/29/2023 22:35 EDT 2+ Polymorphonuclear cells 1+ Mononuclear cells No organisms seen. Performing Locations *1: This test was performed at: [address], [facility] , [facility] ([place])07-06-2023 Note. MICRO - Microbiology PROCEDURE: Culture Tissue [*1] [...] Locations *1: This test was performed at: [facility], [address] [place] [address], [facility] , [facility] ([place]07-04-2023 Note. MICRO - Microbiology PROCEDURE: Culture Tissue [*1] SOURCE: Tissue BODY SITE: Knee L COLLECTED DATE/TIME: 06/28/2023 11:32 EDT RECEIVED DATE/TIME: 06/29/2023 19:59 EDT START DATE/TIME: 06/29/2023 19:59 EDT FREE TEXT SOURCE: 1. SUPRAPATELLAR POUCH FINAL REPORTS Final Report [] Verified Date/Time/Personnel: 07/04/2023 07:57 EDT 2 colonies Staphylococcus epidermidis Refer to previous culture for susceptibility. [id number] No anaerobes isolated at 5 days. PRELIMINARY REPORTS Preliminary Report [] Verified Date/Time/Personnel: 07/02/2023 14:40 EDT 2 colonies Staphylococcus epidermidis Refer to previous culture for susceptibility. [id number] No anaerobes isolated to date. Preliminary Report [] Verified Date/Time/Personnel: 07/01/2023 11:15 EDT 2 colonies Staphylococcus epidermidis Final report to follow. No anaerobes isolated to date. Preliminary Report [] Verified Date/Time/Personnel: 06/30/2023 13:19 EDT Culture results pending. STAINS GS [] Verified Date/Time/Personnel: 06/29/2023 22:37 EDT Rare Polymorphonuclear cells Rare Mononuclear cells No organisms seen. Performing Locations *1: This test was performed at: [facility], [address] [place] [address], [facility] , [facility] ([place])Evaluation + Plan note Future Appointments [facility] Evaluation note* Diagnosis Onset Date Resolution Status Scoliosis of lumbar region d ue to degenerative disease of spine in adult acute Spinal stenosis of lumbar re gion without neurogenic claudication acute Constipation acute Segmental colitis associated with diverticulosis acute Constipation acute [facility] Work Phone: Evaluation noteNo assessment information available [facility] Work Phone: Evaluation note* Diagnosis Onset Date Resolution Status Infected prosthetic knee joint acute [facility] Work Phone: Hospital course Narrative No data available for this section [facility] Hospital Discharge instructions No data available for this section [facility] Hospital Discharge instructions Additional Instructions Your workup today showed no sign of acute heart damage. Follow-up with your family doctor for repeat evaluation and to discuss further testing such as a cardiac echo or cardiology referral. If symptoms persist or worsen return [facility] the [facility] Work Phone: Progress note No data available for this section [facility] Reason for referral (narrative)No reason for referral information availableWW[facility]UM[facility] Work Phone: Summary Purpose Family History No Family History Records FoundNo Family History Records FoundNo Family History Records FoundNo Family History Records FoundNo Family History Records FoundNo Family History Records Found No data available for this section No Family History Records FoundNo Family History Records Found Advance Directives No Advanced Directives Records Found Advance Directive Response Recorded Date/ Time Name of Medical Power of Java Lead Architect SPOUSE October 28, 2021 1:50pm Living Will No February 05, 2022 2 :25pm Power of Java Lead Architect No February 05, 2022 2:25pm Advance Directive Response Recorded Date/ Time Living Will No February 05, 2022 1 :25pm Power of Java Lead Architect No February 05, 2022 1:25pm Advance Directive Response Recorded Date/ Time Living Will No February 05, 2022 2 :25pm Power of Java Lead Architect No February 05, 2022 2:25pm Advance Directive Response Recorded Date/ Time Do you have a Healthcare Power of Java Lead Architect? Yes February 19, 2025 12:37am Chief Complaint and Reason for Visit Chief Complaint LUMBAR PAIN LUMBER SPINE 7-10 f/u scope 2/3 /6 wk FU 6 WK FU chest pain Reason for Visit Scoliosis of lumbar region due to degenerative disease of spine in adult Spinal stenosis of lumbar region without neurogenic claudication Constipation Segmental colitis associated with diverticulosis Constipation Chief Complaint SCREENING/POST RONEY Chief Complaint PICC PLACEMENT IV antibiotic dose x1 IV antibiotic dose x1 Reason for Visit Infected prosthetic knee joint Chief Complaint PICC PLACEMENT IV antibiotic dose x1 IV antibiotic dose x1 cefriaxone IV Reason for Visit Infected prosthetic knee joint Chief Complaint PICC PLACEMENT IV antibiotic dose x1 IV antibiotic dose x1 cefriaxone IV cefriaxone IV cefriaxone IV Reason for Visit Infected prosthetic knee joint Chief Complaint PICC PLACEMENT IV antibiotic dose x1 IV antibiotic dose x1 cefriaxone IV cefriaxone IV cefriaxone IV cefriaxone IV Reason for Visit Infected prosthetic knee joint Chief Complaint PICC PLACEMENT IV antibiotic dose x1 IV antibiotic dose x1 cefriaxone IV cefriaxone IV cefriaxone IV cefriaxone IV cefriaxone IV PICC DRAW/DRSG CHANGE Reason for Visit Infected prosthetic knee joint Chief Complaint PICC PLACEMENT IV antibiotic dose x1 IV antibiotic dose x1 cefriaxone IV cefriaxone IV cefriaxone IV cefriaxone IV cefriaxone IV PICC DRAW/DRSG CHANGE cefriaxone IV Reason for Visit Infected prosthetic knee joint Chief Complaint PICC PLACEMENT IV antibiotic dose x1 IV antibiotic dose x1 cefriaxone IV cefriaxone IV cefriaxone IV cefriaxone IV cefriaxone IV PICC DRAW/DRSG CHANGE cefriaxone IV cefriaxone IV Reason for Visit Infected prosthetic knee joint Chief Complaint PICC PLACEMENT IV antibiotic dose x1 IV antibiotic dose x1 cefriaxone IV cefriaxone IV cefriaxone IV cefriaxone IV cefriaxone IV PICC DRAW/DRSG CHANGE cefriaxone IV cefriaxone IV cefriaxone IV Reason for Visit Infected prosthetic knee joint Chief Complaint PICC PLACEMENT IV antibiotic dose x1 IV antibiotic dose x1 cefriaxone IV cefriaxone IV cefriaxone IV cefriaxone IV cefriaxone IV PICC DRAW/DRSG CHANGE cefriaxone IV cefriaxone IV cefriaxone IV cefriaxone IV Reason for Visit Infected prosthetic knee joint Chief Complaint PICC PLACEMENT IV antibiotic dose x1 IV antibiotic dose x1 cefriaxone IV cefriaxone IV cefriaxone IV cefriaxone IV cefriaxone IV PICC DRAW/DRSG CHANGE cefriaxone IV cefriaxone IV cefriaxone IV cefriaxone IV cefriaxone IV Reason for Visit Infected prosthetic knee joint Chief Complaint PICC PLACEMENT IV antibiotic dose x1 IV antibiotic dose x1 cefriaxone IV cefriaxone IV cefriaxone IV cefriaxone IV cefriaxone IV PICC DRAW/DRSG CHANGE cefriaxone IV cefriaxone IV cefriaxone IV cefriaxone IV cefriaxone IV cefriaxone IV Reason for Visit Infected prosthetic knee joint Chief Complaint PICC PLACEMENT IV antibiotic dose x1 IV antibiotic dose x1 cefriaxone IV cefriaxone IV cefriaxone IV cefriaxone IV cefriaxone IV PICC DRAW/DRSG CHANGE cefriaxone IV cefriaxone IV cefriaxone IV cefriaxone IV cefriaxone IV cefriaxone IV PICC DRAW/DRSG CHANGE Reason for Visit Infected prosthetic knee joint Chief Complaint PICC PLACEMENT IV antibiotic dose x1 IV antibiotic dose x1 cefriaxone IV cefriaxone IV cefriaxone IV cefriaxone IV cefriaxone IV PICC DRAW/DRSG CHANGE cefriaxone IV cefriaxone IV cefriaxone IV cefriaxone IV cefriaxone IV cefriaxone IV PICC DRAW/DRSG CHANGE cefriaxone IV Reason for Visit Infected prosthetic knee joint Chief Complaint PICC PLACEMENT IV antibiotic dose x1 IV antibiotic dose x1 cefriaxone IV cefriaxone IV cefriaxone IV cefriaxone IV cefriaxone IV PICC DRAW/DRSG CHANGE cefriaxone IV cefriaxone IV cefriaxone IV cefriaxone IV cefriaxone IV cefriaxone IV PICC DRAW/DRSG CHANGE cefriaxone IV cefriaxone IV Reason for Visit Infected prosthetic knee joint Chief Complaint PICC PLACEMENT IV antibiotic dose x1 IV antibiotic dose x1 cefriaxone IV cefriaxone IV cefriaxone IV cefriaxone IV cefriaxone IV PICC DRAW/DRSG CHANGE cefriaxone IV cefriaxone IV cefriaxone IV cefriaxone IV cefriaxone IV cefriaxone IV PICC DRAW/DRSG CHANGE cefriaxone IV cefriaxone IV cefriaxone IV Reason for Visit Infected prosthetic knee joint Chief Complaint PICC PLACEMENT IV antibiotic dose x1 IV antibiotic dose x1 cefriaxone IV cefriaxone IV cefriaxone IV cefriaxone IV cefriaxone IV PICC DRAW/DRSG CHANGE cefriaxone IV cefriaxone IV cefriaxone IV cefriaxone IV cefriaxone IV cefriaxone IV PICC DRAW/DRSG CHANGE cefriaxone IV cefriaxone IV cefriaxone IV cefriaxone IV Reason for Visit Infected prosthetic knee joint Chief Complaint PICC PLACEMENT IV antibiotic dose x1 IV antibiotic dose x1 cefriaxone IV cefriaxone IV cefriaxone IV cefriaxone IV cefriaxone IV PICC DRAW/DRSG CHANGE cefriaxone IV cefriaxone IV cefriaxone IV cefriaxone IV cefriaxone IV cefriaxone IV PICC DRAW/DRSG CHANGE cefriaxone IV cefriaxone IV cefriaxone IV cefriaxone IV cefriaxone IV Reason for Visit Infected prosthetic knee joint Chief Complaint PICC PLACEMENT IV antibiotic dose x1 IV antibiotic dose x1 cefriaxone IV cefriaxone IV cefriaxone IV cefriaxone IV cefriaxone IV PICC DRAW/DRSG CHANGE cefriaxone IV cefriaxone IV cefriaxone IV cefriaxone IV cefriaxone IV cefriaxone IV PICC DRAW/DRSG CHANGE cefriaxone IV cefriaxone IV cefriaxone IV cefriaxone IV cefriaxone IV cefriaxone IV PICC DRAW/DRSG CHANGE Reason for Visit Infected prosthetic knee joint Chief Complaint PICC PLACEMENT IV antibiotic dose x1 IV antibiotic dose x1 cefriaxone IV cefriaxone IV cefriaxone IV cefriaxone IV cefriaxone IV PICC DRAW/DRSG CHANGE cefriaxone IV cefriaxone IV cefriaxone IV cefriaxone IV cefriaxone IV cefriaxone IV PICC DRAW/DRSG CHANGE cefriaxone IV cefriaxone IV cefriaxone IV cefriaxone IV cefriaxone IV cefriaxone IV PICC DRAW/DRSG CHANGE cefriaxone IV Reason for Visit Infected prosthetic knee joint Chief Complaint PICC PLACEMENT IV antibiotic dose x1 IV antibiotic dose x1 cefriaxone IV cefriaxone IV cefriaxone IV cefriaxone IV cefriaxone IV PICC DRAW/DRSG CHANGE cefriaxone IV cefriaxone IV cefriaxone IV cefriaxone IV cefriaxone IV cefriaxone IV PICC DRAW/DRSG CHANGE cefriaxone IV cefriaxone IV cefriaxone IV cefriaxone IV cefriaxone IV cefriaxone IV PICC DRAW/DRSG CHANGE cefriaxone IV cefriaxone IV Reason for Visit Infected prosthetic knee joint Chief Complaint PICC PLACEMENT IV antibiotic dose x1 IV antibiotic dose x1 cefriaxone IV cefriaxone IV cefriaxone IV cefriaxone IV cefriaxone IV PICC DRAW/DRSG CHANGE cefriaxone IV cefriaxone IV cefriaxone IV cefriaxone IV cefriaxone IV cefriaxone IV PICC DRAW/DRSG CHANGE cefriaxone IV cefriaxone IV cefriaxone IV cefriaxone IV cefriaxone IV cefriaxone IV PICC DRAW/DRSG CHANGE cefriaxone IV cefriaxone IV cefriaxone IV Reason for Visit Infected prosthetic knee joint Chief Complaint PICC PLACEMENT IV antibiotic dose x1 IV antibiotic dose x1 cefriaxone IV cefriaxone IV cefriaxone IV cefriaxone IV cefriaxone IV PICC DRAW/DRSG CHANGE cefriaxone IV cefriaxone IV cefriaxone IV cefriaxone IV cefriaxone IV cefriaxone IV PICC DRAW/DRSG CHANGE cefriaxone IV cefriaxone IV cefriaxone IV cefriaxone IV cefriaxone IV cefriaxone IV PICC DRAW/DRSG CHANGE cefriaxone IV cefriaxone IV cefriaxone IV cefriaxone IV Reason for Visit Infected prosthetic knee joint Chief Complaint PICC PLACEMENT IV antibiotic dose x1 IV antibiotic dose x1 cefriaxone IV cefriaxone IV cefriaxone IV cefriaxone IV cefriaxone IV PICC DRAW/DRSG CHANGE cefriaxone IV cefriaxone IV cefriaxone IV cefriaxone IV cefriaxone IV cefriaxone IV PICC DRAW/DRSG CHANGE cefriaxone IV cefriaxone IV cefriaxone IV cefriaxone IV cefriaxone IV cefriaxone IV PICC DRAW/DRSG CHANGE cefriaxone IV cefriaxone IV cefriaxone IV cefriaxone IV cefriaxone IV Reason for Visit Infected prosthetic knee joint Chief Complaint PICC PLACEMENT IV antibiotic dose x1 IV antibiotic dose x1 cefriaxone IV cefriaxone IV cefriaxone IV cefriaxone IV cefriaxone IV PICC DRAW/DRSG CHANGE cefriaxone IV cefriaxone IV cefriaxone IV cefriaxone IV cefriaxone IV cefriaxone IV PICC DRAW/DRSG CHANGE cefriaxone IV cefriaxone IV cefriaxone IV cefriaxone IV cefriaxone IV cefriaxone IV PICC DRAW/DRSG CHANGE cefriaxone IV cefriaxone IV cefriaxone IV cefriaxone IV cefriaxone IV PICC DRAW/DRSG CHANGE Reason for Visit Infected prosthetic knee joint Chief Complaint PICC PLACEMENT IV antibiotic dose x1 IV antibiotic dose x1 cefriaxone IV cefriaxone IV cefriaxone IV cefriaxone IV cefriaxone IV PICC DRAW/DRSG CHANGE cefriaxone IV cefriaxone IV cefriaxone IV cefriaxone IV cefriaxone IV cefriaxone IV PICC DRAW/DRSG CHANGE cefriaxone IV cefriaxone IV cefriaxone IV cefriaxone IV cefriaxone IV cefriaxone IV PICC DRAW/DRSG CHANGE cefriaxone IV cefriaxone IV cefriaxone IV cefriaxone IV cefriaxone IV PICC DRAW/DRSG CHANGE PICC DRAW/DRSG CHANGE Reason for Visit Infected prosthetic knee joint Chief Complaint PICC PLACEMENT IV antibiotic dose x1 IV antibiotic dose x1 cefriaxone IV cefriaxone IV cefriaxone IV cefriaxone IV cefriaxone IV PICC DRAW/DRSG CHANGE cefriaxone IV cefriaxone IV cefriaxone IV cefriaxone IV cefriaxone IV cefriaxone IV PICC DRAW/DRSG CHANGE cefriaxone IV cefriaxone IV cefriaxone IV cefriaxone IV cefriaxone IV cefriaxone IV PICC DRAW/DRSG CHANGE cefriaxone IV cefriaxone IV cefriaxone IV cefriaxone IV cefriaxone IV PICC DRAW/DRSG CHANGE PICC DRAW/DRSG CHANGE cefriaxone IV cefriaxone IV Reason for Visit Infected prosthetic knee joint Chief Complaint PICC PLACEMENT IV antibiotic dose x1 IV antibiotic dose x1 cefriaxone IV cefriaxone IV cefriaxone IV cefriaxone IV cefriaxone IV PICC DRAW/DRSG CHANGE cefriaxone IV cefriaxone IV cefriaxone IV cefriaxone IV cefriaxone IV cefriaxone IV PICC DRAW/DRSG CHANGE cefriaxone IV cefriaxone IV cefriaxone IV cefriaxone IV cefriaxone IV cefriaxone IV PICC DRAW/DRSG CHANGE cefriaxone IV cefriaxone IV cefriaxone IV cefriaxone IV cefriaxone IV PICC DRAW/DRSG CHANGE PICC DRAW/DRSG CHANGE cefriaxone IV cefriaxone IV cefriaxone IV Reason for Visit Infected prosthetic knee joint Chief Complaint PICC PLACEMENT IV antibiotic dose x1 IV antibiotic dose x1 cefriaxone IV cefriaxone IV cefriaxone IV cefriaxone IV cefriaxone IV PICC DRAW/DRSG CHANGE cefriaxone IV cefriaxone IV cefriaxone IV cefriaxone IV cefriaxone IV cefriaxone IV PICC DRAW/DRSG CHANGE cefriaxone IV cefriaxone IV cefriaxone IV cefriaxone IV cefriaxone IV cefriaxone IV PICC DRAW/DRSG CHANGE cefriaxone IV cefriaxone IV cefriaxone IV cefriaxone IV cefriaxone IV PICC DRAW/DRSG CHANGE PICC DRAW/DRSG CHANGE cefriaxone IV cefriaxone IV cefriaxone IV cefriaxone IV Reason for Visit Infected prosthetic knee joint Chief Complaint PICC PLACEMENT IV antibiotic dose x1 IV antibiotic dose x1 cefriaxone IV cefriaxone IV cefriaxone IV cefriaxone IV cefriaxone IV PICC DRAW/DRSG CHANGE cefriaxone IV cefriaxone IV cefriaxone IV cefriaxone IV cefriaxone IV cefriaxone IV PICC DRAW/DRSG CHANGE cefriaxone IV cefriaxone IV cefriaxone IV cefriaxone IV cefriaxone IV cefriaxone IV PICC DRAW/DRSG CHANGE cefriaxone IV cefriaxone IV cefriaxone IV cefriaxone IV cefriaxone IV PICC DRAW/DRSG CHANGE PICC DRAW/DRSG CHANGE cefriaxone IV cefriaxone IV cefriaxone IV cefriaxone IV cefriaxone IV Reason for Visit Infected prosthetic knee joint Chief Complaint PICC PLACEMENT IV antibiotic dose x1 IV antibiotic dose x1 cefriaxone IV cefriaxone IV cefriaxone IV cefriaxone IV cefriaxone IV PICC DRAW/DRSG CHANGE cefriaxone IV cefriaxone IV cefriaxone IV cefriaxone IV cefriaxone IV cefriaxone IV PICC DRAW/DRSG CHANGE cefriaxone IV cefriaxone IV cefriaxone IV cefriaxone IV cefriaxone IV cefriaxone IV PICC DRAW/DRSG CHANGE cefriaxone IV cefriaxone IV cefriaxone IV cefriaxone IV cefriaxone IV PICC DRAW/DRSG CHANGE PICC DRAW/DRSG CHANGE cefriaxone IV cefriaxone IV cefriaxone IV cefriaxone IV cefriaxone IV PICC DRAW/DRSG CHANGE Reason for Visit Infected prosthetic knee joint Chief Complaint PICC PLACEMENT IV antibiotic dose x1 IV antibiotic dose x1 cefriaxone IV cefriaxone IV cefriaxone IV cefriaxone IV cefriaxone IV PICC DRAW/DRSG CHANGE cefriaxone IV cefriaxone IV cefriaxone IV cefriaxone IV cefriaxone IV cefriaxone IV PICC DRAW/DRSG CHANGE cefriaxone IV cefriaxone IV cefriaxone IV cefriaxone IV cefriaxone IV cefriaxone IV PICC DRAW/DRSG CHANGE cefriaxone IV cefriaxone IV cefriaxone IV cefriaxone IV cefriaxone IV PICC DRAW/DRSG CHANGE PICC DRAW/DRSG CHANGE cefriaxone IV cefriaxone IV cefriaxone IV cefriaxone IV cefriaxone IV PICC DRAW/DRSG CHANGE PICC DRAW/DRSG CHANGE Reason for Visit Infected prosthetic knee joint Chief Complaint PICC PLACEMENT IV antibiotic dose x1 IV antibiotic dose x1 cefriaxone IV cefriaxone IV cefriaxone IV cefriaxone IV cefriaxone IV PICC DRAW/DRSG CHANGE cefriaxone IV cefriaxone IV cefriaxone IV cefriaxone IV cefriaxone IV cefriaxone IV PICC DRAW/DRSG CHANGE cefriaxone IV cefriaxone IV cefriaxone IV cefriaxone IV cefriaxone IV cefriaxone IV PICC DRAW/DRSG CHANGE cefriaxone IV cefriaxone IV cefriaxone IV cefriaxone IV cefriaxone IV PICC DRAW/DRSG CHANGE PICC DRAW/DRSG CHANGE cefriaxone IV cefriaxone IV cefriaxone IV cefriaxone IV cefriaxone IV PICC DRAW/DRSG CHANGE PICC DRAW/DRSG CHANGE cefriaxone IV cefriaxone IV Reason for Visit Infected prosthetic knee joint Chief Complaint PICC PLACEMENT IV antibiotic dose x1 IV antibiotic dose x1 cefriaxone IV cefriaxone IV cefriaxone IV cefriaxone IV cefriaxone IV PICC DRAW/DRSG CHANGE cefriaxone IV cefriaxone IV cefriaxone IV cefriaxone IV cefriaxone IV cefriaxone IV PICC DRAW/DRSG CHANGE cefriaxone IV cefriaxone IV cefriaxone IV cefriaxone IV cefriaxone IV cefriaxone IV PICC DRAW/DRSG CHANGE cefriaxone IV cefriaxone IV cefriaxone IV cefriaxone IV cefriaxone IV PICC DRAW/DRSG CHANGE PICC DRAW/DRSG CHANGE cefriaxone IV cefriaxone IV cefriaxone IV cefriaxone IV cefriaxone IV PICC DRAW/DRSG CHANGE PICC DRAW/DRSG CHANGE cefriaxone IV cefriaxone IV cefriaxone IV cefriaxone IV Reason for Visit Infected prosthetic knee joint Chief Complaint PICC PLACEMENT IV antibiotic dose x1 IV antibiotic dose x1 cefriaxone IV cefriaxone IV cefriaxone IV cefriaxone IV cefriaxone IV PICC DRAW/DRSG CHANGE cefriaxone IV cefriaxone IV cefriaxone IV cefriaxone IV cefriaxone IV cefriaxone IV PICC DRAW/DRSG CHANGE cefriaxone IV cefriaxone IV cefriaxone IV cefriaxone IV cefriaxone IV cefriaxone IV PICC DRAW/DRSG CHANGE cefriaxone IV cefriaxone IV cefriaxone IV cefriaxone IV cefriaxone IV PICC DRAW/DRSG CHANGE PICC DRAW/DRSG CHANGE cefriaxone IV cefriaxone IV cefriaxone IV cefriaxone IV cefriaxone IV PICC DRAW/DRSG CHANGE PICC DRAW/DRSG CHANGE cefriaxone IV cefriaxone IV cefriaxone IV cefriaxone IV PICC draw Reason for Visit Infected prosthetic knee joint Chief Complaint PICC PLACEMENT IV antibiotic dose x1 IV antibiotic dose x1 cefriaxone IV cefriaxone IV cefriaxone IV cefriaxone IV cefriaxone IV PICC DRAW/DRSG CHANGE cefriaxone IV cefriaxone IV cefriaxone IV cefriaxone IV cefriaxone IV cefriaxone IV PICC DRAW/DRSG CHANGE cefriaxone IV cefriaxone IV cefriaxone IV cefriaxone IV cefriaxone IV cefriaxone IV PICC DRAW/DRSG CHANGE cefriaxone IV cefriaxone IV cefriaxone IV cefriaxone IV cefriaxone IV PICC DRAW/DRSG CHANGE PICC DRAW/DRSG CHANGE cefriaxone IV cefriaxone IV cefriaxone IV cefriaxone IV cefriaxone IV PICC DRAW/DRSG CHANGE PICC DRAW/DRSG CHANGE cefriaxone IV cefriaxone IV cefriaxone IV cefriaxone IV PICC draw cefriaxone IV Reason for Visit Infected prosthetic knee joint Chief Complaint PICC PLACEMENT IV antibiotic dose x1 IV antibiotic dose x1 cefriaxone IV cefriaxone IV cefriaxone IV cefriaxone IV cefriaxone IV cefriaxone IV PICC DRAW/DRSG CHANGE cefriaxone IV cefriaxone IV cefriaxone IV cefriaxone IV cefriaxone IV cefriaxone IV PICC DRAW/DRSG CHANGE cefriaxone IV cefriaxone IV cefriaxone IV cefriaxone IV cefriaxone IV cefriaxone IV PICC DRAW/DRSG CHANGE cefriaxone IV cefriaxone IV cefriaxone IV cefriaxone IV cefriaxone IV PICC DRAW/DRSG CHANGE PICC DRAW/DRSG CHANGE cefriaxone IV cefriaxone IV cefriaxone IV cefriaxone IV cefriaxone IV PICC DRAW/DRSG CHANGE PICC DRAW/DRSG CHANGE cefriaxone IV cefriaxone IV cefriaxone IV cefriaxone IV PICC draw cefriaxone IV PICC D/C Reason for Visit Infected prosthetic knee joint Chief Complaint cefriaxone IV PICC draw cefriaxone IV PICC D/C EORDER Chief Complaint Admit Date SCREENING November 07, 2024 11:55am BILATERAL EAR BLOCKAGE January 06, 2025 8:03am cp February 19, 2025 12:31 am Reason for Visit Admit Date Ear pain January 06, 2025 8:0 3am Additional Source Comments INFORMATION SOURCE (unrecogn ized section and content) DATE CREATED AUTHOR 03/16/2018 [facility] [employer] DATE CREATED AUTHOR AUTHOR'S ORGANIZ ATION 03/17/2018 [facility] DATE CREATED AUTHOR AUTHOR'S ORGANIZ ATION 03/17/2018 [facility] DATE CREATED AUTHOR AUTHOR'S ORGANIZ ATION 03/22/2018 [facility] DATE CREATED AUTHOR AUTHOR'S ORGANIZ ATION 09/03/2018 [facility] DATE CREATED AUTHOR AUTHOR'S ORGANIZ ATION 11/15/2018 [facility] DATE CREATED AUTHOR AUTHOR'S ORGANIZ ATION 08/27/2023 [facility] ([place] DATE CREATED AUTHOR AUTHOR'S ORGANIZ ATION 02/26/2025 [facility] Goals (unrecognized section and content) Goals may be documented in a n alternate sectionGoals may be documented in an alternate sectionGoals may be documented in an alternate sectionGoals may be documented in an alternate section No data available for this sectionGoals may be documented in an alternate sectionGoals may be documented in an alternate sectionGoals may be documented in an alternate sectionGoals may be documented in an alternate sectionGoals may be documented in an alternate sectionGoals may be documented in an alternate sectionGoals may be documented in an alternate sectionGoals may be documented in an alternate sectionGoals may be documented in an alternate sectionGoals may be documented in an alternate sectionGoals may be documented in an alternate sectionGoals may be documented in an alternate sectionGoals may be documented in an alternate sectionGoals may be documented in an alternate sectionGoals may be documented in an alternate sectionGoals may be documented in an alternate sectionGoals may be documented in an alternate sectionGoals may be documented in an alternate sectionGoals may be documented in an alternate sectionGoals may be documented in an alternate sectionGoals may be documented in an alternate sectionGoals may be documented in an alternate sectionGoals may be documented in an alternate sectionGoals may be documented in an alternate sectionGoals may be documented in an alternate sectionGoals may be documented in an alternate sectionGoals may be documented in an alternate sectionGoals may be documented in an alternate sectionGoals may be documented in an alternate sectionGoals may be documented in an alternate sectionGoals may be documented in an alternate sectionGoals may be documented in an alternate sectionGoals may be documented in an alternate sectionGoals may be documented in an alternate sectionGoals may be documented in an alternate sectionGoals may be documented in an alternate sectionGoals may be documented in an alternate sectionGoals may be documented in an alternate sectionGoals may be documented in an alternate sectionGoals may be documented in an alternate section Care Teams (unrecognized sec tion and content) Team Status: Active Member Role Status Dates Dr. Ramona Luciano MD Family Provider Active Dr. Ramona Luciano MD Primary Care Provider Active Team Status: Inactive Member Role Status Dates Dr. Ramona Luciano MD Primary Care Provider, Attending P rovider Active Team Status: Inactive Member Role Status Dates Dr. Ramona Luciano MD Primary Care Provider Active Dr. Ramona Luciano MD Attending Provider Active Team Status: Inactive Member Role Status Dates Dr. Ramona Luciano MD Primary Care Provider Active Dr. Hattie Walden MD Attending Provider, Referring P rovider Active Team Status: Active Member Role Status Dates Dr. Ramona Luciano MD Primary Care Provider Active Dr. Oj Conroy MD Referring Provider, Other Pr ovider Active Paz Clement NP-C Attending Provider Active Team Status: Inactive Member Role Status Dates Dr. Ramona Luciano MD Primary Care Provider Active Dr. Oj Conroy MD Attending Provider, Referrin g Provider Active Team Status: Active Member Role Status Dates Dr. Ramona Luciano MD Primary Care Provider Active Dr. Oj Conroy MD Attending Provider, Referrin g Provider Active Team Status: Inactive Member Role Status Dates Dr. Ramona Luciano MD Primary Care Provider Active Dr. Oj Conroy MD Attending Provider Active Team Status: Inactive Member Role Status Dates Dr. Ramona Luciano MD Primary Care Provide r, Attending Provider, Referring Provider Active Team Status: Active Member Role Status Dates Dr. Ramona Luciano MD Primary Care Provider Active Team Status: Inactive Member Role Status Dates Dr. Ramona Luciano MD Primary Care Provider Active Start: October 30, 2024 End: October 30, 2024 Dr. Ramona Luciano MD Attending Provider Active St art: October 30, 2024 End: October 30, 2024 Dr. Ramona Luciano MD Referring Provider Active St art: October 30, 2024 End: October 30, 2024 Team Status: Inactive Member Role Status Dates Dr. Ramona Luciaon MD Primary Care Provider Active Start: November 07, 2024 End: November 07, 2024 Dr. Ramona Luciano MD Attending Provider Active St art: November 07, 2024 End: November 07, 2024 Dr. Ramona Luciano MD Referring Provider Active St art: November 07, 2024 End: November 07, 2024 Team Status: Inactive Member Role Status Dates Dr. Ramona Luciano MD Primary Care Provider Active Start: January 06, 2025 End: January 06, 2025 Dr. Ramona Luciano MD Referring Provider Active St art: January 06, 2025 End: January 06, 2025 Lakhwinder Lemus [employer] NET DEVELOPER, [employer] NET DEVELOPER-C Attending Provider Active S tart: January 06, 2025 End: January 06, 2025 Team Status: Inactive Member Role Status Dates Dr. Ramona Luciano MD Primary Care Provider Active Start: February 19, 2025 End: February 19, 2025 Dr. Arslan Carver , Emergency Provider Active Start: February 19, 2025 End: February 19, 2025 FOR RECORDS PERTAINING TO PATIENTS WHO ARE [...] BE BASED ON THE PRIMARY CLINICAL RECORDS. [employer] provides no warranty or guarantee of the accuracy or completeness of information in this document.
[2025-08-12 15:23] LABS: Hematocrit 42.0 % (37-47); Hemoglobin 13.7 g/dL (12.0-15.0); Mean Corp Hgb Conc 32.6 g/dL (32-36); Mean Corpuscular Volume 97.0 fL (81-99); Mean Platelet Vol. 11.1 fl (6.2-12.0); Platelet Count 281 K/mm3 (150-450); RBC Distribution Width CV 12.6 % (11.6-14.6); RBC Distribution Width SD 44.8 fl (35.1-43.9); Red Blood Count 4.33 M/mm3 (4.2-5.4); White Blood Count 6.8 K/mm3 (4.4-11.0)
[2025-08-12 15:32] LABS: PTHIN 58 pg/mL (11-61)
[2025-08-12 15:52] LABS: AST(SGOT) 20 U/L (<=31); Alanine Aminotransfer ALT/SGPT 16 U/L (<=34); Albumin, Serum 4.5 g/dL (3.4-4.8); Alkaline Phosphatase 83 U/L (35-104); Anion Gap 13 (5-15); BUN 18 mg/dL (4-19); BUN/Creat Ratio 22.1 RATIO (10-20); Calcium,Total 9.5 mg/dL (7.6-11.0); Carbon Dioxide 21.7 mmol/L (21.0-32.0); Chloride 103 mmol/L (98-108); Ferritin 62 ng/mL (22-378); Globulin 2.5 g/dL (2.2-4.2); Glucose 95 mg/dL (70-99); Potassium 4.1 mmol/L (3.3-5.1); Vitamin D,25 Hydroxy 37.2 ng/mL (30-100)
[2025-08-12 15:57] LABS: CRP < 3.00 mg/L (0.0-3.0)
[2025-08-15 08:09] LABS: ANTINUCLEAR ANTIBODIES DIRECT Positive (Negative); PROGESTERONE 0.1 ng/mL (.)
[2025-08-17 12:08] LABS: Lyme Scn Total Ab w/Rflx Negative (Negative); PROEL- A/G Ratio 1.5 (0.7-1.7); PROEL- Albumin 4.0 g/dL (2.9-4.4); PROEL- Alpha-1 Globulin 0.2 g/dL (0.0-0.4); PROEL- Alpha-2 Globulin 0.7 g/dL (0.4-1.0); PROEL- Beta Globulin 1.0 g/dL (0.7-1.3); PROEL- Gamma Globulin 0.8 g/dL (0.4-1.8); PROEL- Globulin, Total 2.6 g/dL (2.2-3.9); PROEL- TOTAL PROTEIN 6.6 g/dL (6.0-8.5); PROEL-M-Spike Comment: g/dL (Not Observed); Testosterone, % Free 1.95 % (0.50-2.80); Testosterone, Free <.06 ng/dL (0.10-0.85)
== END | disposition home or self-care (01) ==
LOC: MFPLAB 12:24
PROVIDERS: PCP Family Medicine; Visit Provider Family Medicine
DX: M51.379 Other intervertebral disc degeneration, lumbosacral region without mention of lumbar back pain or lower extremity pain (principal); R53.83 Other fatigue
CPT/HCPCS: 36415; 80053; 82306; 82670; 82728; 83970; 84144; 84165; 84402; 84403; 84443; 85027; 85652; 86038; 86140; 86431; 86618

== ENCOUNTER → 2025-08-16 | Outpatient (CLI) | payer MEDICARE, OTHER, SELFPAY ==
--- NOTE | 2025-08-16 14:30 | US_ITS ---
PROCEDURE: THYROID 08/16/2025 REASON FOR EXAM: LEFT LOWER POLE FULLNESS TECHNIQUE: Procedure Code: USTHY Modality: US Procedure: THYROID COMPARISON: July 10, 2020 FINDINGS: Right thyroid lobe size: 5.3 x 1.8 x 1.8 cm Left thyroid lobe size: 4 x 1.3 x 1.6 cm Isthmus: 0.2 cm Background parenchymal echotexture is heterogeneous echo architecture. Nodules: 1. Lobe: Left, Location: Lower, Size: 0.5 cm, Stability: Stable Composition: Solid or almost completely solid (+2) Echogenicity: Hypoechoic (+2) Margin: Smooth (+0) Shape: Wider than tall (+0) Echogenic Foci: None (+0) TI-RADS: 4 US/Thyroid IMPRESSION: Stable small 5 mm hypoechoic nodule in the left thyroid lobe. TI-RADS: 4. Diffusely heterogeneous thyroid gland. RECOMMENDATION: Follow up ultrasound in 12 months to assess stability. Reading Location: [facility]
== END | disposition home or self-care (01) ==
LOC: US 13:57
PROVIDERS: PCP Family Medicine; Referring Provider Family Medicine; Visit Provider Family Medicine
DX: E07.9 Disorder of thyroid, unspecified (principal)
CPT/HCPCS: 76536